=== PATIENT | male | born 1940 | race Caucasian/White ===

== ENCOUNTER 2020-07-16 16:08 | Inpatient (IN) | payer OTHER ==
--- OUTSIDE RECORDS SUMMARY | 2020-07-16 19:06 | XMS REPORT | Continuity of Care Document ---
:1940 Author Organization [facility] t Address [address] [place] [address] Care Team Providers Name Role Phone Lena Banks MD Attending Clinician Payers Payer Name Policy Type Policy Number Effective Date Expiration Date S ource Problems This patient has no known problems. Allergies, Adverse Reactions, Alerts Allergy Allergy Status Severity Reaction(s) Onset Inactive Treating Comm ents Source Name Type Date Date Clinician No Known DA Active U [facility] 00:00: d 00 [facility] Medications This patient has no known medications. Procedures This patient has no known procedures. Encounters Start End Encounter Admission Attending Care Care Encounter Source Date/Time Date/Time Type Type Clinicians Facility Department ID 2019-06-28 2019-06-28 [facility] [id number] 09:30:00 23:59:00 Encounter [email or web address] [id number] Surgical 4.2.7.2.686 Specialti [id number] [address] [place] 2019-06-28 2019-06-28 Office [facility] [id number] 09:13:51 10:04:54 Visit Miguel [email or web address] 350.1.13.10 Surgical 4.2.7.2.686 Specialti [id number] [address] Results Test Description Test Time Test Comments Results Result Comments Source GLUBED 2020-07-01 13:14:00 Test Item Value Reference Range Interpretation Comme nts GLUBED (test code = GLUBED) 109 MG/DL 74-106 H [id number] 13:14:00 Test Item Value Reference Range Interpretation Comments GLUBED (test code = GLUBED) 109 MG/DL 74-106 H [id number] 06:47:00 Test Item Value Reference Range Interpretation Comments GLUBED (test code = GLUBED) 111 MG/DL 74-106 H COMPREHENSIVE METABOLIC [id number] 04:04:00 Test Item Value Reference Range Interpretation Comments SODIUM (test code = 137 mmol/L 137-145 N NA) POTASSIUM (test code 4.0 mmol/L 3.4-5.0 N = K) CHLORIDE (test code 103 mmol/L 98-107 N = CL) CARBON DIOXIDE (test 26 mmol/L 22-30 N code = CO2) GLUCOSE (test code = 125 mg/dL 74-106 H GLU) BLOOD UREA NITROGEN 14 mg/dL 9-20 N (test code = BUN) GLOMERULAR 62 >60 The estimated FILTRATION RATE glomerular f iltration (test code = GFR) rate is co mputed usingpatient ra ce, age (>18), sex, and serum creatinine. If anyof the needed data elements are mi ssing the Laboratory cannot compute an destini mation of the glomerul ar filtration rate . CREATININE (test 1.2 mg/dL 0.7-1.3 N code = CREAT) TOTAL PROTEIN (test 6.5 g/dL 6.3-8.2 N code = PROT) " A positive bias m ay occur for patients ta rasheed Eltrombopag(a b one marrow stimulan t used to treat thrombocytopeni a andaplastic anemia)." ALBUMIN (test code = 3.6 g/dL 3.5-5.0 N ALB) CALCIUM (test code = 9.1 mg/dL 8.4-10.2 N CA) BILIRUBIN TOTAL 0.5 mg/dL 0.2-1.3 N "A positive bias may (test code = BILT) occur for patients taking Eltrombo pag(a bone marrow sti mulant used to treat thrombocytopeni a andaplastic ane frederick)." BILIRUBIN CONJUGATED 0 mg/dL 0-0.3 N "A posi tive bias may (test code = BILCON) occur f or patients taking Eltrombo pag(a bone marrow sti mulant used to treat thrombocytopeni a andaplastic ane frederick)." C ONJUGATE D BILIRUBIN IS THE REPLACEMENT ASS AY FOR DIRECTBILIRUBIN . BILIRUBIN 0.5 mg/dL 0-1.1 N UNCONJUGATED (test code = BILUNC) SGOT/AST (test code 32 U/L 15-46 N = AST) SGPT/ALT (test code 18 U/L 0-34 N = ALT) ALKALINE PHOSPHATASE 53 U/L 38-126 N (test code = ALKP) THROMBOPLASTIN TIME [id number] 03:58:00 Test Item Value Reference Range Interpretation Comments THROMBOPLASTIN TIME 29.8 SECONDS 23.4-37.0 N Therap eutic Range PARTIAL (test code = for Hep cr PTT) EFFECTIVE Heparin IU/mL aPT T Seconds0.3 64.30.7 88.8 IS PATIENT ON ANTICOAGULANTS ? YESLIST ANTICOAGULANT/ANTI PLT MEDICATION: Enoxaprin (Lovenox)CBC W/AUTO [id number] 03:51:00 Test Item Value Reference Range Interpretation Comments WHITE BLOOD CELL (test code = 6.1 x10 3/uL 5.0-12.0 N WBC) RED BLOOD CELL (test code = 3.93 x10 6/uL 4.70-6.10 L RBC) HEMOGLOBIN (test code = HGB) 11.9 g/dL 14.0-18.0 L HEMATOCRIT (test code = HCT) 34.0 % 37.0-49.0 L MEAN CELL VOLUME (test code = 87 fL 80-94 N MCV) MEAN CELL HGB (test code = MCH) 30.3 pg 27-31 N MEAN CELL HGB CONCENTRATION 35.0 g/dL 33-37 N (test code = MCHC) RED CELL DISTRIBUTION WIDTH 12.1 % 11.5-15.5 N (test code = RDW) PLATELET COUNT (test code = 320 x10 3/uL 130-400 N PLT) MEAN PLATELET VOLUME (test code 8.9 fL 9.4-16.4 L = MPV) NEUTROPHIL % (test code = NT%) 58.0 % 43-65 N IMMATURE GRANULOCYTE % (test 0.5 % 0.0-2.0 N code = IG%) LYMPHOCYTE % (test code = LY%) 21.4 % 20.5-45.5 N MONOCYTE % (test code = MO%) 11.0 % 5.5-11.7 N EOSINOPHIL % (test code = EO%) 8.6 % 0.9-2.9 H BASOPHIL % (test code = BA%) 0.5 % 0.2-1.0 N NUCLEATED RBC % (test code = 0.0 % 0-1.0 N NRBC%) NEUTROPHIL # (test code = NT#) 3.52 x10 3/uL 2.2-4.8 N IMMATURE GRANULOCYTE # (test 0.03 x10 3/uL 0-0.03 N code = IG#) LYMPHOCYTE # (test code = LY#) 1.30 x10 3/uL 1.3-2.9 N MONOCYTE # (test code = MO#) 0.67 x10 3/uL 0.3-0.8 N EOSINOPHIL # (test code = EO#) 0.52 x10 3/uL 0.0-0.2 H BASOPHIL # (test code = BA#) 0.03 x10 3/uL 0.0-0.1 N [id number] 20:40:00 Test Item Value Reference Range Interpretation Comments GLUBED (test code = GLUBED) 141 MG/DL 74-106 H [id number] 16:58:00 Test Item Value Reference Range Interpretation Comments GLUBED (test code = GLUBED) 123 MG/DL 74-106 H [id number] 12:05:00 Test Item Value Reference Range Interpretation Comments GLUBED (test code = GLUBED) 165 MG/DL 74-106 H - MRI UP JNT W/O CONT [id number] 08:50:00 [facility] : 1940 Sex: M FAX: Louis Araiza MD [phone] [place]: St: [facility] FAX: Konstantin Cunha mmad [phone] Name: RENEE DEUTSCH [facility] : 1940 Age/S: 80/M [address] Unit #: [id number] Loc: C.[address] [place] [address] Phys: Jose D Millan MD Acct: [id number] Dis Date: Status: ADM IN PHONE #: [phone] Exam Date: 06/30/2020 0716 FAX #: [phone] Reason:septic arthritis EXAMS: CPT CODE: [id number] [place] JNT W/[place] [address] MRI OF THE LEFT WRIST WITHOUT INTRAVENOUS CONTRAST HISTORY: Septic arthritis. TECHNIQUE: Multiplanar and multisequential MR imaging of the left wrist was performed without the administration of intravenous gadolinium. COMPARISON: 06/29/2020 MR exam. FINDINGS: There is no evidence for acute fracture. There is no dislocation. There are subtle erosions at the lateral margin of the distal scaphoid pole as best seen on coronal T1 weighted image 11, although without sniffing and marrow edema. There isdegenerative marrow edema scattered throughout the wrist, this appears most pronounced at the 1st CMC joint that is moderate in degree. Note is made of prominent subchondral cysts atthe volar and medial aspect of the distal radius as well as at the radial styloid process. There are joint effusions involving the distal radioulnar, radiocarpal and intercarpal joint spaces. There is ill- definition of the scapholunate ligament without discrete fluid traversing the ligament. The lunotriquetral ligament is intact. The central disc of the TFCC is intact. There is mild fluid distention of the flexor pollicis longus tendon at the level of the 1st metacarpal. The remaining flexor and extensor tendons are intact. The median nerve has normal signal in the region of the carpal tunnel. The ulnar nerve is unremarkable. There is no signal abnormality in the region of Guyon's canal. The visualized musculature is normal in signal. There is diffuse subcutaneous edemaabout the wrist extending dorsally towards the hand. IMPRESSION: Distal radioulnar, radiocarpal and intercarpal joint effusions. Subtle erosions at the distal scaphoid pole although without PAGE 1 Signed Report (CONTINUED) FAX: Louis Araiza MD [phone] [place]: St: ADM FAX: Jose D Cunha Name: RENEE DEUTSCH [facility] : 1940 Age/S: 80/M [address] Unit #: [id number] Loc: C.[address] [place] [address] Phys: Jose D Millan MD Acct: [id number] Dis Date: Status: ADM IN PHONE #: [phone] Exam Date: 06/30/2020715 FAX #: [phone] Reason: septic arthritis EXAMS:CPT CODE: [id number] [place] JNT W/[place] [address] <Continued> significant edema, age indeterminate. If there is concern for septic arthritis, consider joint fluid aspiration. Mild focal flexor pollicis longus tenosynovitis. 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 at 0850 Reported and signed by: Tato Maurice MD CC: Louis Garza MD; Jose D Millan MD Technologist: ROLANDA FIERRO [facility] Date/Time/By: 06/30/2020 (0850) : By: [email or web address] PAGE2 Signed Report FAX: Louis Araiza MD [phone] [place]: St: ADM FAX: Jose D Cunha [phone] Name: RENEE DEUTSCH [place] : 1940 Age/S: 80/M [address] Unit #: [id number] Loc: C.[address] [place] [address] Phys: Jose D Millan MD Acct: [id number] Dis Date: Status: ADM IN PHONE #: [phone] Exam Date: 06/30/202016 FAX #: [phone] Reason: septic arthritis EXAMS: CPT CODE: [id number] [place] JNT W/[place] [address] <Continued> Orig Print D/T: S: 06/30/2020 (1350) PAGE 3 Signed [id number] 06:22:00 Test Item Value Reference Range Interpretation Comments GLUBED (test code = GLUBED) 179 MG/DL 74-106 H COMPREHENSIVE METABOLIC [id number] 05:30:00 Test Item Value Reference Range Interpretation Comments SODIUM (test code = 137 mmol/L 137-145 N NA) POTASSIUM (test code 4.0 mmol/L 3.4-5.0 N = K) CHLORIDE (test code 105 mmol/L 98-107 N = CL) CARBON DIOXIDE (test 23 mmol/L 22-30 N code = CO2) GLUCOSE (test code = 116 mg/dL 74-106 H GLU) BLOOD UREA NITROGEN 18 mg/dL 9-20 N (test code = BUN) GLOMERULAR 62 >60 The estimated FILTRATION RATE glomerular f iltration (test code = GFR) rate is co mputed usingpatient ra ce, age (>18), sex, and serum creatinine. If anyof the needed data elements are mi ssing the Laboratory cannot compute an destini mation of the glomerul ar filtration rate . CREATININE (test 1.2 mg/dL 0.7-1.3 N code = CREAT) TOTAL PROTEIN (test 6.8 g/dL 6.3-8.2 N code = PROT) " A positive bias m ay occur for patients ta rasheed Eltrombopag(a b one marrow stimulan t used to treat thrombocytopeni a andaplastic anemia)." ALBUMIN (test code = 3.6 g/dL 3.5-5.0 N ALB) CALCIUM (test code = 9.0 mg/dL 8.4-10.2 N CA) BILIRUBIN TOTAL 0.8 mg/dL 0.2-1.3 N "A positive bias may (test code = BILT) occur for patients taking Eltrombo pag(a bone marrow sti mulant used to treat thrombocytopeni a andaplastic ane frederick)." BILIRUBIN CONJUGATED 0 mg/dL 0-0.3 N "A posi tive bias may (test code = BILCON) occur f or patients taking Eltrombo pag(a bone marrow sti mulant used to treat thrombocytopeni a andaplastic ane frederick)." C ONJUGATE D BILIRUBIN IS THE REPLACEMENT ASS AY FOR DIRECTBILIRUBIN . BILIRUBIN 0.5 mg/dL 0-1.1 N UNCONJUGATED (test code = BILUNC) SGOT/AST (test code 27 U/L 15-46 N = AST) SGPT/ALT (test code 14 U/L 0-34 N = ALT) ALKALINE PHOSPHATASE 55 U/L 38-126 N (test code = ALKP) [id number] 05:30:00 Test Item Value Reference Range Interpretation Comments PHOSPHOROUS (test code = PHOS) 3.3 mg/dL 2.5-4.5 N [id number] 05:30:00 Test Item Value Reference Range Interpretation Comments MAGNESIUM (test code = MAG) 2.0 mg/dL 1.6-2.3 N TSH REFLEX TO [id number] 05:30:00 Test Item Value Reference Range Interpretation Comments TSH REFLEX TO FT4 3.020 MIU/L 0.465-4.68 N (test code = TSHREFLEX) *A positive bias m ay occur for patie nts taking BIOTINsupplemen ts. C REACTIVE [id number] 05:30:00 Test Item Value Reference Range Interpretation Comments C REACTIVE PROTEIN (test code = 138.1 mg/L 0-9 H CRP) COMPREHENSIVE METABOLIC [id number] 04:44:00 Test Item Value Reference Range Interpretation Comments SODIUM (test code = 137 mmol/L 137-145 N NA) POTASSIUM (test code 4.0 mmol/L 3.4-5.0 N = K) CHLORIDE (test code 105 mmol/L 98-107 N = CL) CARBON DIOXIDE (test 23 mmol/L 22-30 N code = CO2) GLUCOSE (test code = 116 mg/dL 74-106 H GLU) BLOOD UREA NITROGEN 18 mg/dL 9-20 N (test code = BUN) GLOMERULAR 62 >60 The estimated FILTRATION RATE glomerular f iltration (test code = GFR) rate is co mputed usingpatient ra ce, age (>18), sex, and serum creatinine. If anyof the needed data elements are mi ssing the Laboratory cannot compute an destini mation of the glomerul ar filtration rate . CREATININE (test 1.2 mg/dL 0.7-1.3 N code = CREAT) TOTAL PROTEIN (test 6.8 g/dL 6.3-8.2 N code = PROT) " A positive bias m ay occur for patients ta rasheed Eltrombopag(a b one marrow stimulan t used to treat thrombocytopeni a andaplastic anemia)." ALBUMIN (test code = 3.6 g/dL 3.5-5.0 N ALB) CALCIUM (test code = 9.0 mg/dL 8.4-10.2 N CA) BILIRUBIN TOTAL 0.8 mg/dL 0.2-1.3 N "A positive bias may (test code = BILT) occur for patients taking Eltrombo pag(a bone marrow sti mulant used to treat thrombocytopeni a andaplastic ane frederick)." BILIRUBIN CONJUGATED 0 mg/dL 0-0.3 N "A posi tive bias may (test code = BILCON) occur f or patients taking Eltrombo pag(a bone marrow sti mulant used to treat thrombocytopeni a andaplastic ane frederick)." C ONJUGATE D BILIRUBIN IS THE REPLACEMENT ASS AY FOR DIRECTBILIRUBIN . BILIRUBIN 0.5 mg/dL 0-1.1 N UNCONJUGATED (test code = BILUNC) SGOT/AST (test code 27 U/L 15-46 N = AST) SGPT/ALT (test code 14 U/L 0-34 N = ALT) ALKALINE PHOSPHATASE 55 U/L 38-126 N (test code = ALKP) [id number] 04:44:00 Test Item Value Reference Range Interpretation Comments PHOSPHOROUS (test code = PHOS) 3.3 mg/dL 2.5-4.5 N [id number] 04:44:00 Test Item Value Reference Range Interpretation Comments MAGNESIUM (test code = MAG) 2.0 mg/dL 1.6-2.3 N TSH REFLEX TO [id number] 04:44:00 Test Item Value Reference Range Interpretation Comments TSH REFLEX TO FT4 (test code = MIU/L 0.465-4.68 TSHREFLEX) C REACTIVE [id number] 04:44:00 Test Item Value Reference Range Interpretation Comments C REACTIVE PROTEIN (test code = 138.1 mg/L 0-9 H CRP) COMPREHENSIVE METABOLIC [id number] 04:32:00 Test Item Value Reference Range Interpretation Comments SODIUM (test code = 137 mmol/L 137-145 N NA) POTASSIUM (test code 4.0 mmol/L 3.4-5.0 N = K) CHLORIDE (test code 105 mmol/L 98-107 N = CL) CARBON DIOXIDE (test 23 mmol/L 22-30 N code = CO2) GLUCOSE (test code = 116 mg/dL 74-106 H GLU) BLOOD UREA NITROGEN 18 mg/dL 9-20 N (test code = BUN) GLOMERULAR 62 >60 The estimated FILTRATION RATE glomerular f iltration (test code = GFR) rate is co mputed usingpatient ra ce, age (>18), sex, and serum creatinine. If anyof the needed data elements are mi ssing the Laboratory cannot compute an destini mation of the glomerul ar filtration rate . CREATININE (test 1.2 mg/dL 0.7-1.3 N code = CREAT) TOTAL PROTEIN (test 6.8 g/dL 6.3-8.2 N code = PROT) " A positive bias m ay occur for patients ta rasheed Eltrombopag(a b one marrow stimulan t used to treat thrombocytopeni a andaplastic anemia)." ALBUMIN (test code = 3.6 g/dL 3.5-5.0 N ALB) CALCIUM (test code = 9.0 mg/dL 8.4-10.2 N CA) BILIRUBIN TOTAL 0.8 mg/dL 0.2-1.3 N "A positive bias may (test code = BILT) occur for patients taking Eltrombo pag(a bone marrow sti mulant used to treat thrombocytopeni a andaplastic ane frederick)." BILIRUBIN CONJUGATED 0 mg/dL 0-0.3 N "A posi tive bias may (test code = BILCON) occur f or patients taking Eltrombo pag(a bone marrow sti mulant used to treat thrombocytopeni a andaplastic ane frederick)." C ONJUGATE D BILIRUBIN IS THE REPLACEMENT ASS AY FOR DIRECTBILIRUBIN . BILIRUBIN 0.5 mg/dL 0-1.1 N UNCONJUGATED (test code = BILUNC) SGOT/AST (test code 27 U/L 15-46 N = AST) SGPT/ALT (test code 14 U/L 0-34 N = ALT) ALKALINE PHOSPHATASE 55 U/L 38-126 N (test code = ALKP) [id number] 04:32:00 Test Item Value Reference Range Interpretation Comments PHOSPHOROUS (test code = PHOS) 3.3 mg/dL 2.5-4.5 N [id number] 04:32:00 Test Item Value Reference Range Interpretation Comments MAGNESIUM (test code = MAG) 2.0 mg/dL 1.6-2.3 N TSH REFLEX TO [id number] 04:32:00 Test Item Value Reference Range Interpretation Comments TSH REFLEX TO FT4 (test code = MIU/L 0.465-4.68 TSHREFLEX) C REACTIVE [id number] 04:32:00 Test Item Value Reference Range Interpretation Comments C REACTIVE PROTEIN (test code = CRP) mg/L 0-9 CBC W/AUTO [id number] 04:09:00 Test Item Value Reference Range Interpretation Comments WHITE BLOOD CELL (test code = 6.4 x10 3/uL 5.0-12.0 N WBC) RED BLOOD CELL (test code = 3.85 x10 6/uL 4.70-6.10 L RBC) HEMOGLOBIN (test code = HGB) 11.4 g/dL 14.0-18.0 L HEMATOCRIT (test code = HCT) 33.5 % 37.0-49.0 L MEAN CELL VOLUME (test code = 87 fL 80-94 N MCV) MEAN CELL HGB (test code = MCH) 29.6 pg 27-31 N MEAN CELL HGB CONCENTRATION 34.0 g/dL 33-37 N (test code = MCHC) RED CELL DISTRIBUTION WIDTH 12.1 % 11.5-15.5 N (test code = RDW) PLATELET COUNT (test code = 294 x10 3/uL 130-400 N PLT) MEAN PLATELET VOLUME (test code 8.8 fL 9.4-16.4 L = MPV) NEUTROPHIL % (test code = NT%) 60.7 % 43-65 N IMMATURE GRANULOCYTE % (test 0.2 % 0.0-2.0 N code = IG%) LYMPHOCYTE % (test code = LY%) 18.8 % 20.5-45.5 L MONOCYTE % (test code = MO%) 11.8 % 5.5-11.7 H EOSINOPHIL % (test code = EO%) 7.9 % 0.9-2.9 H BASOPHIL % (test code = BA%) 0.6 % 0.2-1.0 N NUCLEATED RBC % (test code = 0.0 % 0-1.0 N NRBC%) NEUTROPHIL # (test code = NT#) 3.89 x10 3/uL 2.2-4.8 N IMMATURE GRANULOCYTE # (test 0.01 x10 3/uL 0-0.03 N code = IG#) LYMPHOCYTE # (test code = LY#) 1.21 x10 3/uL 1.3-2.9 L MONOCYTE # (test code = MO#) 0.76 x10 3/uL 0.3-0.8 N EOSINOPHIL # (test code = EO#) 0.51 x10 3/uL 0.0-0.2 H BASOPHIL # (test code = BA#) 0.04 x10 3/uL 0.0-0.1 N [id number] 21:33:00 Test Item Value Reference Range Interpretation Comments GLUBED (test code = GLUBED) 157 MG/DL 74-106 H [id number] 17:16:00 Test Item Value Reference Range Interpretation Comments GLUBED (test code = GLUBED) 116 MG/DL 74-106 H FLUID,[id number] 13:56:00 Test Item Value Reference Range Interpretation Comments FLUID,SYNOVIAL (test code = FLSYNOV) RUN DATE: 06/29/20 [place] [facility] PAGE 1 RUN TIME: 1356 Specimen Inquiry RUN USER: INTERFACE PATIENT: RENEE DEUTSCH LOC: [address] #: [id number] AGE/SX: 80/M ROOM: [facility] RE06/26/20[facility] DR: Louis Garza MD : 38 BED: A DIS: STATUS: ADM IN TLOC: SPEC #: [id number] RECD: 06/29/20 STATUS: LISA BLANCO #: [id number] DHARMESH: 06/27/20-1507 [facility] DR: Ruiz Gunter MD ENTERED: 06/29/20 SP TYPE: FL SYNOVIA OT DR: DOES_NOT KNOW Self Referred Robin Cerna Srinivasa R MD Jordan, Matthew Emerson MDORDERED: CYFWBSMI, # OF SLIDES TISSUES: A. SYNOVIAL FLUID - LEFT WRIST CLINICAL HISTORY LEFT WRIST EFFUSION, SEPTIC JOINT FINAL MICROSCOPIC DIAGNOSIS A. SYNOVIAL FLUID, LEFT WRIST, ASPIRATION, DIRECT SMEAR: CALCIUM PYROPHOSPHATE CRYSTALS NOTED BY POLARIZED LIGHT MICROSCOPY CPT: 10448 GROSS DESCRIPTION Equipment, specimen container and paperwork all match. The specimen is received without fixative labeled with the patient's name (GET) and medical record number and designated " Left wrist synovial fluid ". It consists of approximately 8 drops of clear thick colorless flid. The specimen is submitted for cytologic preparation. DIRECT SMEARS: 1 BL/av Signed SIGNATURE ON FILE Tereza Travis 06/29/20 1356 END OF REPORT VANCOMYCIN [id number] 12:45:00 Test Item Value Reference Range Interpretation Comments VANCOMYCIN TROUGH (test code = 10.86 ug/mL 10-20.0 N VANCT) [id number] 12:12:00 Test Item Value Reference Range Interpretation Comments GLUBED (test code = GLUBED) 108 MG/DL 74-106 H - MRI UPPER EX W/O CONT [id number] 10:03:00 [facility] : 1940 Sex: M FAX: Louis Araiza MD [phone] [place]: St: ADM FAX: Bk Vaughn MD R2 Name: RENEE DEUTSCH [facility] : 1940 Age/S: 80/M [address] Unit #: [id number] Loc: C.[address] [place] [address] Phys: Marlon Vaughn MD R2 Acct: [id number] Dis Date: Status: ADM IN PHONE #: [phone] Exam Date: 06/29/2020 0851 FAX #: [phone] Reason:Left arm pain EXAMS: CPT CODE: [id number] MRI UPPER EX W/[place] [id number] EXAMINATION: MRI left upper extremity without contrast INDICATION: Left arm pain COMPARISON: No prior left upper extremity MRI for comparison; reference made to left upper extremity arterial and venous Doppler examinations performed 06/26/2020 TECHNIQUE:Multisequence multiplanar MRI of the left upper extremity was performed from level of the elbow to level of wrist without contrast. FINDINGS: Exam is significantly limited by motion artifact. Edema of the subcutaneous soft tissues and fascial planes throughout the visualized left upper extremity. Small elbow joint effusion. No focal fluid collection is seen, evaluation limited without contrast. Bone marrow signal is normal throughout without evidence of bone marrow edema, fracture, or dislocation. IMPRESSION: Exam significantly limited by motion artifact. Soft tissue edema and small elbow joint effusion. No focal fluid collection or marrow signal abnormality identified. at 1003 Reported and signed by: Eder Davis M.D. CC: Louis Garza MD; Marlon Vaughn MD Technologist: ROLANDA FIERRO [facility] Date/Time/By: 06/29/2020 (1003) : By: [email or web address] PAGE 1 Signed Report FAX: Louis Araiza MD [phone] [place]: St: ADM FAX: Marlon Vaughn MD R2 Name: RENEE DEUTSCH [facility] : 1940 Age/S: 80[address] Unit #: [id number] Loc: C.[address] [place] [address] Phys: Marlon Vaughn MD R2 Acct: [id number] Dis Date: Status: ADM IN PHONE #: [phone] Exam Date: 06/29/2020 0851 FAX #: [phone] Reason: Left arm pain EXAMS: CPT CODE: [id number] MRI UPPER EX W/[place] [address] <Continued> Orig Print D/T: S: 06/29/2020 (6999) PAGE 2 Signed ReportCOMPREHENSIVE METABOLIC [id number] 02:48:00 Test Item Value Reference Range Interpretation Comments SODIUM (test code = 138 mmol/L 137-145 N NA) POTASSIUM (test code 3.8 mmol/L 3.4-5.0 N = K) CHLORIDE (test code 104 mmol/L 98-107 N = CL) CARBON DIOXIDE (test 29 mmol/L 22-30 N code = CO2) GLUCOSE (test code = 139 mg/dL 74-106 H GLU) BLOOD UREA NITROGEN 15 mg/dL 9-20 N (test code = BUN) GLOMERULAR 62 >60 The estimated FILTRATION RATE glomerular f iltration (test code = GFR) rate is co mputed usingpatient ra ce, age (>18), sex, and serum creatinine. If anyof the needed data elements are mi ssing the Laboratory cannot compute an destini mation of the glomerul ar filtration rate . CREATININE (test 1.2 mg/dL 0.7-1.3 N code = CREAT) TOTAL PROTEIN (test 6.0 g/dL 6.3-8.2 L code = PROT) " A positive bias m ay occur for patients ta rasheed Eltrombopag(a b one marrow stimulan t used to treat thrombocytopeni a andaplastic anemia)." ALBUMIN (test code = 3.3 g/dL 3.5-5.0 L ALB) CALCIUM (test code = 8.8 mg/dL 8.4-10.2 N CA) BILIRUBIN TOTAL 0.5 mg/dL 0.2-1.3 N "A positive bias may (test code = BILT) occur for patients taking Eltrombo pag(a bone marrow sti mulant used to treat thrombocytopeni a andaplastic ane [place])." BILIRUBIN CONJUGATED 0 mg/dL 0-0.3 N "A posi tive bias may (test code = BILCON) occur f or patients taking Eltrombo pag(a bone marrow sti mulant used to treat thrombocytopeni a andaplastic ane [place])." C ONJUGATE D BILIRUBIN IS THE REPLACEMENT ASS AY FOR DIRECTBILIRUBIN . BILIRUBIN 0.5 mg/dL 0-1.1 N UNCONJUGATED (test code = BILUNC) SGOT/AST (test code 25 U/L 15-46 N = AST) SGPT/ALT (test code U/L 0-34 = ALT) ALKALINE PHOSPHATASE 51 U/L 38-126 N (test code = ALKP) COMPREHENSIVE METABOLIC [id number] 02:48:00 Test Item Value Reference Range Interpretation Comments SODIUM (test code = 138 mmol/L 137-145 N NA) POTASSIUM (test code 3.8 mmol/L 3.4-5.0 N = K) CHLORIDE (test code 104 mmol/L 98-107 N = CL) CARBON DIOXIDE (test 29 mmol/L 22-30 N code = CO2) GLUCOSE (test code = 139 mg/dL 74-106 H GLU) BLOOD UREA NITROGEN 15 mg/dL 9-20 N (test code = BUN) GLOMERULAR 62 >60 The estimated FILTRATION RATE glomerular f iltration (test code = GFR) rate is co mputed usingpatient ra ce, age (>18), sex, and serum creatinine. If anyof the needed data elements are mi ssing the Laboratory cannot compute an destini mation of the glomerul ar filtration rate . CREATININE (test 1.2 mg/dL 0.7-1.3 N code = CREAT) TOTAL PROTEIN (test 6.0 g/dL 6.3-8.2 L code = PROT) " A positive bias m ay occur for patients ta rasheed Eltrombopag(a b one marrow stimulan t used to treat thrombocytopeni a andaplastic anemia)." ALBUMIN (test code = 3.3 g/dL 3.5-5.0 L ALB) CALCIUM (test code = 8.8 mg/dL 8.4-10.2 N CA) BILIRUBIN TOTAL 0.5 mg/dL 0.2-1.3 N "A positive bias may (test code = BILT) occur for patients taking Eltrombo pag(a bone marrow sti mulant used to treat thrombocytopeni a andaplastic ane frederick)." BILIRUBIN CONJUGATED 0 mg/dL 0-0.3 N "A posi tive bias may (test code = BILCON) occur f or patients taking Eltrombo pag(a bone marrow sti mulant used to treat thrombocytopeni a andaplastic ane frederick)." C ONJUGATE D BILIRUBIN IS THE REPLACEMENT ASS AY FOR DIRECTBILIRUBIN . BILIRUBIN 0.5 mg/dL 0-1.1 N UNCONJUGATED (test code = BILUNC) SGOT/AST (test code 25 U/L 15-46 N = AST) SGPT/ALT (test code 13 U/L 0-34 N = ALT) ALKALINE PHOSPHATASE 51 U/L 38-126 N (test code = ALKP) CBC W/AUTO [id number] 02:36:00 Test Item Value Reference Range Interpretation Comments WHITE BLOOD CELL (test code = 6.1 x10 3/uL 5.0-12.0 N WBC) RED BLOOD CELL (test code = 3.68 x10 6/uL 4.70-6.10 L RBC) HEMOGLOBIN (test code = HGB) 10.9 g/dL 14.0-18.0 L HEMATOCRIT (test code = HCT) 31.5 % 37.0-49.0 L MEAN CELL VOLUME (test code = 86 fL 80-94 N MCV) MEAN CELL HGB (test code = MCH) 29.6 pg 27-31 N MEAN CELL HGB CONCENTRATION 34.6 g/dL 33-37 N (test code = MCHC) RED CELL DISTRIBUTION WIDTH 12.4 % 11.5-15.5 N (test code = RDW) PLATELET COUNT (test code = 249 x10 3/uL 130-400 N PLT) MEAN PLATELET VOLUME (test code 8.8 fL 9.4-16.4 L = MPV) NEUTROPHIL % (test code = NT%) 60.7 % 43-65 N IMMATURE GRANULOCYTE % (test 0.5 % 0.0-2.0 N code = IG%) LYMPHOCYTE % (test code = LY%) 22.6 % 20.5-45.5 N MONOCYTE % (test code = MO%) 10.7 % 5.5-11.7 N EOSINOPHIL % (test code = EO%) 5.0 % 0.9-2.9 H BASOPHIL % (test code = BA%) 0.5 % 0.2-1.0 N NUCLEATED RBC % (test code = 0.0 % 0-1.0 N NRBC%) NEUTROPHIL # (test code = NT#) 3.67 x10 3/uL 2.2-4.8 N IMMATURE GRANULOCYTE # (test 0.03 x10 3/uL 0-0.03 N code = IG#) LYMPHOCYTE # (test code = LY#) 1.37 x10 3/uL 1.3-2.9 N MONOCYTE # (test code = MO#) 0.65 x10 3/uL 0.3-0.8 N EOSINOPHIL # (test code = EO#) 0.30 x10 3/uL 0.0-0.2 H BASOPHIL # (test code = BA#) 0.03 x10 3/uL 0.0-0.1 N [id number] 20:38:00 Test Item Value Reference Range Interpretation Comments GLUBED (test code = GLUBED) 179 MG/DL 74-106 H [id number] 16:27:00 Test Item Value Reference Range Interpretation Comments GLUBED (test code = GLUBED) 106 MG/DL 74-106 N VITAMIN [id number] 15:41:00 Test Item Value Reference Range Interpretation Comments VITAMIN B12 (test code = VITB12) 267 pg/mL 239-931 N FOLIC [id number] 15:41:00 Test Item Value Reference Range Interpretation Comments FOLIC ACID (test 5.52 ng/mL REFERENCE R HANNAH:2.76 - code = FOL) >20 ng/mL A positive bias m ay occur on patients milagros ing BIOTINsupplemen ts. [id number] 15:41:00 Test Item Value Reference Range Interpretation Comments FERRITIN (test code = JAX) 218 ng/mL 17.9-464 N VITAMIN [id number] 15:20:00 Test Item Value Reference Range Interpretation Comments VITAMIN B12 (test code = VITB12) pg/mL 239-931 FOLIC [id number] 15:20:00 Test Item Value Reference Range Interpretation Comments FOLIC ACID (test code = FOL) ng/mL [id number] 15:20:00 Test Item Value Reference Range Interpretation Comments FERRITIN (test code = JAX) 218 ng/mL 17.9-464 N FE W/TOTAL IRON BINDING CAP.2020-06-28 14:47:00 Test Item Value Reference Range Interpretation Comments IRON (test code = IRON) 23 ug/dL 49-181 L TOTAL IRON BINDING CAPACITY (test 198 ug/dL 261-462 L code = TIBC) IRON SATURATION (test code = FESAT) 12 % 20-55 L FE W/TOTAL IRON BINDING CAP.2020-06-28 14:42:00 Test Item Value Reference Range Interpretation Comments IRON (test code = IRON) 23 ug/dL 49-181 L TOTAL IRON BINDING CAPACITY (test ug/dL 261-462 code = TIBC) IRON SATURATION (test code = FESAT) % 20-55 VANCOMYCIN [id number] 14:42:00 Test Item Value Reference Range Interpretation Comments VANCOMYCIN PEAK (test code = 30.24 ug/mL 20.0-40.0 N VANCP) RETICULOCYTE [id number] 14:18:00 Test Item Value Reference Range Interpretation Comments RETICULOCYTE COUNT (test code = RETICA) 1.0 % 0.5-1.5 N [id number] 12:06:00 Test Item Value Reference Range Interpretation Comments GLUBED (test code = GLUBED) 191 MG/DL 74-106 H SED [id number] 06:47:00 Test Item Value Reference Range Interpretation Comments SED RATE (test code = SEDW) 68 mm/hr 0-20 H [id number] 05:57:00 Test Item Value Reference Range Interpretation Comments GLUBED (test code = GLUBED) 135 MG/DL 74-106 H [id number] 05:57:00 Test Item Value Reference Range Interpretation Comments GLUBED (test code = GLUBED) 62 MG/DL 74-106 L COMPREHENSIVE METABOLIC [id number] 05:14:00 Test Item Value Reference Range Interpretation Comments SODIUM (test code = 136 mmol/L 137-145 L NA) POTASSIUM (test code 3.6 mmol/L 3.4-5.0 N = K) CHLORIDE (test code 105 mmol/L 98-107 N = CL) CARBON DIOXIDE (test 23 mmol/L 22-30 N code = CO2) GLUCOSE (test code = 68 mg/dL 74-106 L GLU) BLOOD UREA NITROGEN 17 mg/dL 9-20 N (test code = BUN) GLOMERULAR 68 >60 The estimated FILTRATION RATE glomerular f iltration (test code = GFR) rate is co mputed usingpatient ra ce, age (>18), sex, and serum creatinine. If anyof the needed data elements are mi ssing the Laboratory cannot compute an destini mation of the glomerul ar filtration rate . CREATININE (test 1.1 mg/dL 0.7-1.3 N code = CREAT) TOTAL PROTEIN (test 6.1 g/dL 6.3-8.2 L code = PROT) " A positive bias m ay occur for patients ta rasheed Eltrombopag(a b one marrow stimulan t used to treat thrombocytopeni a andaplastic anemia)." ALBUMIN (test code = 3.2 g/dL 3.5-5.0 L ALB) CALCIUM (test code = 8.5 mg/dL 8.4-10.2 N CA) BILIRUBIN TOTAL 0.8 mg/dL 0.2-1.3 N "A positive bias may (test code = BILT) occur for patients taking Eltrombo pag(a bone marrow sti mulant used to treat thrombocytopeni a andaplastic ane frederick)." BILIRUBIN CONJUGATED 0 mg/dL 0-0.3 N "A posi tive bias may (test code = BILCON) occur f or patients taking Eltrombo pag(a bone marrow sti mulant used to treat thrombocytopeni a andaplastic ane frederick)." C ONJUGATE D BILIRUBIN IS THE REPLACEMENT ASS AY FOR DIRECTBILIRUBIN . BILIRUBIN 0.6 mg/dL 0-1.1 N UNCONJUGATED (test code = BILUNC) SGOT/AST (test code 26 U/L 15-46 N = AST) SGPT/ALT (test code 10 U/L 0-34 N = ALT) ALKALINE PHOSPHATASE 48 U/L 38-126 N (test code = ALKP) C REACTIVE [id number] 05:14:00 Test Item Value Reference Range Interpretation Comments C REACTIVE PROTEIN (test code = 237.9 mg/L 0-9 H CRP) COMPREHENSIVE METABOLIC [id number] 04:59:00 Test Item Value Reference Range Interpretation Comments SODIUM (test code = 136 mmol/L 137-145 L NA) POTASSIUM (test code 3.6 mmol/L 3.4-5.0 N = K) CHLORIDE (test code 105 mmol/L 98-107 N = CL) CARBON DIOXIDE (test 23 mmol/L 22-30 N code = CO2) GLUCOSE (test code = 68 mg/dL 74-106 L GLU) BLOOD UREA NITROGEN 17 mg/dL 9-20 N (test code = BUN) GLOMERULAR 68 >60 The estimated FILTRATION RATE glomerular f iltration (test code = GFR) rate is co mputed usingpatient ra ce, age (>18), sex, and serum creatinine. If anyof the needed data elements are mi ssing the Laboratory cannot compute an destini mation of the glomerul ar filtration rate . CREATININE (test 1.1 mg/dL 0.7-1.3 N code = CREAT) TOTAL PROTEIN (test 6.1 g/dL 6.3-8.2 L code = PROT) " A positive bias m ay occur for patients ta rasheed Eltrombopag(a b one marrow stimulan t used to treat thrombocytopeni a andaplastic anemia)." ALBUMIN (test code = 3.2 g/dL 3.5-5.0 L ALB) CALCIUM (test code = 8.5 mg/dL 8.4-10.2 N CA) BILIRUBIN TOTAL 0.8 mg/dL 0.2-1.3 N "A positive bias may (test code = BILT) occur for patients taking Eltrombo pag(a bone marrow sti mulant used to treat thrombocytopeni a andaplastic ane frederick)." BILIRUBIN CONJUGATED 0 mg/dL 0-0.3 N "A posi tive bias may (test code = BILCON) occur f or patients taking Eltrombo pag(a bone marrow sti mulant used to treat thrombocytopeni a andaplastic ane frederick)." C ONJUGATE D BILIRUBIN IS THE REPLACEMENT ASS AY FOR DIRECTBILIRUBIN . BILIRUBIN 0.6 mg/dL 0-1.1 N UNCONJUGATED (test code = BILUNC) SGOT/AST (test code 26 U/L 15-46 N = AST) SGPT/ALT (test code 10 U/L 0-34 N = ALT) ALKALINE PHOSPHATASE 48 U/L 38-126 N (test code = ALKP) C REACTIVE [id number] 04:59:00 Test Item Value Reference Range Interpretation Comments C REACTIVE PROTEIN (test code = CRP) mg/L 0-9 CBC W/AUTO [id number] 04:29:00 Test Item Value Reference Range Interpretation Comments WHITE BLOOD CELL (test code = 7.1 x10 3/uL 5.0-12.0 N WBC) RED BLOOD CELL (test code = 3.44 x10 6/uL 4.70-6.10 L RBC) HEMOGLOBIN (test code = HGB) 10.2 g/dL 14.0-18.0 L HEMATOCRIT (test code = HCT) 29.9 % 37.0-49.0 L MEAN CELL VOLUME (test code = 87 fL 80-94 N MCV) MEAN CELL HGB (test code = MCH) 29.7 pg 27-31 N MEAN CELL HGB CONCENTRATION 34.1 g/dL 33-37 N (test code = MCHC) RED CELL DISTRIBUTION WIDTH 12.4 % 11.5-15.5 N (test code = RDW) PLATELET COUNT (test code = 226 x10 3/uL 130-400 N PLT) MEAN PLATELET VOLUME (test code 9.4 fL 9.4-16.4 N = MPV) NEUTROPHIL % (test code = NT%) 64.6 % 43-65 N IMMATURE GRANULOCYTE % (test 0.4 % 0.0-2.0 N code = IG%) LYMPHOCYTE % (test code = LY%) 20.0 % 20.5-45.5 L MONOCYTE % (test code = MO%) 13.3 % 5.5-11.7 H EOSINOPHIL % (test code = EO%) 1.4 % 0.9-2.9 N BASOPHIL % (test code = BA%) 0.3 % 0.2-1.0 N NUCLEATED RBC % (test code = 0.0 % 0-1.0 N NRBC%) NEUTROPHIL # (test code = NT#) 4.61 x10 3/uL 2.2-4.8 N IMMATURE GRANULOCYTE # (test 0.03 x10 3/uL 0-0.03 N code = IG#) LYMPHOCYTE # (test code = LY#) 1.43 x10 3/uL 1.3-2.9 N MONOCYTE # (test code = MO#) 0.95 x10 3/uL 0.3-0.8 H EOSINOPHIL # (test code = EO#) 0.10 x10 3/uL 0.0-0.2 N BASOPHIL # (test code = BA#) 0.02 x10 3/uL 0.0-0.1 N [id number] 21:38:00 Test Item Value Reference Range Interpretation Comments GLUBED (test code = GLUBED) 140 MG/DL 74-106 H [id number] 15:59:00 Test Item Value Reference Range Interpretation Comments GLUBED (test code = GLUBED) 149 MG/DL 74-106 H [id number] 12:28:00 Test Item Value Reference Range Interpretation Comments GLUBED (test code = GLUBED) 90 MG/DL 74-106 N [id number] 06:02:00 Test Item Value Reference Range Interpretation Comments GLUBED (test code = GLUBED) 156 MG/DL 74-106 H [id number] 04:46:00 Test Item Value Reference Range Interpretation Comments GLUBED (test code = GLUBED) 62 MG/DL 74-106 L BASIC METABOLIC [id number] 03:50:00 Test Item Value Reference Range Interpretation Comments SODIUM (test code = 133 mmol/L 137-145 L NA) POTASSIUM (test code 4.1 mmol/L 3.4-5.0 N = K) CHLORIDE (test code = 103 mmol/L 98-107 N CL) CARBON DIOXIDE (test 18 mmol/L 22-30 L code = CO2) GLUCOSE (test code = 60 mg/dL 74-106 L GLU) BLOOD UREA NITROGEN 22 mg/dL 9-20 H (test code = BUN) GLOMERULAR FILTRATION 52 >60 L The es timated RATE (test code = glomerular filtration GFR) rate is compute d usingpatient ra ce, age (>18), sex, and serum creatinine. If anyof the needed data elements are mi ssing the Laboratory cannot compute an destini mation of the glomerul ar filtration rate . CREATININE (test code 1.4 mg/dL 0.7-1.3 H = CREAT) CALCIUM (test code = 8.8 mg/dL 8.4-10.2 N CA) CBC W/AUTO [id number] 03:32:00 Test Item Value Reference Range Interpretation Comments WHITE BLOOD CELL (test code = 12.8 x10 3/uL 5.0-12.0 H WBC) RED BLOOD CELL (test code = 4.10 x10 6/uL 4.70-6.10 L RBC) HEMOGLOBIN (test code = HGB) 12.3 g/dL 14.0-18.0 L HEMATOCRIT (test code = HCT) 35.6 % 37.0-49.0 L MEAN CELL VOLUME (test code = 87 fL 80-94 N MCV) MEAN CELL HGB (test code = MCH) 30.0 pg 27-31 N MEAN CELL HGB CONCENTRATION 34.6 g/dL 33-37 N (test code = MCHC) RED CELL DISTRIBUTION WIDTH 12.4 % 11.5-15.5 N (test code = RDW) PLATELET COUNT (test code = 249 x10 3/uL 130-400 N PLT) MEAN PLATELET VOLUME (test code 9.1 fL 9.4-16.4 L = MPV) NEUTROPHIL % (test code = NT%) 73.1 % 43-65 H IMMATURE GRANULOCYTE % (test 0.3 % 0.0-2.0 N code = IG%) LYMPHOCYTE % (test code = LY%) 14.9 % 20.5-45.5 L MONOCYTE % (test code = MO%) 11.5 % 5.5-11.7 N EOSINOPHIL % (test code = EO%) 0.0 % 0.9-2.9 L BASOPHIL % (test code = BA%) 0.2 % 0.2-1.0 N NUCLEATED RBC % (test code = 0.0 % 0-1.0 N NRBC%) NEUTROPHIL # (test code = NT#) 9.33 x10 3/uL 2.2-4.8 H IMMATURE GRANULOCYTE # (test 0.04 x10 3/uL 0-0.03 H code = IG#) LYMPHOCYTE # (test code = LY#) 1.90 x10 3/uL 1.3-2.9 N MONOCYTE # (test code = MO#) 1.47 x10 3/uL 0.3-0.8 H EOSINOPHIL # (test code = EO#) 0.00 x10 3/uL 0.0-0.2 N BASOPHIL # (test code = BA#) 0.03 x10 3/uL 0.0-0.1 N UA RFLX MICR CULT IF [id number] 00:06:00 Test Item Value Reference Range Interpretation Comments UA COLOR (test code Yellow Yellow = COLU) UA APPEARANCE (test Slightly-Cloudy Clear code = APPU) UA GLUCOSE DIPSTICK 50 (1+) Negative A (test code = DGLUU) UA BILIRUBIN Negative Negative DIPSTICK (test code = BILU) UA KETONE DIPSTICK 15 (1+) mg/dL Negative A (test code = KETU) UA SPECIFIC GRAVITY 1.016 <1.030 (test code = SGU) UA BLOOD DIPSTICK 1+ Negative A (test code = CYN) UA PH DIPSTICK (test 5.0 5.0-8.0 code = YONI) UA PROTEIN DIPSTICK NEGATIVE mg/dL Negative (test code = PROU) UA UROBILINOGEN Negative mg/dL Negative DIPSTICK (test code = URO) UA NITRITE DIPSTICK Negative Negative (test code = CLAYTON) UA LEUKOCYTE NEGATIVE Negative ESTERASE DIPSTICK (test code = LEUU) UA WBC (test code = 0-3 /HPF See_Comment <10 WBC/ HPF = WBCUR) PYURIA ABSENT URINE CULTURE NOT INDICATED [Automated message] The system which generated this result transmit yosvany reference range : <4-5. The reference range was not used to interpret this result as normal/abnormal . UA RBC (test code = NONE /HPF See_Comment [Automa yosvany RBCU) message] The system which generated this result transmit yosvany reference range : <4-5. The reference range was not used to interpret this result as normal/abnormal . UA BACTERIA (test Rare /HPF None-Rare code = BACU) UA SQUAMOUS CELLS 0-5 (RARE) /HPF See_Comment [Autom ated (test code = SQU) message] T he system which generated this result transmit yosvany reference range : 0-5 (RARE). The reference range was not used to interpret this result as normal/abnormal . UA MUCUS (test code 1+ /LPF See_Comment A [Automa yosvany = MUCU) message] The system which generated this result transmit yosvany reference range : <Rare. The reference range was not used to interpret this result as normal/abnormal . Indication for culture: RiskForSepsis-no oth srcSOURCE OF URINE: CLEAN CATCH LIPID PROFILE (CORONARY RISK)2020-06-27 00:04:00 Test Item Value Reference Range Interpretation Comments TRIGLYCERIDES (test 78 mg/dL TRIGLYCE RIDES code = TRIG) REFERENCE RANGE:Normal: < 150 mg/dLBorderline High: 150-199 mg/dLHi gh: 200-499 mg/dLVe ry High: >=500 mg/ dL CHOLESTEROL (test 141 mg/dL CHOLESTERO L REFERENCE code = CHOL) RANGE:DESIRABLE : < 200 mg/dLBORDER LINE: 200-239 mg/dLHI GH: >=240 mg/dL HDL CHOLESTEROL (test 50 mg/dL 40-59 N code = HDL) LIPOPROTEIN LDL (test 61.54 mg/dL 32-99 N code = LDLC) CORONARY RISK FACTOR 2.82 (test code = RISK) CHOL/HDL RISK MALE: 1/2 AVG 3.43 FEMALE: 1/2 AV G 3.27 AVG 4.97 AVG 4.44 2X AVG 9.55 2X AVG 7.05 3X AVG 23. 39 3X AVG 11.04~~~~~~~~~~ ~~~~~~ ~~~~~~~~~~~~~~~ ~~~~~~ ~~~~~~~~~~~~~~~ ~~~~~~ ~~National Cholesterol Edu cation (NCEP) Guidelines:~~~~ ~~~~~~ ~~~~~~~~~~~~~~~ ~~~~~~ ~~~~~~~~~~~~~~~ ~~~~~~ ~~~~~~~~ HDL Cholesterol<4 0mg/dL : HDL Cholester ol (Major risk fac tor for CHD)>60mg/d L: HDL Cholesterol (Ne gative risk factor for CHD)40-59mg/dL: Borderline Risk LDL Cholesterol<1 00mg/d L: Desirable LD L-C cabkcwrciofnd10 0-159m g/dL: Borderlin e High Risk LDL-C exuphjfcmtoix94 0-189m g/dL: High risk LDL-C concentration H DL-LDL Cholesterol is affected by a n umber of factors such as smoking, age an d sex.~~~~~~~~~~~ ~~~~~~ ~~~~~~~~~~~~~~~ ~~~~~~ ~~~~~~~~~~~~~~~ ~~~~~~ ~ LIPID PROFILE (CORONARY RISK)2020-06-26 23:52:00 Test Item Value Reference Range Interpretation Comments TRIGLYCERIDES (test 78 mg/dL TRIGLYCE RIDES code = TRIG) REFERENCE RANGE:Normal: < 150 mg/dLBorderline High: 150-199 mg/dLHi gh: 200-499 mg/dLVe ry High: >=500 mg/ dL CHOLESTEROL (test code 141 mg/dL SUKHI STEROL REFERENCE = CHOL) RANGE:DESIRABLE : < 200 mg/dLBORDERLINE : 200-239 mg/dLHI GH: >=240 mg/dL HDL CHOLESTEROL (test 50 mg/dL 40-59 N code = HDL) LIPOPROTEIN LDL (test mg/dL 32-99 code = LDLC) CORONARY RISK FACTOR 2.82 (test code = RISK) CHOL/HDL RISK MALE: 1/2 AVG 3.43 FEMALE: 1/2 AV G 3.27 AVG 4.97 AVG 4.44 2X AVG 9.55 2X AVG 7.05 3X AVG 23.39 3X AVG 11.04~~~~~~~~~~ ~~~~~~~ ~~~~~~~~~~~~~~~ ~~~~~~~ ~~~~~~~~~~~~~~~ ~~~~~~N ational Cholest destin Education (NCEP ) Guidelines:~~~~ ~~~~~~~ ~~~~~~~~~~~~~~~ ~~~~~~~ ~~~~~~~~~~~~~~~ ~~~~~~~ ~~~~~ HDL Cholesterol<4 0mg/dL: HDL Cholesterol (Major risk factor for CHD)>60mg/dL: H DL Cholesterol (Ne gative risk factor for CHD)40-59mg/dL: Borderline Risk L DL Cholesterol<1 00mg/dL : Desirable LDL -C njagqezgwcfjw51 0-159mg /dL: Borderline High Risk LDL-C gfehwzloquxxz74 0-189mg /dL: High risk LDL-C concentration H DL-LDL Cholesterol is affected by a n umber of factors such as smoking, age an d sex.~~~~~~~~~~~ ~~~~~~~ ~~~~~~~~~~~~~~~ ~~~~~~~ ~~~~~~~~~~~~~~~ ~~~~~ LACTIC [id number] 23:52:00 Test Item Value Reference Range Interpretation Comments LACTIC ACID (test code = LACT) 0.9 mmol/L 0.7-2.0 N LACTIC [id number] 20:40:00 Test Item Value Reference Range Interpretation Comments LACTIC ACID (test 2.1 mmol/L 0.7-2.0 HH Critical V alue reported code = LACT) Sohat Name:SHAHRZAD [id number] Last Name:MURIEL EDEN READ BACK AND MAIRA [facility]LALY, on 0 06/26/20, @ 2039. BASIC METABOLIC [id number] 20:39:00 Test Item Value Reference Range Interpretation Comments SODIUM (test code = 136 mmol/L 137-145 L NA) POTASSIUM (test code 4.6 mmol/L 3.4-5.0 N = K) CHLORIDE (test code = 101 mmol/L 98-107 N CL) CARBON DIOXIDE (test 22 mmol/L 22-30 N code = CO2) GLUCOSE (test code = 84 mg/dL 74-106 N GLU) BLOOD UREA NITROGEN 21 mg/dL 9-20 H (test code = BUN) GLOMERULAR FILTRATION 44 >60 L The es timated RATE (test code = glomerular filtration GFR) rate is compute d usingpatient ra ce, age (>18), sex, and serum creatinine. If anyof the needed data elements are mi ssing the Laboratory cannot compute an destini mation of the glomerul ar filtration rate . CREATININE (test code 1.6 mg/dL 0.7-1.3 H = CREAT) CALCIUM (test code = 9.1 mg/dL 8.4-10.2 N CA) LIVER FUNCTION [id number] 20:39:00 Test Item Value Reference Range Interpretation Comments TOTAL PROTEIN (test 7.7 g/dL 6.3-8.2 N code = PROT) "A positive bias may occur for patients taking Eltrombopag(a b one marrow stimulan t used to treat thrombocy topenia andaplastic anemia)." ALBUMIN (test code = 4.3 g/dL 3.5-5.0 N ALB) BILIRUBIN TOTAL 1.1 mg/dL 0.2-1.3 N "A positive bias may (test code = BILT) occur for patients taking Eltrombo pag(a bone marrow sti mulant used to treat thrombocytopeni a andaplastic ane frederick)." BILIRUBIN CONJUGATED 0 mg/dL 0-0.3 N "A posi tive bias may (test code = BILCON) occur f or patients taking Eltrombo pag(a bone marrow sti mulant used to treat thrombocytopeni a andaplastic ane frederick)." CON JUGATED BILIRUBIN IS TH E REPLACEMENT ASS AY FOR DIRECTBILIRUBIN . BILIRUBIN 1.0 mg/dL 0-1.1 N UNCONJUGATED (test code = BILUNC) SGOT/AST (test code 23 U/L 15-46 N = AST) SGPT/ALT (test code 12 U/L 0-34 N = ALT) ALKALINE PHOSPHATASE 58 U/L 38-126 N (test code = ALKP) BASIC METABOLIC [id number] 20:36:00 Test Item Value Reference Range Interpretation Comments SODIUM (test code = 136 mmol/L 137-145 L NA) POTASSIUM (test code 4.6 mmol/L 3.4-5.0 N = K) CHLORIDE (test code = 101 mmol/L 98-107 N CL) CARBON DIOXIDE (test 22 mmol/L 22-30 N code = CO2) GLUCOSE (test code = 84 mg/dL 74-106 N GLU) BLOOD UREA NITROGEN 21 mg/dL 9-20 H (test code = BUN) GLOMERULAR FILTRATION 44 >60 L The es timated RATE (test code = glomerular filtration GFR) rate is compute d usingpatient ra ce, age (>18), sex, and serum creatinine. If anyof the needed data elements are mi ssing the Laboratory cannot compute an destini mation of the glomerul ar filtration rate . CREATININE (test code 1.6 mg/dL 0.7-1.3 H = CREAT) CALCIUM (test code = 9.1 mg/dL 8.4-10.2 N CA) LIVER FUNCTION [id number] 20:36:00 Test Item Value Reference Range Interpretation Comments TOTAL PROTEIN (test 7.7 g/dL 6.3-8.2 N code = PROT) "A positive bias may occur for patients taking Eltrombopag(a b one marrow stimulan t used to treat thrombocy topenia andaplastic anemia)." ALBUMIN (test code = 4.3 g/dL 3.5-5.0 N ALB) BILIRUBIN TOTAL 1.1 mg/dL 0.2-1.3 N "A positive bias may (test code = BILT) occur for patients taking Eltrombo pag(a bone marrow sti mulant used to treat thrombocytopeni a andaplastic ane frederick)." BILIRUBIN CONJUGATED 0 mg/dL 0-0.3 N "A posi tive bias may (test code = BILCON) occur f or patients taking Eltrombo pag(a bone marrow sti mulant used to treat thrombocytopeni a andaplastic ane frederick)." CON JUGATED BILIRUBIN IS TH E REPLACEMENT ASS AY FOR DIRECTBILIRUBIN . BILIRUBIN 1.0 mg/dL 0-1.1 N UNCONJUGATED (test code = BILUNC) SGOT/AST (test code 23 U/L 15-46 N = AST) SGPT/ALT (test code U/L 0-34 = ALT) ALKALINE PHOSPHATASE 58 U/L 38-126 N (test code = ALKP) TROPONIN I [id number] 20:13:00 Test Item Value Reference Range Interpretation Comments TROPONIN I RAPID 0.01 ng/mL 0.00-0.079 N ISTAT (test code = TROPONIN I TROPIRAP) CRITERIA0.00-0. 08 ng/mL - Negative>0.08 n g/mL - Positive The us e of serial sampling and te sting protocol is are commended practice.An kyle vated troponin level alone is often not suffi cient fordiagnosis of myocardial infarction. Tro ponin results obtaine d by different assay s may vary.Evaluation of the extent of myoca rdial damage based on increase of troponin would be valid only if similar methodology is used. CBC W/AUTO [id number] 20:06:00 Test Item Value Reference Range Interpretation Comments WHITE BLOOD CELL (test code = 13.1 x10 3/uL 5.0-12.0 H WBC) RED BLOOD CELL (test code = 4.60 x10 6/uL 4.70-6.10 L RBC) HEMOGLOBIN (test code = HGB) 13.9 g/dL 14.0-18.0 L HEMATOCRIT (test code = HCT) 40.4 % 37.0-49.0 N MEAN CELL VOLUME (test code = 88 fL 80-94 N MCV) MEAN CELL HGB (test code = 30.2 pg 27-31 N MCH) MEAN CELL HGB CONCENTRATION 34.4 g/dL 33-37 N (test code = MCHC) RED CELL DISTRIBUTION WIDTH 12.6 % 11.5-15.5 N (test code = RDW) PLATELET COUNT (test code = 268 x10 3/uL 130-400 N PLT) MEAN PLATELET VOLUME (test 8.8 fL 9.4-16.4 L code = MPV) NEUTROPHIL % (test code = NT%) 83.6 % 43-65 H IMMATURE GRANULOCYTE % (test 0.2 % 0.0-2.0 N code = IG%) LYMPHOCYTE % (test code = LY%) 8.3 % 20.5-45.5 L MONOCYTE % (test code = MO%) 7.5 % 5.5-11.7 N EOSINOPHIL % (test code = EO%) 0.2 % 0.9-2.9 L BASOPHIL % (test code = BA%) 0.2 % 0.2-1.0 N NUCLEATED RBC % (test code = 0.0 % 0-1.0 N NRBC%) NEUTROPHIL # (test code = NT#) 10.97 x10 3/uL 2.2-4.8 H IMMATURE GRANULOCYTE # (test 0.03 x10 3/uL 0-0.03 N code = IG#) LYMPHOCYTE # (test code = LY#) 1.09 x10 3/uL 1.3-2.9 L MONOCYTE # (test code = MO#) 0.98 x10 3/uL 0.3-0.8 H EOSINOPHIL # (test code = EO#) 0.03 x10 3/uL 0.0-0.2 N BASOPHIL # (test code = BA#) 0.02 x10 3/uL 0.0-0.1 N - DUP UE ART [facility] [id number] 19:31:00 [facility] WOODName: RENEE DEUTSCH : 1940 Sex: M FAX: Asif Bautista MD R1 [place]: St: PRE Name: RENEE DEUTSCH : 1940 Age/S: 80/M [address] Unit #: [id number] Loc: [place] [address] Phys: Asif Bautista Acct: [id number] Dis Date: Status: PRE ER PHONE #: [phone] Exam Date: 06/26/20201924 FAX #: [phone] Reason: Left upper extremity EXAMS: CPT CODE: [id number] [id number] EXAM: - DUP UE ART UNI LT HISTORY: Leftupper extremity Location code:C3 TECHNIQUE: Grayscale B-mode, color-flow, and spectral Doppler analysis of the left upper extremity arterial vasculature was performed. COMPARISON: None available time of interpretation. FINDINGS: Multiphasic waveform with normal peak systolic velocity in the left subclavian, axillary, brachial, radial, and ulnar arteries is present. IMPRESSION: 1. No sonographic evidenceof hemodynamically significant stenosis within the left upper extremity arterial vasculature. at 193 Reported and signed by: Gabino Puckett MD CC: Asif Bautista MD Technologist: JENN JUSTIN Trnnhrd Date/Time/By: 06/26/2020 (1930) : By: [email or web address] PAGE 1 Signed Report FAX: Asif Bautista MD R1 [place]: [facility]: PRE Name: RENEE DEUTSCH [facility] : 1940 Age/S: 80/M [address] Unit #: [id number] Loc: [place] [address] Phys: Asif Bautista MD R1 Acct: [id number] Dis Date: Status: PRE ER PHONE #: [phone] Exam Date: 06/26/20201924 FAX #: [phone] Reason: Left upper extremity EXAMS: CPT CODE: [id number] [place] [address] <Continued> Orig Print D/T: S: 06/26/2020 (1934) PAGE 2 Signed Report- DUP VEIN UNI [id number] 19:29:00 [facility] : 1940 Sex: M FAX: Asif Bautista MD R1 [place]: St: PRE Name: RENEE DEUTSCH [facility] : 1940 Age/S: 80/M [address] Unit #: [id number] Loc: [place] [address] Phys: Asif Bautista Acct: [id number] Dis Date: Status: PRE ER PHONE #: [phone] Exam Date: 06/26/20201924 FAX #: [phone] Reason: Left upper extremity EXAMS: CPT CODE: [id number] [place] [address] EXAM: - DUP VEIN UNI LT HISTORY: Left upper extremity Location code:C3 TECHNIQUE: Grayscale real-time B-mode imaging with color flow and spectral flow Doppler analysis was performed of the left upperextremity. COMPARISON: None available time of interpretation. FINDINGS: There is normal compressibility with no evidence of thrombus involving the visualized venous structures of the left upper extremity. The visualized veins of the left upper extremity are the subclavian, internal jugular, axillary, basilic and brachial veins. The ulnar and radial veins were seen as well. The cephalic vein cannot be visualizeddue to contraction of dictation. IMPRESSION: No evidence of DVT in the visualized structures of the left upper extremity. at 1929 Reported and signed by: Gabino Puckett MD CC: Asif Bautista MD Technologist: JENN JUSTIN [facility] Date/Time/By: 06/26/2020 (1928) : By: [email or web address] PAGE 1 Signed Report FAX: Asif Bautista MD R1 [place]: St: PRE-------- Name: RENEE DEUTSCH [facility] : 1940 Age/S: 80/M [address] Unit #: [id number] Loc: [place] [address] Phys: Asif Bautista MD R1 Acct: [id number] Dis Date: Status: PRE ER PHONE #: [phone] Exam Date: 06/26/20201924 FAX #: [phone] Reason: Left upper extremity EXAMS: CPT CODE: [id number] [address] <Continued> Orig Print D/T: S: 06/26/2020 (1931) PAGE 2 Signed Report- XR CHEST 1 [id number] 18:46:00 [facility] : 1940 Sex: M FAX: Asif Bautista MD R1 [place]: St: PRE Name: RENEE DEUTSCH [facility] : 1940 Age/S: 80/M [address] Unit #: [id number] Loc: [place] [address] Phys: Asif Bautista MDR1 Acct: [id number] Dis Date: Status: PRE ER PHONE #: [phone] Exam Date: 06/26/2020 1837 FAX #: [phone] Reason: CODE SEPSIS EXAMS: CPT CODE: [id number] XR CHEST 1 V 90232 Dictation location: H37. CHEST, FRONTAL VIEW HISTORY: CODE SEPSIS COMPARISON: None FINDINGS: Probable calcified granuloma in the left lower lobe. Small left pleural effusion. The lungs are otherwise clear. No pneumothorax. The heart size is normal. The bones are unremarkable. IMPRESSION: Small left pleural effusion. at 1846 Reported and signed by: Kaci Barrera MD CC: Asif Bautista MD Technologist: Jemma Gillespie; SANNA Smithscrd Date/Time/By: 06/26/2020 (1845) : By: [email or web address] PAGE 1 Signed Report FAX: Asif Bautista MD R1 [place]: St: PRE --Name: RENEE DEUTSCH [facility] [place] : 1940 Age/S: 80/M [address] Unit #: [id number] Loc: [place], [place] Phys: Asif Bautista MD R1 Acct: [id number] Dis Date: Status: PRE ER PHONE #: [phone] Exam Date: 06/26/20201836 FAX #: [phone] Reason: CODE SEPSIS EXAMS: CPTCODE: [id number] XR CHEST 1 V 30005 <Continued> Orig Print D/T: S: 06/26/2020 (0047) PAGE 2 Signed Report
[2020-07-16] MEDS ORDERED: HYDROMORPHONE HCL 1 MG/ML INJ IV PRN (20:05)
[2020-07-16] MEDS ORDERED: D50W 25 GM/50 ML SYRINGE IV PRN (20:08)
[2020-07-16] MEDS ORDERED: GLUCAGON 1 MG/VIAL IM PRN (20:08)
[2020-07-16] MEDS ORDERED: ACETAMINOPHEN 325 MG TABLET PO PRN (20:14)
[2020-07-16] MEDS: INSULIN -REGULAR HUMAN 50 UNIT/0.5 ML ML SQ SCH (21:00)
[2020-07-16] MEDS ORDERED: VANCOMYCIN 1 GM in NA CHLORIDE 0.9% 250 ML IVPB SCH (21:00)
[2020-07-16] MEDS: NACHLORIDE 0.45% 1,000 ML IV SCH (22:04)
[2020-07-16] MEDS: MECLIZINE HCL 12.5 MG TAB PO SCH (22:04)
[2020-07-16 22:45] LABS: Absolute Lymphocytes (CBC) 1.4 K/uL (0.7-4.9); Basophils % 1.2 % (0-1.3); Hematocrit 35.8 % (39.6-49.0); Lymphocytes % 21.2 % (15.3-44.8); MPV 7.3 fL (7.6-11.3); RBC Red Blood Cell Count 4.11 M/uL (4.33-5.43)
[2020-07-16 22:46] LABS: Protime INR 1.05
[2020-07-16] MEDS ORDERED: VANCOMYCIN 1.5 GM in NA CHLORIDE 0.9% 500 ML IVPB ONE (23:00)
[2020-07-16] MEDS ORDERED: NA CHLORIDE 0.9% 500 ML ONE (23:13)
[2020-07-16] MEDS ORDERED: VANCOMYCIN 1 GM/VIAL ONE (23:26)
[2020-07-16] MEDS ORDERED: VANCOMYCIN 500 MG/VIAL ONE (23:27)
[2020-07-17 00:11] LABS: Albumin 3.5 g/dL (3.4-5.0); Bilirubin Direct 0.1 mg/dL (0-0.2); Bilirubin Total 0.5 mg/dL (0.2-1.0); C-Reactive Protein 49.7 mg/L (<3.00); Magnesium 2.1 mg/dL (1.8-2.4); Phosphorus 3.7 mg/dL (2.5-4.9); Potassium 3.8 mmol/L (3.5-5.1); Protein, Total 7.3 g/dL (6.4-8.2); Uric Acid 4.1 mg/dL (3.5-7.2)
[2020-07-17] MEDS: DIPHENHYDRAMINE 25 MG TAB/CAP PO PRN ×2 (01:03→22:36)
[2020-07-17 01:24] VITALS: BMI 23.5
[2020-07-17 01:29] LABS: Thyroid Stimulating Hormone 4.19 uIU/mL (0.360-3.740)
[2020-07-17] MEDS ORDERED: CEFAZOLIN/SWI 1gm 0 GM/0 ML SYR ONE (02:17)
[2020-07-17] MEDS: HYDROMORPHONE HCL 2 MG/ML inj IV PRN ×4 (04:03→20:20)
[2020-07-17 05:50] LABS: Absolute Lymphocytes (CBC) 1.1 K/uL (0.7-4.9); Basophils % 0.9 % (0-1.3); Hematocrit 35.1 % (39.6-49.0); Lymphocytes % 11.2 % (15.3-44.8); MPV 7.4 fL (7.6-11.3); RBC Red Blood Cell Count 4.04 M/uL (4.33-5.43)
[2020-07-17 05:56] LABS: Potassium 3.8 mmol/L (3.5-5.1)
[2020-07-17 05:57] LABS: Urine Appearance CLEAR; Urine Bilirubin NEGATIVE (NEG); Urine Blood NEGATIVE (NEG); Urine Color YELLOW; Urine Glucose NEGATIVE (NEG); Urine Protein NEGATIVE (NEG); Urine Specific Gravity 1.015 (1.005-1.030); Urine Urobilinogen 0.2 mg/dL (0.2-1.0); Urine pH 6.5 (5.0-7.0)
[2020-07-17 06:14] LABS: Urine Microscopic Reflex NO UMIC
[2020-07-17 07:03] LABS: Urine Protein/Creatinine Ratio 0.33 ratio (<0.15)
[2020-07-17] MEDS: INSULIN -REGULAR HUMAN 50 UNIT/0.5 ML ML SQ SCH ×4 (07:30→21:36)
--- NOTE | 2020-07-17 08:38 | RAD REPORT ---
EXAM DESCRIPTION: RAD - Chest Pa And Lat (2 Views) - 07/16/2020 10:41 pm CLINICAL HISTORY: admission Chest pain. COMPARISON: CHEST SINGLE VIEW dated 01/31/2015; CHEST PA AND LAT 2 VIEW dated 01/29/2015; CHEST PA AND LAT 2 VIEW dated 09/25/2014 FINDINGS: The lungs are emphysematous but clear. The heart is upper limit of normal in size. No disp laced fractures. IMPRESSION: Mild COPD.
[2020-07-17] MEDS ORDERED: POTASSIUM CL SA 10 MEQ TAB PO ONE (09:00)
[2020-07-17] MEDS ORDERED: ENOXAPARIN 40 MG/0.4 ML SQ SCH (09:00)
[2020-07-17] MEDS: MECLIZINE HCL 12.5 MG TAB PO SCH ×3 (09:45→20:18)
[2020-07-17 10:18] LABS: Platelet Estimate ADEQ; White Blood Cell Scan OK (OK)
[2020-07-17 10:19] LABS: Blood Morphology Comment NOT SEEN (NOT SEEN)
--- NOTE | 2020-07-17 12:37 | RAD REPORT ---
EXAM DESCRIPTION: MRI - Hand Left Wo Cont - 07/17/2020 12:25 pm CLINICAL HISTORY: osteomyelitis Pain and swelling to left hand COMPARISON: No comparisons FINDINGS: Subcutaneous edema is present within the fat of the thenar region. Skin thickening is also present in the region. Mild fluid is seen in the flexor tendons of the first and second finger sugge sting mild tenosynovitis. No soft tissue mass or hematoma. No fracture or dislocation evident. No MR evidence of osteomyelitis. IMPRESSION: Negative for osteomyelitis.
--- NOTE | 2020-07-17 12:40 | RAD REPORT ---
EXAM DESCRIPTION: MRI - Brain Wo Cont - 07/17/2020 12:32 pm CLINICAL HISTORY: Dizziness COMPARISON: none TECHNIQUE: Axial, sagittal, and coronal magnetic images of the brain were obtained. Contrast was not requested FINDINGS: 3 centimeter area of abnormal signal right frontal lobe has the appearance of an old infar ction. Mild signal within periventricular, deep and subcortical white matter probably ischemic change s secondary small vessel disease. Diffusion-weighted/ADC mapping does not reveal evidence of acute infarction. The ventricles are normal caliber. An extra-axial fluid collection is not present Fluid within the sinuses/mastoids is not noted IMPRESSION: No acute abnormality is displayed
[2020-07-17] MEDS: ONDANSETRON 4 MG/2 ML VIAL IV PRN ×2 (13:06→21:36)
[2020-07-17] MEDS ORDERED: cloNIDine HCL 0.1 MG TAB PO PRN (13:24)
--- NOTE | 2020-07-17 14:07 | P.PN ---
Subjective Date of Service: 07/18/20 Chief Complaint: L HAND PAIN AND NUMBNESS IS SEVERE. Subjective: No new changes MR. DEUTSCH IS COMPLAINING OF SIGNIFICANT AMOUNT OF BURNING PAIN IN L HAND DESPITE DILAUDID. HE IS GETTING 2 MG EVERY3 HOURS AND IT STILL IS NOT CONTROLLING. I ADDED LYRICA DUE TO NATURE OF PAIN AND IT DID NOT HELP ALSO. HE HAS NO FEVER. WHEN HE CAME FIRST TIME HE HAD SEVERE INFLAMMATION OF THE MCP FIRST JOINT AND WAS GIVEN GOUT RELATED THERAPY. WITH SEVERE PAIN HE ENDS UP IN ER AND THEN TO [facility]. THEY GAVE IV ABX, ASPIRATED AND FOUND PSEUDOGOUT. THIS STILL DOES NOT EXPLAIN MEDIAN NERVE REGION SEVERE PARESTHESIA. Review of Systems 10-point ROS is otherwise unremarkable General: As per HPI Physical Examination - Vital Signs Temperature: 98.2 F Blood Pressure: 186/91 Pulse: 91 Respirations: 20 Pulse Ox (%): 92 - Physical Exam General: Oriented x3, Severe distress HEENT: Atraumatic, PERRLA, EOMI Neck: Supple, JVD not distended Respiratory: Clear to auscultation bilaterally, Normal air movement Cardiovascular: Regular rate/rhythm, Normal S1 S2 Gastrointestinal: Normal bowel sounds, No tenderness Musculoskeletal: No tenderness, Other (ON HAND EXAMINATION THERE IS NO SIGN OF ISCHEMIA OR RASH. HE DOES NOT SHOW MUCH INFLAMMATION ANY LONGER AND PAIN IS STILL THERE. ) Integumentary: No rashes Neurological: Normal speech, Normal tone, Normal affect Lymphatics: No axilla or inguinal lymphadenopathy - Studies Laboratory Data (last 24 hrs) 07/17/20 05:07: Sodium 139, Potassium 3.8, BUN 18, Creatinine 1.25, Glucose 84, Magnesium 2.0 07/17/20 05:07: WBC 10.00 D, Hgb 12.0 L, Hct 35.1 L, Plt Count 252 07/16/20 22:16: APTT 25.3 07/16/20 22:16: Sodium 140, Potassium 3.8, BUN 19 H, Creatinine 1.36 H, Glucose 97, Uric Acid 4.1, Phosphorus 3.7, Magnesium 2.1, Total Bilirubin 0.5, AST 14 L, ALT 24, Alkaline Phosphatase 73 07/16/20 22:16: PT 12.1, INR 1.05 07/16/20 22:16: WBC 6.40, Hgb 12.4 L, Hct 35.8 L, Plt Count 234 D Medications List Reviewed: Yes Assessment And Plan - Current Problems (Diagnosis) (1) Hand pain, left Current Visit: Yes Status: Acute Plan: DIFFERENTIAL DIAGNOSIS HAS BEEN SEVERE GOUT, PSEUDOGOUT, CELLULITIS, OSTEOMYELITIS, VASCULITIS OR EMBOLIC EVENT. SO FAR PSEUDOGOUT HAS BEEN CONFIRMED BUT ABOVE IT DOES NOT EXPLAIN THE MEDIAN NERVE PARESTHESIA. THERE IS NO CELLULITIS, OM ON MRI. THERE IS NO CLINICAL SIGN OF VASCULITIS OR EMBOLISM. HE HAS GOOD CIRCULATION IN L HAND. I WILL STILL ORDER CT ANGIOGRAM. HE HAS HIGH SED RATE AND CRP THAT I EXPECT WITH INFLAMMATION. I ALSO ORDERED C SPINE X RAY AND SHOWS ARTHRITIS LIKE I EXPECT. I HAVE ADDED MORPHINE, STEROIDS AND LOVENOX TO COVER ALL ASPECTS UNTIL I KNOW MORE.
[2020-07-17 14:09] LABS: C-Reactive Protein 42.5 mg/L (<3.00); Uric Acid 4.1 mg/dL (3.5-7.2)
--- NOTE | 2020-07-17 14:31 | RAD REPORT ---
EXAM DESCRIPTION: RAD - C Spine Ap/Lat - 07/17/2020 2:24 pm CLINICAL HISTORY: Numbness FINDINGS: No fracture or dislocation is seen. Mild posterior subluxation C5 on C6. Moderate spondylosis consisting disc space narrowing and osteoph ytes. The bones are osteoporotic. Mild moderate spondylosis involves remainder of the cervical spine
[2020-07-17] MEDS ORDERED: D50W 25 GM/50 ML VIAL IV PRN (15:00)
[2020-07-17] MEDS: PREGABALIN 50 MG CAP PO SCH (20:19)
[2020-07-17] MEDS: COLCHICINE 0.6 MG TAB PO SCH (20:19)
[2020-07-17] MEDS: METHYLPREDNISOLONE 40 MG INJ IV SCH (22:36)
[2020-07-17] MEDS: VANCOMYCIN 1.5 GM in NA CHLORIDE 0.9% 500 ML IVPB SCH (22:37)
[2020-07-17] MEDS: MORPHINE 4 MG/ML SYR IV PRN (23:07)
[2020-07-17] MEDS: ENOXAPARIN 80 MG/0.8 ML SQ SCH (23:14)
[2020-07-18] MEDS: MORPHINE 4 MG/ML SYR IV PRN ×2 (02:20→05:08)
[2020-07-18] MEDS: METHYLPREDNISOLONE 40 MG INJ IV SCH ×4 (05:01→17:16)
[2020-07-18] MEDS: NACHLORIDE 0.45% 1,000 ML IV SCH (05:04)
[2020-07-18 06:12] LABS: Potassium 4.8 mmol/L (3.5-5.1)
--- NOTE | 2020-07-18 08:32 | EKG ---
Test Date: 2020-07-17 Test Time: 02:53:51 Content Manager: RT-O MEASUREMENT RESULTS: Intervals: Rate: 75 WI: 174 QRSD: 100 QT: 394 QTc: 439 Colon: P: WI: 174 QRS: -47 T: 19 INTERPRETIVE STATEMENTS: Sinus rhythm with premature atrial complexes Left anterior fascicular block Minimal voltage criteria for LVH, may be normal variant Cannot rule out Anterior infarct, age undetermined Abnormal ECG Compared to ECG 01/29/2015 15:42:13 Atrial premature complex(es) now present Myocardial infarct finding now present Electronically Signed On 07-18-20 08:29:27 MEDICAL LAB TECHNICIAN by Gato Moise
[2020-07-18] MEDS: HOME MED 1 EA UNK (Insulin Glargine,Hum.Rec.Anlog [Basaglar Kwikpen U-100] 100 UNIT/ML Ins SQ SCH (09:00)
[2020-07-18] MEDS: HOME MED 1 EA UNK (Zinc [Zinc] 50 MG Tablet) PO SCH (09:00)
[2020-07-18] MEDS: LOSARTAN POTASSIUM 50 MG TABLET PO SCH ×2 (09:00→09:13)
[2020-07-18] MEDS: ENOXAPARIN 80 MG/0.8 ML SQ SCH (09:12)
[2020-07-18] MEDS: INSULIN -REGULAR HUMAN 50 UNIT/0.5 ML ML SQ SCH ×4 (09:12→21:00)
[2020-07-18] MEDS: PREGABALIN 50 MG CAP PO SCH ×2 (09:13→22:20)
[2020-07-18] MEDS: TRAMADOL 37.5mg/APAP 325mg PER TAB PO PRN ×2 (09:13→23:28)
[2020-07-18] MEDS: MAGNESIUM OXIDE 400 MG TAB PO SCH ×2 (09:13→22:20)
[2020-07-18] MEDS: ASPIRIN 81 MG CHEWABLE TABLET PO SCH (09:13)
[2020-07-18] MEDS: COLCHICINE 0.6 MG TAB PO SCH ×2 (09:13→22:20)
[2020-07-18] MEDS: MECLIZINE HCL 12.5 MG TAB PO SCH ×3 (09:13→22:20)
--- NOTE | 2020-07-18 11:41 | RAD REPORT ---
EXAM DESCRIPTION: CT - Upper Ext Angio - 07/18/2020 11:24 am CLINICAL HISTORY: Left Hand Pain Pain and swelling COMPARISON: Hand Left Wo Cont dated 07/17/2020 FINDINGS: CT angiography of the left upper extremity with volume rendering was performed. The soft tissues of the wrist and hand appear within normal limits. No vascular occlusion or stenosis . Mild subcutaneous fat stranding seen in the region of the thenar soft tissues. No soft tissue mass or hematoma. Degenerative changes present involving the radiocarpal joint, intercarpal articulations as well as th e first carpometacarpal joint. No aggressive marrow lesion. No bony destructive lesion. Mild fluid is likely present within the carpal tunnel. IMPRESSION: No significant vascular abnormality is detected. 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
--- NOTE | 2020-07-18 15:58 | P.PN ---
Subjective Date of Service: 07/18/20 Chief Complaint: L HAND PAIN AND NUMBNESS IS SEVERE. Subjective: Improving MR. DEUTSCH IS COMPLAINING OF SIGNIFICANT AMOUNT OF BURNING PAIN IN L HAND DESPITE DILAUDID. HE IS GETTING 2 MG EVERY3 HOURS AND IT STILL IS NOT CONTROLLING. I ADDED LYRICA DUE TO NATURE OF PAIN AND IT DID NOT HELP ALSO. HE HAS NO FEVER. WHEN HE CAME FIRST TIME HE HAD SEVERE INFLAMMATION OF THE MCP FIRST JOINT AND WAS GIVEN GOUT RELATED THERAPY. WITH SEVERE PAIN HE ENDS UP IN ER AND THEN TO [facility]. THEY GAVE IV ABX, ASPIRATED AND FOUND PSEUDOGOUT. THIS STILL DOES NOT EXPLAIN MEDIAN NERVE REGION SEVERE PARESTHESIA. HE IMPROVED AFTER I GAVE HIM STEROIDS. Review of Systems 10-point ROS is otherwise unremarkable General: Weakness Physical Examination - Vital Signs Temperature: 98.6 F Blood Pressure: 152/68 Pulse: 92 Respirations: 18 Pulse Ox (%): 93 - Physical Exam General: Mild distress HEENT: Atraumatic, PERRLA, EOMI Neck: Supple, JVD not distended Respiratory: Clear to auscultation bilaterally, Normal air movement Cardiovascular: Regular rate/rhythm, Normal S1 S2 Gastrointestinal: Normal bowel sounds, No tenderness Musculoskeletal: No tenderness Integumentary: No rashes Neurological: Normal speech, Normal tone, Normal affect Lymphatics: No axilla or inguinal lymphadenopathy - Studies Laboratory Data (last 24 hrs) 07/18/20 05:25: Sodium 137, Potassium 4.8, BUN 15, Creatinine 1.19, Glucose 159 H Medications List Reviewed: Yes Assessment And Plan - Current Problems (Diagnosis) (1) Hand pain, left Current Visit: Yes Status: Acute Plan: DIFFERENTIAL DIAGNOSIS HAS BEEN SEVERE GOUT, PSEUDOGOUT, CELLULITIS, OSTEOMYELITIS, VASCULITIS OR EMBOLIC EVENT. SO FAR PSEUDOGOUT HAS BEEN CONFIRMED BUT ABOVE IT DOES NOT EXPLAIN THE MEDIAN NERVE PARESTHESIA. THERE IS NO CELLULITIS, OM ON MRI. THERE IS NO CLINICAL SIGN OF VASCULITIS OR EMBOLISM. HE HAS GOOD CIRCULATION IN L HAND. I WILL STILL ORDER CT ANGIOGRAM. HE HAS HIGH SED RATE AND CRP THAT I EXPECT WITH INFLAMMATION. I ALSO ORDERED C SPINE X RAY AND SHOWS ARTHRITIS LIKE I EXPECT. I HAVE ADDED MORPHINE, STEROIDS AND LOVENOX TO COVER ALL ASPECTS UNTIL I KNOW MORE. VASCULAR EVENT HAS BEEN RULED OUT. ANGIOGRAM IS NEGATIVE. HIS SED RATE AND CRP WERE HIGH. DOES THIS MEAN VASCULITIS? NO SIGNS OF PETECHIAE IN THE REGION. GOUT IS RULED OUT. STOP LOVENOX THERAPEUTIC. DC HOME IN AM POSSIBLE. HE DID NOT RESPOND TO ANTIBIOTICS GIVEN BY [facility] THAT WAS IV. FINALLY IS SUSPECT ARTHRITIS, CARPAL TUNNEL LIKE SYNDROME. HIS PAIN TOLERANCE MUST BE POOR.
[2020-07-18] MEDS ORDERED: HOME MED 1 EA UNK (Simvastatin [Zocor*] 40 MG Tablet) PO SCH (21:00)
[2020-07-18] MEDS ORDERED: HOME MED 1 EA UNK (Meclizine Hcl [Meclizine Hcl] 25 MG Tablet) PO SCH (21:00)
[2020-07-18] MEDS ORDERED: HOME MED 1 EA UNK (Quetiapine Fumarate [Seroquel] 50 MG Tablet) PO SCH (21:00)
[2020-07-18] MEDS ORDERED: QUETIAPINE 25 MG TAB PO SCH (22:00)
[2020-07-18] MEDS ORDERED: ATORVASTATIN 20 MG TAB PO ONE (22:00)
[2020-07-18] MEDS ORDERED: METHYLPREDNISOLONE 40 MG INJ IV SCH (23:00)
[2020-07-18] MEDS ORDERED: QUETIAPINE 25 MG TAB PO ONE (23:00)
[2020-07-19] MEDS: VANCOMYCIN 1.5 GM in NA CHLORIDE 0.9% 500 ML IVPB SCH (00:10)
[2020-07-19] MEDS: METHYLPREDNISOLONE 40 MG INJ IV SCH ×3 (00:11→12:39)
[2020-07-19] MEDS ORDERED: ENOXAPARIN 40 MG/0.4 ML SQ SCH (09:00)
[2020-07-19] MEDS: LOSARTAN POTASSIUM 50 MG TABLET PO SCH ×2 (09:00→09:38)
[2020-07-19] MEDS: HOME MED 1 EA UNK (Zinc [Zinc] 50 MG Tablet) PO SCH (09:00)
[2020-07-19] MEDS: HOME MED 1 EA UNK (Insulin Glargine,Hum.Rec.Anlog [Basaglar Kwikpen U-100] 100 UNIT/ML Ins SQ SCH (09:00)
[2020-07-19] MEDS: INSULIN -REGULAR HUMAN 50 UNIT/0.5 ML ML SQ SCH ×2 (09:37→12:38)
[2020-07-19] MEDS: MECLIZINE HCL 12.5 MG TAB PO SCH (09:37)
[2020-07-19] MEDS: COLCHICINE 0.6 MG TAB PO SCH (09:38)
[2020-07-19] MEDS: ASPIRIN 81 MG CHEWABLE TABLET PO SCH (09:38)
[2020-07-19] MEDS: PREGABALIN 50 MG CAP PO SCH (09:38)
[2020-07-19] MEDS: MAGNESIUM OXIDE 400 MG TAB PO SCH (09:38)
[2020-07-19 13:21] VITALS: BP 138/70; TEMP 98.1
[2020-07-19 15:15] VITALS: O2SAT 92
[2020-07-23] MEDS ORDERED: HOME MED 1 EA UNK (Dulaglutide [Trulicity] 1.5 MG/0.5 ML Pen.Injctr) SQ SCH (09:00)
== END 2020-07-19 14:45 | disposition home health service (06) | DRG 74 ==
LOC: 2ND 19:02 → OBSVTOIN 07-18 09:47
PROVIDERS: ADMIT Internal Medicine; ATTEND Internal Medicine
DX: G56.02 Carpal tunnel syndrome, left upper limb (principal); M11.242 Other chondrocalcinosis, left hand; M19.042 Primary osteoarthritis, left hand; I12.9 Hypertensive chronic kidney disease with stage 1 through stage 4 chronic kidney disease, or unspecified chronic kidney disease; N18.2 Chronic kidney disease, stage 2 (mild); E11.22 Type 2 diabetes mellitus with diabetic chronic kidney disease; R20.2 Paresthesia of skin; Z20.822 Contact with and (suspected) exposure to COVID-19
CPT/HCPCS: 36415; 70551; 71046; 72040; 73206; 80048; 80076; 81003; 82306; 82570; 82607; 82947; 83036; 83735; 84100; 84156; 84439; 84443; 84550; 85025; 85610; 85652; 85730; 86038; 86140; 87040; 93005; G0378; G0379; J0690; J1170; J1650; J2405; J2920; J3370; J7040; Q9967; U0003

== ENCOUNTER 2020-08-17 17:00 | Inpatient (IN) | payer OTHER ==
--- OUTSIDE RECORDS SUMMARY | 2020-08-17 21:41 | XMS REPORT | Continuity of Care Document ---
:1940 Author Organization [facility] t Address [address] [place] [address] Care Team Providers Name Role Phone MonikaGene Attending Clinician Jocelyn NIELSON, L Attending Clinician Payers Payer Name Policy Type Policy Number Effective Date Expiration Date S ource Problems Condition Condition Condition Status Onset Resolution Last Treating Co mments Source Name Details Category Date Date Treatment Clinician Date Diabetes Problem Active 2020-08-13 Mem oria mellitus 00:23:00 l (disorder) Diabetes He rmann mellitus (disorder) Active Problem 08/13/2020 [facility] Dizziness Problem Active 2020-08-13 Me moria (finding) 00:23:00 l Howell Dizziness (finding) Active Problem 08/13/2020 [facility] Hypertensi Problem Active 2020-08-13 M emoria ve 00:23:00 l disorder, Howell systemic Hypertensi arterial ve (disorder) disorder, systemic arterial (disorder) Active Problem 08/13/2020 [facility] Hypothyroi Problem Active 2020-08-13 M emoria dism 00:23:00 l (disorder) René n Hypothyroi dism (disorder) Active Problem 08/13/2020 [facility] Orthostati Problem Active 2020-08-13 M emoria c 00:23:00 l hypotensio René n n Orthostati (disorder) c hypotensio n (disorder) Active Problem 08/13/2020 [facility] Recurrent Problem Active 2020-08-13 Me moria falls 00:23:00 l (finding) Nakul Recurrent falls (finding) Active Problem 08/13/2020 [facility] Cellulitis Problem Resolve 2020-08-13 Memoria (disorder) d 00:23:00 l Howell Cellulitis (disorder) Resolved Problem 08/13/2020 [facility] Lactic Problem Resolve 2020-08-13 Gerald gail acidosis d 00:23:00 l (disorder) Lactic Herm bang acidosis (disorder) Resolved Problem 08/13/2020 [facility] Systemic Problem Resolve 2020-08-13 Me moria infection d 00:23:00 l (disorder) Systemic He rmann infection (disorder) Resolved Problem 08/13/2020 [facility] Allergies, Adverse Reactions, Alerts Allergy Allergy Status Severity Reaction(s) Onset Inactive Treating Comm ents Source Name Type Date Date Clinician No Known DA Active [facility] No Known No Known Active Memori a Medicati Medicati l on on Nakul Allergie Allergie s s NKFA NKFA Active Memoria l [place] Social History Social Habit Start Date Stop Date Quantity Comments Source Social History 2020-08-10 2020-08-10 [facility] 16:28:47 16:28:47 Medications Ordered Filled Start Stop Current Ordering Indication Dosage Frequency Signature Comments Components Source Medication Medication Date Date Medication? Clinician (SIG) Name Name Insulin Yes See Memoria Glargine / -05 Instructio l Lixisenatid 16:26: ns, 30cc He rmann e 00 Qwk, 0 Refill(s) Trulicity Yes SUB-Q, Memori a Pen 4-05 qWeek, 0 l 16:25: Refill(s) Howell 00 Melatonin Yes 10 mg = 1 Mem oria 10 mg oral 405 tab, PO, l tablet 15:58: Bedtime, 0 Ana nn 00 Refill(s) Mirtazapine Yes 25 mg, PO, Memoria 4-05 Bedtime, 0 l 15:57: Refill(s) Howell Simvastatin Yes 40 mg, PO, Memoria 4-05 Bedtime, 0 l 15:56: Refill(s) Howell 00 Meclizine Yes 25 mg = 1 Mem oria 4-05 tab, PO, l 15:56: Bedtime, Nakul 00 PRN Dizziness, 0 Refill(s) Prednisone Yes 20 mg, PO, M emoria 4-05 Daily, l 15:55: Quantity Howell 00 sufficient , 0 Refill(s) gabapentin Yes 300 mg, Gerald gail 4-05 PO, l 15:55: Bedtime, 0 Howell 00 Refill(s) Vitamin D3 Yes 50,000 Memor ia 50,000 intl 405 IntlUnit = l units oral 15:54: 1 cap, PO, H ermann capsule 00 qWeek, # 12 cap, 0 Refill(s) Losartan No PO, Daily, Mem oria 4-05 0 l 15:54: Refill(s) Naklu 00 losartan 50 Yes 50 mg = 1 M emoria mg oral 4-05 tab, PO, l tablet 15:54: Daily, 0 Howell 00 Refill(s) Aspirin Yes 81 mg, PO, Gerald gail 4-05 Daily, 0 l 15:53: Refill(s) Nakul 00 Colchicine Yes 0.6 mg, Gerald gail 4-05 PO, Daily, l 15:51: 0 Nakul 00 Refill(s) Vital Signs Vital Name Observation Time Observation Value Comments Source Systolic (mm Hg) 2020-08-10 15:41:00 Gerald riakonrad Howell Diastolic (mm Hg) 2020-08-10 15:41:00 [facility] leonila Mota Heart Rate 2020-08-10 15:41:00 [facility] Rate 2020-08-10 15:41:00 Floresita Puckett Height 2020-08-10 15:41:00 187.96 cm [facility] Weight 2020-08-10 15:41:00 [facility] BMI Calculated 2020-08-10 15:41:00 Floresita Puckett Procedures This patient has no known procedures. Encounters Start End Encounter Admission Attending Care Care Encounter Source Date/Time Date/Time Type Type Clinicians Facility Department ID 2020-08-10 2020-08-10 [id number] 10:30:00 23:59:59 Blayne 00 Gene 2019-06-28 2019-06-28 Hospital [facility] [id number] 09:30:00 23:59:00 Encounter Miguel Paredes [facility] [id number] Surgical 4.2.7.2.686 Specialti [id number] es 809 Alla 2019-06-28 2019-06-28 [facility] [id number] 09:13:51 10:04:54 Visit Miguel Paredes [facility] [id number] Surgical 4.2.7.2.686 Specialti [id number] es 198 Mayer Results Test Description Test Time Test Comments Results Result Comments Source GLUBED 2020-07-01 13:14:00 Test Item Value Reference Range Interpretation Comme nts GLUBED (test code = GLUBED) 109 MG/DL 74-106 H [id number] 13:14:00 Test Item Value Reference Range Interpretation Comments GLUBED (test code = GLUBED) 109 MG/DL 74-106 H [id number] 06:47:00 Test Item Value Reference Range Interpretation Comments GLUBED (test code = GLUBED) 111 MG/DL 74-106 H COMPREHENSIVE METABOLIC [id number] 04:04:00 Test Item Value Reference Range Interpretation [...] N (test code = ALKP) THROMBOPLASTIN TIME [id number] 03:58:00 Test Item Value Reference Range Interpretation Comments THROMBOPLASTIN TIME 29.8 SECONDS 23.4-37.0 N Therap eutic Range PARTIAL (test code = for Hep cr PTT) EFFECTIVE Heparin IU/mL aPT T Seconds0.3 64.30.7 88.8 IS PATIENT ON ANTICOAGULANTS ? YESLIST ANTICOAGULANT/ANTI PLT MEDICATION: Enoxaprin (Lovenox)CBC W/AUTO [id number] 03:51:00 Test Item Value Reference Range Interpretation [...] = BA#) 0.03 x10 3/uL 0.0-0.1 N [id number] 20:40:00 Test Item Value Reference Range Interpretation Comments GLUBED (test code = GLUBED) 141 MG/DL 74-106 H [id number] 16:58:00 Test Item Value Reference Range Interpretation Comments GLUBED (test code = GLUBED) 123 MG/DL 74-106 H [id number] 12:05:00 Test Item Value Reference Range Interpretation Comments GLUBED (test code = GLUBED) 165 MG/DL 74-106 H - MRI UP JNT W/O CONT [id number] 08:50:00 [facility] : 1940 Sex: M FAX: Louis Araiza MD [phone] [place]: St: ADM FAX: Konstantin Cunha mmad [place] [phone] Name: RENEE DEUTCSH : 1940 Age/S: 80/M [address] Unit #: [id number] Loc: [address] [place] [address] Phys: Jose D Millan MD Acct: [id number] Dis Date: Status: ADM IN PHONE #: [phone] Exam Date: 06/30/2020 0716 FAX #: [phone] Reason:septic arthritis EXAMS: CPT CODE: [id number] [place] JNT W/[place] [address] MRI OF THE LEFT WRIST WITHOUT INTRAVENOUS [...] Signed Report (CONTINUED) FAX: Louis Araiza MD [phone] [place]: [facility]: ADM FAX: Jose D Cunha [phone] Name: RENEE DEUTSCH [facility] : 1940 Age/S: 80/M [address] Unit #: [id number] Loc: [address] [place] [address] Phys: Jose D Millan MD Acct: [id number] Dis Date: Status: ADM IN PHONE #: [phone] Exam Date: 06/30/2020 0716 FAX #: [phone] Reason: septic arthritis EXAMS:CPT CODE: [id number] [place] JNT W/[place] [address] <Continued> significant edema, age indeterminate. If there is concern for septic arthritis, consider joint fluid aspiration. Mild focal flexor pollicis longus tenosynovitis. 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 at 0850 Reported and signed by: Tato Maurice MD CC: Louis Garza MD; Jose D Millan MD Technologist: ROLANDA FIERRO [facility] Date/Time/By: 06/30/2020 (0850) : By: [email or web address] PAGE2 Signed Report FAX: Louis Araiza MD [phone] [place]: [facility]: ADM FAX: Jose D Cunha [phone] Name: RENEE DEUTSCH : 1940 Age/S: 80/M [address] Unit #: [id number] Loc: [address] [place] [address] Phys: Jose D Millan MD Acct: [id number] Dis Date: Status: ADM IN PHONE #: [phone] Exam Date: 06/30/2020715 FAX #: [phone] Reason: septic arthritis EXAMS: CPT CODE: [id number] MRI UP JNT W/[place] [address] <Continued> Orig Print D/T: S: 06/30/2020 (0853) PAGE 3 Signed [id number] 06:22:00 Test Item Value Reference Range Interpretation Comments GLUBED (test code = GLUBED) 179 MG/DL 74-106 H COMPREHENSIVE METABOLIC [id number] 05:30:00 Test Item Value Reference Range Interpretation [...] U/L 38-126 N (test code = ALKP) [id number] 05:30:00 Test Item Value Reference Range Interpretation Comments PHOSPHOROUS (test code = PHOS) 3.3 mg/dL 2.5-4.5 N [id number] 05:30:00 Test Item Value Reference Range Interpretation Comments MAGNESIUM (test code = MAG) 2.0 mg/dL 1.6-2.3 N TSH REFLEX TO [id number] 05:30:00 Test Item Value Reference Range Interpretation Comments TSH REFLEX TO FT4 3.020 MIU/L 0.465-4.68 N (test code = TSHREFLEX) *A positive bias m ay occur for patie nts taking BIOTINsupplemen ts. C REACTIVE [id number] 05:30:00 Test Item Value Reference Range Interpretation Comments C REACTIVE PROTEIN (test code = 138.1 mg/L 0-9 H CRP) COMPREHENSIVE METABOLIC [id number] 04:44:00 Test Item Value Reference Range Interpretation [...] U/L 38-126 N (test code = ALKP) [id number] 04:44:00 Test Item Value Reference Range Interpretation Comments PHOSPHOROUS (test code = PHOS) 3.3 mg/dL 2.5-4.5 N [id number] 04:44:00 Test Item Value Reference Range Interpretation Comments MAGNESIUM (test code = MAG) 2.0 mg/dL 1.6-2.3 N TSH REFLEX TO [id number] 04:44:00 Test Item Value Reference Range Interpretation Comments TSH REFLEX TO FT4 (test code = MIU/L 0.465-4.68 TSHREFLEX) C REACTIVE [id number] 04:44:00 Test Item Value Reference Range Interpretation Comments C REACTIVE PROTEIN (test code = 138.1 mg/L 0-9 H CRP) COMPREHENSIVE METABOLIC [id number] 04:32:00 Test Item Value Reference Range Interpretation [...] U/L 38-126 N (test code = ALKP) [id number] 04:32:00 Test Item Value Reference Range Interpretation Comments PHOSPHOROUS (test code = PHOS) 3.3 mg/dL 2.5-4.5 N [id number] 04:32:00 Test Item Value Reference Range Interpretation Comments MAGNESIUM (test code = MAG) 2.0 mg/dL 1.6-2.3 N TSH REFLEX TO [id number] 04:32:00 Test Item Value Reference Range Interpretation Comments TSH REFLEX TO FT4 (test code = MIU/L 0.465-4.68 TSHREFLEX) C REACTIVE [id number] 04:32:00 Test Item Value Reference Range Interpretation Comments C REACTIVE PROTEIN (test code = CRP) mg/L 0-9 CBC W/AUTO [id number] 04:09:00 Test Item Value Reference Range Interpretation [...] = BA#) 0.04 x10 3/uL 0.0-0.1 N [id number] 21:33:00 Test Item Value Reference Range Interpretation Comments GLUBED (test code = GLUBED) 157 MG/DL 74-106 H [id number] 17:16:00 Test Item Value Reference Range Interpretation Comments GLUBED (test code = GLUBED) 116 MG/DL 74-106 H FLUID,[id number] 13:56:00 Test Item Value Reference Range Interpretation Comments FLUID,SYNOVIAL (test code = FLSYNOV) RUN DATE: 06/29/20 [employer] [facility] PAGE 1 RUN TIME: 1356 Specimen Inquiry RUN USER: INTERFACE PATIENT: RENEE DEUTSCH LOC: #: [id number] AGE/SX: 80/M ROOM: [facility] RE06/26/20[facility] DR: Louis Garza MD : 36 BED: A DIS: STATUS: ADM IN TLOC: SPEC #: [id number] RECD: 06/29/20-1010 STATUS: [facility] #: [id number] DHARMESH: 06/27/20-1507 [facility] DR: Ruiz Gunter MD ENTERED: 06/29/20-2 SP TYPE: FL SYNOVIA RUTH DR: DOES_NOT KNOW Self Referred Robin Cerna Srinivasa R MD Jordan, Matthew Emerson MDORDERED: CYFWBSMI, # OF SLIDES TISSUES: A. SYNOVIAL FLUID - LEFT WRIST CLINICAL HISTORY LEFT WRIST EFFUSION, SEPTIC JOINT FINAL MICROSCOPIC DIAGNOSIS A. SYNOVIAL FLUID, LEFT WRIST, ASPIRATION, DIRECT SMEAR: CALCIUM PYROPHOSPHATE CRYSTALS NOTED BY POLARIZED LIGHT MICROSCOPY CPT: 05874 GROSS DESCRIPTION Equipment, specimen container and paperwork [...] Travis 06/29/20 1356 END OF REPORT VANCOMYCIN [id number] 12:45:00 Test Item Value Reference Range Interpretation Comments VANCOMYCIN TROUGH (test code = 10.86 ug/mL 10-20.0 N VANCT) [id number] 12:12:00 Test Item Value Reference Range Interpretation Comments GLUBED (test code = GLUBED) 108 MG/DL 74-106 H - MRI UPPER EX W/O CONT [id number] 10:03:00 [facility] : 1940 Sex: M FAX: Louis Araiza MD [phone] [place]: St: FAX: Bk Vaughn MD R2 Name: RENEE DEUTSCH [facility] [place] : 1940 Age/S: 80/M [address] Unit #: [id number] Loc: [address] [place] [address] Phys: Marlon Vaughn MD R2 Acct: [id number] Dis Date: Status: ADM IN PHONE #: [phone] Exam Date: 06/29/2020 0851 FAX #: [phone] Reason:Left arm pain EXAMS: CPT CODE: [id number] [place] W/[place] [address] EXAMINATION: MRI left upper extremity without contrast [...] MD; Marlon Vaughn MD Technologist: ROLANDA FIERRO [facility] Date/Time/By: 06/29/2020 (1003) : By: [email or web address] PAGE 1 Signed Report FAX: Louis Araiza MD [phone] [place]: St: [facility] FAX: Marlon Vaughn MD R2 Name: RENEE DEUTSCH : 1940 Age/S: 80/[address] Unit #: [id number] Loc: [address] [place] [address] Phys: Marlon Vaughn MD R2 Acct: [id number] Dis Date: Status: ADM IN PHONE #: [phone] Exam Date: 06/29/2020 0851 FAX #: [phone] Reason: Left arm pain EXAMS: CPT CODE: [id number] MRI UPPER EX W/[place] [address] <Continued> Orig Print D/T: S: 06/29/2020 (5295) PAGE 2 Signed ReportCOMPREHENSIVE METABOLIC [id number] 02:48:00 Test Item Value Reference Range Interpretation [...] N (test code = ALKP) COMPREHENSIVE METABOLIC [id number] 02:48:00 Test Item Value Reference Range Interpretation [...] N (test code = ALKP) CBC W/AUTO [id number] 02:36:00 Test Item Value Reference Range Interpretation [...] = BA#) 0.03 x10 3/uL 0.0-0.1 N [id number] 20:38:00 Test Item Value Reference Range Interpretation Comments GLUBED (test code = GLUBED) 179 MG/DL 74-106 H [id number] 16:27:00 Test Item Value Reference Range Interpretation Comments GLUBED (test code = GLUBED) 106 MG/DL 74-106 N VITAMIN [id number] 15:41:00 Test Item Value Reference Range Interpretation Comments VITAMIN B12 (test code = VITB12) 267 pg/mL 239-931 N FOLIC [id number] 15:41:00 Test Item Value Reference Range Interpretation Comments FOLIC ACID (test 5.52 ng/mL REFERENCE R HANNAH:2.76 - code = FOL) >20 ng/mL A positive bias m ay occur on patients milagros ing BIOTINsupplemen ts. [id number] 15:41:00 Test Item Value Reference Range Interpretation Comments FERRITIN (test code = JAX) 218 ng/mL 17.9-464 N VITAMIN [id number] 15:20:00 Test Item Value Reference Range Interpretation Comments VITAMIN B12 (test code = VITB12) pg/mL 239-931 FOLIC [id number] 15:20:00 Test Item Value Reference Range Interpretation Comments FOLIC ACID (test code = FOL) ng/mL [id number] 15:20:00 Test Item Value Reference Range Interpretation [...] (test code = FESAT) % 20-55 VANCOMYCIN [id number] 14:42:00 Test Item Value Reference Range Interpretation Comments VANCOMYCIN PEAK (test code = 30.24 ug/mL 20.0-40.0 N VANCP) RETICULOCYTE [id number] 14:18:00 Test Item Value Reference Range Interpretation Comments RETICULOCYTE COUNT (test code = RETICA) 1.0 % 0.5-1.5 N [id number] 12:06:00 Test Item Value Reference Range Interpretation Comments GLUBED (test code = GLUBED) 191 MG/DL 74-106 H SED [id number] 06:47:00 Test Item Value Reference Range Interpretation Comments SED RATE (test code = SEDW) 68 mm/hr 0-20 H [id number] 05:57:00 Test Item Value Reference Range Interpretation Comments GLUBED (test code = GLUBED) 135 MG/DL 74-106 H [id number] 05:57:00 Test Item Value Reference Range Interpretation Comments GLUBED (test code = GLUBED) 62 MG/DL 74-106 L COMPREHENSIVE METABOLIC [id number] 05:14:00 Test Item Value Reference Range Interpretation [...] N (test code = ALKP) C REACTIVE [id number] 05:14:00 Test Item Value Reference Range Interpretation Comments C REACTIVE PROTEIN (test code = 237.9 mg/L 0-9 H CRP) COMPREHENSIVE METABOLIC [id number] 04:59:00 Test Item Value Reference Range Interpretation [...] N (test code = ALKP) C REACTIVE [id number] 04:59:00 Test Item Value Reference Range Interpretation Comments C REACTIVE PROTEIN (test code = CRP) mg/L 0-9 CBC W/AUTO [id number] 04:29:00 Test Item Value Reference Range Interpretation [...] = BA#) 0.02 x10 3/uL 0.0-0.1 N [id number] 21:38:00 Test Item Value Reference Range Interpretation Comments GLUBED (test code = GLUBED) 140 MG/DL 74-106 H [id number] 15:59:00 Test Item Value Reference Range Interpretation Comments GLUBED (test code = GLUBED) 149 MG/DL 74-106 H [id number] 12:28:00 Test Item Value Reference Range Interpretation Comments GLUBED (test code = GLUBED) 90 MG/DL 74-106 N [id number] 06:02:00 Test Item Value Reference Range Interpretation Comments GLUBED (test code = GLUBED) 156 MG/DL 74-106 H [id number] 04:46:00 Test Item Value Reference Range Interpretation Comments GLUBED (test code = GLUBED) 62 MG/DL 74-106 L BASIC METABOLIC [id number] 03:50:00 Test Item Value Reference Range Interpretation [...] 8.8 mg/dL 8.4-10.2 N CA) CBC W/AUTO [id number] 03:32:00 Test Item Value Reference Range Interpretation [...] 0.0-0.1 N UA RFLX MICR CULT IF [id number] 00:06:00 Test Item Value Reference Range Interpretation [...] LDL Cholesterol<1 00mg/d L: Desirable LD L-C ahxppyjmbkwjx27 0-159m g/dL: Borderlin e High Risk LDL-C jynxrpoxyeard57 0-189m g/dL: High risk LDL-C concentration H [...] DL Cholesterol<1 00mg/dL : Desirable LDL -C kaanppwfvektc79 0-159mg /dL: Borderline High Risk LDL-C 0-189mg /dL: High risk LDL-C concentration H DL-LDL Cholesterol is affected by a n umber of factors such as smoking, age an d sex.~~~~~~~~~~~ ~~~~~~~ ~~~~~~~~~~~~~~~ ~~~~~~~ ~~~~~~~~~~~~~~~ ~~~~~ LACTIC [id number] 23:52:00 Test Item Value Reference Range Interpretation Comments LACTIC ACID (test code = LACT) 0.9 mmol/L 0.7-2.0 N LACTIC [id number] 20:40:00 Test Item Value Reference Range Interpretation Comments LACTIC ACID (test 2.1 mmol/L 0.7-2.0 HH Critical V alue reported code = LACT) toFirst Name:SHAHRZAD [id number] Last Name:MURIEL EDEN READ BACK AND MAIRA THOMAS, on 0 06/26/20, @ 2039. BASIC METABOLIC [id number] 20:39:00 Test Item Value Reference Range Interpretation [...] 9.1 mg/dL 8.4-10.2 N CA) LIVER FUNCTION [id number] 20:39:00 Test Item Value Reference Range Interpretation [...] N (test code = ALKP) BASIC METABOLIC [id number] 20:36:00 Test Item Value Reference Range Interpretation [...] 9.1 mg/dL 8.4-10.2 N CA) LIVER FUNCTION [id number] 20:36:00 Test Item Value Reference Range Interpretation [...] N (test code = ALKP) TROPONIN I [id number] 20:13:00 Test Item Value Reference Range Interpretation [...] if similar methodology is used. CBC W/AUTO [id number] 20:06:00 Test Item Value Reference Range Interpretation [...] 3/uL 0.0-0.1 N - DUP UE ART UNI [id number] 19:31:[address] : 1940 Sex: M FAX: Asif Bautista MD R1 [place]: St: PRE Name: RENEE DEUTSCH [facility] : 1940 Age/S: 80/M [address] Unit #: [id number] Loc: [place] [address] Phys: Asif Bautista [facility] Acct: [id number] Dis Date: Status: PRE ER PHONE #: [phone] Exam Date: 06/26/20201924 FAX #: [phone] Reason: Left upper extremity EXAMS: CPT CODE: [id number] [place] [address] EXAM: - DUP UE ART UNI LT [...] the left upper extremity arterial vasculature. at 1930 Reported and signed by: Gabino Puckett MD CC: Asif Bautista MD Technologist: JENN JUSTIN Trnscrd Date/Time/By: 06/26/2020 (1930) : By: [email or web address] PAGE 1 Signed Report FAX: Asif Bautista MD R1 [place]: St: PRE Name: RENEE DEUTSCH [facility] : 1940 Age/S: 80/M [address] Unit #: [id number] Loc: [place] [address] Phys: Asif Bautista MD R1 Acct: [id number] Dis Date: Status: PRE ER PHONE #: [phone] Exam Date: 06/26/20201924 FAX #: [phone] Reason: Left upper extremity EXAMS: CPT CODE: [id number] [address] <Continued> Orig Print D/T: S: 06/26/2020 (1934) PAGE 2 Signed Report- DUP VEIN UNI [id number] 19:29:[address] : 1940 Sex: M FAX: Asif Bautista MD R1 [place]: St: PRE Name: RENEE DEUTSCH [facility] [place] : 1940 Age/S: 80/M [address] Unit #: [id number] Loc: [place] [address] Phys: Asif Bautista Acct: [id number] Dis Date: Status: PRE ER PHONE #: [phone] Exam Date: 06/26/20201924 FAX #: [phone] Reason: Left upper extremity EXAMS: CPT CODE: [id number] [address] EXAM: - DUP VEIN UNI LT HISTORY: [...] CC: Asif Bautista MD Technologist: JENN JUSTIN Trnmird Date/Time/By: 06/26/2020 (1928) : By: [email or web address] PAGE 1 Signed Report FAX: Asif Bautista MD R1 [place]: St: PRE-------- Name: RENEE DEUTSCH [place] : 1940 Age/S: 80/M [address] Unit #: [id number] Loc: [place] [address] Phys: Asif Bautista MD R1 Acct: [id number] Dis Date: Status: PRE ER PHONE #: [phone] Exam Date: 06/26/20201924 FAX #: [phone] Reason: Left upper extremity EXAMS: CPT CODE: [id number] [place] [address] <Continued> Orig Print D/T: S: 06/26/2020 (1931) PAGE 2 Signed Report- XR CHEST 1 [id number] 18:46:[address] : 1940 Sex: M FAX: Asif Bautista MD R1 [place]: St: PRE Name: RENEE DEUTSCH [facility] [place] : 1940 Age/S: 80/M [address] Unit #: [id number] Loc: [place] [address] Phys: Asif Bautista MDR1 Acct: [id number] Dis Date: Status: PRE ER PHONE #: [phone] Exam Date: 06/26/20201836 FAX #: [phone] Reason: CODE SEPSIS EXAMS: CPT CODE: [id number] XR CHEST 1 V 70131 Dictation location: H37. CHEST, FRONTAL VIEW HISTORY: CODE SEPSIS COMPARISON: None FINDINGS: Probable calcified granuloma in the left lower lobe. Small left pleural effusion. The lungs are otherwise clear. No pneumothorax. The heart size is normal. The bones are unremarkable. IMPRESSION: Small left pleural effusion. at 1846 Reported and signed by: Kaci Barrera MD CC: Asif Bautista MD Technologist: Jemma Gillespie; SANNA MESA Trnmird Date/Time/By: 06/26/2020 (236) : By: [email or web address] PAGE 1 Signed Report FAX: Asif Bautista MD R1 [place]: St: PRE --Name: RENEE DEUTSCH [facility] : 1940 Age/S: 80/M [address] Unit #: [id number] Loc: [place] Phys: Asif Bautista MD R1 Acct: [id number] Dis Date: Status: PRE ER PHONE #: [phone] Exam Date: 06/26/20201836 FAX #: [phone] Reason: CODE SEPSIS EXAMS: CPTCODE: [id number] XR CHEST 1 V 77119 <Continued> Orig Print D/T: S: 06/26/2020 (0624) PAGE 2 Signed Report
[2020-08-17] MEDS ORDERED: ONDANSETRON 4 MG/2 ML VIAL IV PRN (22:57)
[2020-08-17] MEDS ORDERED: GLUCAGON 1 MG/VIAL IM PRN (22:57)
[2020-08-17] MEDS ORDERED: D50W 25 GM/50 ML SYRINGE IV PRN (22:57)
[2020-08-17] MEDS ORDERED: LOPERAMIDE HCL 2 MG CAPSULE PO PRN (22:57)
[2020-08-17] MEDS ORDERED: ACETAMINOPHEN 325 MG TABLET PO PRN (22:57)
[2020-08-17] MEDS ORDERED: POLYETHYL GLY 3350 17 GM/DOSE PO PRN (22:57)
[2020-08-17] MEDS ORDERED: DIPHENHYDRAMINE 25 MG TAB/CAP PO PRN (22:57)
[2020-08-17 22:59] VITALS: BMI 22.6
[2020-08-17] MEDS ORDERED: NACHLORIDE 0.45% 1,000 ML IV SCH (23:00)
[2020-08-17 23:02] LABS: Absolute Lymphocytes (CBC) 1.3 K/uL (0.7-4.9); Basophils % 0.8 % (0-1.3); Hematocrit 37.5 % (39.6-49.0); MPV 7.3 fL (7.6-11.3); RBC Red Blood Cell Count 4.32 M/uL (4.33-5.43)
[2020-08-17] MEDS ORDERED: ONDANSETRON 4 MG (ODT) TAB PO PRN (23:07)
[2020-08-17 23:18] LABS: Protime INR 0.96
[2020-08-17 23:37] LABS: ALT/SGPT 27 U/L (12-78); AST/SGOT 14 U/L (15-37); Alkaline Phosphatase 73 U/L (45-117); BUN Blood Urea Nitrogen 19 mg/dL (7-18); Bicarbonate 25 mmol/L (21-32); Bilirubin Direct 0.2 mg/dL (0-0.2); Bilirubin Total 0.6 mg/dL (0.2-1.0); CKMB Creatine Kinase MB < 1.0 ng/mL (0.3-3.6); Creatine Phosphokinase 30 U/L (39-308); Glucose Level 347 mg/dL (74-106); Magnesium 2.1 mg/dL (1.8-2.4); NT PRO-BNP 328 pg/mL (<450); Potassium 4.2 mmol/L (3.5-5.1); Protein, Total 6.5 g/dL (6.4-8.2); Sodium Level 133 mmol/L (136-145); Troponin I < 0.02 ng/mL (0.0-0.045)
[2020-08-18 01:18] LABS: Urine Appearance CLEAR (Clear); Urine Bilirubin NEGATIVE (Negative); Urine Blood NEGATIVE (Negative); Urine Color YELLOW (Yellow); Urine Glucose 3+ (Negative); Urine Microscopic Reflex NO UMIC; Urine Protein NEGATIVE (Negative); Urine Specific Gravity >=1.030 (1.005-1.030); Urine Urobilinogen 0.2 mg/dL (0.2-1.0)
[2020-08-18 05:58] LABS: Absolute Lymphocytes (CBC) 1.5 K/uL (0.7-4.9); Basophils % 0.7 % (0-1.3); Hematocrit 34.9 % (39.6-49.0); Lymphocytes % 23.1 % (15.3-44.8); RBC Red Blood Cell Count 4.07 M/uL (4.33-5.43)
[2020-08-18 06:24] LABS: Creatine Phosphokinase 28 U/L (39-308); Troponin I < 0.02 ng/mL (0.0-0.045)
[2020-08-18] MEDS ORDERED: ACETAMINOPHEN PO PRN (06:25)
[2020-08-18] MEDS ORDERED: TRAMADOL HCL PO PRN (06:25)
[2020-08-18] MEDS: NACHLORIDE 0.45% 1,000 ML IV SCH ×3 (06:27→20:54)
[2020-08-18] MEDS ORDERED: IPRATROPIUM BROMIDE IH SCH (06:30)
[2020-08-18 06:34] LABS: Magnesium 2.1 mg/dL (1.8-2.4); Potassium 3.8 mmol/L (3.5-5.1)
[2020-08-18] MEDS: INSULIN -REGULAR HUMAN 50 UNIT/0.5 ML ML SQ SCH ×4 (07:30→20:54)
--- NOTE | 2020-08-18 08:29 | RAD REPORT ---
EXAM DESCRIPTION: NM - Vent Perfusion VQ Scan - 08/18/2020 8:23 am CLINICAL HISTORY: elevated ddimer Chest pain, shortness of breath COMPARISON: Upper Ext Angio dated 07/18/2020 TECHNIQUE: 22.8mCi Xe-133 gas inhaled and 7.2mCi Tc-MAA IV. Planar ventilation scan was performed in posterior projection after Xe-133 gas inhalation (wash-in, e quilibrium, and wash-out phases) followed by perfusion scan with Tc-MAA IV in multiple projections. Examination is correlated with recent chest radiograph. FINDINGS: Homogeneous ventilation is present with mild air trapping noted. There are several segmental mismatched perfusion defects present. IMPRESSION: Intermediate to high probability of pulmonary thromboembolism. Mild COPD physiology.
--- NOTE | 2020-08-18 08:51 | RAD REPORT ---
EXAM DESCRIPTION: RAD - Chest Pa And Lat (2 Views) - 08/17/2020 11:49 pm CLINICAL HISTORY: Direct admit Chest pain. COMPARISON: Chest Pa And Lat (2 Views) dated 07/16/2020; CHEST SINGLE VIEW dated 01/31/2015; CHEST PA AND LAT 2 VIEW dated 01/29/2015; CHEST PA AND LAT 2 VIEW dated 09/25/2014 FINDINGS: Prominent diffuse COPD is present. The heart is mildly prominent in size. No displaced fra ctures. IMPRESSION: Mild diffuse COPD.
[2020-08-18] MEDS ORDERED: POTASSIUM CL SA 10 MEQ TAB PO ONE (09:00)
[2020-08-18] MEDS: INSULIN GLARGINE HUM REC ANLOG 100 UNIT/ML SQ SCH (09:00)
[2020-08-18] MEDS: CHOLECALCIFEROL 1000 UNIT PO SCH (09:00)
[2020-08-18] MEDS ORDERED: ENOXAPARIN 40 MG/0.4 ML SQ SCH (09:00)
[2020-08-18] MEDS: MAGNESIUM OXIDE 400 MG PO SCH ×2 (09:00→20:51)
[2020-08-18] MEDS: ASPIRIN 81 MG PO SCH (09:00)
[2020-08-18] MEDS: INS SQ SCH (09:00)
--- NOTE | 2020-08-18 09:11 | RAD REPORT ---
EXAM DESCRIPTION: MRI - Brain Wo Cont - 08/18/2020 8:47 am CLINICAL HISTORY: Dizziness, Ataxia Headache, drowsiness COMPARISON: Brain Wo Cont dated 07/17/2020 TECHNIQUE: Multi-sequence, multiplanar MR imaging of the brain was performed without contrast. FINDINGS: No intracranial hemorrhage, hydrocephalus or extra-axial fluid collections.Areas of gliosi s in the right cerebral hemisphere show stability since prior study. No edema or shift of midline str uctures. No findings to suspect brain mass. DWI is negative for acute CVA. Midline structures are normally formed. Mastoid air cells and paranasal sinuses are clear. IMPRESSION: Negative for acute CVA or other acute intracranial abnormality.
[2020-08-18] MEDS ORDERED: D50W 25 GM/50 ML VIAL IV PRN (13:00)
[2020-08-18 15:50] LABS: CKMB Creatine Kinase MB 1.1 ng/mL (0.3-3.6); Creatine Phosphokinase 28 U/L (39-308); Troponin I < 0.02 ng/mL (0.0-0.045)
--- NOTE | 2020-08-18 16:34 | EKG ---
Test Date: 2020-08-17 Test Time: 23:12:32 [place] Technician: [place] MEASUREMENT RESULTS: Intervals: Rate: 78 [place]: 170 QRSD: 98 QT: 364 QTc: 414 [place]: P: 29 [place]: 170 QRS: -61 T: 32 INTERPRETIVE STATEMENTS: Sinus rhythm with premature supraventricular complexes Incomplete right bundle branch block Left anterior fascicular block Moderate voltage criteria for LVH, may be normal variant Abnormal ECG Compared to ECG 07/17/2020 02:53:51 Incomplete right bundle-branch block now present Myocardial infarct finding no longer present Electronically Signed On 08-18-20 16:32:55 CDT by Gato Moise
[2020-08-18] MEDS ORDERED: GABAPENTIN 100 MG PO SCH (21:00)
[2020-08-18] MEDS ORDERED: MELATONIN 10 MG PO SCH (21:00)
[2020-08-18] MEDS ORDERED: MIRTAZAPINE 7.5 MG PO SCH (21:00)
[2020-08-18] MEDS ORDERED: SIMVASTATIN 40 MG PO SCH (21:00)
[2020-08-18] MEDS ORDERED: MECLIZINE HCL 25 MG PO SCH (21:00)
--- NOTE | 2020-08-18 21:09 | P.PN ---
Subjective Date of Service: 08/18/20 Chief Complaint: HE IS STABLE. Subjective: Improving WAS REALLY WORRIED AND UPSET YESTERDAY SHE WANTED HIM TO SEE BOBBIN WINDER AND HIM BEING LIGHTHEADED SHE WANTED TO TAKE HER TO ER. SHE DID NOT WANT TO WAIT A WEEK TO SEE BOBBIN WINDER. I TOLD HER THAT I DON'T SEE ANYTHING CARDIAC GOING ON. HE IS MILDLY DEHYDRARED AND SHOULD IMPROVE WITH IV FLUIDS. HE MAY HAVE ORTHOSTASIS. I WILL DO ACTH STIM TEST. MRI BRAIN NEG AND VQ IS INDETERMINATE. Review of Systems 10-point ROS is otherwise unremarkable Physical Examination - Vital Signs Temperature: 98.5 F Blood Pressure: 126/72 Pulse: 86 Respirations: 16 Pulse Ox (%): 94 - Physical Exam General: Alert, In no apparent distress HEENT: Atraumatic, PERRLA, EOMI Neck: Supple, JVD not distended Respiratory: Clear to auscultation bilaterally, Normal air movement Cardiovascular: Regular rate/rhythm, Normal S1 S2 Gastrointestinal: Normal bowel sounds, No tenderness Musculoskeletal: No tenderness Integumentary: No rashes Neurological: Normal speech, Normal tone, Normal affect Lymphatics: No axilla or inguinal lymphadenopathy - Studies Laboratory Data (last 24 hrs) 08/18/20 14:21: Troponin I < 0.02 08/18/20 05:43: Sodium 137, Potassium 3.8, BUN 18, Creatinine 1.36 H, Glucose 128 H, Magnesium 2.1 08/18/20 05:43: WBC 6.60 D, Hgb 12.4 L, Hct 34.9 L, Plt Count 228 08/18/20 05:43: Troponin I < 0.02 08/17/20 22:44: Sodium 133 L, Potassium 4.2, BUN 19 H, Creatinine 1.65 H, Glucose 347 H, Phosphorus 4.0, Magnesium 2.1, Total Bilirubin 0.6, AST 14 L, ALT 27, Alkaline Phosphatase 73, Troponin I < 0.02 08/17/20 22:44: PT 11.0, INR 0.96, APTT 25.7 08/17/20 22:44: WBC 5.30, Hgb 12.9 L, Hct 37.5 L, Plt Count 225 Medications List Reviewed: Yes Assessment And Plan - Current Problems (Diagnosis) (1) Orthostasis Current Visit: Yes Status: Acute Plan: HE SHOULD IMPROVE CREAT IS DOWN FROM 1.6 TO 1.39 HE DOES NOT SEEM TO DRINK ENOUGH WATER. I ASKED HIM TO RAISE TO 100 OZ DAILY OF WATER AT HOME (2) Dehydration Current Visit: Yes Status: Acute (3) Diabetes mellitus Onset Date: 09/30/14 Current Visit: No Status: Chronic Plan: A1C I S ABOUT 8. HE HAS DONE BETTER BEFORE.
[2020-08-18] MEDS: ENOXAPARIN 80 MG/0.8 ML SQ SCH (22:00)
[2020-08-19 04:56] LABS: Absolute Lymphocytes (CBC) 1.4 K/uL (0.7-4.9); Basophils % 0.6 % (0-1.3); Hematocrit 34.3 % (39.6-49.0); Lymphocytes % 22.3 % (15.3-44.8); MPV 7.1 fL (7.6-11.3); RBC Red Blood Cell Count 4.02 M/uL (4.33-5.43)
[2020-08-19 05:15] LABS: Magnesium 2.1 mg/dL (1.8-2.4); Potassium 3.7 mmol/L (3.5-5.1)
[2020-08-19] MEDS: INSULIN -REGULAR HUMAN 50 UNIT/0.5 ML ML SQ SCH ×2 (07:30→12:39)
[2020-08-19] MEDS ORDERED: COSYNTROPIN 0.25 MG VIAL IV ONE (08:00)
[2020-08-19] MEDS ORDERED: SODIUM CHLORIDE 0.9% 10ML INJ IV ONE (08:00)
[2020-08-19 08:53] VITALS: O2SAT 93
[2020-08-19] MEDS: MAGNESIUM OXIDE 400 MG PO SCH (09:00)
[2020-08-19] MEDS: INS SQ SCH (09:00)
[2020-08-19] MEDS: INSULIN GLARGINE HUM REC ANLOG 100 UNIT/ML SQ SCH (09:00)
[2020-08-19] MEDS: CHOLECALCIFEROL 1000 UNIT PO SCH (09:00)
[2020-08-19] MEDS: ENOXAPARIN 80 MG/0.8 ML SQ SCH (09:00)
[2020-08-19] MEDS ORDERED: POTASSIUM CL SA 10 MEQ TAB PO ONE (09:00)
[2020-08-19] MEDS: ASPIRIN 81 MG PO SCH (09:00)
[2020-08-19] MEDS: NACHLORIDE 0.45% 1,000 ML IV SCH (09:38)
--- NOTE | 2020-08-19 11:07 | RAD REPORT ---
EXAM DESCRIPTION: CT - Chest For Pe Angio - 08/19/2020 10:29 am CLINICAL HISTORY: R/O PE R/O PE , elevated D-dimer, shortness of breath COMPARISON: Chest Pa And Lat (2 Views) dated 08/17/2020 TECHNIQUE: Dynamically enhanced 3 mm thick images of the chest were obtained during administration o f approximately 150mL Isovue 370 IV contrast. Coronal and oblique MIP reconstruction images were gene rated and reviewed. Exam utilizes a protocol to evaluate the pulmonary arterial tree. All CT scans are performed using dose optimization technique as appropriate and may include automated exposure control or mA/KV adjustment according to patient size. FINDINGS: No pulmonary emboli are identified. The aorta as imaged shows no acute or suspicious finding. No pericardial thickening or effusion. No o ral cardiomegaly. There is questionable left ventricular myocardial hypertrophy. CT imaging has limit ed sensitivity in assessment. Atelectasis changes are present. Scattered subpleural bulla and bleb formation noted. Patient has sev eral areas of calcified and noncalcified pleural plaquing. In the anterior upper right chest (43/110) as a more masslike appearance measuring 2.6 cm in size. No associated calcification. Remaining pleur al changes have a more sessile configuration typical of benign plaquing. No pleural effusion and no p neumothorax. No mediastinal or hilar suspicious masses. No chest wall masses or abnormal axillary lymphadenopathy. IMPRESSION: No pulmonary emboli identified. The 2.6 centimeter noncalcified pleural mass anterior upper right chest is present in a patient with numerous calcified and noncalcified pleural plaques. This pleural finding has a more masslike configuration concerning for possible mesothelioma or other pleural based malignancy.Follow-up PET-CT imaging may be helpful to evaluate metabolic activity of th is mass. Atelectasis and COPD changes are present in the lung parenchyma.
[2020-08-19 12:19] VITALS: BP 146/67; TEMP 98.3
--- NOTE | 2020-08-19 20:36 | P.DS ---
Admission Date: 08/19/20 Discharge Date: 08/19/20 Disposition: ROUTINE DISCHARGE Discharge Condition: FAIR Reason for Admission: HE IS STABLE. - Problems (1) Orthostasis Status: Acute (2) Dehydration Status: Acute (3) Diabetes mellitus Onset Date: 09/30/14 Status: Chronic Qualifiers: Chronic kidney disease stage: stage 2 (mild) Hospital Course: MR. DEUTSCH CAME WITH UNSTEADIENESS AND DIZZINESS OFF AND ON. WAS VERY VERY WORRIED AND WANTED HIM TO TAKE TO ER. I INSTEAD DID DIRECT ADMISSION TO CUT DOWN ER COST. HIS WORKUP INCLUED MRI BRAIN THAT SHOWED NO STROKE OR TURMOR. EKG, CATDIOLOGY CONSULT AND DR. ADAME DID NOT THINK ANYTHING SEROUS WAS GOING ONE. I DID VQ SCAN FOR HIGH D DIMER THAT WAS INTERMEDIATE BUT CT ANGIO SHOWED NO PE AND SHOED A PLUERAL BASED MASS PLUS ASBESTOSIS. I ALSO FOUND THAT HE WAS DEHYDRATED AND SO I STOPPED LOSARTAN BP WAS LOW. IV FUILD BROUGHT UP HIS BP. HE HAD ACTH TEST THAT WAS NEGATIVE. HE IS STABLE TO GO HOME. HE IS WALKING WITHOUT FALLING OR DIZZINESS. WAS REALLY THINKING WE WILL SOMETHING REALLY WRONG WITH HIS HEART. I WILL FU IN OFFICE AND I TOLD THAT WE WILL NEED A THORACIC SURGEON. Vital Signs/Physical Exam: Temp Pulse Resp BP Pulse Ox 98.3 F 90 24 H 146/67 H 95 08/19/20 12:00 08/19/20 12:00 08/19/20 12:00 08/19/20 12:00 08/19/20 12:00 Laboratory Data at Discharge: WBC 6.40 K/uL (4.3-10.9) 08/19/20 04:21 Hgb 12.3 g/dL (13.6-17.9) L 08/19/20 04: Hct 34.3 % (39.6-49.0) L 08/19/20 04: Plt Count 238 K/uL (152-406) 08/19/20 04:21 PT 11.0 SECONDS (9.5-12.5) 08/17/20 22:44 INR 0.96 08/17/20 22:44 APTT 25.7 SECONDS (24.3-36.9) 08/17/20 22:44 Sodium 139 mmol/L (136-145) 08/19/20 04:21 Potassium 3.7 mmol/L (3.5-5.1) 08/19/20 04:21 BUN 12 mg/dL (7-18) 08/19/20 04:21 Creatinine 1.24 mg/dL (0.55-1.3) 08/19/20 04:21 Glucose 75 mg/dL (74-106) 08/19/20 04:21 Phosphorus 4.0 mg/dL (2.5-4.9) 08/17/20 22:44 Magnesium 2.1 mg/dL (1.8-2.4) 08/19/20 04:21 Total Bilirubin 0.6 mg/dL (0.2-1.0) 08/17/20 22:44 AST 14 U/L (15-37) L 08/17/20 22:44 ALT 27 U/L (12-78) 08/17/20 22:44 Alkaline Phosphatase 73 U/L (45-117) 08/17/20 22:44 Troponin I < 0.02 ng/mL (0.0-0.045) 08/18/20 14:21 Home Medications: Aspirin 81 mg PO DAILY 09/25/14 Gabapentin [Neurontin*] 300 mg PO BEDTIME 09/25/14 Magnesium Oxide [Mag 0X*] 400 mg PO BID 09/25/14 Simvastatin [Zocor*] 40 mg PO BEDTIME 09/25/14 Cholecalciferol (Vitamin D3) [Vitamin D3] 2,000 unit PO DAILY 07/17/20 Dulaglutide [Trulicity] 1.5 mg SQ WMP 07/17/20 Insulin Glargine,Hum.rec.anlog [Basaglar Kwikpen U-100] 30 units SQ DAILY 07/17/20 Meclizine HCl 25 mg PO BEDTIME 07/17/20 Carmichaels-3/Dha/Epa/Fish Oil [Carmichaels 3 500 Softgel] 500 mg PO DAILY 07/17/20 Tramadol HCl/Acetaminophen [Tramadol-Acetaminophn 37.5-325] 1 tab PO BID PRN 07/17/20 Zinc 50 mg PO DAILY 07/17/20 Ipratropium Welcome 2 spray IH BEDTIME PRN 08/18/20 Mirtazapine 7.5 mg PO BEDTIME 08/18/20 Melatonin 10 mg PO BEDTIME PRN #30 08/19/20 New Medications: Melatonin 10 mg PO BEDTIME PRN #30 PRN Reason: Insomnia Physician Discharge Instructions: PROBLEM: Dizziness, Ataxia, Orthostasis GOAL: Clear understanding of disease process INSTRUCTIONS: - Follow up with Dr. Callahan in 1 week. - Stop taking Losartan. Take Melatonin at bedtime as needed. - Return to the ER if your symptoms worsen. - Call the 2nd floor at if you have any questions regarding your nursing care. Diet: Heart healthy Activity: As tolerated [employer] Services Needed: None Name of Company: Date or Referral: IMMUNIZATION Influenza Vaccine Indicated: Influenza Vaccine Given: Date Given: Pneumonia Vaccine Indicated: No Pneumonia Vaccine Given: Date Given: Followup: Max Callahan MD [ACTIVE - CAN ADMIT] - 1 Week (Follow up in office in 1 week. Call to schedule an appointment.)
[2020-08-21 22:30] LABS: Vitamin D 1,25-Dihydroxy Total 67 pg/mL (18-72); Vitamin D,1,25-OH2, D2 <8 pg/mL
--- NOTE | 2020-08-25 09:03 | CON ---
Date of Consultation: 08/18/2020 Reason For Consultation: Mr. Smith was admitted on 08/17/2020 with an episode of syncope, had kyle vated D-dimer. History Of Present Illness: Mr. Smith 80-year-old male without really any significant cardiac his tory. He has a history of diabetes, hypertension, chronic kidney disease, anxiety, abdominal aneurys m and pseudogout. Came in with an episode of syncope after he stood up. He denied any chest pain de nied any nausea, vomiting, diaphoresis, PND, orthopnea, pedal edema, palpitations, or syncope. He di d get dizzy. Workup including a CT angiogram angiography of the chest showed no pulmonary emboli and a 2.6 cm pleural mass in the anterior upper right chest with atelectasis and COPD. His chest x-ray showed diffuse COPD. His EKG basically showed normal sinus rhythm with left anterior hemiblock and l eft ventricular hypertrophy. Past Medical History: As stated above. Allergies: NONE. Review of Systems: Negative. Social History: Negative. Family History: Noncontributory. Physical Examination: General: When I saw him, his pressure was 127/75 with a pulse of 91. He was afebrile. HEENT: Negative. Neck: Supple. No bruit. Chest: Clear to auscultation and percussion. Cardiac: Revealed a regular rhythm and rate. No murmurs, gallops or rubs. Abdomen: Benign. Extremities: Revealed no clubbing, cyanosis, or edema. Diagnostic Data: He had a creatinine of 1.36. D-dimer was 750. Hemoglobin was 12.4, normal white c ount. Rest of the blood work was fairly unremarkable. Other diagnostic data, as stated earlier. Impression And Plan: I think Mr. Smith' syncope is orthostatic in nature. I think he needs to be rehydrated. I think doing an outpatient echocardiogram and a carotid Doppler in the office may not be unreasonable. I will also get him set up for an outpatient 7-day event monitor, but as far as Im concerned, he can otherwise go home. COURTNEY/AMANDEEPL Voice ID: [id number] Report ID: [id number]
== END 2020-08-19 15:30 | disposition home or self-care (01) | DRG 312 ==
LOC: 2ND 21:36 → OBSVTOIN 08-19 08:09
PROVIDERS: ADMIT Internal Medicine; ATTEND Internal Medicine
DX: I95.1 Orthostatic hypotension (principal); E86.0 Dehydration; I12.9 Hypertensive chronic kidney disease with stage 1 through stage 4 chronic kidney disease, or unspecified chronic kidney disease; N18.2 Chronic kidney disease, stage 2 (mild); E11.22 Type 2 diabetes mellitus with diabetic chronic kidney disease; Z79.52 Long term (current) use of systemic steroids; Z79.899 Other long term (current) drug therapy; Z79.82 Long term (current) use of aspirin; Z79.4 Long term (current) use of insulin; Z20.822 Contact with and (suspected) exposure to COVID-19
CPT/HCPCS: 36415; 70551; 71046; 71275; 78582; 80048; 80076; 81003; 82024; 82043; 82533; 82550; 82553; 82570; 82607; 82652; 82947; 83036; 83735; 83880; 84100; 84439; 84443; 84484; 85025; 85379; 85610; 85730; 93005; A9540; A9558; G0378; G0379; J0834; J1650; Q9967; U0003

== ENCOUNTER 2022-03-09 06:52 | Inpatient (IN) | payer OTHER ==
--- OUTSIDE RECORDS SUMMARY | 2022-03-09 06:58 | XMS REPORT | Continuity of Care Document ---
:1940 Author Organization [facility] t Address [address] [place] [address] Dr. Schneider. [address] [place] [address] Care Team Providers Name Role Phone Max Callahan MD Primary Care Physician Rosa NIELSON, Amanda Shabazz Attending Clinician [phone] Therapy, [facility] Covid Infusion Attending Clinician Unavailable Dallas Eaton MD Attending Clinician DALLAS EATON Attending Clinician Unavailable Doctor Unassigned, [place] Attending Clinician Unavailable Kishore NIELSON, Iftikhar LoveHKobe Attending Clinician Jose Martin Graves MD Attending Clinician Esther Berg NP Attending Clinician MD IFTIKHAR NOVAK.H. Attending Clinician Unavailable Matilda Maldonado MA Attending Clinician Unavailable Blayne Frank Attending Clinician Jaimie Gunter MA Attending Clinician Unavailable Provider Kathya NIELSON Attending Clinician NATASHA ESPARZA Attending Clinician Unavailable Natasha Esparza MD Attending Clinician IFTIKHAR NOVAK Admitting Clinician Unavailable MD IFTIKHAR NOVAK Admitting Clinician Unavailable Payers Payer Name Policy Type Policy Number Effective Date Expiration Date Bar DIOR INDAVISNITY [id number] 2013 2020 00:00:00 00:00:00 Problems Condition Condition Condition Status Onset Resolution Last Treating Co mments Source Name Details Category Date Date Treatment Clinician Date 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 Added automatic ally from request for surgery [id number] Hypertensi Problem Active 2020-09-16 M emoria ve Hypertensi 21:28:10 l disorder, ve [place] systemic disorder, arterial systemic (disorder) arterial (disorder) Active Problem 09/16/2020 [facility] Hypothyroi Hypothyro Problem Active 2020-09-16 Memoria dism idism 21:28:10 l (disorder) (disorder) He rmann Active Problem 09/16/2020 [facility] Orthostati Orthostat Problem Active 2020-09-16 Memoria c ic 21:28:10 l hypotensio hypotensio He rmann n n (disorder) (disorder) Active Problem 09/16/2020 [facility] Recurrent Recurrent Problem Active 2020-09-16 Memoria falls falls 21:28:10 l (finding) (finding) Herm bang Active Problem 09/16/2020 [facility] Cellulitis Celluliti Problem Resolve 2020-09-16 Memoria (disorder) s d 21:28:10 l (disorder) René n Resolved Problem 09/16/2020 [facility] Lactic Lactic Problem Resolve 2020-09-16 Mem oria acidosis acidosis d 21:28:10 l (disorder) (disorder) He rmann Resolved Problem 09/16/2020 [facility] Systemic Systemic Problem Resolve 2020-09-16 Memoria infection infection d 21:28:10 l (disorder) (disorder) He rmann Resolved Problem 09/16/2020 [facility] Diabetes Diabetes Problem Active 2020-09-16 Memoria mellitus mellitus 21:28:10 l (disorder) (disorder) He rmann Active Problem 09/16/2020 [facility] Dizziness Dizziness Problem Active 2020-09-16 Memoria (finding) (finding) 21:28:10 l Active Nakul Problem 09/16/2020 [facility] Allergies, Adverse Reactions, Alerts Allergy Allergy Status Severity Reaction(s) Onset Inactive Treating Comm ents Source Name Type Date Date Clinician No Known DA Active [facility]26 [facility] No Known DA Active [facility] All[facility]ie 06-26 [facility] 00:[facility]: d 00 [facility] Center NO KNOWN Drug Active Univers ALLERGIE Class ity of S [facility] Social History Social Habit Start Date Stop Date Quantity Comments Source History [facility] Alcohol Std Drinks Hospit al History [facility] Alcohol Binge Hospital History of tobacco Snuff User Method ist use Hospital History [facility] Alcohol Comment Hospital Cigarettes smoked 2020-11-26 2020-11-[address] current (pack per 00:00:00 00:00:00 Hospita l day) - Reported Alcohol intake 2020-11-26 2020-11-26 [facility] 00:00:00 00:00:00 non-drinker Hospital (finding) Tobacco use and 2020-11-26 2020-11-26 User of smokeless Me thodist exposure 00:00:00 00:00:00 tobacco Hospital History [facility] 2020-09-10 2020-09-10 1 [facility] Alcohol Frequency 00:00:00 00:00:00 Hospita l Social History 2020-08-10 2020-08-10 [facility] 16:28:47 16:28:47 Sex Ass[birth year] At [birth year] [facility] 00:00:00 00:00:00 Hospital Smoking Status Start Date Stop Date Source Unknown if ever smoked [facility] Ex-smoker 2020-11-26 00:00:00 2020-11-26 00:00:[facility] Medications Ordered Filled Start Stop Current Ordering Indication Dosage Frequency Signature Comments Components Source Medication Medication Date Date Medication? Clinician (SIG) Name Name soreyesyoanamab 2021- No [id number] 500mg 500 mg, IV Univers (XEVUDY) 06-12 Infusion, ity o f 500 mg in 16:30: 15:59 ONCE, [place] NaCl 0.9% 00 :00 Administer Medi michelle (NS) 50 mL over 30 Branch MINI-BAG Minutes, On 06/12/21 at 1030, For [address] able 24 hours refrigerat ed or 6 hours at room temperatur e including transporta tion and infusion time.<b r> meclizine 0 Yes 25mg Q.[id number] Take 25 mg [facility] (ANTIVERT) 7-22 [id number] by mouth [address] 25 mg 08:47: 3D (three) Hospita tablet 11 times a l day as needed for dizziness. mirtazapine Yes 25mg QD Take 25 mg [facility] (REMERON 7-[address] ZULAY-TAB) 15 08:47: nightly. Ho spita MG 11 l disintegrat ing tablet melatonin Yes Take by Metho di 10 mg -[address] capsule 08:47: Hospita 11 l ipratropium Yes 2{spray Q12H 2 sprays [facility] (ATROVENT) 11-26 } into each st 21 mcg 08:47: nostril Hospita (0.03 %) 11 every 12 l nasal spray (twelve) hours. insulin Yes Inject [facility] glargine,hu 7-[address] m.rec.anlog 08:47: skin. Hospi ta (INSULIN 11 l GLARGINE SUBQ) dulaglutide Yes 1.5mg Inject 1.5 [facility] (TRULICITY) 7-[address] 1.5 mg/0.5 08:47: the skin. Ho spita mL 11 l subcutaneou s pen colchicine 0 Yes .6mg QD Take 0.6 Met hodi 0.6 mg 7-[address] tablet 08:47: mouth Hospita 11 daily. l omega-3 0 Yes 1g Q.5D Take 1 g Method i acid ethyl 7-[address] esters 08:47: (two) Hospita (LOVAZA) 1 11 times a l gram day. capsule calcium 0 Yes 1{tbl} Q.5D Take 1 Method i carbonate-v 7-[address] itamin D3 08:47: mouth 2 Hospi ta 500 mg-200 11 (two) l unit per times a tablet day with meals. aspirin Yes Take by [facility] (ASPIR-81 7- mouth. st ORAL) 08:47: Hospita 11 l magnesium 0 Yes 400mg QD Take 400 Met hodi oxide 7-[address] (MAG-OX) 08:47: mouth Hospita 400 mg 11 daily. l (241.3 mg magnesium) tablet ZINC ORAL Yes Take by Metho di - mouth. st 08:47: Hospita 11 l simvastatin 0 Yes 40mg QD Take 40 mg Methodi (ZOCOR) 40 11-[address] mg tablet 08:47: nightly. Hosp lino 11 l meclizine 0 Yes 25mg Q.[id number] Take 25 mg [facility] (ANTIVERT) 11-26 [id number] by mouth [address] 25 mg 08:47: 3D (three) Hospita tablet 11 times a l day as needed for dizziness. mirtazapine 0 Yes 25mg QD Take 25 mg [facility] (REMERON 11-[address] ZULAY-TAB) 15 08:47: nightly. Ho spita MG 11 l disintegrat ing tablet melatonin Yes Take by Metho di 10 mg 11-[address] capsule 08:47: Hospita 11 l ipratropium 0 Yes 2{spray Q12H 2 sprays [facility] (ATROVENT) 11-26 } into each st 21 mcg 08:47: nostril Hospita (0.03 %) 11 every 12 l nasal spray (twelve) hours. insulin Yes Inject [facility]i glargine,hu [address] m.rec.anlog 08:47: skin. Hospi ta (INSULIN 11 l GLARGINE SUBQ) dulaglutide 0 Yes 1.5mg Inject 1.5 [facility] (TRULICITY) 7-[address] 1.5 mg/0.5 08:47: the skin. Ho spita mL 11 l subcutaneou s pen colchicine 0 Yes .6mg QD Take 0.6 Met hodi 0.6 mg 7-[address] tablet 08:47: mouth Hospita 11 daily. l omega-3 0 Yes 1g Q.5D Take 1 g Method i acid ethyl [address] esters 08:47: (two) Hospita (LOVAZA) 1 11 times a l gram day. capsule calcium Yes 1{tbl} Q.5D Take 1 Method i carbonate-v - tablet by st itamin D3 08:47: mouth 2 Hospi ta 500 mg-200 11 (two) l unit per times a tablet day with meals. aspirin Yes Take by [facility] (ASPIR-81 7- mouth. st ORAL) 08:47: Hospita 11 l magnesium Yes 400mg QD Take 400 Met hodi oxide 7-[address] (MAG-OX) 08:47: mouth Hospita 400 mg 11 daily. l (241.3 mg magnesium) tablet ZINC ORAL Yes Take by Metho di 11-[address] 08:47: Hospita 11 l simvastatin Yes 40mg QD Take 40 mg [facility] (ZOCOR) 40 11-[address] mg tablet 08:47: nightly. Hosp lino 11 l traMADoL 2020- [place] [id number] 50mg Q6H Take 50 mg M ethodi (ULTRAM) 50 08 06-[address] mg tablet 16:13: 00:00 every 6 Hosp lino 57 :00 (six) l hours as needed for moderate pain .acute pain. traMADoL 2020- No [id number] 50mg Q6H Take 1 Metho di (ULTRAM) 50 10-13 06-12 tablet (50 s t mg tablet 00:00: 04:59 mg total) Ho spita 00 :00 by mouth l every 6 (six) hours as needed for moderate pain for up to 3 days .acute pain. Insulin Yes See Memoria Glargine / 4-05 Instructio l Lixisenatid 16:26: ns, 30cc He rmann e 00 Qwk, 0 Refill(s) Insulin Yes See Memoria Glargine / 4-05 Instructio l Lixisenatid 16:26: ns, 30cc He rmann e 00 Qwk, 0 Refill(s) Trulicity Yes SUB-Q, Memori a Pen 4-05 qWeek, 0 l 16:25: Refill(s) Nakul 00 Trulicity Yes SUB-Q, Memori a Pen 4-05 qWeek, 0 l 16:25: Refill(s) Melatonin Yes 10 mg = 1 Mem oria 10 mg oral 4-05 tab, PO, l tablet 15:58: Bedtime, 0 Ana nn Refill(s) Melatonin Yes 10 mg = 1 Mem oria 10 mg oral 4-05 tab, PO, l tablet 15:58: Bedtime, 0 Ana nn Refill(s) Mirtazapine Yes 25 mg, PO, Memoria 4-05 Bedtime, 0 l 15:57: Refill(s) Mirtazapine Yes 25 mg, PO, Memoria 4-05 Bedtime, 0 l 15:57: Refill(s) Simvastatin Yes 40 mg, PO, Memoria 4-05 Bedtime, 0 l 15:56: Refill(s) Meclizine Yes 25 mg = 1 Mem oria 4-05 tab, PO, l 15:56: Bedtime, PRN Dizziness, 0 Refill(s) Simvastatin Yes 40 mg, PO, Memoria 4-05 Bedtime, 0 l 15:56: Refill(s) Meclizine Yes 25 mg = 1 Mem oria 4-05 tab, PO, l 15:56: Bedtime, PRN Dizziness, 0 Refill(s) Prednisone Yes 20 mg, PO, M emoria 4-05 Daily, l 15:55: Quantity sufficient , 0 Refill(s) gabapentin Yes 300 mg, Gerald gail 4-05 PO, l 15:55: Bedtime, 0 Refill(s) Prednisone Yes 20 mg, PO, M emoria 4-05 Daily, l 15:55: Quantity sufficient , 0 Refill(s) gabapentin Yes 300 mg, Gerald gail 4-05 PO, l 15:55: Bedtime, 0 Refill(s) Vitamin D3 Yes 50,000 Memor ia 50,000 intl 4-05 IntlUnit = l units oral 15:54: 1 cap, PO, H ermann capsule 00 qWeek, # 12 cap, 0 Refill(s) Losartan No PO, Daily, Mem oria 4-05 0 l 15:54: Refill(s) losartan 50 Yes 50 mg = 1 M emoria mg oral 4-05 tab, PO, l tablet 15:54: Daily, 0 Refill(s) Vitamin D3 Yes 50,000 Memor ia 50,000 intl 4-05 IntlUnit = l units oral 15:54: 1 cap, PO, H ermann capsule 00 qWeek, # 12 cap, 0 Refill(s) Losartan No PO, Daily, Mem oria 4-05 0 l 15:54: Refill(s) losartan 50 Yes 50 mg = 1 M emoria mg oral 4-05 tab, PO, l tablet 15:54: Daily, 0 Savage 00 Refill(s) Aspirin Yes 81 mg, PO, Gerald gail 4-05 Daily, 0 l 15:53: Refill(s) Aspirin Yes 81 mg, PO, Gerald gail 4-05 Daily, 0 l 15:53: Refill(s) Colchicine Yes 0.6 mg, Gerald gail 4-05 PO, Daily, l 15:51: 0 Refill(s) Colchicine Yes 0.6 mg, Gerald gail 4-05 PO, Daily, l 15:51: 0 Refill(s) ipratropium Yes Univer s 0.03 % 2-13 ity of nasal spray 00:00: [place] [address] [facility] ipratropium 0 Yes Univer s 0.03 % 2-13 ity of nasal spray 00:00: [place] [facility] BASAGLAR Yes INJECT 32 Univ ers KWIKPEN 2-04 UNITS ity of U-100 00:00: SUB-Q [place] INSULIN 100 00 DAILY Medical unit/mL (3 Branch mL) injection PEN NEEDLE Yes Univers 31 gauge x 2-04 ity of 316" Ndle 00:00: [place] [facility] BASAGLAR 2019-0 Yes INJECT 32 Univ ers KWIKPEN 2-04 UNITS ity of U-100 00:00: SUB-Q [place] INSULIN 100 00 DAILY Medical unit/mL (3 Branch mL) injection PEN NEEDLE Yes Univers 31 gauge x 2-04 ity of 316" Ndle 00:00: [place] [facility] gabapentin 2019-0 Yes Methodi (NEURONTIN) 1-26 st 300 mg 00:00: Hospita capsule 00 l gabapentin 2019-0 Yes Univers 300 mg 1-26 ity of capsule 00:00: [place] [facility] gabapentin 2019-0 Yes Univers 300 mg 1-26 ity of capsule 00:00: [address] gabapentin 2019-0 Yes Methodi (NEURONTIN) 1-26 st 300 mg 00:00: Hospita capsule 00 l QUEtiapine 2019-0 Yes Univers 25 mg 1-24 ity of tablet 00:00: [place] [facility] QUEtiapine 2019-0 Yes Univers 25 mg 1-24 ity of tablet 00:00: [address] simvastatin 2019-0 Yes Univer s 40 mg 1-16 ity of tablet 00:00: [address] simvastatin 2019-0 Yes Univer s 40 mg 1-16 ity of tablet 00:00: [address] Vital Signs Vital Name Observation Time Observation Value Comments Source Systolic blood 2021-06-12 17:03:00 166 mm[Hg] Univer sity of pressure [facility] Diastolic blood 2021-06-12 17:03:00 71 mm[Hg] Unive rsity of pressure [facility] Heart rate 2021-06-12 17:03:00 72 /min [facility] Body temperature 2021-06-12 17:03:[address] [facility] Respiratory rate 2021-06-12 17:03:00 16 /min [facility] Oxygen saturation in 2021-06-12 17:03:00 94 /min [facility] Arterial blood by [facility] Pulse oximetry [place] Body height 2021-06-12 15:00:00 188 cm [facility] Body weight 2021-06-12 15:00:00 86.183 kg [facility] BMI 2021-06-12 15:00:00 24.39 kg/m2 [facility] Systolic blood 2020-11-26 13:43:00 133 mm[Hg] [facility] pressure Diastolic blood 2020-11-26 13:43:00 79 mm[Hg] [facility] pressure Heart rate 2020-11-26 13:43:00 83 /min [facility] Body temperature 2020-11-26 13:43:00 36.5 Jennifer [facility] Respiratory rate 2020-11-26 13:43:00 18 /min [facility] Body height 2020-11-26 13:43:00 189.2 cm [facility] Body weight 2020-11-26 13:43:00 84.823 kg [facility] BMI 2020-11-26 13:43:00 23.69 kg/m2 [facility] Oxygen saturation in 2020-11-26 13:43:00 100 /min [facility] Arterial blood by Pulse oximetry Systolic (mm Hg) 2020-08-10 15:41:00 Gerald rial [place] Diastolic (mm Hg) 2020-08-10 [facility]:41:00 [facility] 2020-08-10 15:41:00 [facility] [place] Respitory Rate 2020-08-10 15:41:00 Memori al [place]ul Height 2020-08-10 15:41:[address] Weight 2020-08-10 15:41:00 [facility] BMI Calculated 2020-08-10 15:41:00 [facility] Procedures Procedure Date / Time Performing Clinician Source Performed CONSENT/REFUSAL FOR 2021-06-12 06:01:00 Doctor Unassigned, [facility] DIAGNOSIS AND TREATMENT [facility] POC GLUCOSE 2020-10-13 16:35:[address] [facility] POC GLUCOSE 2020-10-13 12:39:[address] [facility] XR CHEST 1 VW PORTABLE 2020-10-13 12:35:00 Billy Salazar [facility] Marie BASIC METABOLIC PANEL 2020-10-13 09:25:00 Billy Salazar [facility] Marie CBC HEMOGRAM 2020-10-13 09:25:00 Billy Salazar spital Marie MAGNESIUM LEVEL 2020-10-13 09:25:00 ElzesharonaBilly [facility] spital Marie PHOSPHORUS LEVEL 2020-10-13 09:25:00 [facility] ESTIMATED GFR 2020-10-13 09:25:[address] [facility] POC GLUCOSE 2020-10-13 01:45:[address] [facility] XR CHEST 1 VW PORTABLE 2020-10-12 23:18:00 Marie [facility] Marie POC GLUCOSE 2020-10-12 21:51:[address] [facility] SURGICAL PATHOLOGY 2020-10-12 20:00:00 Iftikhar Novak [facility] REQUEST ARTERIAL LINE 2020-10-12 19:08:06 Jose Martin Graves [facility]ital [place] AN ELECTIVE 2020-10-12 18:31:00 Jose Martin Graves spital ENDOTRACHEAL AIRWAY THORACOSCOPY 2020-10-12 18:20:[address] [facility] BRONCHOSCOPY 2020-10-12 18:20:[address] [facility] TYPE AND SCREEN 2020-10-12 14:22:00 WheelerEsther [facility] POC GLUCOSE 2020-10-12 14:19:[address] [facility] COVID-19 QUALITATIVE 2020-10-08 15:35:00 Iftikhar Novak [facility] RT-PCR HEMOGLOBIN A1C 2020-09-21 16:48:[address] [facility] TYPE AND SCREEN 2020-09-21 16:48:[address] [facility] PROTHROMBIN TIME WITH INR 2020-09-21 16:48:[address] [facility] PARTIAL THROMBOPLASTIN 2020-09-21 16:48:00 Iftikhar Novak [facility] TIME (PTT) COMPREHENSIVE METABOLIC 2020-09-21 16:48:00 Iftikhar Novak [facility] PANEL HC COMPLETE BLD COUNT 2020-09-21 16:48:00 Iftikhar Novak [facility] W/AUTO DIFF ESTIMATED GFR 2020-09-21 16:48:[address] [facility] CT CHEST WO CONTRAST 2020-09-10 16:22:14 Iftikhar Novak [facility] CT CHEST EXTERNAL STUDY 2020-08-19 15:24:00 Iftikhar Novak [facility] CT ANGIOGRAM PE CHEST 2020-08-19 00:00:00 Provider, Historical [facility] [id number] 2020-06-29 00:00:00 JAMILAH [facility] Plan of Care Planned Activity Planned Date Details Comments Source Future Scheduled 2022-02-22 HEPATITIS B VACCINES Met [facility] Test 14:37:23 (1 of 3 - 3-dose series) [code = HEPATITIS B VACCINES (1 of 3 - 3-dose series)] Future Scheduled 2022-02-22 COVID-19 VACCINE (#1) [facility] Test 14:37:23 [code = COVID-19 VACCINE (#1)] Future Scheduled 2022-02-22 SHINGLES VACCINES (1 Met [facility] Test 14:37:23 of 2) [code = SHINGLES VACCINES (1 of 2)] Future Scheduled 2022-02-22 65+ PNEUMOCOCCAL [facility] Test 14:37:23 VACCINE (1 - PCV) [code = 65+ PNEUMOCOCCAL VACCINE (1 - PCV)] Future Scheduled 2022-02-22 INFLUENZA VACCINE [facility] Test 14:37:23 [code = INFLUENZA VACCINE] Future Scheduled 2021-06-17 COVID-19 VACCINE (1) Met [facility] Test 09:37:38 [code = COVID-19 VACCINE (1)] Future Scheduled 2021-06-17 SHINGLES VACCINES (#1) [facility] Test 09:37:38 [code = SHINGLES VACCINES (#1)] Future Scheduled 2021-06-17 65+ PNEUMOCOCCAL [facility] Test 09:37:38 VACCINE (1 of 1 - PPSV23) [code = 65+ PNEUMOCOCCAL VACCINE (1 of 1 - PPSV23)] Future Scheduled 2021-06-17 INFLUENZA VACCINE Method [facility] Hospital Test 09:37:38 [code = INFLUENZA VACCINE] Encounters Start End Encounter Admission Attending Care Care Encounter Source Date/Time Date/Time Type Type Clinicians Facility Department ID 2021-09-14 2021-09-14 Orders Rosa 1.2.840.4 [id number] Methodi 00:00:00 00:00:00 Only Amanda 64501.1.[address] [place] 3.430.2.7 Hospit a .3.603143 l .8 2021-06-12 2021-06-12 Nurse Therapy, Adc Covid Infusion [facility] 1.2.840.114 [id number] Univers 09:00:00 10:00:00 Visit [place] Eaton 350.1.13.10 ity [facility] 4.2.7.2.686 [place] SURGICAL [id number] [address] 2021-06-12 2021-06-12 Outpatient Jori [facility] [id number] Univers 09:00:00 09:00:00 [place] torres [facility] 2021-06-12 2021-06-12 Orders Doctor GALLARDO 1.2.840.114 [id number] Univers 00:00:00 00:00:00 Only Unassigned, DONI 350.1.13.10 ity of [place] [facility] 4.2.7.2.686 John as [id number] [address] 2020-11-26 2020-11-26 Office Kishore 1.2.840.1 [id number] Methodi 08:34:35 09:41:06 Visit Iftikhar DenaKobeJusKobe [address]282.1.[address] 3.430.2.7 Hospit a .3.152846 l .8 2020-11-26 2020-11-26 Travel 1.2.840.1 1.2.382.973 [id number] Methodi 00:00:00 00:00:[address] 3.430.2.7 0.2.7.3.698 [facility] .3.728477 084.8 l .8 2020-11-26 2020-11-26 Abstract Novak, 1.2.840.1 [id number] Methodi 00:00:00 00:00:00 [facility] [address] 3.430.2.7 Hospit a .3.518268 l .8 2020-11-13 2020-11-13 Telephone Novak, 1.2.840.1 [id number] Methodi 00:00:00 00:00:00 Edward [address] 3.430.2.7 Hospit a .3.478725 l .8 2020-11-11 2020-11-11 Telephone Novak, 1.2.840.4 [id number] Methodi 00:00:00 00:00:00 Edward [address] 3.430.2.7 Hospit a .3.183445 l .8 2020-11-11 2020-11-11 Telephone Novak, 1.2.840.9 [id number] Methodi 00:00:00 00:00:[address] 3.430.2.7 Hospit a .3.017335 l .8 2020-10-12 2020-10-13 [facility] Kishore, 1.2.840.1 [id number] Methodi 08:27:00 16:13:00 Encounter Edward Y.H. 90201.1.[address] 3.430.2.7 Hospit a .3.413469 l .8 2020-10-12 2020-10-12 Anesthesia Jose Martin Graves 1.2.840.1 [id number] Methodi 13:20:00 16:32:[address]231.1.[address] 3.430.2.7 Hospit a .3.943012 l .8 2020-10-12 2020-10-12 [facility] Kishore, 1.2.840.1 [id number] Methodi 11:55:00 16:00:00 [address]rika [address]79.[address] 3.430.2.7 Hospit a .3.135368 l .8 2020-10-12 2020-10-12 Travel 1.2.840.1 1.2.388.774 [id number] Methodi 00:00:00 00:00:[address] 3.430.2.7 0.2.7.3.698 Ho spita .3.764898 084.8 l .8 2020-10-09 2020-10-09 Telephone Wheeler, 1.2.840.1 [id number] Methodi 00:00:00 00:00:[address] Kristen 3.430.2.7 Hospit a .3.114210 l .8 2020-10-08 2020-10-08 Lab Novak, 1.2.840.1 [id number] Methodi 10:11:20 10:16:20 Edrika [address]999.[address] 3.430.2.7 Hospit a .3.006518 l .8 2020-10-08 2020-10-08 Telephone Wheeler, 1.2.840.1 [id number] Methodi 00:00:00 00:00:[address] Kristen 3.430.2.7 Hospit a .3.157171 l .8 2020-10-08 2020-10-08 Travel 1.2.840.1 1.2.411.755 [id number] Methodi 00:00:00 00:00:[address] 3.430.2.7 0.2.7.3.698 Ho spita .3.065274 084.8 l .8 2020-09-30 2020-09-30 Abstract Joel, 1.2.840.1 [id number] Methodi 00:00:00 00:00:[address] 3.430.2.7 Hospit a .3.216703 l .8 2020-09-23 2020-09-23 Telephone Wheeler, 1.2.840.1 [id number] Methodi 00:00:00 00:00:[address] Kristen 3.430.2.7 Hospit a .3.676485 l .8 2020-09-23 2020-09-23 Prep for Wheeler, 1.2.840.1 [id number] Methodi 00:00:00 00:00:00 Surgery Esther 94943.1.[address] Kristen 3.430.2.7 Hospit a .3.072903 l .8 2020-09-21 2020-09-21 Lab Novak, 1.2.840.1 [id number] Methodi 11:36:03 11:51:03 [address]805.1.[address] 3.430.2.7 Hospit a .3.002225 l .8 2020-09-21 2020-09-21 Travel 1.2.840.1 1.2.244.481 [id number] Methodi 00:00:00 00:00:[address] 3.430.2.7 0.2.7.3.698 Ho spita .3.632606 084.8 l .8 2020-09-14 2020-09-14 Ambulatory nullFlavo MNA [id number] Memoria 15:30:00 15:30:00 Pre-Reg r Neurology 01 l Seb Mota 2020-09-14 2020-09-14 Ambulatory nullFlavo MNA [id number] Memoria 15:30:00 15:30:00 Pre-Reg r Neurology 01 l Seb Mota 2020-09-14 2020-09-14 Outpatient MHIE MHIE [id number] Memoria 10:30:00 10:30:00 konrad Mota 2020-09-14 2020-09-[address] [facility] [id number] 10:30:00 10:30:00 Blayne Mills 2020-09-14 2020-09-14 Orders Wheeler, 1.2.840.6 [id number] Methodi 00:00:00 00:00:00 Only Esther 61762.1.[address] Kristen 3.430.2.7 Hospit a .3.140433 l .8 2020-09-10 2020-09-10 [facility], 1.2.840.1 [id number] Methodi 10:41:09 23:59:00 Encounter Edrika Fernandes.H. 80411.1.[address] 3.430.2.7 Hospit a .3.354857 l .8 2020-09-10 2020-09-10 [facility], 1.2.840.1 [id number] Methodi 10:37:41 10:40:00 Encounter Edrika Fernandes.H. 44914.1.[address] 3.430.2.7 Hospit a .3.284371 l .8 2020-09-10 2020-09-10 Office [facility], 1.2.840.1 [id number] 8597 Methodi 08:40:08 10:18:22 Visit Iftikhar Peters. 62733.1.[address] 3.430.2.7 Hospit a .3.530273 l .8 2020-09-10 2020-09-10 [facility], 1.2.840.4 [id number] 853 [id number] Methodi 00:00:00 00:00:[address] 3.430.2.7 Hospit a .3.052080 l .8 2020-09-10 2020-09-10 Travel 1.2.840.1 1.2.398.750 3364 836674 Methodi 00:00:00 00:00:[address] 3.430.2.7 0.2.7.3.698 spita .3.488185 084.8 l .8 2020-09-09 2020-09-09 Telephone [place], 1.2.840.9 [id number] 185 [id number] Methodi 00:00:00 00:00:[address]53.1.[address] 3.430.2.7 Hospit a .3.194659 l .8 2020-09-08 2020-09-08 Telephone [place], 1.2.840.7 [id number] 276 [id number] Methodi 00:00:00 00:00:[address] 3.430.2.7 Hospit a .3.013795 l .8 2020-08-24 2020-08-24 Telephone Jani, 1.2.840.1 [id number] 2099 375271 Methodi 00:00:00 00:00:[address] 3.430.2.7 Hospit a .3.974414 l .8 2020-08-24 2020-08-24 Orders Provider, 1.2.840.1 [id number] 2099 334219 Methodi 00:00:00 00:00:00 Only Historical 05326.1.1 750 s t 3.430.2.7 Hospit a .3.166330 l .8 2020-08-10 2020-08-11 Outpatient nullFlavo MNA 98076 02305 Memoria 15:30:00 04:59:59 r Neurology 00 l Seb Mota 2020-08-10 2020-08-11 Outpatient nullFlavo MNA 29331 83126 Memoria 15:30:00 04:59:59 r Neurology 00 l Seb Mota 2020-08-10 2020-08-10 [id number] 10:30:00 23:59:59 Blayne [place] 2020-06-28 2020-06-28 Inpatient HCAKW HCAKW [id number] [facility] 09:38:45 09:38:45 05 [facility] 2019-06-28 2019-06-28 Outpatient [facility] 47202 37898 Univers 09:30:15 23:59:00 NATASHA [facility] 2019-06-28 2019-06-28 Hospital Vilma [facility] 1.2.840.114 743 60266 09:30:00 23:59:00 Encounter Natasha Paredes [facility] 350.1.13.10 Surgical 4.2.7.2.686 Specialti [id number] es 809 Alla 2019-06-28 2019-06-28 Office Vilma [facility] 1.2.496.558 2123 0996 09:13:51 10:04:54 Visit Natasha Paredes [facility] 350.1.13.10 Surgical 4.2.7.2.686 Specialti [id number] es 198 [place] Results Test Description Test Time Test Comments Results Result Comments Source Surgical pathology request 2020-10-19 18:19:45 Test Item Value Reference Range Interpretation Comme nts Case number (test code = 9753350) [id number] Surgical pathology report (test code = See link below for PDF Lab R eport 2258) Result status (test code = 5781374) This is Final Report for [id number] 3324-3 [facility] [id number] 17:01:44 Test Item Value Reference Range Interpretation Comments POC glucose (test code = 240 mg/dL 65-99 H Ope rator Name: 87685-2) Terryshruthi Dutton Yousif ID: [id number] able : [facility] 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 [id number] 00:11:47 Test Item Value Reference Range Interpretation Comments Interpretation (test Negative results do code = 9624451) not preclude 2019-nCoV infection and should not be used as the sole basis for treatment or other patient management decisions. Negative results must be combined with clinical observations, patient history, and epidemiological information. COVID-19 qualitative Not-Detected Not-Detected RT-PCR result (test code = 64417-0) COVID-19 qualitative See link below for C ase Number: RT-PCR (test code = PDF Lab Report [id number] 6670) Madison MckeonARS-CoV-2 (COVID-19) RNA [Presence] in Respiratory specimen by THEO with probe [id number] 19:11:21 Test Item Value Reference Range Interpretation Comments SARS-CoV-2 (COVID-19) RNA Not detected Not-Detected [Presence] in Respiratory specimen by THEO with probe detection (test code = 44130-2) Whether patient is employed in a healthcare setting (test code = 34193-3) Whether the patient has symptoms related to condition of interest (test code = 60980-0) Patient was hospitalized because of this condition (test code = 12862-5) Whether the patient was admitted to intensive care unit (ICU) for condition of interest (test code = 07416-2) Whether patient resides in a congregate care setting (test code = 12609-3) KARINA LAZOTERESSA [id number] 13:14:00 Test Item Value Reference Range Interpretation Comments GLUBED (test code = GLUBED) 109 MG/DL 74-106 H [id number] 13:14:00 Test Item Value Reference Range Interpretation Comments GLUBED (test code = GLUBED) 109 MG/DL 74-106 H [id number] 06:47:00 Test Item Value Reference Range Interpretation Comments GLUBED (test code = GLUBED) 111 MG/DL 74-106 H COMPREHENSIVE METABOLIC [id number] 04:04:00 Test Item Value Reference Range Interpretation [...] N (test code = ALKP) THROMBOPLASTIN TIME [id number] 03:58:00 Test Item Value Reference Range Interpretation Comments THROMBOPLASTIN TIME 29.8 SECONDS 23.4-37.0 N Therape utic Range PARTIAL (test code = for Hep cr PTT) EFFECTIVE Heparin IU/mL a PTT Seconds0.3 64.3 0.7 88.8 IS PATIENT ON ANTICOAGULANTS ? YESLIST ANTICOAGULANT/ANTI PLT MEDICATION: Enoxaprin (Lovenox)CBC W/AUTO [id number] 03:51:00 Test Item Value Reference Range Interpretation [...] = BA#) 0.03 x10 3/uL 0.0-0.1 N [id number] 20:40:00 Test Item Value Reference Range Interpretation Comments GLUBED (test code = GLUBED) 141 MG/DL 74-106 H [id number] 16:58:00 Test Item Value Reference Range Interpretation Comments GLUBED (test code = GLUBED) 123 MG/DL 74-106 H [id number] 12:05:00 Test Item Value Reference Range Interpretation Comments GLUBED (test code = GLUBED) 165 MG/DL 74-106 H - MRI UP JNT W/O CONT [id number] 08:50:00 [facility] 1940 Sex: M FAX: Louis Araiza MD [phone] [place]: St: [facility] FAX: Jose D Cunha [phone] Name: RENEE DEUTSCH [facility] Talha : 1940 Age/S: 80/M [address] Unit #: [id number] Loc: C.[address] [place] [address] Phys: Jose D Millan MD Acct: [id number] Dis Date: Status: ADM IN PHONE #: [phone] Exam Date: 06/30/2020 0716 FAX #: [phone] Reason: septic arthritis EXAMS: CPT CODE: [id number] MRI UP JNT W/[place] [address] MRI OF THE LEFT WRIST WITHOUT INTRAVENOUS [...] although without sniffing and marrow edema. There is degenerative marrow edema scattered throughout the wrist, this appears most pronounced at the 1st CMC joint that is moderate in degree. Note is made of prominent subchondral cysts at the volar and medial aspect of the distal radius as well as at the radial styloid process. There are joint effusions involving the distal radioulnar, radiocarpal and intercarpal joint spaces. There is ill-definition of the scapholunate ligament without discrete fluid traversing the ligament. The lunotriquetralligament is intact. The central disc of the [...] normal in signal. There is diffuse subcutaneous edema about the wrist extending dorsallytowards the hand. IMPRESSION: Distal radioulnar, radiocarpal and intercarpal joint effusions. Subtle erosions at the distal scaphoid pole although without PAGE 1 Signed Report (CONTINUED) FAX: Louis Araiza MD [phone] [place]: St: ADM FAX: Jose D Cunha [phone] Name: RENEE DEUTSCH [facility] : 1940 Age/S: 80/M [address] Unit #: [id number] Loc: C[address] [place] [address] Phys: Jose D Millan MD Acct: [id number] Dis Date: Status: ADM IN PHONE #: [phone] Exam Date: 06/30/202016 FAX #: [phone] Reason: septic arthritis EXAMS: CPT CODE: [id number] [place] JNT W/[place] [address] (Continued) significant edema, age indeterminate. If there is concern for septic arthritis, consider joint fluid aspiration. Mild focal flexor pollicis longus tenosynovitis. 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 at 0850 Reported and signed by: Tato Maurice MD CC: Louis Garza MD; Jose D Millan MD Technologist: ROLANDA FIERRO Trnmord Date/Time/By: 06/30/2020 (0850) : By: [email or web address] PAGE 2 Signed Report FAX: Louis Araiza MD [phone] [place]: St: ADM FAX: Jose D Cunha [phone] Name: RENEE DEUTSCH [facility] Talha : 1940 Age/S: 80/M [address] Unit #: [id number] Loc: C.[address] [place] [address] Phys: Jose D Millan MD Acct: [id number] Dis Date: Status: ADM IN PHONE #: [phone] Exam Date: 06/30/2020715 FAX #: [phone] Reason: septic arthritis EXAMS: CPT CODE: [id number] MRI UP JNT W/[place] [address] (Continued) Orig Print D/T: S: 06/30/2020 (0853) PAGE 3 Signed [id number] 06:22:00 Test Item Value Reference Range Interpretation Comments GLUBED (test code = GLUBED) 179 MG/DL 74-106 H COMPREHENSIVE METABOLIC [id number] 05:30:00 Test Item Value Reference Range Interpretation [...] U/L 38-126 N (test code = ALKP) [id number] 05:30:00 Test Item Value Reference Range Interpretation Comments PHOSPHOROUS (test code = PHOS) 3.3 mg/dL 2.5-4.5 N [id number] 05:30:00 Test Item Value Reference Range Interpretation Comments MAGNESIUM (test code = MAG) 2.0 mg/dL 1.6-2.3 N TSH REFLEX TO [id number] 05:30:00 Test Item Value Reference Range Interpretation Comments TSH REFLEX TO FT4 3.020 MIU/L 0.465-4.68 N (test code = TSHREFLEX) *A positive bias m ay occur for patie nts taking BIOTINsupplemen ts. C REACTIVE [id number] 05:30:00 Test Item Value Reference Range Interpretation Comments C REACTIVE PROTEIN (test code = 138.1 mg/L 0-9 H CRP) COMPREHENSIVE METABOLIC [id number] 04:44:00 Test Item Value Reference Range Interpretation [...] U/L 38-126 N (test code = ALKP) [id number] 04:44:00 Test Item Value Reference Range Interpretation Comments PHOSPHOROUS (test code = PHOS) 3.3 mg/dL 2.5-4.5 N [id number] 04:44:00 Test Item Value Reference Range Interpretation Comments MAGNESIUM (test code = MAG) 2.0 mg/dL 1.6-2.3 N TSH REFLEX TO [id number] 04:44:00 Test Item Value Reference Range Interpretation Comments TSH REFLEX TO FT4 (test code = MIU/L 0.465-4.68 TSHREFLEX) C REACTIVE [id number] 04:44:00 Test Item Value Reference Range Interpretation Comments C REACTIVE PROTEIN (test code = 138.1 mg/L 0-9 H CRP) COMPREHENSIVE METABOLIC [id number] 04:32:00 Test Item Value Reference Range Interpretation [...] U/L 38-126 N (test code = ALKP) [id number] 04:32:00 Test Item Value Reference Range Interpretation Comments PHOSPHOROUS (test code = PHOS) 3.3 mg/dL 2.5-4.5 N [id number] 04:32:00 Test Item Value Reference Range Interpretation Comments MAGNESIUM (test code = MAG) 2.0 mg/dL 1.6-2.3 N TSH REFLEX TO [id number] 04:32:00 Test Item Value Reference Range Interpretation Comments TSH REFLEX TO FT4 (test code = MIU/L 0.465-4.68 TSHREFLEX) C REACTIVE [id number] 04:32:00 Test Item Value Reference Range Interpretation Comments C REACTIVE PROTEIN (test code = CRP) mg/L 0-9 CBC W/AUTO [id number] 04:09:00 Test Item Value Reference Range Interpretation [...] = BA#) 0.04 x10 3/uL 0.0-0.1 N [id number] 21:33:00 Test Item Value Reference Range Interpretation Comments GLUBED (test code = GLUBED) 157 MG/DL 74-106 H [id number] 17:16:00 Test Item Value Reference Range Interpretation Comments GLUBED (test code = GLUBED) 116 MG/DL 74-106 H FLUID,[id number] 13:56:00 Test Item Value Reference Range Interpretation Comments FLUID,SYNOVIAL (test code = PEPESYNOV) RUN DATE: 06/29/20 [place] [facility] PAGE 1 RUN TIME: 1356 Specimen Inquiry RUN USER: INTERFACE PATIENT: RENEE DEUTSCH LOC: [address] #: [id number] AGE/SX: 80/M ROOM: [facility] RE06/26/20REG DR: Louis Garza MD : 38 BED: A DIS: STATUS: ADM IN TLOC: SPEC #: [id number] RECD: 06/29/20-1010 STATUS: LISA BELLA #: [id number] DHARMESH: 06/27/20-[address] [facility] [address]: Ruiz Gunter MD ENTERED: 06/29/20-1012 SP TYPE: FL SYNOVIA RUTH DR: DOES_NOT KNOW Self Referred Robin Cerna Srinivasa R MD Jordan, Matthew Emerson MDORDERED: CYFWBSMI, # OF SLIDES TISSUES: A. SYNOVIAL FLUID - LEFT WRIST CLINICAL HISTORY LEFT WRIST EFFUSION, SEPTIC JOINT FINAL MICROSCOPIC DIAGNOSIS A. SYNOVIAL FLUID, LEFT WRIST, ASPIRATION, DIRECT SMEAR: CALCIUM PYROPHOSPHATE CRYSTALS NOTED BY POLARIZED LIGHT MICROSCOPY CPT: 04987 GROSS DESCRIPTION Equipment, specimen container and paperwork [...] Travis 06/29/20 1356 END OF REPORT VANCOMYCIN [id number] 12:45:00 Test Item Value Reference Range Interpretation Comments VANCOMYCIN TROUGH (test code = 10.86 ug/mL 10-20.0 N VANCT) [id number] 12:12:00 Test Item Value Reference Range Interpretation Comments GLUBED (test code = GLUBED) 108 MG/DL 74-106 H - MRI UPPER EX W/O CONT [id number] 10:03:00 [facility] 1940 Sex: M FAX: Louis Araiza MD [phone] [place]: St: ADM FAX: Marlon Vaughn MD R2 Name: [facility]SCH [facility] [place] : 8Age/S: 80/M [address] Unit #: [id number] Loc: [address] [place] [address] Phys: Marlon Vaughn MD R2 Acct: [id number] Dis Date: Status: ADM IN PHONE #: [phone] Exam Date: 06/29/2020 0851 FAX #: [phone] Reason: Left arm pain EXAMS: CPT CODE: [id number] [place]PP[place] W/[place] [address] EXAMINATION: MRI left upper extremity without contrast INDICATION: Left arm pain COMPARISON: No prior left upper extremity MRI for comparison; reference made to left upper extremity arterial and venous Doppler examinations performed 06/26/2020 TECHNIQUE: Multisequence multiplanar MRI of the left upper extremity [...] MD; Marlon Vaughn MD Technologist: ROLANDA FIERRO TrnscrdDate/Time/By: 06/29/2020 (1003) : By: [email or web address] PAGE 1 Signed Report FAX: Louis Araiza MD [phone] [place]: St: ADM FAX: Marlon Vaughn MD R2 Name: RENEE DEUTSCH : 1940 Age/S: 80/M [address] Unit #: [id number] Loc: [address] [place] [address] Phys: Marlon Vaughn MD R2 Acct: [id number] Dis Date: Status: ADM IN PHONE #: [phone] Exam Date: 06/29/2020 0851 FAX #: [phone] Reason: Left arm pain EXAMS: CPT CODE: [id number] MRI UPPER EX W/[place] [address] (Continued) Orig Print D/T: S: (1006) PAGE 2 Signed ReportCOMPREHENSIVE METABOLIC [id number] 02:48:00 Test Item Value Reference Range Interpretation [...] N (test code = ALKP) COMPREHENSIVE METABOLIC [id number] 02:48:00 Test Item Value Reference Range Interpretation [...] N (test code = ALKP) CBC W/AUTO [id number] 02:36:00 Test Item Value Reference Range Interpretation [...] = BA#) 0.03 x10 3/uL 0.0-0.1 N [id number] 20:38:00 Test Item Value Reference Range Interpretation Comments GLUBED (test code = GLUBED) 179 MG/DL 74-106 H [id number] 16:27:00 Test Item Value Reference Range Interpretation Comments GLUBED (test code = GLUBED) 106 MG/DL 74-106 N VITAMIN [id number] 15:41:00 Test Item Value Reference Range Interpretation Comments VITAMIN B12 (test code = VITB12) 267 pg/mL 239-931 N FOLIC [id number] 15:41:00 Test Item Value Reference Range Interpretation Comments FOLIC ACID (test 5.52 ng/mL REFERENCE R HANNAH:2.76 - code = FOL) >20 ng/mL A positive bias m ay occur on patients milagros ing BIOTINsupplemen ts. [id number] 15:41:00 Test Item Value Reference Range Interpretation Comments FERRITIN (test code = JAX) 218 ng/mL 17.9-464 N VITAMIN [id number] 15:20:00 Test Item Value Reference Range Interpretation Comments VITAMIN B12 (test code = VITB12) pg/mL 239-931 FOLIC [id number] 15:20:00 Test Item Value Reference Range Interpretation Comments FOLIC ACID (test code = FOL) ng/mL [id number] 15:20:00 Test Item Value Reference Range Interpretation [...] (test code = FESAT) % 20-55 VANCOMYCIN [id number] 14:42:00 Test Item Value Reference Range Interpretation Comments VANCOMYCIN PEAK (test code = 30.24 ug/mL 20.0-40.0 N VANCP) RETICULOCYTE [id number] 14:18:00 Test Item Value Reference Range Interpretation Comments RETICULOCYTE COUNT (test code = RETICA) 1.0 % 0.5-1.5 N [id number] 12:06:00 Test Item Value Reference Range Interpretation Comments GLUBED (test code = GLUBED) 191 MG/DL 74-106 H SED [id number] 06:47:00 Test Item Value Reference Range Interpretation Comments SED RATE (test code = SEDW) 68 mm/hr 0-20 H [id number] 05:57:00 Test Item Value Reference Range Interpretation Comments GLUBED (test code = GLUBED) 135 MG/DL 74-106 H [id number] 05:57:00 Test Item Value Reference Range Interpretation Comments GLUBED (test code = GLUBED) 62 MG/DL 74-106 L COMPREHENSIVE METABOLIC [id number] 05:14:00 Test Item Value Reference Range Interpretation [...] N (test code = ALKP) C REACTIVE [id number] 05:14:00 Test Item Value Reference Range Interpretation Comments C REACTIVE PROTEIN (test code = 237.9 mg/L 0-9 H CRP) COMPREHENSIVE METABOLIC [id number] 04:59:00 Test Item Value Reference Range Interpretation [...] N (test code = ALKP) C REACTIVE [id number] 04:59:00 Test Item Value Reference Range Interpretation Comments C REACTIVE PROTEIN (test code = CRP) mg/L 0-9 CBC W/AUTO [id number] 04:29:00 Test Item Value Reference Range Interpretation [...] = BA#) 0.02 x10 3/uL 0.0-0.1 N [id number] 21:38:00 Test Item Value Reference Range Interpretation Comments GLUBED (test code = GLUBED) 140 MG/DL 74-106 H [id number] 15:59:00 Test Item Value Reference Range Interpretation Comments GLUBED (test code = GLUBED) 149 MG/DL 74-106 H [id number] 12:28:00 Test Item Value Reference Range Interpretation Comments GLUBED (test code = GLUBED) 90 MG/DL 74-106 N [id number] 06:02:00 Test Item Value Reference Range Interpretation Comments GLUBED (test code = GLUBED) 156 MG/DL 74-106 H [id number] 04:46:00 Test Item Value Reference Range Interpretation Comments GLUBED (test code = GLUBED) 62 MG/DL 74-106 L BASIC METABOLIC [id number] 03:50:00 Test Item Value Reference Range Interpretation [...] 8.8 mg/dL 8.4-10.2 N CA) CBC W/AUTO [id number] 03:32:00 Test Item Value Reference Range Interpretation [...] 0.0-0.1 N UA RFLX MICR CULT IF [id number] 00:06:00 Test Item Value Reference Range Interpretation [...] HPF = WBCUR) PYURIA ABSENT URINE CULTURE N OT INDICATED [Automated message] The system which generated [...] code = LDLC) CORONARY RISK FACTOR 2.82 CHOL/H DL RISK MALE: (test code = RISK) 1/2 AVG 3 .43 FEMALE: 1/2 AVG 3.27 AV G 4.97 AVG 4.44 2X AVG 9.55 2X AVG 7.05 3X AVG 23.39 3X AVG 11.04~~~~~~~~~~ ~~~~~~ ~~~~~~~~~~~~~~~ ~~~~~~ ~~~~~~~~~~~~~~~ ~~~~~~ ~~National Cholesterol Edu cation (NCEP) Guidelines:~~~~ ~~~~~~ ~~~~~~~~~~~~~~~ ~~~~~~ ~~~~~~~~~~~~~~~ ~~~~~~ ~~~~~~~~ HDL Cholesterol<4 0mg/dL : HDL Cholester ol (Major risk fac tor for CHD)>60mg/d L: HDL Cholesterol (Ne gative risk factor for CHD)40-59mg/dL: Borderline Risk LDL Cholesterol<1 00mg/d L: Desirable LD L-C oeimmymmzikdu63 0-159m g/dL: Borderlin e High Risk LDL-C uwfuqdazxkedm17 0-189m g/dL: High risk LDL-C concentration H [...] code = LDLC) CORONARY RISK FACTOR 2.82 CHOL/H DL RISK MALE: (test code = RISK) 1/2 AVG 3 .43 FEMALE: 1/2 AVG 3.27 AV G 4.97 AVG 4.44 2X AVG 9.55 2X AVG 7.05 3X AVG 23.39 3X AVG 11.04~~~~~~~~~~ ~~~~~~~ ~~~~~~~~~~~~~~~ ~~~~~~~ ~~~~~~~~~~~~~~~ ~~~~~~N ational Cholest destin Education (NCEP ) Guidelines:~~~~ ~~~~~~~ ~~~~~~~~~~~~~~~ ~~~~~~~ ~~~~~~~~~~~~~~~ ~~~~~~~ ~~~~~ HDL Cholesterol<4 0mg/dL: HDL Cholesterol (Major risk factor for CHD)>60mg/dL: H DL Cholesterol (Ne gative risk factor for CHD)40-59mg/dL: Borderline Risk LDL Cholesterol<1 00mg/dL : Desirable LDL -C jaaogvigrakqm55 0-159mg /dL: Borderline High Risk LDL-C jupvgyazpidki91 0-189mg /dL: High risk LDL-C concentration H DL-LDL Cholesterol is affected by a n umber of factors such as smoking, age an d sex.~~~~~~~~~~~ ~~~~~~~ ~~~~~~~~~~~~~~~ ~~~~~~~ ~~~~~~~~~~~~~~~ ~~~~~ LACTIC [id number] 23:52:00 Test Item Value Reference Range Interpretation Comments LACTIC ACID (test code = LACT) 0.9 mmol/L 0.7-2.0 N LACTIC [id number] 20:40:00 Test Item Value Reference Range Interpretation Comments LACTIC ACID (test 2.1 mmol/L 0.7-2.0 HH Critical V alue reported code = LACT) toFirst Name:QK [id number] Last Name:[facility] READ BACK AND MAIRA MARTINEZ.LALY, on 0 06/26/20, @ 2039. BASIC METABOLIC [id number] 20:39:00 Test Item Value Reference Range Interpretation [...] 9.1 mg/dL 8.4-10.2 N CA) LIVER FUNCTION [id number] 20:39:00 Test Item Value Reference Range Interpretation [...] N (test code = ALKP) BASIC METABOLIC [id number] 20:36:00 Test Item Value Reference Range Interpretation [...] 9.1 mg/dL 8.4-10.2 N CA) LIVER FUNCTION [id number] 20:36:00 Test Item Value Reference Range Interpretation [...] N (test code = ALKP) TROPONIN I [id number] 20:13:00 Test Item Value Reference Range Interpretation Comments TROPONIN I RAPID 0.01 ng/mL 0.00-0.079 N ISTAT TROP ONIN I (test code = CRITERIA0.00-0. 08 ng/mL - TROPIRAP) Negative>0.08 n g/mL - Positive The us [...] if similar methodology is used. CBC W/AUTO [id number] 20:06:00 Test Item Value Reference Range Interpretation [...] 0.0-0.1 N - DUP UE ART UNI [id number] 19:31:00 [facility] 1940 Sex: M FAX: Asif Bautista MD R1 [place]: St: PRE Name: RENEE DEUTSCH [facility] : 1940 Age/S: 80/M [address] Unit #: [id number] Loc: [place] [address] Phys: Asif Bautista MD R1 Acct: [id number] Dis Date: Status: PRE ER PHONE #: [phone] Exam Date: 06/26/20201924 FAX #: [phone] Reason: Left upper extremity EXAMS: CPT CODE: [id number] [place] [address] EXAM: - DUP UE ART UNI LT HISTORY: Left upper extremity Location code:C3 TECHNIQUE: Grayscale B- mode, color-flow, and spectral Doppler analysis of the left upper extremity arterial vasculature was performed. COMPARISON: None available time of int erpretation. FINDINGS: Multiphasic waveform with normal peak systolic velocity in the left subclavian, axillary, brachial, radial, and ulnar arteries is present. IMPRESSION: 1. No sonographic evidence of hemodynamically significant stenosis within the left upper extremity arterial vasculature. at 193 Reported and signed by: Gabino Puckett MD CC: Asif Bautista MD Technologist: JENN JUSTIN Trnmord Date/Time/By: 06/26/2020 (1930) : By: [email or web address] PAGE 1 Signed Report FAX: Asif Bautista MD R1 [place]: St: PRE [facility] 1940 Age/S: 80[facility]M [address] Unit #: [id number] Loc: [place] [address] Phys: Asif Bautista MD R1 Acct: [id number] Dis Date: Status: PRE ER PHONE #: [phone] Exam Date: 1926 FAX #: [phone] Reason: Left upper extremity EXAMS: CPT CODE: [id number] DUP UE ART UNILT 31416 (Continued) Orig Print D/T: S: 06/26/2020 (1934) PAGE 2 Signed Report- DUP VEIN UNI [id number] 19:29:00 [facility] : 1940 Sex: M FAX: Asif Bautista MD R1 [place]: St: PRE Name: RENEE DEUTSCH [facility] : 1940 Age/S: 80/M [address] Unit #:[id number] Loc: [place] [address] Phys: Asif Bautista MD R1 Acct: [id number] Dis Date: Status: PRE ER PHONE #: [phone] Exam Date: 06/26/20201924 FAX #: [phone] Reason: Left upper extremity EXAMS: CPT CODE: [id number] [id number] EXAM: - DUP VEIN UNI LT HISTORY: Left upper extremity Location code:C3 TECHNIQUE: Grayscale real-time B-mode imaging with color flow and spectralflow Doppler analysis was performed of the left upper extremity. COMPARISON: None available time of interpretation. FINDINGS: There is normal compressibility with no evidence of thrombus involving the visualized venous structures of the left upper extremity. The visualized veins of the left upper extremity are the subclavian, internal jugular, axillary, basilic and brachial veins. The ulnar and radial veins were seen as well. The cephalic vein cannot be visualized due to contraction of dictation. IMPRESSION: No evidence of DVT in the visualized structures of the left upper extremity. at 1929 Reported and signed by: Gabino Puckett MD CC: Asif Bautista MD Technologist: JENN JUSTIN Trnscrd Date/Time/By: 06/26/2020 (1928) : By: [email or web address] PAGE 1 Signed Report FAX: Asif Bautista MD R1 [place]: St: PRE Name: RENEE DEUTSCH [facility] : 1940 Age/S: 80/M [address] Unit #: [id number] Loc: [place] [address] Phys: Asif Bautista MD R1 Acct: [id number] Dis Date: Status: PRE ER PHONE #: [phone] Exam Date: 06/26/20201924 FAX #: [phone] Reason: Left upper extremity EXAMS: CPT CODE: [id number] [place] [address]() Orig Print D/T: S: 06/26/2020 (1931) PAGE 2 Signed Report- XR CHEST 1 [id number] 18:46:00 [facility] 1940 Sex: M FAX: Asif Bautista MD R1 [place]: St: PRE Name: RENEE DEUTSCH [facility] : 1940 Age/S: 80/M [address] Unit #:[id number] Loc: [place] [address] Phys: Asif Bautista MD R1 Acct: [id number] Dis Date: Status: PRE ER PHONE #: [phone] Exam Date: 06/26/20201836 FAX #: [phone] Reason: CODE SEPSIS EXAMS: CPT CODE: [id number] XR CHEST 1 V 59436 Dictation location: H37. CHEST, FRONTAL VIEW HISTORY: CODE SEPSIS COMPARISON: None FINDINGS: Probable calcified granuloma in the left lower lobe. Small left pleural effusion. The lungs are otherwise clear. No pneumothorax. The heart size is normal. The bonesare unremarkable. IMPRESSION: Small left pleural effusion. at 1846 Reported and signed by: Kaci Barrera MD CC: Asif Bautista MD Technologist: Jemma Gillespie; SANNA MESA Trnmord Date/Time/By: 06/26/2020 (1845) : By: [email or web address] PAGE 1 Signed Report FAX: Asif Bautista MD R1 [place]: St: PRE Name: RENEE DEUTSCH [facility] : 1940 Age/S: 80/M [address] Unit #: [id number] Loc: [place] [address] Phys: Asif Bautista MD R1 Acct: [id number] Dis Date: Status: PRE ER PHONE #: [phone] Exam Date: 06/26/20201836 FAX #: [phone] Reason: CODE SEPSIS EXAMS: CPT CODE: [id number] XR CHEST 1 V 58617 (Continued) Orig Print D/T: S: 06/26/2020 (8959) PAGE 2 Signed Report
[2022-03-09 07:42] LABS: Absolute Lymphocytes (CBC) 1.2 K/uL (0.7-4.9); Hematocrit 38.2 % (39.6-49.0); Lymphocytes % 6.4 % (15.3-44.8); MCV 88.3 fL (80-100); MPV 6.6 fL (7.6-11.3); RBC Red Blood Cell Count 4.33 M/uL (4.33-5.43)
[2022-03-09 07:48] LABS: Protime INR 1.12
[2022-03-09] MEDS ORDERED: NA CHLORIDE 0.9% 1,000 ML ONE ×2 (08:00→08:01)
[2022-03-09] MEDS ORDERED: CEFTRIAXONE 1000 MG/VIAL ONE (08:01)
[2022-03-09] MEDS ORDERED: NA CHLORIDE 0.9% 50 ML IV ONE (08:01)
[2022-03-09] MEDS ORDERED: ACETAMINOPHEN 325 MG TABLET ONE (08:01)
[2022-03-09 08:05] LABS: Albumin 2.7 g/dL (3.4-5.0); Bilirubin Direct 0.3 mg/dL (0-0.2); Magnesium 2.1 mg/dL (1.8-2.4); Potassium 4.3 mmol/L (3.5-5.1); Protein, Total 6.5 g/dL (6.4-8.2); Troponin High Sensitivity 39.9 pg/mL (<58.9)
--- NOTE | 2022-03-09 08:25 | ER ---
Nurse's Notes [facility] Name: Roberto Smith Age: 82 yrs Sex: Male : 1940 Arrival Date: 03/09/2022 Time: 06:56 Bed 5 Private MD: Diagnosis: Fever, unspecified;Fall on same level, unspecified;Weakness;Acute kidney failure, unspecified-on chronic;Elevated white blood cell count Presentation: 03/09 07:01 Chief complaint: EMS states: Family initially called EMS for weakness, pt had a fall jb4 from standing. Landed on his bottom and fell to his left shoulder. Pt reports feeling sick for the past week. Coronavirus screen: At this time, the client does not indicate any symptoms associated with coronavirus-19. Ebola Screen: No symptoms or risks identified at this time. Initial Sepsis Screen: Does the patient meet any 2 criteria? No. Patient's initial sepsis screen is negative. Does the patient have a suspected source of infection? No. Patient's initial sepsis screen is negative. Risk Assessment: Do you want to hurt yourself or someone else? Patient reports no desire to harm self or others. Onset of symptoms was March 09, 2022. Transition of care: patient was not received from another setting of care. 07:01 Method Of Arrival: EMS: [facility] jb4 07:01 Acuity: RAMON 2 jb4 Historical: - Allergies: 07:03 No Known Allergies; jb4 - PMHx: 07:03 DM; Skin CA; jb4 07:04 HTN; jb4 08:37 Atrial fibrillation; mb9 - Immunization history:: Adult Immunizations unknown. - Social history:: Smoking status: unknown. - Family history:: not pertinent. Screenin:50 Abuse screen: Denies threats or abuse. Nutritional screening: No deficits noted. mb9 Tuberculosis screening: No symptoms or risk factors identified. Fall Risk Fall in past 12 months (25 points). No secondary diagnosis (0 pts). IV access (20 points). Ambulatory Aid- Crutches/Cane/Walker (15 pts). Gait- Impaired (20 pts.). Mental Status- Oriented to own ability (0 pts). Assessment: 07:00 Reassessment: report received from Александр SPAULDING. nora 07:11 General: Appears uncomfortable, Behavior is calm, cooperative, appropriate for age. mb9 Pain: Complains of pain in left hip Pain currently is 2 out of 10 on a pain scale. Quality of pain is described as aching. Pain: Complains of pain in left hip and neck Pain currently is 2 out of 10 on a pain scale. Quality of pain is described as aching, soreness. Neuro: Level of Consciousness is awake, alert, obeys commands, Oriented to person, place, time, situation, Appropriate for age Weakness in bilateral leg(s) Reports weakness and dizziness for the past few months. Neuro: Speech is normal. Cardiovascular: Heart tones S1 S2 present. Respiratory: Airway is patent Respiratory effort is even, unlabored, Respiratory pattern is regular, symmetrical, Breath sounds are clear bilaterally. GI: Abdomen is flat, Bowel sounds present X 4 quads. Reports diarrhea, Patient currently denies nausea. : No signs and/or symptoms were reported regarding the genitourinary system. EENT: No signs and/or symptoms were reported regarding the EENT system. Derm: Skin is pink, warm \\T\\ dry. Musculoskeletal: Range of motion: limited in left hip, left knee and left ankle Reports weakness in right leg and left leg. 07:49 Reassessment: pt taken to CT via bed. mb9 08:38 Pain: Complains of pain in left hip Pain currently is 2 out of 10 on a pain scale. mb9 Quality of pain is described as aching. Neuro: Level of Consciousness is awake, alert, obeys commands, Oriented to person, place, time, situation, Appropriate for age. Cardiovascular: Heart tones S1 S2 present Rhythm is atrial fibrillation. Respiratory: Airway is patent Respiratory effort is even, unlabored, Respiratory pattern is regular, symmetrical. Derm: Skin is pink, warm \\T\\ dry. 09:49 Reassessment: CT collar removed per Dr. Montgomery. mb9 09:58 Reassessment: pt currently sleeping. Son at bedside. mb9 10:34 Reassessment: attempted to call report to admitting nurse. mb9 11:05 Reassessment: gave report to admitting nurse CHELLY Lowe. mb9 Vital Signs: 07:01 BP 123 / 56; Pulse 104; Resp 18; Temp 99.8(O); Pulse Ox 92% on 2 lpm NC; Weight 86.18 jb4 kg (R); Height 6 ft. 2 in. (187.96 cm) (R); Pain 4/10; 07:18 BP 110 / 56; Pulse 102; Resp 18; Temp 99.2(O); Pulse Ox 94% on R/A; Pain 2/10; mb9 08:39 BP 117 / 57; Pulse 94; Resp 18; Pulse Ox 95% on R/A; mb9 09:11 BP 117 / 69; Pulse 85; Resp 18; Pulse Ox 96% on 2 lpm NC; mb9 11:02 BP 121 / 52; Pulse 79; Resp 18; Pulse Ox 96% on 2 lpm NC; mb9 07:01 Body Mass Index 24.39 (86.18 kg, 187.96 cm) jb4 ED Course: 06:56 Patient arrived in ED. vc1 07:03 Triage completed. jb4 07:04 Arm band placed on right wrist. jb4 07:06 Leoncio Montgomery MD is Attending Physician. bekah 07:10 Oxygen administration via nasal cannula \\T\\ 2L/min. mb9 07:11 Kendra Sandra RN is Primary Nurse. mb9 07:15 Placed in gown. Bed in low position. Call light in reach. Side rails up X 1. Client mb9 placed on continuous cardiac and pulse oximetry monitoring. NIBP monitoring applied. monitor technician on. Pulse ox on. 07:30 EKG done, by ED staff, reviewed by Leoncio Montgomery MD. mb9 07:35 Inserted saline lock: 20 gauge in left forearm, using aseptic technique. Blood mb9 collected. 07:47 Lactate Sent. mb9 07:47 SARS-COV-2 RT PCR (Document "Date of Onset" if Symptomatic) Sent. mb9 07:47 Flu Sent. mb9 07:47 Basic Metabolic Panel Sent. mb9 07:47 LFT's Sent. mb9 07:47 Troponin HS Sent. mb9 07:47 PT-INR Sent. mb9 07:47 NT PRO-BNP Sent. mb9 07:47 Magnesium Sent. mb9 07:50 No provider procedures requiring assistance completed. mb9 08:03 Head C Spine Cap Wo Con In Process Unspecified. EDMS 08:12 XRAY Chest (1 view) In Process Unspecified. EDMS 08:13 Pelvis XRAY In Process Unspecified. EDMS 08:13 Hip Left 2 View XRAY In Process Unspecified. EDSD 08:23 Max Callahan MD is Hospitalizing Provider. [facility] 08:36 Blood Culture Adult (2) Sent. mb9 11:06 Patient admitted, IV remains in place. mb9 Administered Medications: 08:00 Drug: Tylenol 650 mg Route: PO; mb9 08:36 Follow up: Response: No adverse reaction mb9 08:36 Drug: NS 0.9% 500 ml Route: IV; Rate: bolus; Site: left forearm; mb9 09:56 Follow up: Response: No adverse reaction; IV Status: Completed infusion mb9 08:36 Drug: NS 0.9% 1000 ml Route: IV; Rate: 125 ml/hr; Site: left forearm; mb9 11:02 Follow up: Response: No adverse reaction; IV Status: Completed infusion mb9 08:36 Drug: Rocephin (cefTRIAXone) 1 grams Route: IV; Rate: per protocol; Site: left forearm; mb9 09:11 Follow up: Response: No adverse reaction; IV Status: Completed infusion mb9 09:56 Drug: Zithromax (azithromycin) 500 mg Route: IVPB; Infused Over: 1 hrs; Site: left mb9 forearm; 11:00 Follow up: Response: No adverse reaction; IV Status: Completed infusion mb9 Medication: 07:50 VIS not applicable for this client. mb9 Outcome: 08:25 Decision to Hospitalize by Provider. [facility] 11:06 Admitted to Med/surg accompanied by tech, family with patient, via stretcher, with mb9 oxygen, Report called to CHELLY Lowe 11:06 Condition: stable 11:06 Instructed on the need for admit. 11:07 Patient left the ED. mb9 Signatures: Dispatcher [employer] Leoncio Fink MD MD cha Bryson, James, RN RN jb4 Martha Camarillo RN RN 1 Kendra Sandra RN RN mb9 Corrections: (The following items were deleted from the chart) 07:08 07:01 Chief complaint: EMS states: Family initially called EMS for weakness, pt had a jb4 fall from standing. Landed on his bottom and fell to his left shoulder. jb4
--- NOTE | 2022-03-09 08:26 | EDPHYS ---
Physician Documentation [facility] Name: Roberto Smith Age: 82 yrs Sex: Male : 1940 Arrival Date: 03/09/2022 Time: 06:56 Bed 5 Private MD: ED Physician Leoncio Montgomery HPI: 03/09 08:00 This 82 yrs old Male presents to ER via EMS with complaints of fall and weak, bekah fever. 08:00 weakness, x 1 week. The patient or guardian reports cough, described as mild. Onset: bekah The symptoms/episode began/occurred 5 day(s) ago. Severity of symptoms: At their worst the symptoms were mild, in the emergency department the symptoms are unchanged. Modifying factors: The symptoms are alleviated by nothing. Associated signs and symptoms: The patient has no apparent associated signs or symptoms. Severity of symptoms: At their worst the symptoms were mild in the emergency department the symptoms are unchanged. The patient has not experienced similar symptoms in the past. Historical: - Allergies: 07:03 No Known Allergies; jb4 - PMHx: 07:03 DM; Skin CA; jb4 07:04 HTN; jb4 08:37 Atrial fibrillation; mb9 - Immunization history:: Adult Immunizations unknown. - Social history:: Smoking status: unknown. - Family history:: not pertinent. ROS: 08:00 Constitutional: Negative for fever, chills, and weight loss, Eyes: Negative for injury, bekah pain, redness, and discharge, ENT: Negative for injury, pain, and discharge, Neck: Negative for injury, pain, and swelling, Cardiovascular: Negative for chest pain, palpitations, and edema, Abdomen/GI: Negative for abdominal pain, nausea, vomiting, diarrhea, and constipation, Back: Negative for injury and pain, : Negative for injury, bleeding, discharge, and swelling, Skin: Negative for injury, rash, and discoloration, Psych: Negative for depression, anxiety, suicide ideation, homicidal ideation, and hallucinations, Allergy/Immunology: Negative for hives, rash, and allergies, Endocrine: Negative for neck swelling, polydipsia, polyuria, polyphagia, and marked weight changes, Hematologic/Lymphatic: Negative for swollen nodes, abnormal bleeding, and unusual bruising. 08:00 Respiratory: Positive for cough. 08:00 MS/extremity: Positive for decreased range of motion, laceration, tenderness, of the left hip. Exam: 08:00 Constitutional: This is a well developed, well nourished patient who is awake, alert, bekah and in no acute distress. Head/Face: Normocephalic, atraumatic. Eyes: Pupils equal round and reactive to light, extra-ocular motions intact. Lids and lashes normal. Conjunctiva and sclera are non-icteric and not injected. Cornea within normal limits. Periorbital areas with no swelling, redness, or edema. ENT: Nares patent. No nasal discharge, no septal abnormalities noted. Tympanic membranes are normal and external auditory canals are clear. Oropharynx with no redness, swelling, or masses, exudates, or evidence of obstruction, uvula midline. Mucous membranes moist. Neck: Trachea midline, no thyromegaly or masses palpated, and no cervical lymphadenopathy. Supple, full range of motion without nuchal rigidity, or vertebral point tenderness. No Meningismus. Chest/axilla: Normal chest wall appearance and motion. Nontender with no deformity. No lesions are appreciated. Cardiovascular: Regular rate and rhythm with a normal S1 and S2. No gallops, murmurs, or rubs. Normal PMI, no JVD. No pulse deficits. Abdomen/GI: Soft, non-tender, with normal bowel sounds. No distension or tympany. No guarding or rebound. No evidence of tenderness throughout. Back: No spinal tenderness. No costovertebral tenderness. Full range of motion. Male : Normal genitalia with no discharge or lesions. Skin: Warm, dry with normal turgor. Normal color with no rashes, no lesions, and no evidence of cellulitis. Neuro: Awake and alert, GCS 15, oriented to person, place, time, and situation. Cranial nerves II-XII grossly intact. Motor strength 5/5 in all extremities. Sensory grossly intact. Cerebellar exam normal. Normal gait. Psych: Awake, alert, with orientation to person, place and time. Behavior, mood, and affect are within normal limits. 08:00 ECG was reviewed by the Attending Physician. 08:00 Respiratory: the patient does not display signs of respiratory distress, Respirations: normal, Breath sounds: bronchial sounds, that are mild, are scattered, Respiratory rate: 18 Vital Signs: 07:01 BP 123 / 56; Pulse 104; Resp 18; Temp 99.8(O); Pulse Ox 92% on 2 lpm NC; Weight 86.18 jb4 kg (R); Height 6 ft. 2 in. (187.96 cm) (R); Pain 4/10; 07:18 BP 110 / 56; Pulse 102; Resp 18; Temp 99.2(O); Pulse Ox 94% on R/A; Pain 2/10; mb9 08:39 BP 117 / 57; Pulse 94; Resp 18; Pulse Ox 95% on R/A; mb9 09:11 BP 117 / 69; Pulse 85; Resp 18; Pulse Ox 96% on 2 lpm NC; mb9 11:02 BP 121 / 52; Pulse 79; Resp 18; Pulse Ox 96% on 2 lpm NC; mb9 07:01 Body Mass Index 24.39 (86.18 kg, 187.96 cm) jb4 MDM: 07:06 Patient medically screened. bekah 08:11 Differential Diagnosis sepsis, flu, Bronchitis Influenza Upper Respiratory Infection bekah Sinusitis Pharyngitis Otitis Media. Data reviewed: vital signs, nurses notes, EMS record, lab test result(s), EKG, radiologic studies, CT scan, plain films. Data interpreted: quality assurance monitor body: rate is 102 beats/min, rhythm is regular, Pulse oximetry: on room air is 94 %. Test interpretation: by ED physician or midlevel provider: ECG, plain radiologic studies. Counseling: I had a detailed discussion with the patient and/or guardian regarding: the historical points, exam findings, and any diagnostic results supporting the discharge/admit diagnosis, lab results, radiology results. 03/09 07:16 Order name: Basic Metabolic Panel; Complete Time: 08:22 [facility] 03/09 07:16 Order name: CBC with Diff; Complete Time: 08:22 [facility] 03/09 07:16 Order name: LFT's; Complete Time: 08:22 [facility] 03/09 07:16 Order name: Magnesium; Complete Time: 08:22 [facility] 03/09 07:16 Order name: NT PRO-BNP; Complete Time: 08:22 [facility] 03/09 07:16 Order name: PT-INR; Complete Time: 08:22 [facility] 03/09 07:16 Order name: Troponin HS; Complete Time: 08:22 [facility] 03/09 07:16 Order name: Flu; Complete Time: 08:22 [facility] 03/09 07:16 Order name: SARS-COV-2 RT PCR (Document "Date of Onset" if Symptomatic) [facility] 03/09 07:37 Order name: Blood Culture Adult (2) [facility] 03/09 07:37 Order name: Lactate; Complete Time: 08:22 [facility] 03/09 07:51 Order name: Lipase; Complete Time: 08:22 [facility] 03/09 08:58 Order name: Urine Microscopic Only [facility] 03/09 07:16 Order name: XRAY Chest (1 view) [facility] 03/09 07:16 Order name: EKG; Complete Time: 07:27 [facility] 03/09 07:16 Order name: Cardiac monitoring; Complete Time: 07:19 [facility] 03/09 07:16 Order name: EKG - Nurse/Tech; Complete Time: 07:47 [facility] 03/09 07:16 Order name: IV Saline Lock; Complete Time: 07:47 [facility] 03/09 07:16 Order name: Labs collected and sent; Complete Time: 07:47 [facility] 03/09 07:16 Order name: O2 Per Protocol; Complete Time: 07:19 [facility] 03/09 07:16 Order name: Pelvis XRAY [facility] 03/09 07:16 Order name: Hip Left 2 View XRAY [facility] 03/09 07:16 Order name: CT Traumagram (Head C Spine CAP wo con) [facility] 03/09 07:45 Order name: Head C Spine Cap Wo Con [facility] 03/09 07:16 Order name: O2 Sat Monitoring; Complete Time: 07:19 [facility] EC:00 Rate is 4 beats/min. Rhythm is regular. QRS [place] is Normal. [place] interval is normal. QRS bekah interval is normal. QT interval is normal. T waves are Normal. No ST changes noted. Clinical impression: NSR w/ Non-specific ST/T Changes and LVH. Interpreted by me. Reviewed by me. Administered Medications: 08:00 Drug: Tylenol 650 mg Route: PO; mb9 08:36 Follow up: Response: No adverse reaction mb9 08:36 Drug: NS 0.9% 500 ml Route: IV; Rate: bolus; Site: left forearm; mb9 09:56 Follow up: Response: No adverse reaction; IV Status: Completed infusion mb9 08:36 Drug: NS 0.9% 1000 ml Route: IV; Rate: 125 ml/hr; Site: left forearm; mb9 11:02 Follow up: Response: No adverse reaction; IV Status: Completed infusion mb9 08:36 Drug: Rocephin (cefTRIAXone) 1 grams Route: IV; Rate: per protocol; Site: left forearm; mb9 09:11 Follow up: Response: No adverse reaction; IV Status: Completed infusion mb9 09:56 Drug: Zithromax (azithromycin) 500 mg Route: IVPB; Infused Over: 1 hrs; Site: left mb9 forearm; 11:00 Follow up: Response: No adverse reaction; IV Status: Completed infusion mb9 Disposition Summary: 03/09/22 08:25 Hospitalization Ordered Hospitalization Status: Inpatient Admission bekah Provider: Max Callahan cha Location: Telemetry/MedSurg (Inpatient) bekah Condition: Fair bekah Problem: new bekah Symptoms: have improved bekah Bed/Room Type: Standard [facility] Room Assignment: 212(03/09/22 10:09) dw Diagnosis - Fever, unspecified bekah - Fall on same level, unspecified bekah - Weakness bekah - Acute kidney failure, unspecified - on chronic bekah - Elevated white blood cell count bekah Forms: - Medication Reconciliation Form bekah - SBAR form bekah Signatures: Dispatcher [employer] [facility] Zeina Patel RN RN Leoncio Castillo MD MD cha Bryson, James, RN RN jb4 Kendra Sandra RN RN mb9 Corrections: (The following items were deleted from the chart) 07:52 07:39 LIPASE+C.LAB.BRZ ordered. [facility] EDMS 10:09 08:25 bekah dw
--- NOTE | 2022-03-09 09:34 | RAD REPORT ---
EXAM DESCRIPTION: CT - Head C Spine Cap Wo Con - 03/09/2022 8:01 am CLINICAL HISTORY: r/o trauma, fall, head and neck injury, chest and abdominal pain COMPARISON: No comparisons TECHNIQUE: Axial [address] head images were obtained. Axial [address] cervical spine images were obtain ed with sagittal and coronal reconstruction images reviewed. Axial 5 mm images of the chest, abdomen and pelvis were obtained. Oral contrast: None All CT scans are performed using dose optimization technique as appropriate and may include automated exposure control or mA/KV adjustment according to patient size. FINDINGS: No intracranial hemorrhage, mass or edema. No midline shift or abnormal fluid collection. Mild to moderate for age atrophy changes are present. Ventricles are in proportion to volume loss. Ch ronic ischemic changes seen in the cerebral white matter. 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 Arterial and physiologic calcifications are present. Mastoid air cells and paranasal sinuses are clear. No skull fracture. Cervical bodies are normal in height and alignment. No fracture or acute bone finding.Significant C5- 6 and C6-7 disc space narrowing seen. Endplate spurring encroaches into the central canal. Canal is b orderline stenotic at C6-7. Bony foraminal encroachment present at both of these disc levels. Multile kwame facet degenerative change seen.No prevertebral soft tissue thickening or paraspinal mass.Central canal detail is inherently limited on CT imaging.Dense carotid calcifications are present. Degenerati ve changes are present at each TM joint. No pneumothorax is present. Pulmonary contusion is not suspected. There is dependent atelectasis brown g the posterior aspect of the each hemithorax. Slightly more prominent opacification present in each posterior gutter. Patient has calcified and noncalcified pleural plaques. No abnormal opacification i n the right middle or bilateral upper lobes. Underlying scarring changes are present. Noncalcified pl aque anterior mid chest (image 26/139) is more prominent in size at 25 mm. This warrants monitoring f or growth. No mediastinal hematoma and the aorta and pulmonary arteries are unremarkable. No chest will mass or abnormal axillary finding. No displaced rib fracture or other significant bony finding. CT abdomen and pelvis show no injury to solid abdominal viscera. Gallbladder and biliary tree are unr emarkable. No bowel injury or significant finding. No free air, free fluid or abnormal stranding. No mass or bulky lymphadenopathy. Inguinal hernia repair changes are. No urinary bladder abnormality. D ense aortic calcifications are present. Aorta is 2.7 cm in maximum diameter. No displaced calcificati ons. Degenerative changes are present in the pelvis, hip joints and lower lumbar spine. No acute find ings seen. IMPRESSION: Atrophy and chronic ischemic changes are present but no acute intracranial finding seen. Cervical spine degenerative change with no acute findings seen. Posterior dependent atelectasis present with more prominent patchy airspace opacities in each posteri or gutter. These areas are probably atelectasis as well below and mild or early pneumonia cannot be e xcluded. This will need clinical correlation. Calcified and noncalcified pleural plaques are present. There is a relatively prominent noncalcified plaque anterior mid right chest. These need ongoing surveillance to exclude possible pleural-based ma lignancy development. No pneumothorax or emergent CT chest finding. No significant CT Abdomen and Pelvis finding.
--- NOTE | 2022-03-09 09:42 | RAD REPORT ---
EXAM DESCRIPTION: RAD - Chest Single View - 03/09/2022 8:13 am CLINICAL HISTORY: COUGH COMPARISON: Two view chest August 2020 TECHNIQUE: AP portable chest image was obtained 03/09/2022 8:13 am . FINDINGS: Chronic interstitial lung changes are present similar to comparison. No focal infiltrate o r pulmonary contusion seen. Posterior gutter assessment is limited. No hilar mass or lymphadenopathy. Heart and vasculature are normal. No measurable pleural effusion an d no pneumothorax. No acute bony abnormality seen. No acute aortic findings suspected. IMPRESSION: Chest exam is not substantially different from the 2020 comparison. No focal posttraumatic abnormality seen. Posterior gutter assessment is limited.
--- NOTE | 2022-03-09 09:43 | RAD REPORT ---
EXAM DESCRIPTION: RAD - Pelvis - 03/09/2022 8:14 am CLINICAL HISTORY: fall COMPARISON: Head C Spine Cap Wo Con dated 03/09/2022 TECHNIQUE: AP imaging of the pelvis was obtained. FINDINGS: No fracture of the bony pelvis. No fracture, dislocation or other acute hip joint finding. No significant SI joint findings. Lower lumbar degenerative changes are only partially imaged. Patie nt has minimal hip joint degenerative change. No soft tissue abnormality. IMPRESSION: Negative pelvis for acute or significant findings.
--- NOTE | 2022-03-09 09:44 | RAD REPORT ---
EXAM DESCRIPTION: RAD - Hip Left 2 View - 03/09/2022 8:14 am CLINICAL HISTORY: PAIN, fall COMPARISON: Pelvis dated 03/09/2022 FINDINGS: AP and frogleg views of the left hip were obtained. There is no fracture or dislocation. No acute or destructive bony process seen. Degenerative changes along the acetabulum is minimal. No AVN findings. No soft tissue abnormality. IMPRESSION: Negative left hip examination for acute or significant findings.
[2022-03-09] MEDS ORDERED: AZITHROMYCIN 500 MG INJ IVPB ONE (09:45)
[2022-03-09] MEDS ORDERED: NA CHLORIDE 0.9% 250 ML ONE (09:45)
[2022-03-09] MEDS ORDERED: ONDANSETRON 4 MG/2 ML VIAL IV PRN (11:36)
[2022-03-09] MEDS ORDERED: NA CHLORIDE 0.9% 1,000 ML IV SCH (11:36)
[2022-03-09] MEDS: ASPIRIN EC 81 MG TAB PO SCH (11:57)
[2022-03-09] MEDS: FAMOTIDINE 20 MG/2 ML VIAL IV SCH ×2 (11:57→20:31)
[2022-03-09] MEDS: NA CHLORIDE 0.9% 1,000 ML IV SCH ×2 (14:30→21:46)
[2022-03-09 14:49] VITALS: BMI 24.3
[2022-03-09 16:36] LABS: Specific Gravity 1.007 (1.005-1.030); Urine Bilirubin NEGATIVE (Negative); Urine Blood Negative (Negative); Urine Clarity Clear (Clear); Urine Color Colorless (Yellow); Urine Glucose 1+ (Negative); Urine Protein NEGATIVE (Negative); Urine Urobilinogen Normal (Normal); Urine pH 6.5 (5.0-7.0)
--- NOTE | 2022-03-09 18:48 | P.HP ---
Certification for Inpatient Patient admitted to: Inpatient With expected LOS: >2 Midnights Practitioner: I am a practitioner with admitting privileges, knowledge of patient current condition, hospital course, and medical plan of care. Services: Services provided to patient in accordance with Admission requirements found in Title 42 Section 412.3 of the Code of Federal Regulations Patient History Date of Service: 03/09/22 Reason for admission: WEAKNESS, DEHYDRATION History of Present Illness: MR. DEUTSCH IS DIABETIC WHO COMES WITH WEAKNESS, NOT ABLE TO GET ON FEET AND NOT EATING AND DRINKNING WELL FOR 2 DAYS. HE IS LOT BETTER ALREADY AFTER IV FLUIDS. Allergies No Known Allergies Allergy (Verified 07/16/20 23:27) Home medications list reviewed: Yes Home Medications: Aspirin 81 mg PO DAILY 09/25/14 Gabapentin [Neurontin*] 300 mg PO BEDTIME 09/25/14 Magnesium Oxide [Mag 0X*] 400 mg PO BID 09/25/14 Simvastatin [Zocor*] 40 mg PO BEDTIME 09/25/14 Cholecalciferol (Vitamin D3) [Vitamin D3] 2,000 unit PO DAILY 07/17/20 Dulaglutide [Trulicity] 1.5 mg SQ WMP 07/17/20 Insulin Glargine,Hum.rec.anlog [Basaglar Kwikpen U-100] 30 units SQ DAILY 07/17/20 Meclizine HCl 25 mg PO BEDTIME 07/17/20 [place]-3/Dha/Epa/Fish Oil [[place] 3 500 Softgel] 500 mg PO DAILY 07/17/20 Tramadol HCl/Acetaminophen [Tramadol-Acetaminophn 37.5-325] 1 tab PO BID PRN 07/17/20 Zinc 50 mg PO DAILY 07/17/20 Ipratropium Center 2 spray IH BEDTIME PRN 08/18/20 Mirtazapine 7.5 mg PO BEDTIME 08/18/20 Melatonin 10 mg PO BEDTIME PRN #30 08/19/20 - Past Medical/Surgical History Has patient received pneumonia vaccine in the past: Yes Diabetic: Yes -: High cholesterol -: DM -: skin cancer -: AFIB -: 2 partial knee replacement -: 3 hernia repairs -: skin cancer removal -: bilateral cataract surgery -: tonsillectomy - Family History Father -: Cancer Notes: lung cancer Mother Notes: none - Social History Smoking Status: Former smoker Alcohol use: No CD- Drugs: No Caffeine use: Yes Place of Residence: Home Review of Systems 10-point ROS is otherwise unremarkable General: Weakness, Malaise Physical Examination - Vital Signs Temperature: 98.0 F Blood Pressure: 145/59 Pulse: 74 Respirations: 18 Pulse Ox (%): 97 - Physical Exam General: Oriented x3, Mild distress HEENT: Atraumatic, PERRLA, Mucous membr. moist/pink, EOMI, Sclerae nonicteric Neck: Supple, 2+ carotid pulse no bruit, No LAD, Without JVD or thyroid abnormality Respiratory: Clear to auscultation bilaterally, Normal air movement Cardiovascular: Regular rate/rhythm, Normal S1 S2 Gastrointestinal: Normal bowel sounds, No tenderness Musculoskeletal: No tenderness Integumentary: No rashes Neurological: Normal gait, Normal speech, Normal strength at 5/5 x4 extr, Normal tone, Normal affect Lymphatics: No axilla or inguinal lymphadenopathy - Studies Laboratory Data (last 24 hrs) 03/09/22 07:38: Lipase Cancelled 03/09/22 07:34: PT 12.3, INR 1.12 03/09/22 07:34: WBC 19.30 H, Hgb 13.5 L, Hct 38.2 L, Plt Count 247 03/09/22 07:34: Sodium 133 L, Potassium 4.3, BUN 26 H, Creatinine 1.72 H, Glucose 131 H, Magnesium 2.1, Total Bilirubin 1.0, AST 13 L, ALT 16, Alkaline Phosphatase 53, Lipase 77 Microbiology Data (last 24 hrs): 03/09/22 07:30 Nasopharnyx Influenza Type A Antigen Screen - Final 03/09/22 07:30 Nasopharnyx Influenza Type B Antigen Screen - Final Assessment and Plan - Problems (Diagnosis) (1) Atypical pneumonia Current Visit: Yes Status: Acute Plan: HE HAS NO TYPICAL PNEUMONIA SS. CT SCAN SHOWS BASILAR INFILTERATES POSSIBLY SUPPRESED BY DEHYDRATION PICTURE. IV ABX. ROCEPHIN CHECK MYCOPLASMA AND LEGIONELLA TITERS. (2) Dehydration Current Visit: No Status: Acute (3) Diabetes mellitus Onset Date: 09/30/14 Current Visit: No Status: Chronic Plan: STABLE PER LAST A1C IN OFFICE LESS THAN 7. (4) Weakness of both legs Current Visit: Yes Status: Acute Plan: HE HAS THIS JUST BY CURRENT ILLNESS. CONSULT .DR DIAZ. I DON'T SUSPECT ANYTHING MORE THAN AGE RELATED WEAKNESS AND NERVE IMPINGMENT. - Advance Directives Does patient have a Living Will: Yes Does patient have a Durable POA for Healthcare: Yes
[2022-03-09] MEDS: ACETAMINOPHEN 325 MG TABLET PO PRN (18:50)
[2022-03-10 04:09] LABS: Absolute Lymphocytes (CBC) 1.1 K/uL (0.7-4.9); Hematocrit 35.1 % (39.6-49.0); MCV 88.3 fL (80-100); MPV 6.9 fL (7.6-11.3); RBC Red Blood Cell Count 3.98 M/uL (4.33-5.43)
[2022-03-10 04:18] LABS: Potassium 4.2 mmol/L (3.5-5.1)
[2022-03-10] MEDS ORDERED: CEFTRIAXONE 1000 MG/VIAL ONE (07:48)
[2022-03-10] MEDS: FAMOTIDINE 20 MG/2 ML VIAL IV SCH ×2 (08:19→20:52)
[2022-03-10] MEDS: ASPIRIN EC 81 MG TAB PO SCH (08:19)
[2022-03-10] MEDS: CEFTRIAXONE 1,000 MG in NA CHLORIDE 0.9% 50 ML IVPB SCH (08:19)
[2022-03-10] MEDS: NA CHLORIDE 0.9% 1,000 ML IV SCH ×2 (12:07→17:10)
--- NOTE | 2022-03-10 14:20 | EKG ---
Test Date: 2022-03-09 Test Time: 07:25:46 Lockstitch Front Edge Tape Sewer: MB MEASUREMENT RESULTS: Intervals: Rate: 100 [place]: 158 QRSD: 86 QT: 334 QTc: 430 [place]: P: [place]: 158 QRS: -62 T: 38 INTERPRETIVE STATEMENTS: Normal sinus rhythm Left anterior fascicular block Minimal voltage criteria for LVH, may be normal variant Abnormal ECG Compared to ECG 03/09/2022 07:24:47 Sinus tachycardia no longer present ST (T wave) deviation no longer present Possible ischemia no longer present Electronically Signed On 03-10-22 14:17:27 CDT by Goran Aragon
--- NOTE | 2022-03-10 14:20 | EKG ---
Test Date: 2022-03-09 Test Time: 07:24:47 Wired Music Operator: MB MEASUREMENT RESULTS: Intervals: Rate: 104 [place]: 200 QRSD: 86 QT: 352 QTc: 462 [place]: P: [place]: 200 QRS: -66 T: 4 INTERPRETIVE STATEMENTS: Sinus tachycardia Left anterior fascicular block Minimal voltage criteria for LVH, may be normal variant ST & T wave abnormality, consider inferior ischemia Abnormal ECG Compared to ECG 08/17/2020 23:12:32 ST (T wave) deviation now present Possible ischemia now present Sinus rhythm no longer present Atrial premature complex(es) no longer present Incomplete right bundle-branch block no longer present Electronically Signed On 03-10-22 14:17:32 CDT by Goran Aragon
[2022-03-10] MEDS: AMLODIPINE 5 MG TAB PO SCH (16:35)
[2022-03-10] MEDS: ACETAMINOPHEN 325 MG TABLET PO PRN (18:32)
--- NOTE | 2022-03-10 19:22 | P.PN ---
Subjective Date of Service: 03/10/22 Chief Complaint: WEAKNESS, DEHYDRATION Subjective: Improving MR DEUTSCH IS STABLE, STILL GENERALLY WEAK AND NOT ABLE TO EXPRESS WHY HE DOES NOT FEEL GOOD. HE HAS HAD COMPLICATED HISTORY OF SEVERE PAIN IN L ARM BEFORE THAT IMPROVED ONLY AFTER IV STEROIDS. MOSTLY COMING FROM CERVICAL RADICULOPATHY OR NERVE IMPINGMENT. HE IS CURRENTLY ON SMALL DOSE OF STEROID ABOUT 5 MG DAILY AND DID WELL WITH PAIN. HE HAS WEAKNESS AND WBC ELEVATION THAT HAS COME DOWN TO 12K NOW ON ANTIBIOTIC. Review of Systems 10-point ROS is otherwise unremarkable Physical Examination - Vital Signs Temperature: 98.4 F Blood Pressure: 132/66 Pulse: 88 Respirations: 16 Pulse Ox (%): 96 - Physical Exam General: Oriented x3, Mild distress HEENT: Atraumatic, PERRLA, EOMI Neck: Supple, JVD not distended Respiratory: Clear to auscultation bilaterally, Normal air movement Cardiovascular: Regular rate/rhythm, Normal S1 S2 Gastrointestinal: Normal bowel sounds, No tenderness Musculoskeletal: No tenderness Integumentary: No rashes Neurological: Normal speech, Normal strength at 5/5 x4 extr (GENERAL WEAK BUT EQUAL ALL SIDES. ), Normal tone, Normal affect Lymphatics: No axilla or inguinal lymphadenopathy - Studies Medications List Reviewed: Yes Assessment And Plan - Current Problems (Diagnosis) (1) Atypical pneumonia Current Visit: Yes Status: Acute Plan: HE HAS NO TYPICAL PNEUMONIA SS. CT SCAN SHOWS BASILAR INFILTERATES POSSIBLY SUPPRESED BY DEHYDRATION PICTURE. IV ABX. ROCEPHIN CHECK MYCOPLASMA AND LEGIONELLA TITERS. WBC CAME DOWN TO 12K FROM 19K. (2) Dehydration Current Visit: No Status: Acute Plan: CREAT CAME DOWN FROM 1.7 TO 1.49 (3) Diabetes mellitus Onset Date: 09/30/14 Current Visit: No Status: Chronic Plan: STABLE PER LAST A1C IN OFFICE LESS THAN 7. (4) Weakness of both legs Current Visit: Yes Status: Acute Plan: HE HAS THIS JUST BY CURRENT ILLNESS. CONSULT .DR DIAZ. I DON'T SUSPECT ANYTHING MORE THAN AGE RELATED WEAKNESS AND NERVE IMPINGMENT.
[2022-03-10] MEDS: MELATONIN 5 MG TABLET PO PRN (20:52)
[2022-03-10] MEDS: ATORVASTATIN 20 MG TAB PO SCH (20:53)
[2022-03-10] MEDS: MIRTAZAPINE 15 MG TAB PO SCH (20:53)
[2022-03-10] MEDS: MAGNESIUM OXIDE 400 MG TAB PO SCH (20:53)
[2022-03-10] MEDS: GABAPENTIN 300 MG CAP PO SCH (20:57)
[2022-03-11] MEDS: NA CHLORIDE 0.9% 1,000 ML IV SCH ×2 (01:22→16:12)
[2022-03-11] MEDS ORDERED: CEFTRIAXONE 1000 MG/VIAL ONE (07:09)
[2022-03-11] MEDS ORDERED: NA CHLORIDE 0.9% 50 ML ONE (07:21)
[2022-03-11] MEDS: ACETAMINOPHEN 325 MG TABLET PO PRN (07:45)
[2022-03-11] MEDS: AMLODIPINE 5 MG TAB PO SCH (07:50)
[2022-03-11] MEDS: CEFTRIAXONE 1,000 MG in NA CHLORIDE 0.9% 50 ML IVPB SCH (07:50)
[2022-03-11] MEDS: predniSONE 5 MG TAB PO SCH (07:50)
[2022-03-11] MEDS: MAGNESIUM OXIDE 400 MG TAB PO SCH ×2 (07:50→20:43)
[2022-03-11] MEDS: ZINC SULFATE 220 MG CAP PO SCH (07:50)
[2022-03-11] MEDS: ASPIRIN 81 MG CHEWABLE TABLET PO SCH (07:51)
[2022-03-11] MEDS: INSULIN GLARGINE SQ SCH (07:51)
[2022-03-11] MEDS: ENOXAPARIN 40 MG/0.4 ML SQ SCH (07:51)
[2022-03-11] MEDS: VITAMIN D 1000 UNIT TAB PO SCH (07:51)
[2022-03-11] MEDS: FAMOTIDINE 20 MG/2 ML VIAL IV SCH ×2 (07:51→20:42)
[2022-03-11] MEDS: OMEGA 500 MG PO SCH (07:52)
[2022-03-11] MEDS: Levofloxacin500mg IV 500 MG/100 ML BAG IV SCH (08:58)
[2022-03-11 10:12] LABS: Absolute Lymphocytes (CBC) 0.5 K/uL (0.7-4.9); Hematocrit 34.9 % (39.6-49.0); Lymphocytes % 4.4 % (15.3-44.8); MCV 88.6 fL (80-100); MPV 6.6 fL (7.6-11.3); RBC Red Blood Cell Count 3.94 M/uL (4.33-5.43)
[2022-03-11 10:24] LABS: Potassium 3.8 mmol/L (3.5-5.1)
--- NOTE | 2022-03-11 10:29 | RAD REPORT ---
EXAM DESCRIPTION: RAD - Chest Single View - 03/11/2022 10:21 am CLINICAL HISTORY: cough/fever COMPARISON: Chest Single View dated 03/09/2022; Chest Pa And Lat (2 Views) dated 08/17/2020; Chest Pa And Lat (2 Views) dated 07/16/2020; CHEST SINGLE VIEW dated 01/31/2015; Chest For Pe Angio dated 021 FINDINGS: Lines: None. Lungs: No evidence of edema or pneumonia. Background of emphysema. Pleural: No significant pleural effusions or pneumothorax. Cardiac: The heart size is within normal limits. Mediastinum: Within normal limits. Bones: No acute fractures. Other: None IMPRESSION: No acute cardiopulmonary disease. Emphysema. No significant change compared with 022.
--- NOTE | 2022-03-11 14:16 | P.PN ---
Subjective Date of Service: 03/11/22 Chief Complaint: WEAKNESS, DEHYDRATION Subjective: New changes MR DEUTSCH IS STABLE, STILL GENERALLY WEAK AND NOT ABLE TO EXPRESS WHY HE DOES NOT FEEL GOOD. HE HAS HAD COMPLICATED HISTORY OF SEVERE PAIN IN L ARM BEFORE THAT IMPROVED ONLY AFTER IV STEROIDS. MOSTLY COMING FROM CERVICAL RADICULOPATHY OR NERVE IMPINGMENT. HE IS CURRENTLY ON SMALL DOSE OF STEROID ABOUT 5 MG DAILY AND DID WELL WITH PAIN. HE HAS WEAKNESS AND WBC ELEVATION THAT HAS COME DOWN TO 12K NOW ON ANTIBIOTIC. HE HAS LOW GRADE FEVER TODAY. I ASKED NURSE TO DO BC 2, UA AND CULTURE, CXR AND CHANGE ABX TO LEVAQUIN. I ASKED ALSO TO DO FLU TEST AND RSV TEST. COVID IS NEGATIVE. Review of Systems 10-point ROS is otherwise unremarkable General: Weakness, Malaise Physical Examination - Vital Signs Temperature: 98.5 F Blood Pressure: 123/63 Pulse: 96 Respirations: 20 Pulse Ox (%): 93 - Physical Exam General: Oriented x3, Mild distress HEENT: Atraumatic, PERRLA, EOMI Neck: Supple, JVD not distended Respiratory: Clear to auscultation bilaterally, Normal air movement Cardiovascular: Regular rate/rhythm, Normal S1 S2 Gastrointestinal: Normal bowel sounds, No tenderness Musculoskeletal: No tenderness Integumentary: No rashes Neurological: Normal speech, Normal tone, Normal affect Lymphatics: No axilla or inguinal lymphadenopathy - Studies Medications List Reviewed: Yes Assessment And Plan - Current Problems (Diagnosis) (1) Atypical pneumonia Current Visit: Yes Status: Acute Plan: HE HAS NO TYPICAL PNEUMONIA SS. CT SCAN SHOWS BASILAR INFILTERATES POSSIBLY SUPPRESED BY DEHYDRATION PICTURE. IV ABX. ROCEPHIN CHECK MYCOPLASMA AND LEGIONELLA TITERS. WBC CAME DOWN TO 12K FROM 19K. (2) Dehydration Current Visit: No Status: Acute Plan: CREAT CAME DOWN FROM 1.7 TO 1.49 (3) Diabetes mellitus Onset Date: 09/30/14 Current Visit: No Status: Chronic Plan: STABLE PER LAST A1C IN OFFICE LESS THAN 7. (4) Weakness of both legs Current Visit: Yes Status: Acute Plan: HE HAS THIS JUST BY CURRENT ILLNESS. CONSULT .DR DIAZ. I DON'T SUSPECT ANYTHING MORE THAN AGE RELATED WEAKNESS AND NERVE IMPINGMENT. (5) Fever Current Visit: Yes Status: Acute Plan: HE HAS FEVER DESPITE ROCEPHIN STOP ROCEPHIN I ASKED NURSE TO DO BC 2, UA AND CULTURE, CXR AND CHANGE ABX TO LEVAQUIN. I ASKED ALSO TO DO FLU TEST AND RSV TEST. COVID IS NEGATIVE. I TALKED TO TO GIVE UPDATE.
[2022-03-11] MEDS ORDERED: AMLODIPINE 5 MG TAB PO SCH (17:00)
--- NOTE | 2022-03-11 19:51 | PN ---
Subjective: Mr. Smith is actually not feeling well today. As he tried to get up to go to [facility] troom, he felt dizziness as he notes which actually brought him in to the hospital. Objective: Vital Signs: Blood pressure 122/60, pulse 96, respiratory rate 20, temperature 98.5, oxy gen saturation 93%. Neurologic: Mr. Smith is resting in bed. His son is at the bedside. He does report feeling very slightly "dizzy," however, this is much less than when he sits up to move around and ambulate. The patient and his son reports that he is weak; however, when lying in bed, he is able to lift both legs off the bed and hold for 5 count without any drift. He is not having distal weakness as well in his foot. He is able to be 5/5 with plantar and dorsiflexion as well. Sensory exam shows stocking-glov e loss to light touch and temperature. Laboratory Studies: White blood cell count on admission was elevated to 19,300 on the 2nd with neutr ophils 87.8, and yesterday, after he received Rocephin and now Levaquin, came down to 12.4 and neutro phils 84.7. Today, white blood cell count 11.1 and neutrophils 88.2. His chemistries showed dehydra tion on admission. Creatinine 1.72. He is receiving hydration. Yesterday, it improved to 1.49, tod ay 1.40. Blood sugars range from 116 to 206 with calcium 8.8, sodium slightly low at 130. His chest x-ray did not show evidence of pneumonia, but findings of emphysema. He did have blood cultures [facility] did show no susceptibility profile as yet and indicating so far as negative after 24 hours of grow th. Assessment: Mr. Smith is an 82-year-old patient who comes in with an apparent infection that appe ars to have been systemic, although there is no growth on blood cultures. His chest x-ray does not s how pneumonia, and urinalysis did not show an infection. He has no obvious cellulitis or skin infect ions. He was significantly dehydrated on admission and is now improving. He did receive some Roceph in and is now on Levaquin. Clinically, he is perhaps about the same in terms of his symptoms getting up and down. However, on blood work, he is improving significantly. Plan: 1.He should continue on his antibiotic course. 2.Continue with hydration. The patient and his son were instructed that he should drink at least 8 glasses of water daily. He actually had his episode of dizziness with near falling while he was outs [place] doing weed eating and likely not hydrating well. 3.At this point, he will likely require physical therapy to help him recover and the Celia maneuver should be done to help with his vertigo. SHELBY Voice ID: [id number] Report ID: [id number]
[2022-03-11] MEDS: MELATONIN 5 MG TABLET PO PRN (20:42)
[2022-03-11] MEDS: MIRTAZAPINE 15 MG TAB PO SCH (20:43)
[2022-03-11] MEDS: ATORVASTATIN 20 MG TAB PO SCH (20:43)
[2022-03-11] MEDS: GABAPENTIN 300 MG CAP PO SCH (20:43)
[2022-03-12 03:51] LABS: Absolute Lymphocytes (CBC) 1.2 K/uL (0.7-4.9); Hematocrit 32.1 % (39.6-49.0); MCV 86.7 fL (80-100); MPV 6.7 fL (7.6-11.3); RBC Red Blood Cell Count 3.71 M/uL (4.33-5.43)
[2022-03-12 04:05] LABS: Potassium 3.7 mmol/L (3.5-5.1)
[2022-03-12] MEDS: NA CHLORIDE 0.9% 1,000 ML IV SCH ×2 (05:09→09:10)
[2022-03-12] MEDS: ACETAMINOPHEN 325 MG TABLET PO PRN (08:04)
[2022-03-12] MEDS: Levofloxacin500mg IV 500 MG/100 ML BAG IV SCH (08:04)
[2022-03-12] MEDS: predniSONE 5 MG TAB PO SCH (08:05)
[2022-03-12] MEDS: ENOXAPARIN 40 MG/0.4 ML SQ SCH (08:05)
[2022-03-12] MEDS: AMLODIPINE 5 MG TAB PO SCH (08:05)
[2022-03-12] MEDS: ZINC SULFATE 220 MG CAP PO SCH (08:05)
[2022-03-12] MEDS: VITAMIN D 1000 UNIT TAB PO SCH (08:05)
[2022-03-12] MEDS: MAGNESIUM OXIDE 400 MG TAB PO SCH ×2 (08:05→20:58)
[2022-03-12] MEDS: INSULIN GLARGINE SQ SCH (08:06)
[2022-03-12] MEDS: FAMOTIDINE 20 MG/2 ML VIAL IV SCH ×2 (08:06→21:01)
[2022-03-12] MEDS: OMEGA 500 MG PO SCH (08:06)
[2022-03-12] MEDS: ASPIRIN 81 MG CHEWABLE TABLET PO SCH (08:06)
--- NOTE | 2022-03-12 14:57 | P.PN ---
Subjective Date of Service: 03/12/22 Subjective: No new changes, No C/O voiced, Improving Patient states he is feeling better. Also requesting eyedrops. He states he uses Visine for allergy at home. otherwise, no new complaints Review of Systems 10-point ROS is otherwise unremarkable Physical Examination - Vital Signs Temperature: 97.7 F Blood Pressure: 107/50 Pulse: 54 Respirations: 18 Pulse Ox (%): 96 - Physical Exam General: Alert, In no apparent distress, Oriented x3 HEENT: Atraumatic, PERRLA, EOMI Neck: Supple, JVD not distended Respiratory: Diminished Cardiovascular: Regular rate/rhythm, Normal S1 S2, No murmurs Gastrointestinal: Normal bowel sounds, Soft and benign, Non-distended, No tenderness Musculoskeletal: No clubbing, No swelling, No tenderness Neurological: Sensation intact, Cranial nerves 3-12 intact - Studies Medications List Reviewed: Yes Assessment & Plan - Problems (Diagnosis) (1) Pneumonia Current Visit: Yes Status: Acute (2) Diabetes mellitus Onset Date: 09/30/14 Current Visit: No Status: Chronic (3) Weakness of both legs Current Visit: Yes Status: Acute (4) Dehydration Current Visit: No Status: Acute - Plan Plan: 1. Continue with IV antibiotics; patient doing well-he is resting comfortably. Working with therapy. 2. Tolerating diet; advance as tolerated-we will KVO IV fluids 3. We will need to continue working with physical therapy 4. Working on placement to swing bed 5. Labs are stable 6. O2 per protocol 7. Continue with gentle hydration 8. Repeat labs including CBC and renal function in a.m. 9. GI and DVT prophylaxis Discharge Plan: [facility] Plan to discharge in: Greater than 2 days - Advance Directives Does patient have a Living Will: Yes Does patient have a Durable POA for Healthcare: Yes - Code Status/Comfort Care Code Status Assessed: Yes Code Status: Full Code Critical Care: No Time Spent Managing PTS Care (In Minutes): 25
[2022-03-12] MEDS ORDERED: TETRAHYDROZOLINE HCL 150 DROPS/15 ML BTL OPTH PRN (15:58)
[2022-03-12] MEDS: GABAPENTIN 300 MG CAP PO SCH (20:58)
[2022-03-12] MEDS: MIRTAZAPINE 15 MG TAB PO SCH (20:58)
[2022-03-12] MEDS: ATORVASTATIN 20 MG TAB PO SCH (20:58)
[2022-03-13] MEDS: MELATONIN 5 MG TABLET PO PRN (00:58)
[2022-03-13] MEDS: NA CHLORIDE 0.9% 1,000 ML IV SCH ×2 (01:15→10:39)
[2022-03-13] MEDS: VITAMIN D 1000 UNIT TAB PO SCH (08:28)
[2022-03-13] MEDS: ENOXAPARIN 40 MG/0.4 ML SQ SCH (08:28)
[2022-03-13] MEDS: predniSONE 5 MG TAB PO SCH (08:29)
[2022-03-13] MEDS: Levofloxacin500mg IV 500 MG/100 ML BAG IV SCH (08:29)
[2022-03-13] MEDS: AMLODIPINE 5 MG TAB PO SCH (08:29)
[2022-03-13] MEDS: ASPIRIN 81 MG CHEWABLE TABLET PO SCH (08:29)
[2022-03-13] MEDS: MAGNESIUM OXIDE 400 MG TAB PO SCH ×2 (08:30→21:00)
[2022-03-13] MEDS: ZINC SULFATE 220 MG CAP PO SCH (08:30)
[2022-03-13] MEDS: INSULIN GLARGINE SQ SCH (08:30)
[2022-03-13] MEDS: FAMOTIDINE 20 MG/2 ML VIAL IV SCH ×2 (08:30→21:02)
[2022-03-13] MEDS: OMEGA 500 MG PO SCH (08:31)
[2022-03-13] MEDS: ACETAMINOPHEN 325 MG TABLET PO PRN (08:33)
[2022-03-13] MEDS ORDERED: METOPROLOL TARTRATE 5 MG/5 ML INJ IV STA ×2 (09:04→09:06)
[2022-03-13] MEDS: METOPROLOL TARTRATE 5 MG/5 ML INJ IV SCH ×2 (09:10→09:20)
[2022-03-13] MEDS ORDERED: NA CHLORIDE 0.9% 250 ML IV ONE (09:58)
[2022-03-13] MEDS ORDERED: DIGOXIN 0.25 MG/ML AMP IV ONE ×2 (10:02→11:00)
--- NOTE | 2022-03-13 10:11 | P.PN ---
Date of Service: 03/13/22 Subjective Called by nursing staff because patient was in A. fib with RVR. Patient blood pressure was 130s over 80s with a heart rate in the 160s. Ordered 5 mg of Lopressor IV push. After the Lopressor was given apparently over 8 minutes patient's blood pressure is currently 90/50. We will hold the second dose of Lopressor and give digoxin. Cardiology consultation and echocardiogram. Patient's PCP Dr. Callahan will be available this afternoon. We will sign off to him once he is available. - Physical Exam General: Alert, In no apparent distress, Oriented x3 Respiratory: Diminished but clear bilaterally Cardiovascular: irregularly irregular rate/rhythm - Problems (Diagnosis) (1) Atrial fibrillation with RVR Current Visit: Yes Status: Acute - Plan Continue with plan of care as mentioned below: 1. Give lopressor 50mg po x 1; digoxin 0.5mg IVP x 1; bolus IV fluids-250cc x 1 2. Cardiology consultation 3. Echocardiogram 4. Signout to PCP this afternoon
[2022-03-13] MEDS: METOPROLOL TAR 50 MG TAB PO SCH ×2 (12:07→21:02)
--- NOTE | 2022-03-13 18:08 | CON ---
Date of Consultation: 03/13/[address] Callahan with weakness and fall and atrial fibrillation on 03/09/2022. I saw the patien t on 03/13/2022. History Of Present Illness: Mr. Smith is 82 years old. Has a history of hypertension, diabetes, and atrial fibrillation. He was in the hospital after a fall, weakness. He is still in the hospital because of weakness, orthostasis, imbalance, and dizziness. He is orthostatic occasionally. Today, his heart rate was 166, and I was consulted. Past Medical History: As stated above. Review of Systems: As stated earlier. Social History: Negative. Family History: Negative. Allergies: NONE. Medications: Include amlodipine, aspirin, Lipitor, antibiotics, Lipitor, and Lovenox. Physical Examination: Vital Signs: Still in atrial fibrillation at rate of 140, but asymptomatic. HEENT: Negative. Neck: Supple with no bruit. Chest: Clear. Heart: Revealed atrial fibrillation. Abdomen: Benign. Extremities: Revealed no clubbing, cyanosis, or edema. Diagnostic Data: Significant for creatinine of 1.38, otherwise unremarkable. Impression And Plan: 1.Recurrent atrial fibrillation. We will start beta-gianfranco 50 mg b.i.d., give him 1 dose of digoxi n 0.5 mg IV push now, obtain a 2D echocardiogram in the morning. 2.Hypertension. 3.Diabetes. 4.Dizziness, lightheadedness, orthostasis imbalance. I will suggest using midodrine on him. I will discuss the case further with Dr. Callahan. COURTNEY/AMANDEEPL Voice ID: [id number] Report ID: [id number]
[2022-03-13] MEDS: APIXABAN 2.5 MG TABLET PO SCH (21:00)
[2022-03-13] MEDS: GABAPENTIN 300 MG CAP PO SCH (21:00)
[2022-03-13] MEDS: MIRTAZAPINE 15 MG TAB PO SCH (21:01)
[2022-03-13] MEDS: ATORVASTATIN 20 MG TAB PO SCH (21:01)
--- NOTE | 2022-03-14 00:35 | PN ---
Subjective: Mr. Smith is doing great. Denies any chest pain, nausea, or vomiting. This morning he had episode of rapid atrial fibrillation for which he was given digoxin and beta gianfranco and rate is controlled. He feels he still is in atrial fibrillation, but he feels great. He is able to ambul ate. He has no complaints of dizziness for the last 2 days, he says. Objective: Vital Signs: Blood pressure 130/68, pulse is 68, temperature 98.7. HEENT: No JVD. No carotid bruits. Chest: Clear. Heart: Irregular. Abdomen: No guarding, no rebound, no rigidity. Assessment/plan: 1.Rapid atrial fibrillation is a new problem this morning. He will be on beta gianfranco and digoxin a nd anticoagulation. He is the one who does continue to probably not benefit from cardioversion becau se mainly elderly persons do not stay in normal sinus rhythm after atrial fibrillation, but we will d iscuss with him and Dr. Moise. 2.Generalized weakness. He wants to go to a swing bed for physical therapy, if approved by Medicare . We will know by tomorrow. 3.Atypical pneumonia. Continue medications. Clinically is improved. So, we will continue medicati on at this point for about 10 days. He came in with weakness and there was no really a reason for we akness and fever and I found after blood cultures x4 UA and culture, which was negative. Chest x-ray negative. CAT scan shows minimal pneumonia on 05/12, which is what we are treating with levofloxaci n at this point. 4.Chronic dizziness, but I believe that is from vertigo and he has been fully evaluated by 2 MRIs in the last 12 months with no findings on MRI of the brain. He was seen by Dr. Power while in the ospital this time as he continues to have symptoms. Dr. Power has, according to him, recommended some medications which probably he has tried in the past anyway, which include the Meclizine, magnesi um, but he will follow up with Dr. Power for this chronic recurrent dizziness. 5.Diabetes, which is well controlled. His last hemoglobin A1c was 6.4 at the office. 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 Otherwise, he was miserable with his pain in the left arm in the past which is about a couple of years ago. DIANNE/LEW Voice ID: [id number] Report ID: [id number]
--- NOTE | 2022-03-14 07:58 | RAD REPORT ---
EXAM DESCRIPTION: MRI - MRA Head Wo Cont - 03/14/2022 7:37 am CLINICAL HISTORY: Fall. Dizziness COMPARISON: None. TECHNIQUE: Magnetic resonance angiogram was performed. 3D MIPS reconstruction performed FINDINGS: The anterior cerebral, middle cerebral, posterior cerebral, distal internal carotid and ba silar arteries do not demonstrate a significant stenosis. An aneurysm is not seen IMPRESSION: No acute abnormality is displayed
[2022-03-14] MEDS: METOPROLOL TAR 50 MG TAB PO SCH (08:33)
[2022-03-14] MEDS: ASPIRIN 81 MG CHEWABLE TABLET PO SCH (08:33)
[2022-03-14] MEDS: VITAMIN D 1000 UNIT TAB PO SCH (08:33)
[2022-03-14] MEDS: Levofloxacin500mg IV 500 MG/100 ML BAG IV SCH (08:33)
[2022-03-14] MEDS: FAMOTIDINE 20 MG/2 ML VIAL IV SCH (08:33)
[2022-03-14] MEDS: predniSONE 5 MG TAB PO SCH (08:34)
[2022-03-14] MEDS: MAGNESIUM OXIDE 400 MG TAB PO SCH (08:34)
[2022-03-14] MEDS: APIXABAN 2.5 MG TABLET PO SCH (08:34)
[2022-03-14] MEDS: ZINC SULFATE 220 MG CAP PO SCH (08:34)
[2022-03-14] MEDS: AMLODIPINE 5 MG TAB PO SCH (08:34)
[2022-03-14] MEDS: INSULIN GLARGINE SQ SCH (08:35)
[2022-03-14] MEDS: OMEGA 500 MG PO SCH (08:35)
[2022-03-14] MEDS: ACETAMINOPHEN 325 MG TABLET PO PRN (08:37)
[2022-03-14] MEDS ORDERED: SCOPOLAMINE HYDROBROMIDE PATCH TD SCH (09:00)
[2022-03-14 11:16] VITALS: O2SAT 94
--- NOTE | 2022-03-14 12:14 | EKG ---
Test Date: 2022-03-13 Test Time: 10:09:20 Crime Lab Analyst: KOMAL MEASUREMENT RESULTS: Intervals: Rate: 138 [place]: QRSD: 92 QT: 326 QTc: 493 [place]: P: [place]: QRS: -56 T: 38 INTERPRETIVE STATEMENTS: Atrial fibrillation with rapid ventricular response Left axis deviation Minimal voltage criteria for LVH, may be normal variant Abnormal ECG Compared to ECG 03/09/2022 07:25:46 Left-axis deviation now present Sinus rhythm no longer present Left anterior fascicular block no longer present Electronically Signed On 03-14-22 12:11:46 JEWEL OLIVING MACHINE OPERATOR by Goran Aragon
--- NOTE | 2022-03-14 13:45 | PN ---
Date of Progress Note: 03/14/2022 Subjectively, Mr. Smith today is asymptomatic except for his chronic dizziness. We will consult o n him because of new onset atrial fibrillation. Dr. Callahan and I discussed his case. He is on metopr olol 50 b.i.d. He is on Eliquis now, Norvasc, aspirin, and Lipitor. He received 1 dose of digoxin. Today, he is in a sinus rhythm at a rate of 75 to 80. Echocardiogram is pending. We will continue his present regimen. He can certainly go home whenever it is okay with Dr. Callahan. His blood pressur e today is 160/70. We will continue to follow him and I will see him as an outpatient as well. COURTNEY/LEW Voice ID: [id number] Report ID: [id number]
--- NOTE | 2022-03-14 14:25 | ECHO ---
HEIGHT: 6 ft 2 in WEIGHT: 190 lb 0 oz DATE OF STUDY: 03/14/[address]: Jose D Millan MD 2-DIMENSIONAL: YES M.MODE: YES DOPPLER: YES COLOR FLOW: YES TDS: NO PORTABLE: YES DEFINITY: NO BUBBLE STUDY: NO DIAGNOSIS: ATRIAL FIBRILLATION WITH RAPID VENTRICULAR REPSONSE CARDIAC HISTORY: CATHERIZATION: SURGERY: PROSTHETIC VALVE: PACEMAKER: MEASUREMENTS (cm) DIASTOLIC (NORMALS) SYSTOLIC (NORMALS) IVSd 1.4 (0.6-1.2) LA Diam 3.4 (1.9-4.0) LVEF 76% LVIDd 4.1 (3.5-5.7) LVIDs 2.3 (2.0-3.5) %FS 44% LVPWd 1.4 (0.6-1.2) Ao Diam 3.4 (2.0-3.7) 2 DIMENSIONAL ASSESSMENT: RIGHT ATRIUM: NORMAL LEFT ATRIUM: NORMAL RIGHT VENTRICLE: NORMAL LEFT VENTRICLE: NORMAL TRICUSPID VALVE: NORMAL MITRAL VALVE: NORMAL PULMONIC VALVE: NORMAL AORTIC VALVE: CALCIFIED, NO STENOSIS PERICARDIAL EFFUSION: NONE AORTIC ROOT: NORMAL LEFT VENTRICULAR WALL MOTION: NORMAL DOPPLER/COLOR FLOW: NORMAL COMMENTS: NORMAL LEFT VENTRICULAR EJECTION FRACTION >60%. NORMAL WALL MOTION. AORTIC SCLEROSIS WITH NO AORTIC STENOSIS. ATRIAL FIBRILLATION. TECHNOLOGIST: Megan GARCIA
--- NOTE | 2022-03-14 15:06 | CON ---
Reason For Consultation: Consultation called by Dr. Callahan because the patient has been falling. History Of Present Illness: Mr. Smith is an 82-year-old patient with atrial fibrillation, hyperte nsion, diabetes mellitus, and skin cancer who comes to [facility] after losing balance falli ng with a sensation of "dizziness." He said, the episodes have been occurring for a few years, espec ially when he does yard work, such as weed eating, where he kind of bends his head forward a lot and moves weed eater from [id number]. He sometimes has to sit down and wait for a few minutes or he ma y have to hold onto any right objects to prevent fall. At [facility], he has head CT scan a nd cervical spine and abdomen, did not show any acute ischemic changes or fractures. Blood work show ed elevation of white blood cell count of 19.3 with neutrophils 87.8, and that was yesterday. Today, white blood cell count 12.4, neutrophils 84.7. His chemistry is consistent with significant dehydra tion. Creatinine 1.72, BUN 26, he has glucose up to 131. The liver function studies show slightly e levated direct bilirubin, otherwise essentially unremarkable. Lactic acid was 1.3. Urinalysis essen tially unremarkable except for 1+ glucose, COVID-19 test is negative and chest x-ray showed no signif icant abnormalities. He did receive IV fluids and his symptoms improved significantly, especially as he is in the bed. He was ambulated with help of physical therapy and did walk 20 feet without an as sistive device. He did have the physical therapist work on the Celia maneuver and the patient was ac tually shown, how to do the Celia maneuver by video to assist with his symptoms of transient vertigo, especially when weed eating. Past Medical History: Dyslipidemia, hypertension, atrial fibrillation, skin cancer. Allergies: NO KNOWN DRUG ALLERGIES. Medications: Aspirin 81 mg daily, gabapentin 300 mg at bedtime, magnesium oxide 400 mg twice daily, Zocor 40 mg at bedtime, vitamin D3 2000 units daily, Trulicity 1.5 mg subcutaneously with meals, mecl izine 25 mg at bedtime, omega-3 fish oil 500 mg daily, tramadol/acetaminophen 37.5/325 one twice naomi y as needed, zinc 50 mg daily, ipratropium 2 sprays inhaled at bedtime, mirtazapine 7.5 mg at bedtime , Ritalin 10 mg at bedtime. Past Surgical History: Partial knee replacement twice, hernia repair 3 times, skin cancer removal, b ilateral cataract surgery, tonsillectomy. Family History: Cancer, lung cancer in father. Social History: Smoked in the past. No current alcohol, tobacco, or IV drug use. The patient lives at home. His son lives close by and helpful. Review of Systems: Aside from his diffuse weakness at times and sensation of dizziness, which is perhaps more vertigo, e specially when outside in his yard, he denies any significant fever, chills, despite his white blood cell count being elevated and no myalgias or arthralgias. No significant rash on the negatives on a 10-point systems review. Physical Examination: Vital Signs: Blood pressure 130/66, pulse 88, respiratory rate 16, temperature 98.4, oxygen saturati on 96%. General: Mr. Smith is sitting in bed. He is in no significant distress. He is normocephalic, at raumatic. Sclerae anicteric. Oropharynx is pink and moist. Neck: Supple. Chest: Clear. Heart: Regular. Extremities: Show no clubbing, cyanosis, or edema. Neurologic: He is alert and oriented to person, place, situation and time. Follows commands appropr iately. Cranial nerves 2 through 12 shows no focal deficits. Motor examination, no weakness upper a nd lower extremities. 5/5 proximally and distally despite reported weakness. He has a stocking-glov e loss light touch temperature. Reflexes are depressed and trace in the upper and lower extremities. Coordination intact in upper and lower extremities. Gait is good stance, stride, and arm swing. S light transient sensation of dizziness on standing. Assessment: Mr. Smith is an 82-year-old patient with likely positional vertigo. He has multiple comorbid conditions as noted, including hypertension, diabetes mellitus, and dyslipidemia. He does n ot have by CT scan, any evidence of stroke or pulmonary abnormalities. He did have a very elevated w leo blood cell count which is worrisome as to potential for infection. He did receive a gram of Julio ephin while in the emergency room and has been on Rocephin 1 g daily. He has aspirin 81 mg daily and Lovenox 40 mg subcutaneously daily for DVT prophylaxis. Plan: 1.He was shown Celia maneuver, which should continue. 2.Aggressive management of hypertension, dyslipidemia, and he has potential systemic infection. The patient will be followed in the hospital as needed. SHELBY Voice ID: [id number] Report ID: [id number]
[2022-03-14 15:58] VITALS: BP 148/75; TEMP 97.8
--- NOTE | 2022-03-14 18:36 | PN ---
Subjective: Mr. Smith is doing a lot better. Denies any chest pain, nausea, or vomiting. Objective: Heart: Regular. Abdomen: No guarding, no rebound, no rigidity. Vital Signs: Orthostatic blood pressure. He actually dropped from 150-100 from lying to standing an d has not changed being on multiple medications tried before in the past otherwise. Assessment/plan: 1.Orthostatic hypotension, I am starting one medication called pyridostigmine. This is an off-label use medication for orthostatic hypotension without affecting the blood pressure itself. Medication like ProAmatine and Florinef will raise his blood pressure, which he already has at home with supine hypertension. 2.Atrial fibrillation, which is new for him, has risen back into sinus rhythm using metoprolol and rudy lainez is on Eliquis also at the same time small dose. 3.Unsteady gait which is because of orthostatic hypotension. MRI brain and MR angiogram were negati ve one more time. We have done this 3 times in the last [address] Power is also seeing th e patient upon daughter's insistence, is waiting for assisted living or prison facility for him for physical therapy. RVD/MODL Voice ID: [id number] Report ID: [id number]
[2022-03-14] MEDS ORDERED: PYRIDOSTIGMINE 60 MG TABLET PO SCH ×2 (21:00)
--- NOTE | 2022-03-16 17:55 | P.DS ---
Admission Date: 03/09/22 Discharge Date: 03/16/22 Disposition: TRANSFER TO SNF - MEDICAL Reason for Admission: WEAKNESS, DEHYDRATION - Problems (1) Atypical pneumonia Status: Acute (2) Dehydration Status: Acute (3) Diabetes mellitus Onset Date: 09/30/14 Status: Chronic (4) Weakness of both legs Status: Acute (5) Fever Status: Acute Brief History of Present Illness: MR. DEUTSCH IS DIABETIC WHO COMES WITH WEAKNESS, NOT ABLE TO GET ON FEET AND NOT EATING AND DRINKNING WELL FOR 2 DAYS. HE IS LOT BETTER ALREADY AFTER IV FLUIDS. Hospital Course: MR DEUTSCH COMES WITH WEAKNES, LOW GRADE FEVER, AND ONLY SOURCE OF FEVER I FOUND WAS A SMALL PNEUMONIA. HE IMPROVED ON LEVAQUIN. HE CONTINUES TO HAVE ORTHOSTASIS AND NOT ABLE TO STAND FOR LONG. I PUT HIM ON PYRIDOSTIGMINE HE ALREADY HAS SUPINE HYPERTENSION PROBLEM . HE IS SENT TO [facility] FOR PT AND FALL PREVENTION. I HAVE TALKED TO TWICE ABOUT REFRACTORY NATURE OF ORTHOSTASIS. HE HAS NO VERTIGO BUT HE GETS LIGHT HEADED. Vital Signs/Physical Exam: Temp Pulse Resp BP Pulse Ox 97.8 F 74 18 148/75 H 95 03/14/22 15:58 03/14/22 16:26 03/14/22 15:58 03/14/22 15:58 03/14/22 15:58 Laboratory Data at Discharge: WBC 9.50 K/uL (4.3-10.9) 03/12/22 03:32 Hgb 11.5 g/dL (13.6-17.9) L 03/12/22 03:32 Hct 32.1 % (39.6-49.0) L 03/12/22 03:32 Plt Count 245 K/uL (152-406) 03/12/22 03:32 PT 12.3 SECONDS (9.5-12.5) 03/09/22 07:34 INR 1.12 03/09/22 07:34 Sodium 135 mmol/L (136-145) L D 03/12/22 03:32 Potassium 3.7 mmol/L (3.5-5.1) 03/12/22 03:32 BUN 16 mg/dL (7-18) 03/12/22 03:32 Creatinine 1.38 mg/dL (0.55-1.3) H 03/12/22 03:32 Glucose 166 mg/dL (74-106) H 03/12/22 03:32 Magnesium 2.1 mg/dL (1.8-2.4) 03/09/22 07:34 Total Bilirubin 1.0 mg/dL (0.2-1.0) 03/09/22 07:34 AST 13 U/L (15-37) L 03/09/22 07:34 ALT 16 U/L (12-78) 03/09/22 07:34 Alkaline Phosphatase 53 U/L (45-117) 03/09/22 07:34 Lipase Cancelled 03/09/22 07:38 Home Medications: Aspirin 81 mg PO DAILY 09/25/14 Gabapentin [Neurontin*] 300 mg PO BEDTIME 09/25/14 Magnesium Oxide [Mag 0X*] 400 mg PO BID 09/25/14 Cholecalciferol (Vitamin D3) [Vitamin D3] 2,000 unit PO DAILY 07/17/20 Insulin Glargine,Hum.rec.anlog [Linnea Johnson U-100] 22 units SQ DAILY 07/17/20 Houston-3/Dha/Epa/Fish Oil [[place] 3 500 Softgel] 500 mg PO DAILY 07/17/20 Zinc 50 mg PO DAILY 07/17/20 Mirtazapine 7.5 mg PO BEDTIME 08/18/20 Melatonin 10 mg PO BEDTIME PRN #30 08/19/20 predniSONE [Prednisone] 1 tab PO DAILY 03/10/22 Amlodipine [Norvasc*] 5 mg PO DAILY tab 03/14/22 Apixaban [Eliquis *] 2.5 mg PO BID #0 03/14/22 Atorvastatin Calcium [Lipitor*] 20 mg PO BEDTIME tab 03/14/22 Metoprolol Tartrate [Lopressor*] 50 mg PO BID tab 03/14/22 pyRIDostigmine bromide [Mestinon*] 30 mg PO BID 03/14/22 Followup: NONE,NONE [Primary Care Provider] -
--- NOTE | 2022-03-18 10:24 | P.CNS ---
Date of Consult: 03/18/22 While logging in to [email or web address], I noted Consult request but was not contacted by the medical or hospital staff during the patient's stay. I am happy to evaluate the patient as an outpatient if indicated.
== END 2022-03-14 18:28 | DRG 195 ==
LOC: ER 06:52 → ERHOLD 08:28 → 2ND 10:35
PROVIDERS: ADMIT Internal Medicine; ATTEND Internal Medicine
DX: J18.9 Pneumonia, unspecified organism (principal); E86.0 Dehydration; E11.9 Type 2 diabetes mellitus without complications; I10 Essential (primary) hypertension; E78.5 Hyperlipidemia, unspecified; I95.1 Orthostatic hypotension; M25.80 Other specified joint disorders, unspecified joint; M54.12 Radiculopathy, cervical region; I48.91 Unspecified atrial fibrillation; R53.1 Weakness; Z79.4 Long term (current) use of insulin; Z79.82 Long term (current) use of aspirin; Z79.899 Other long term (current) drug therapy; Z85.828 Personal history of other malignant neoplasm of skin; Z87.891 Personal history of nicotine dependence; Z96.659 Presence of unspecified artificial knee joint; Z20.822 Contact with and (suspected) exposure to COVID-19; W18.30XA Fall on same level, unspecified, initial encounter; Y93.9 Activity, unspecified; Y92.9 Unspecified place or not applicable
CPT/HCPCS: 36415; 70450; 70544; 71045; 71250; 72125; 72170; 80048; 80076; 81001; 82947; 83605; 83690; 83735; 83880; 84484; 85025; 85610; 87040; 87086; 87088; 87804; 87807; 93005; 93306; 96361; 96365; 96367; 97112; 97116; 97161; 99285; J0456; J1160; J1650; J2405; J7030; J7050; J7512; U0003

== ENCOUNTER 2023-11-08 16:04 | Observation (INO) | payer OTHER ==
[2023-11-08] MEDS ORDERED: METOPROLOL TARTRATE 5 MG/5 ML INJ IV ONE (16:30)
[2023-11-08] MEDS ORDERED: NA CHLORIDE 0.9% 1,000 ML ONE (16:30)
[2023-11-08] MEDS ORDERED: METOPROLOL TAR 50 MG TAB ONE (16:30)
[2023-11-08] MEDS ORDERED: NA CHLORIDE 0.9% 500 ML ONE (16:31)
[2023-11-08] MEDS ORDERED: MAGNESIUM SULFATE 1 gm IVPB 1 GM/100 ML BAG IV ONE (16:31)
[2023-11-08 16:42] LABS: PT Prothrombin Time 11.6 SECONDS (9.4-12.5); Protime INR 1.06
[2023-11-08 16:43] LABS: Absolute Eosinophils 0.1 K/uL (0-0.5); Absolute Lymphocytes (CBC) 1.3 K/uL (0.7-4.9); Absolute Monocytes 0.6 K/uL (0.1-1.3); Absolute Neutrophil 11.3 K/uL (1.8-8.0); Basophils % 0.2 % (0-1.3); Eosinophils % 0.4 % (0-4.4); Hematocrit 42.6 % (39.6-49.0); Hemoglobin 14.4 g/dL (13.6-17.9); Lymphocytes % 9.7 % (15.3-44.8); MCH 29.9 pg (27.0-35.0); MCHC 33.8 g/dL (32.0-36.0); MCV 88.6 fL (80-100); MPV 6.9 fL (7.6-11.3); Monocytes % 4.6 % (3.3-12.3); Neutrophils % 85.1 % (41.7-73.7); Nucleated Red Blood Cells % 0.1 % (0-0); Platelets 351 thou/uL (152-406); RBC Red Blood Cell Count 4.81 M/uL (4.33-5.43); Red Cell Distribution Width 13.7 % (12.1-15.2)
--- NOTE | 2023-11-08 16:53 | RAD REPORT ---
EXAM DESCRIPTION: RAD - Chest Single View - 11/08/2023 4:36 pm CLINICAL HISTORY: CHEST PAIN Chest pain. COMPARISON: <Comparisons> FINDINGS: Portable technique limits examination quality. The lungs are mildly emphysematous but grossly clear. The heart is normal in size. No displaced fract ures. IMPRESSION: No acute intrathoracic process suspected.
[2023-11-08 17:10] LABS: Albumin 3.5 g/dL (3.4-5.0); Albumin/Globulin Ratio 0.9 (1.1-1.8); Anion Gap 7.7 mEq/L (5.0-15.0); Bilirubin Direct 0.2 mg/dL (0-0.2); Bilirubin Indirect, Calculated 0.7 mg/dL (0.2-0.8); Bilirubin Total 0.9 mg/dL (0.2-1.0); Globulin 3.9 g/dL (2.3-3.5); Magnesium 1.7 mg/dL (1.6-2.4); Potassium 3.7 mEq/L (3.5-5.1); Protein, Total 7.4 g/dL (6.4-8.2); Thyroid Stimulating Hormone 2.27 uIU/mL (0.358-3.740); Troponin High Sensitivity 40.4 pg/mL (<58.9)
--- NOTE | 2023-11-08 18:15 | ER ---
Nurse's Notes [facility] Name: Roberto Smith Age: 83 yrs Sex: Male : 1940 Arrival Date: 11/08/2023 Time: 16:04 Bed 6 Private MD: Diagnosis: Persistent atrial fibrillation-with rvr;Chest pain, unspecified Presentation: 11/07 16:13 Chief complaint: Patient states: SENT BY PCP FOR ABNORMAL EKG AND TACHYCARDIA. DENIES db CHEST PAIN. REPORTS WEAKNESS AND SOB X 2 WEEKS. Coronavirus screen: Client denies travel out of the [place] in the last 14 days. At this time, the client does not indicate any symptoms associated with coronavirus-19. Ebola Screen: Patient negative for fever greater than or equal to 101.5 degrees Fahrenheit, and additional compatible Ebola Virus Disease symptoms Patient denies exposure to infectious person. Patient denies travel to an Ebola-affected area in the 21 days before illness onset. No symptoms or risks identified at this time. Initial Sepsis Screen: Does the patient meet any 2 criteria? No. Patient's initial sepsis screen is negative. Does the patient have a suspected source of infection? No. Patient's initial sepsis screen is negative. Risk Assessment: Do you want to hurt yourself or someone else? Patient reports no desire to harm self or others. Onset of symptoms was November 08, 2023. 16:13 Method Of Arrival: Ambulatory db 16:13 Acuity: RAMON 2 db Triage Assessment: 16:14 General: Appears in no apparent distress. comfortable, Behavior is calm, cooperative. db Pain: Denies pain. Neuro: Level of Consciousness is awake, alert, obeys commands, Oriented to person, place, time, situation. Cardiovascular: Pulses. Historical: - Allergies: 16:14 No Known Allergies; db - PMHx: 16:14 Atrial fibrillation; DM; HTN; skin ca; db - Immunization history:: Adult Immunizations unknown. - Infectious Disease History:: Denies. - Social history:: Smoking status: Patient denies any tobacco usage or history of. - Family history:: not pertinent. Screenin:15 [facility] ED Fall Risk Assessment (Adult) History of falling in the last 3 months, bp including since admission No falls in past 3 months (0 pts) Confusion or Disorientation No (0 pts) Intoxicated or Sedated No (0 pts) Impaired Gait No (0 pts) Mobility Assist Device Used No (0 pt) Altered Elimination No (0 pt) Score/Fall Risk Level 0 - 2 = Low Risk. Abuse screen: Denies threats or abuse. Denies injuries from another. Nutritional screening: No deficits noted. Tuberculosis screening: No symptoms or risk factors identified. Assessment: 16:15 General: Appears uncomfortable, Behavior is cooperative, appropriate for age, anxious. bp Pain: Denies pain. Neuro: Level of Consciousness is awake, alert, obeys commands, Oriented to Appropriate for age. Cardiovascular: Rhythm is sinus tachycardia. Respiratory: No deficits noted. GI: No signs and/or symptoms were reported involving the gastrointestinal system. : No signs and/or symptoms were reported regarding the genitourinary system. EENT: No deficits noted. Derm: No deficits noted. Musculoskeletal: No deficits noted. 17:29 Reassessment: Patient is alert, oriented x 3, equal unlabored respirations, skin bp warm/dry/pink. Patient states symptoms have improved. 20:00 Reassessment: No changes from previously documented assessment. Patient and/or family rg5 updated on plan of care and expected duration. Pain level reassessed. Patient is alert, oriented x 3, equal unlabored respirations, skin warm/dry/pink. Vital Signs: 16:13 BP 138 / 87; Pulse 147; Resp 24; Temp 98.9(O); Pulse Ox 95% ; Weight 81.65 kg; Height 6 db ft. 2 in. ; 17:00 BP 111 / 74; Pulse 128; Resp 25; Pulse Ox 95% ; bp 17:30 BP 115 / 78; Pulse 109; Resp 24; Pulse Ox 95% ; bp 18:15 BP 123 / 89; Pulse 113; Resp 18; Pulse Ox 95% on R/A; me1 20:47 BP 130 / 96; Pulse 99; Resp 17; Temp 98; Pulse Ox 97% ; Pain 0/10; rg5 16:13 Body Mass Index 23.11 (81.65 kg, 187.96 cm) db 20:47 Pain Scale: Adult rg5 [place]cambre Coma Score: 20:00 Eye Response: spontaneous(4). Motor Response: obeys commands(6). Verbal Response: rg5 oriented(5). Total: 15. ED Course: 16:08 Patient arrived in ED. 3 16:13 Torrey Saravia, RN is Primary Nurse. bp 16:14 Triage completed. db 16:15 Arm band placed on Patient placed in an exam room. db 16:15 Patient has correct armband on for positive identification. bp 16:16 Leoncio Montgomery MD is Attending Physician. bekah 16:25 Initial lab(s) drawn, by me, EKG done, by ED staff. Inserted saline lock: 20 gauge in db right antecubital area, using aseptic technique. Blood collected. 16:38 XRAY Chest (1 view) In Process Unspecified. EDMS 18:13 Max Callahan MD is Hospitalizing Provider. [facility] 20:00 Provided Education on: post er care. Door closed. Noise minimized. Warm blanket given. rg5 20:00 No provider procedures requiring assistance completed. IV is patent, is intact, Patient rg5 admitted, IV remains in place. No redness/swelling at site. Administered Medications: 16:30 Drug: Magnesium Sulfate IVPB 1 grams IVPB once over 1 hrs Route: IVPB; Infused Over: 1 bp hrs; Site: right antecubital; 16:30 Drug: NS 0.9% IV 500 ml IV at bolus once Route: IV; Rate: bolus; Site: right bp antecubital; 16:30 Drug: NS 0.9% IV 1000 ml IV at 125 ml/hr continuous Route: IV; Rate: 125 ml/hr; Site: bp right antecubital; 16:30 Drug: Metoprolol IVP 5 mg IVP once; Hold for SBP <100 or HR <60. Route: IVP; Site: bp right antecubital; 16:30 Drug: Metoprolol PO 50 mg PO once Route: PO; bp 17:15 Drug: Metoprolol IVP 5 mg IVP once; Hold for SBP <100 or HR <60. Route: IVP; Site: bp right antecubital; 18:20 Drug: Enoxaparin Sub-Q 1 mg/kg Sub-Q once Route: Sub-Q; Site: right lower abdomen; bp 18:20 Drug: Famotidine IVP 20 mg IVP once; dilute with 10 mL 0.9% NaCl; give over 2 minutes bp Route: IVP; Site: right antecubital; 18:20 Drug: Digoxin IVP 0.5 mg IVP once Route: IVP; Site: right antecubital; bp 19:14 Not Given (Hemodynamic Parameters): metoprolol5 mg IVP once; Hold for SBP <100 or HR bp <60. Medication: 20:00 VIS not applicable for this client. rg5 Outcome: 18:14 Decision to Hospitalize by Provider. bekah 20:00 Admitted to Med/surg accompanied by nurse, via wheelchair, with chart, rg5 20:00 Condition: stable 20:00 Instructed on safety practices, 22:00 Patient left the ED. rg5 Signatures: Dispatcher [employer] EDKY Leoncio Montgomery MD MD cha Peltier, Brian, RN RN bp Shawna Ring, RN RN db Tereza Grace, CHELYL RN njOdessa Arias Chito Rausch, RN RN rg5
--- NOTE | 2023-11-08 18:15 | EDPHYS ---
Physician Documentation [facility] Name: Roberto Smith Age: 83 yrs Sex: Male : 1940 Arrival Date: 11/08/2023 Time: 16:04 Bed 6 Private MD: ED Physician Leoncio Montgomery HPI: 11/07 18:10 This 83 yrs old Male presents to ER via Ambulatory with complaints of Sent by Dr Callahan: bekah abnormal EKG, weakness. 18:10 The patient or guardian reports chest pain that is located primarily in the substernal bekah area, anterior chest wall, bilaterally. Onset: 1 day(s) ago. The patient presents with a history of irregular heart beat, heart racing. Context: The symptoms occur at rest. Onset: The symptoms/episode began/occurred 1 day(s) ago. Modifying factors: The symptoms are aggravated by nothing. The symptoms are alleviated by nothing. The pain does not radiate. Associated signs and symptoms: The patient has no apparent associated signs or symptoms. Associated signs and symptoms: Pertinent positives: lightheadedness. Historical: - Allergies: 16:14 No Known Allergies; db - PMHx: 16:14 Atrial fibrillation; DM; HTN; skin ca; db - Immunization history:: Adult Immunizations unknown. - Infectious Disease History:: Denies. - Social history:: Smoking status: Patient denies any tobacco usage or history of. - Family history:: not pertinent. ROS: 18:10 Constitutional: Negative for fever, chills, and weight loss, Eyes: Negative for injury, bekah pain, redness, and discharge, ENT: Negative for injury, pain, and discharge, Neck: Negative for injury, pain, and swelling, Respiratory: Negative for shortness of breath, cough, wheezing, and pleuritic chest pain, Abdomen/GI: Negative for abdominal pain, nausea, vomiting, diarrhea, and constipation, Back: Negative for injury and pain, : Negative for injury, bleeding, discharge, and swelling, MS/Extremity: Negative for injury and deformity, Skin: Negative for injury, rash, and discoloration, Neuro: Negative for headache, weakness, numbness, tingling, and seizure, Psych: Negative for depression, anxiety, suicide ideation, homicidal ideation, and hallucinations, Allergy/Immunology: Negative for hives, rash, and allergies, Endocrine: Negative for neck swelling, polydipsia, polyuria, polyphagia, and marked weight changes, Hematologic/Lymphatic: Negative for swollen nodes, abnormal bleeding, and unusual bruising, 18:10 Cardiovascular: Positive for chest pain, of the chest, palpitations, Exam: 18:10 Constitutional: This is a well developed, well nourished patient who is awake, alert, bekah and in no acute distress. Head/Face: Normocephalic, atraumatic. Eyes: Pupils equal round and reactive to light, extra-ocular motions intact. Lids and lashes normal. Conjunctiva and sclera are non-icteric and not injected. Cornea within normal limits. Periorbital areas with no swelling, redness, or edema. ENT: Nares patent. No nasal discharge, no septal abnormalities noted. Tympanic membranes are normal and external auditory canals are clear. Oropharynx with no redness, swelling, or masses, exudates, or evidence of obstruction, uvula midline. Mucous membranes moist. Neck: Trachea midline, no thyromegaly or masses palpated, and no cervical lymphadenopathy. Supple, full range of motion without nuchal rigidity, or vertebral point tenderness. No Meningismus. Chest/axilla: Normal chest wall appearance and motion. Nontender with no deformity. No lesions are appreciated. Respiratory: Lungs have equal breath sounds bilaterally, clear to auscultation and percussion. No rales, rhonchi or wheezes noted. No increased work of breathing, no retractions or nasal flaring. Abdomen/GI: Soft, non-tender, with normal bowel sounds. No distension or tympany. No guarding or rebound. No evidence of tenderness throughout. Back: No spinal tenderness. No costovertebral tenderness. Full range of motion. Male : Normal genitalia with no discharge or lesions. Skin: Warm, dry with normal turgor. Normal color with no rashes, no lesions, and no evidence of cellulitis. MS/ Extremity: Pulses equal, no cyanosis. Neurovascular intact. Full, normal range of motion. Neuro: Awake and alert, GCS 15, oriented to person, place, time, and situation. Cranial nerves II-XII grossly intact. Motor strength 5/5 in all extremities. Sensory grossly intact. Cerebellar exam normal. Normal gait. Psych: Awake, alert, with orientation to person, place and time. Behavior, mood, and affect are within normal limits. 18:10 Cardiovascular: Rate: actual rate is 140 bpm, Rhythm: irregular, irregularly irregular, Pulses: no pulse deficits are appreciated, Heart sounds: normal, normal S1and S2, no S3 or S4, no murmur, no rub, no gallop, Edema: is not appreciated, JVD: is not appreciated, 18:10 ECG was reviewed by the Attending Physician. Vital Signs: 16:13 BP 138 / 87; Pulse 147; Resp 24; Temp 98.9(O); Pulse Ox 95% ; Weight 81.65 kg; Height 6 db ft. 2 in. ; 17:00 BP 111 / 74; Pulse 128; Resp 25; Pulse Ox 95% ; bp 17:30 BP 115 / 78; Pulse 109; Resp 24; Pulse Ox 95% ; bp 18:15 BP 123 / 89; Pulse 113; Resp 18; Pulse Ox 95% on R/A; me1 20:47 BP 130 / 96; Pulse 99; Resp 17; Temp 98; Pulse Ox 97% ; Pain 0/10; rg5 16:13 Body Mass Index 23.11 (81.65 kg, 187.96 cm) db 20:47 Pain Scale: Adult rg5 Faustina Coma Score: 20:00 Eye Response: spontaneous(4). Motor Response: obeys commands(6). Verbal Response: rg5 oriented(5). Total: 15. MDM: 16:16 Patient medically screened. bekah 18:26 Differential diagnosis: abnormal EKG, acute myocardial infarction, acute pericarditis, bekah anxiety, chest wall pain, Cholelithiasis arrythmia, dehydration, esophagitis, pancreatitis, peptic ulcer disease, pericarditis, pneumonia, pulmonary embolus, stable angina, thoracic aortic disection, unstable angina. HEART Score: History: Moderately Suspicious (1), ECG: Non specific repolarization disturbance / LBTB / PM (1), Age: > or = 65 years (2), Risk Factors: > or = 3 Risk factors for atherosclerotic disease (2), [Hypercholesterolemia] [Hypertension] [DM] [+ Family HX] Troponin: < or = 1 x Normal Limit (0). The patient was given aspirin in the Emergency Department. CELESTINO Risk Score: 1 - patient's age is greater or equal to 65 years, 1 - Three or more CAD risk factors, 1- Known CAD, 1 - ASA use in past 7 days, TOTAL SCORE = 4. Data reviewed: vital signs, nurses notes, lab test result(s), EKG, radiologic studies, plain films. Consideration of Admission/Observation Patient was admitted/placed on observation. Escalation of care including admission/observation considered. I considered the following discharge prescriptions or medication management in the emergency department Medications were administered in the Emergency Department. See MAR. Independent interpretation of the following test(s) in the Emergency Department EKG: See my EKG interpretation above. Test considered but Not performed: Ultrasound no [address]: ct heat. 11/07 16:19 Order name: Basic Metabolic Panel; Complete Time: 18:06 [facility] 11/07 16:19 Order name: CBC with Diff; Complete Time: 18:06 [facility] 11/07 16:19 Order name: LFT's; Complete Time: 18:06 [facility] 11/07 16:19 Order name: Magnesium; Complete Time: 18:06 [facility] 11/07 16:19 Order name: NT PRO-BNP; Complete Time: 18:06 [facility] 11/07 16:19 Order name: PT-INR; Complete Time: 18:06 [facility] 11/07 16:19 Order name: Troponin HS; Complete Time: 18:06 [facility] 11/07 16:19 Order name: TSH; Complete Time: 18:06 [facility] 11/07 16:19 Order name: XRAY Chest (1 view); Complete Time: 18:06 [facility] 11/07 18:28 Order name: Echo w/ Doppler [facility] 11/07 16:19 Order name: EKG; Complete Time: 16:19 [facility] 11/07 18:22 Order name: CONS Physician Consult [facility] 11/07 16:19 Order name: Cardiac monitoring; Complete Time: 16:27 [facility] 11/07 16:19 Order name: EKG - Nurse/Tech; Complete Time: 16:56 [facility] 11/07 16:19 Order name: IV Saline Lock; Complete Time: 16:56 [facility] 11/07 16:19 Order name: Labs collected and sent; Complete Time: 16:56 [facility] 11/07 16:19 Order name: O2 Per Protocol; Complete Time: 16:27 [facility] 11/07 16:19 Order name: O2 Sat Monitoring; Complete Time: 16:27 [facility] EC:10 Rate is 142 beats/min. Rhythm is irregularly irregular. QRS [place] is Normal. IA interval bekah is normal. QRS interval is normal. QT interval is normal. No Q waves. No ST changes noted. Clinical impression: Atrial Fibrillation. Interpreted by me. Reviewed by me. Administered Medications: 16:30 Drug: Magnesium Sulfate IVPB 1 grams IVPB once over 1 hrs Route: IVPB; Infused Over: 1 bp hrs; Site: right antecubital; 16:30 Drug: NS 0.9% IV 500 ml IV at bolus once Route: IV; Rate: bolus; Site: right bp antecubital; 16:30 Drug: NS 0.9% IV 1000 ml IV at 125 ml/hr continuous Route: IV; Rate: 125 ml/hr; Site: bp right antecubital; 16:30 Drug: Metoprolol IVP 5 mg IVP once; Hold for SBP <100 or HR <60. Route: IVP; Site: bp right antecubital; 16:30 Drug: Metoprolol PO 50 mg PO once Route: PO; bp 17:15 Drug: Metoprolol IVP 5 mg IVP once; Hold for SBP <100 or HR <60. Route: IVP; Site: bp right antecubital; 18:20 Drug: Enoxaparin Sub-Q 1 mg/kg Sub-Q once Route: Sub-Q; Site: right lower abdomen; bp 18:20 Drug: Famotidine IVP 20 mg IVP once; dilute with 10 mL 0.9% NaCl; give over 2 minutes bp Route: IVP; Site: right antecubital; 18:20 Drug: Digoxin IVP 0.5 mg IVP once Route: IVP; Site: right antecubital; bp 19:14 Not Given (Hemodynamic Parameters): metoprolol5 mg IVP once; Hold for SBP <100 or HR bp <60. Disposition Summary: 11/08/23 18:14 Hospitalization Ordered Notes: Hospitalization Status: Inpatient Admission bekah Provider: Max Callahan cha Location: Telemetry/MedSurg (Inpatient) bekah Condition: Stable bekah Problem: new bekah Symptoms: have improved bekah Bed/Room Type: Standard bekah Room Assignment: 210(11/08/23 20:37) jb4 Diagnosis - Persistent atrial fibrillation - with rvr bekah - Chest pain, unspecified bekah Forms: - Medication Reconciliation Form bekah - SBAR form bekah - Leadership Thank You Letter bekah Signatures: Dispatcher [employer] Leoncio Fink MD MD cha Bryson, James, RN RN jb4 Torrey Saravia RN RN Shawna Zarate RN RN db Corrections: (The following items were deleted from the chart) 20:37 18:14 bekah jbNick
[2023-11-08] MEDS ORDERED: ENOXAPARIN 80 MG/0.8 ML SQ ONE (18:34)
[2023-11-08] MEDS ORDERED: DIGOXIN 0.25 MG/ML AMP ONE (18:34)
[2023-11-08] MEDS ORDERED: FAMOTIDINE 20 MG/2 ML VIAL IV ONE (18:35)
[2023-11-08] MEDS ORDERED: ACETAMINOPHEN 325 MG TABLET PO PRN (21:33)
[2023-11-08] MEDS: METOPROLOL TAR 50 MG TAB PO SCH (21:33)
[2023-11-08] MEDS ORDERED: MORPHINE 4 MG/ML SYR IV PRN (21:33)
[2023-11-08] MEDS ORDERED: ONDANSETRON 4 MG/2 ML VIAL IV PRN (21:33)
[2023-11-08] MEDS: DIGOXIN 0.25 MG/ML AMP IV SCH (21:33)
[2023-11-08 22:36] VITALS: BMI 22.8
[2023-11-08] MEDS: NA CHLORIDE 0.9% 1,000 ML IV SCH (22:50)
[2023-11-08] MEDS: FAMOTIDINE 20 MG/2 ML VIAL IV ONE (22:51)
[2023-11-09 00:14] LABS: Digoxin Level 1.2 ng/mL (0.80-2.00); Troponin High Sensitivity 45.7 pg/mL (<58.9)
[2023-11-09 08:11] LABS: Absolute Eosinophils 0.2 K/uL (0-0.5); Absolute Lymphocytes (CBC) 2.4 K/uL (0.7-4.9); Absolute Monocytes 0.6 K/uL (0.1-1.3); Absolute Neutrophil 5.4 K/uL (1.8-8.0); Basophils % 0.5 % (0-1.3); Eosinophils % 1.9 % (0-4.4); Hematocrit 33.8 % (39.6-49.0); Hemoglobin 11.9 g/dL (13.6-17.9); Lymphocytes % 27.5 % (15.3-44.8); MCH 31.2 pg (27.0-35.0); MCHC 35.2 g/dL (32.0-36.0); MCV 88.4 fL (80-100); MPV 7.1 fL (7.6-11.3); Monocytes % 7.3 % (3.3-12.3); Neutrophils % 62.8 % (41.7-73.7); Nucleated Red Blood Cells % 0.2 % (0-0); Platelets 273 thou/uL (152-406); RBC Red Blood Cell Count 3.82 M/uL (4.33-5.43); Red Cell Distribution Width 13.6 % (12.1-15.2)
[2023-11-09 08:25] LABS: Anion Gap 5.1 mEq/L (5.0-15.0); Potassium 3.1 mEq/L (3.5-5.1)
[2023-11-09] MEDS: ASPIRIN EC 81 MG TAB PO SCH (08:39)
[2023-11-09 08:54] VITALS: BP 188/59
[2023-11-09] MEDS ORDERED: FAMOTIDINE 20 MG/2 ML VIAL IV SCH ×2 (09:00→21:00)
[2023-11-09 09:09] VITALS: TEMP 97.5
[2023-11-09] MEDS: POTASSIUM CL SA 10 MEQ TAB PO SCH (09:20)
[2023-11-09] MEDS ORDERED: APIXABAN 2.5 MG TABLET PO SCH (09:22)
[2023-11-09 09:50] VITALS: O2SAT 97
--- NOTE | 2023-11-09 15:11 | P.DS ---
Admission Date: 11/08/23 Discharge Date: 11/09/23 Disposition: ROUTINE DISCHARGE Discharge Condition: FAIR Hospital Course: MR. DEUTSCH IS BACK IN SINUS RHYTHM AFTER ONE DOSE OF IV METOPROLOL. HE IS ALREADY ON 50 MG AT HOME I RAISED TO 100 MG XL AND ADDED ELIQUIS. HE WILL SEE. DR. RATLIFF. HE IS AWARE. Vital Signs/Physical Exam: Temp Pulse Resp BP Pulse Ox 97.5 F 54 16 188/59 H 97 11/09/23 08:00 11/09/23 08:39 11/09/23 08:00 11/09/23 08:39 11/09/23 08:00 Laboratory Data at Discharge: WBC 8.60 thou/uL (4.3-10.9) 11/09/23 07:19 Hgb 11.9 g/dL (13.6-17.9) L D 11/09/23 07:19 Hct 33.8 % (39.6-49.0) L 11/09/23 07:19 Plt Count 273 thou/uL (152-406) 11/09/23 07:19 PT 11.6 SECONDS (9.4-12.5) 11/08/23 16:26 INR 1.06 11/08/23 16:26 Sodium 142 mEq/L (136-145) 11/09/23 07:19 Potassium 3.1 mEq/L (3.5-5.1) L D 11/09/23 07:19 BUN 16 mg/dL (7-18) 11/09/23 07:19 Creatinine 1.28 mg/dL (0.70-1.30) 11/09/23 07:19 Glucose 97 mg/dL (74-106) 11/09/23 07:19 Magnesium 1.7 mg/dL (1.6-2.4) 11/08/23 16:26 Total Bilirubin 0.9 mg/dL (0.2-1.0) 11/08/23 16:26 AST 14 U/L (15-37) L 11/08/23 16:26 ALT 18 U/L (16-61) 11/08/23 16:26 Alkaline Phosphatase 81 U/L (45-117) 11/08/23 16:26 Home Medications: Aspirin 81 mg PO DAILY 09/25/14 Gabapentin [Neurontin*] 300 mg PO BEDTIME 09/25/14 Magnesium Oxide [Mag 0X*] 400 mg PO BID 09/25/14 Cholecalciferol (Vitamin D3) [Vitamin D3] 2,000 unit PO DAILY 07/17/20 Insulin Glargine,Hum.rec.anlog [Basaglar Kwikpen U-100] 22 units SQ DAILY 07/17/20 [place]-3/Dha/Epa/Fish Oil [[place] 3 500 Softgel] 500 mg PO DAILY 07/17/20 Zinc 50 mg PO DAILY 07/17/20 Mirtazapine 7.5 mg PO BEDTIME 08/18/20 Melatonin 10 mg PO BEDTIME PRN #30 08/19/20 predniSONE [Prednisone] 1 tab PO DAILY 03/10/22 Amlodipine [Norvasc*] 5 mg PO DAILY tab 03/14/22 Apixaban [Eliquis *] 2.5 mg PO BID #0 03/14/22 Atorvastatin Calcium [Lipitor*] 20 mg PO BEDTIME tab 03/14/22 pyRIDostigmine bromide [Mestinon*] 30 mg PO BID 03/14/22 Apixaban [Eliquis *] 2.5 mg PO BID #60 tablet 11/09/23 Metoprolol Succinate 100 mg PO DAILY #90 11/09/23 New Medications: Apixaban [Eliquis *] 2.5 mg PO BID #60 tablet Metoprolol Succinate 100 mg PO DAILY #90 Followup: Max Callahan MD [Primary Care Provider] - Goran Aragon MD [ACTIVE - CAN ADMIT] -
== END 2023-11-09 10:56 | disposition home or self-care (01) ==
LOC: ER 16:04 → ERHOLD 18:17 → 2ND 21:02
PROVIDERS: ADMIT Internal Medicine; ATTEND Internal Medicine
DX: I48.11 Longstanding persistent atrial fibrillation (principal); Z79.01 Long term (current) use of anticoagulants; Z79.82 Long term (current) use of aspirin
CPT/HCPCS: 85025 ×2; 80048 ×2; 36415; 83735; 85610; 82565; 80162; 80076; 84443; 84484 ×2; 83880; 71045; 96375; 96372; 96374; 99285; J3475; J1160 ×2; J7040; J7030 ×3

== ENCOUNTER 2024-04-21 14:26 | Emergency (ER) | payer OTHER ==
[2024-04-21 15:25] LABS: Absolute Eosinophils 0.1 K/uL (0-0.5); Absolute Lymphocytes (CBC) 0.6 K/uL (0.7-4.9); Absolute Monocytes 0.4 K/uL (0.1-1.3); Absolute Neutrophil 7.3 K/uL (1.8-8.0); Basophils % 0.5 % (0-1.3); Hematocrit 36.9 % (39.6-49.0); Hemoglobin 12.7 g/dL (13.6-17.9); Lymphocytes % 6.7 % (15.3-44.8); MCH 30.6 pg (27.0-35.0); MCHC 34.5 g/dL (32.0-36.0); MCV 88.7 fL (80-100); MPV 6.5 fL (7.6-11.3); Monocytes % 4.6 % (3.3-12.3); Neutrophils % 87.2 % (41.7-73.7); Platelets 231 thou/uL (152-406); RBC Red Blood Cell Count 4.15 M/uL (4.33-5.43); Red Cell Distribution Width 14.4 % (12.1-15.2)
[2024-04-21 15:31] LABS: PT Prothrombin Time 13.5 SECONDS (9.4-12.5); Protime INR 1.21
[2024-04-21 15:44] LABS: Anion Gap 8.5 mEq/L (5.0-15.0); Potassium 3.5 mEq/L (3.5-5.1)
--- NOTE | 2024-04-21 15:50 | RAD REPORT ---
Procedure: Chest Single View HISTORY: Cough COMPARISON: November 2023 FINDINGS: The lungs appear clear of acute infiltrate. No significant pleural effusion noted. The heart is normal size. IMPRESSION: No acute abnormality is displayed.
[2024-04-21 16:03] LABS: SARS-CoV-2 Antigen CONTROL BLUE LINE VIS/BG OK; SARS-CoV-2 Antigen Rapid Res Negative (Negative)
[2024-04-21] MEDS ORDERED: OSELTAMIVIR 75 MG CAP PO ONE (16:53)
--- NOTE | 2024-04-21 17:34 | ER ---
Nurse's Notes [facility] Name: Roberto Smith Age: 84 yrs Sex: Male : 1940 Arrival Date: 04/21/2024 Time: 14:26 Bed 14 Private MD: Diagnosis: Influenza due to identified novel influenza A virus Presentation: 04/21 14:36 Chief complaint: EMS states: fall from chair, could not get off the floor X 1 hour, EMS iw was called for lift assist and noted pt was tachypneic and SOB, was 92% on RA, pt has had a cough and congestion and increased weakness for past week. Coronavirus screen: Client presents with at least one sign or symptom that may indicate coronavirus-19. Ebola Screen: No symptoms or risks identified at this time. Initial Sepsis Screen: Does the patient meet any 2 criteria? RR > 20 per min. HR > 90 bpm. Does the patient have a suspected source of infection? No. Patient's initial sepsis screen is negative. Risk Assessment: Do you want to hurt yourself or someone else? Patient reports no desire to harm self or others. Onset of symptoms was April 21, 2024. 14:36 Method Of Arrival: EMS: [facility] iw 14:36 Acuity: RAMON 3 iw Historical: - Allergies: 14:42 No Known Allergies; iw - PMHx: 14:42 Atrial fibrillation; DM; HTN; skin ca; iw - Immunization history:: Adult Immunizations up to date. - Infectious Disease History:: Denies. - Social history:: Smoking status: Patient/guardian denies using tobacco, the patient reports quitting approximately 35 years ago. Screenin:53 Abuse screen: Denies threats or abuse. Nutritional screening: No deficits noted. iw Tuberculosis screening: No symptoms or risk factors identified. Assessment: 14:48 General: Appears in no apparent distress. Behavior is calm, cooperative. Pain: Denies iw pain. Neuro: Level of Consciousness is awake, alert, obeys commands. Cardiovascular: Rhythm is sinus rhythm. Respiratory: Reports shortness of breath cough that is Airway is patent Respiratory effort is even, unlabored, Respiratory pattern is regular, symmetrical, GI: Abdomen is flat, non-distended. Derm: Skin is intact, is healthy with good turgor. Musculoskeletal: Range of motion: intact in all extremities. 17:13 Reassessment: Patient appears in no apparent distress at this time. Patient and/or iw family updated on plan of care and expected duration. Pain level reassessed. Patient is alert, oriented x 3, equal unlabored respirations, skin warm/dry/pink. Patient states feeling better. Vital Signs: 14:36 BP 188 / 91; Pulse 92; Resp 20 S; Temp 99.8; Pulse Ox 97% on 3 lpm NC; Weight 81.65 kg; iw Height 6 ft. 2 in. ; 14:47 BP 171 / 84; Pulse 90; Resp 18; Pulse Ox 96% on 2 lpm NC; iw 14:36 Body Mass Index 23.11 (81.65 kg, 187.96 cm) iw ED Course: 14:29 Patient arrived in ED. iw 14:36 Kristi Rodrigues, RN is Primary Nurse. iw 14:39 Triage completed. iw 14:43 Arm band placed on. iw 15:42 XRAY Chest (1 view) In Process Unspecified. EDMS 16:00 Maintain EMS IV. Dressing intact. Good blood return noted. Site clean \T\ dry. Gauge \T\ iw site: 20 RAC. Flushed with 10 mL NS. 16:09 Kyaw Nichols MD is Attending Physician. bo1 17:41 No provider procedures requiring assistance completed. IV discontinued, intact, iw bleeding controlled, No redness/swelling at site. Pressure dressing applied. Administered Medications: 17:01 Drug: Oseltamivir PO 75 mg PO once Route: PO; iw 17:30 Follow up: Response: No adverse reaction iw Medication: 17:41 VIS not applicable for this client. iw Outcome: 17:34 Discharge ordered by . bo1 17:41 Discharged to home via wheelchair, with family, iw 17:41 Condition: good 17:41 Discharge instructions given to patient, family, Instructed on discharge instructions, follow up and referral plans. medication usage, Demonstrated understanding of instructions, follow-up care, medications, Prescriptions given X 1, 17:41 Patient left the ED. iw Signatures: Dispatcher [employer] EDMS Kristi Rodrigues RN RN iw Kyaw Nichols MD MD bo1
--- NOTE | 2024-04-21 17:34 | EDPHYS ---
Physician Documentation [facility] Name: Roberto Smith Age: 84 yrs Sex: Male : 1940 Arrival Date: 04/21/2024 Time: 14:26 Bed 14 Private MD: ED Physician Kyaw Nichols HPI: 04/21 17:27 This 84 yrs old Male presents to ER via EMS with complaints of Shortness Of Breath. bo1 17:27 The patient has shortness of breath with light activity. Onset: The symptoms/episode bo1 began/occurred gradually, 2 day(s) ago. Duration: The symptoms are intermittent. The patient's shortness of breath is aggravated by coughing. Severity of symptoms: At their worst the symptoms were very mild. Other family members with a virus (ill at home). Historical: - Allergies: 14:42 No Known Allergies; iw - PMHx: 14:42 Atrial fibrillation; DM; HTN; skin ca; iw - Immunization history:: Adult Immunizations up to date. - Infectious Disease History:: Denies. - Social history:: Smoking status: Patient/guardian denies using tobacco, the patient reports quitting approximately 35 years ago. ROS: 17:28 Constitutional: Negative for fever, chills, and weight loss bo1 17:28 Constitutional: Positive for fatigue, 17:28 ENT: Positive for sinus congestion, 17:28 Neck: Negative for pain with movement, pain at rest, 17:28 Cardiovascular: Negative for chest pain, 17:28 Respiratory: Positive for shortness of breath, Mild with coughing, concerned of a "pneumonia" and wants a CXR, 17:28 Abdomen/GI: Negative for abdominal pain, nausea, vomiting, and diarrhea, 17:28 MS/extremity: Negative for acute changes, pain, swelling, 17:28 Skin: Negative for rash, 17:28 Neuro: Negative for altered mental status, acute changes, 17:28 All other systems are negative, Exam: 17:30 Constitutional: This is a well developed, well nourished patient who is awake, alert, bo1 and in no acute distress. 17:30 Constitutional: The patient appears in no acute distress, alert, awake, comfortable, non-toxic, 17:30 Head/face: Exam is negative for acute changes, 17:30 ENT: Exam is negative for acute changes, 17:30 Neck: External neck: is normal, no acute changes, 17:30 Chest/axilla: Inspection: normal, no acute changes, 17:30 Cardiovascular: Rate: normal, Rhythm: regular, Pulses: no pulse deficits are appreciated, 17:30 ECG was reviewed by the Attending Physician. 17:30 Respiratory: Exam negative for acute changes, the patient does not display signs of respiratory distress, Respirations: normal, Breath sounds: are clear throughout, 17:30 Abdomen/GI: Inspection: abdomen appears normal, Palpation: abdomen is soft and non-tender, rebound tenderness, is not appreciated, 17:30 Musculoskeletal/extremity: Extremities: all appear grossly normal, with no appreciated pain with palpation, DVT Exam: no pain, no swelling, no tenderness, 17:30 Skin: no rash present. 17:30 Neuro: Orientation: appropriate for stated age, Mentation: is normal, appropriate for stated age, no acute changes, per family, Son here, Vital Signs: 14:36 BP 188 / 91; Pulse 92; Resp 20 S; Temp 99.8; Pulse Ox 97% on 3 lpm NC; Weight 81.65 kg; iw Height 6 ft. 2 in. ; 14:47 BP 171 / 84; Pulse 90; Resp 18; Pulse Ox 96% on 2 lpm NC; iw 14:36 Body Mass Index 23.11 (81.65 kg, 187.96 cm) iw MDM: 16:09 Medical Screening Exam initiated bo1 17:32 Differential diagnosis: pneumonia, Acute viral illness; Flu Type A. Data reviewed: bo1 vital signs, lab test result(s), EKG, radiologic studies, plain films. ED course: Pt is to be managed as OP per Tamiflu Rx, pt and son agree. 04/21 15:05 Order name: Basic Metabolic Panel; Complete Time: 16:10 iw 04/21 15:05 Order name: CBC with Diff; Complete Time: 16:10 iw 04/21 15:05 Order name: PT-INR; Complete Time: 16:10 iw 04/21 15:05 Order name: Troponin HS; Complete Time: 16:10 iw 04/21 15:05 Order name: Flu; Complete Time: 16:10 iw 04/21 15:05 Order name: SARS RAPID; Complete Time: 16:10 iw 04/21 15:05 Order name: XRAY Chest (1 view); Complete Time: 16:10 iw 04/21 15:05 Order name: EKG; Complete Time: 15:06 iw 04/21 15:05 Order name: Cardiac monitoring; Complete Time: 15:40 iw 04/21 15:05 Order name: EKG - Nurse/Tech; Complete Time: 15:40 iw 04/21 15:05 Order name: IV Saline Lock; Complete Time: 15:40 iw 04/21 15:05 Order name: Labs collected and sent; Complete Time: 15:40 iw 04/21 15:05 Order name: O2 Per Protocol; Complete Time: 15:40 iw 04/21 15:05 Order name: O2 Sat Monitoring; Complete Time: 15:40 iw EC:30 Rate is 84 beats/min. Rhythm is regular. QRS [place] is Normal. [place] interval is normal. QRS bo1 interval is normal. QT interval is normal. No Q waves. T waves are Normal. No ST changes noted. Clinical impression: Normal ECG and Mild ant fascicular block. Interpreted by me. Reviewed by me. Administered Medications: 17:01 Drug: Oseltamivir PO 75 mg PO once Route: PO; iw 17:30 Follow up: Response: No adverse reaction iw Disposition Summary: 04/21/24 17:34 Discharge Ordered Notes: Location: Home bo1 Problem: new bo1 Symptoms: have improved bo1 Condition: Stable bo1 Diagnosis - Influenza due to identified novel influenza A virus bo1 Followup: bo1 - With: Private Physician - When: Upon discharge from the Emergency Department - Reason: Recheck today's complaints, Continuance of care Discharge Instructions: - Discharge Summary Sheet bo1 - Influenza, Adult, [id number] bo1 Forms: - Medication Reconciliation Form bo1 - Antibiotic Education bo1 - Prescription Opioid Use bo1 - Patient Portal Instructions bo1 - Leadership Thank You Letter bo1 Prescriptions: - Tamiflu 75 mg Oral capsule - take 1 tablet ORAL route every 12 hours for 5 days; 10 tablet; Refills: 0, bo1 Product Selection Permitted Signatures: Dispatcher [employer] Kristi Tyler, RN RN iw OeiKyaw MD MD bo1
[2024-04-21 17:48] VITALS: TEMP 99.8
[2024-04-21 17:50] VITALS: BP 171/84; O2SAT 96
--- NOTE | 2024-04-23 12:03 | EKG ---
Test Date: 2024-04-21 Test Time: 15:22:07 Piercer Operator: JEREMY MEASUREMENT RESULTS: Intervals: Rate: 84 FL: 170 QRSD: 102 QT: 382 QTc: 451 [place]: P: -37 FL: 170 QRS: -56 T: 32 INTERPRETIVE STATEMENTS: Unusual P axis, possible ectopic atrial rhythm Left anterior fascicular block Abnormal ECG Compared to ECG 11/08/2023 16:24:17 Incomplete right bundle-branch block no longer present Left ventricular hypertrophy no longer present ST (T wave) deviation no longer present Electronically Signed On 04-23-24 12:01:47 PARKING ENFORCEMENT TECHNICIAN by Toño Cervantes
== END 2024-04-21 17:41 | disposition home or self-care (01) ==
LOC: ER 14:26
DX: J10.1 Influenza due to other identified influenza virus with other respiratory manifestations (principal); Z11.52 Encounter for screening for COVID-19; E11.9 Type 2 diabetes mellitus without complications; I10 Essential (primary) hypertension; I48.91 Unspecified atrial fibrillation
CPT/HCPCS: 36415; 71045; 80048; 84484; 85025; 85610; 87804; 87811; 93005; 99284

== ENCOUNTER 2024-05-27 10:29 | Emergency (ER) | payer OTHER ==
[2024-05-27 10:53] LABS: Absolute Eosinophils 0.1 K/uL (0-0.5); Absolute Lymphocytes (CBC) 1.1 K/uL (0.7-4.9); Absolute Monocytes 1.1 K/uL (0.1-1.3); Absolute Neutrophil 13.5 K/uL (1.8-8.0); Basophils % 0.3 % (0-1.3); Eosinophils % 0.7 % (0-4.4); Hematocrit 38.6 % (39.6-49.0); Hemoglobin 13.1 g/dL (13.6-17.9); Lymphocytes % 7.2 % (15.3-44.8); MCH 30.3 pg (27.0-35.0); MCHC 33.9 g/dL (32.0-36.0); MCV 89.2 fL (80-100); MPV 6.9 fL (7.6-11.3); Neutrophils % 84.8 % (41.7-73.7); Platelets 270 thou/uL (152-406); RBC Red Blood Cell Count 4.33 M/uL (4.33-5.43); Red Cell Distribution Width 14.9 % (12.1-15.2)
[2024-05-27 10:59] LABS: PT Prothrombin Time 15.3 SECONDS (9.4-12.5); Protime INR 1.46
--- NOTE | 2024-05-27 11:05 | RAD REPORT ---
EXAM: CT brain without contrast HISTORY: fall, back/pelvic pain COMPARISON: None TECHNIQUE: Multiple contiguous axial images were obtained and a CT of the brain without contrast. Sag ittal and coronal reformats were performed. One or more of the following dose reduction techniques were used: Automated exposure control, adjust ment of the mA and/or kV according to patient size, and/or iterative reconstruction. FINDINGS: No evidence of hydrocephalus, intracranial hemorrhage, or extra-axial fluid collection. Moderate brain atrophy with moderate periventricular and deep white matter chronic microvascular isc hemic changes present. No evidence of midline shift or areas of brain edema. Vertebral atherosclerosis. The calvarium is intact. Mild polypoid mucosal thickening noted in the paranasal sinuses. IMPRESSION: No evidence of acute intracranial abnormality. EXAM: CT of the cervical spine without contrast HISTORY: Neck pain, injury fall, back/pelvic pain TECHNIQUE: Multiple contiguous axial images were obtained in a CT of the cervical spine without contr ast. Sagittal and coronal reformats were performed. FINDINGS: The vertebral bodies demonstrate normal height and alignment. No evidence of acute fracture or subluxation.. Moderate lower cervical degenerative changes with large posterior osteophytes. No prevertebral soft tissue swelling is seen. Bilateral carotid atherosclerosis. The posterior facets are well aligned. Normal alignment of the skull base with the cervical spine is seen. The lung apices are unremarkable. IMPRESSION: No evidence of acute osseous abnormality of the cervical spine.
[2024-05-27] MEDS ORDERED: FENTANYL CITR 100 MCG/2 ML ONE (11:07)
--- NOTE | 2024-05-27 11:09 | RAD REPORT ---
EXAM: CT CHEST, ABDOMEN AND PELVIS WITHOUT CONTRAST CLINICAL INDICATION: FALL TECHNIQUE: CT chest, abdomen and pelvis was performed without contrast, as per department protocol. A xial, sagittal and coronal reconstructions were obtained. One or more of the following dose reduction techniques were used: Automated exposure control, adjustment of the mA and/or kV according to patient size, and/or iterative reconstruction. Unless otherwise specified, incidental findings do not require dedicated imaging follow-up. Examination is limited by the lack of intravenous contrast material. COMPARISON: 06/02/2022 FINDINGS: LUNGS: Minimal reticular opacities are present posterior right upper lobe. Lungs are emphysematous. PLEURA: Calcified pleural plaquing is present bilaterally. MEDIASTINUM AND LYMPH NODES: No mediastinal mass or fluid collection. Normal size mediastinal, hilar, and axillary lymph nodes. OSSEOUS STRUCTURES AND CHEST WALL: Intact. LIVER: Normal in size and contour. No focal lesion or biliary dilatation. Grossly unremarkable gallbl adder. PANCREAS: No mass, ductal dilation, or ofe-pancreatic fluid. SPLEEN: Normal size. No focal lesion. ADRENALS: Normal; no mass. KIDNEYS: Normal size and contour. No hydronephrosis. URINARY BLADDER: Normal contour. GASTROINTESTINAL TRACT: No bowel obstruction, free air, significant free fluid or abscess. Prominen t sigmoid diverticulosis coli without diverticulitis. APPENDIX: Normal appendix. LYMPH NODES: No lymphadenopathy. MUSCULOSKELETAL: Mild L1 compression deformity is present superiorly. Estimated vertebral body height loss is 15-20%. The bones are diffusely osteopenic. No canal compromise. OTHER: Evidence of prior left inguinal hernia repair. 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 Vertebral body heig ht loss is estimated at 15-20%.
[2024-05-27 11:10] LABS: Albumin/Globulin Ratio 0.8 (1.1-1.8); Anion Gap 11.7 mEq/L (5.0-15.0); Bilirubin Direct 0.3 mg/dL (0-0.2); Bilirubin Indirect, Calculated 0.7 mg/dL (0.2-0.8); Magnesium 1.6 mg/dL (1.6-2.4); Potassium 3.7 mEq/L (3.5-5.1)
--- NOTE | 2024-05-27 11:12 | RAD REPORT ---
EXAMINATION: ONE VIEW CHEST XR CLINICAL INDICATION: weakness TECHNIQUE: Frontal chest projection is submitted. Examination is limited by patient positioning and t echnique. COMPARISON: 04/21/2024 FINDINGS: The lungs are well inflated and clear. Calcified pleural plaquing bilaterally. Heart is mildly enlarg ed in size. IMPRESSION: No acute intrathoracic abnormalities.
[2024-05-27] MEDS ORDERED: AMOX/K CLAV 875 MG TAB ONE (13:43)
--- NOTE | 2024-05-27 13:43 | EDPHYS ---
Physician Documentation [facility] Name: Roberto Smith Age: 84 yrs Sex: Male : 1940 Arrival Date: 05/27/2024 Time: 10:29 Bed 18 Private MD: ED Physician Shaji Saha HPI: 05/27 10:40 This 84 yrs old Male presents to ER via EMS with complaints of Fall Injury, Back Pain, cp Hip Pain. 10:40 Details of fall: The patient fell from an upright position, while standing, landing cp onto buttocks. 10:40 Onset: The symptoms/episode began/occurred 3 day(s) ago. Associated injuries: The cp patient sustained upper back injury, pain, injury to the low back, pain, pelvis, painful injury. Severity of symptoms: in the emergency department the symptoms are actually worse, moderately. Patient reports losing balance and falling onto buttocks 3 days ago. Reports increasing back, pelvis and hip pain since fall. Denies hitting head, denies LOC. Historical: - Allergies: 10:35 No Known Allergies; kc6 - PMHx: 10:35 skin ca; HTN; DM; Atrial fibrillation; kc6 - PSHx: 10:35 None; kc6 - Immunization history:: Adult Immunizations up to date. - Infectious Disease History:: Denies. - Social history:: Smoking status: Patient denies any tobacco usage or history of. ROS: 10:45 Constitutional: Negative for fever, poor PO intake, cp 10:45 Respiratory: Positive for cough, "sounds productive", Negative for shortness of breath, cp wheezing, 10:45 Abdomen/GI: Negative for abdominal pain, vomiting, diarrhea, constipation, bowel incontinence, 10:45 Eyes: Negative for injury, pain, redness, and discharge, cp 10:45 Cardiovascular: Negative for chest pain, edema, palpitations, 10:45 Back: Positive for pain at rest, pain with movement, 10:45 : Negative for urinary symptoms, hematuria, flank pain, bladder incontinence, testicular pain 10:45 Neuro: Negative for altered mental status, dizziness, headache, loss of consciousness, syncope, near syncope, weakness, 10:45 All other systems are negative, cp Exam: 10:50 Constitutional: The patient appears in no acute distress, alert, awake, cp non-diaphoretic, non-toxic, well developed, well nourished, uncomfortable, 10:50 Head/Face: Normocephalic, atraumatic. cp 10:50 Eyes: Periorbital structures: appear normal, Conjunctiva: normal, no exudate, no injection, Sclera: no appreciated abnormality, Lids and lashes: appear normal, bilaterally, 10:50 ENT: External ear(s): are unremarkable, Nose: is normal, Mouth: Lips: moist, Oral mucosa: moist, Posterior pharynx: Airway: no evidence of obstruction, patent, 10:50 Neck: C-spine: vertebral tenderness, is not appreciated, crepitus, is not appreciated, ROM/movement: pain, is not appreciated, limited range of motion, is not appreciated, 10:50 Chest/axilla: Inspection: normal, Palpation: crepitus, is not appreciated, tenderness, is not appreciated, 10:50 Cardiovascular: Rate: bradycardic, Rhythm: regular, Edema: is not appreciated, JVD: is not appreciated, 10:50 Respiratory: the patient does not display signs of respiratory distress, Respirations: normal, no use of accessory muscles, no retractions, labored breathing, is not present, Breath sounds: are clear throughout, no decreased breath sounds, no stridor, no wheezing, 10:50 Abdomen/GI: Inspection: abdomen appears normal, Palpation: abdomen is soft and non-tender, in all quadrants, 10:50 Back: pain, that is moderate, of the thoracic area and lumbar area, ROM is painful, with all movement, Straight leg raises: of both lower extremities does not illicit pain, 10:50 Neuro: Orientation: to person, place \\T\\ time. Mentation: is normal, Motor: moves all fours, no focal deficits, Sensation: is normal, 10:50 Musculoskeletal/extremity: Extremities: all appear grossly normal, with no appreciated cp pain with palpation, 11:08 ECG was reviewed by the Attending Physician. cp Vital Signs: 10:33 BP 140 / 97; Pulse 58; Resp 16 S; Pulse Ox 95% on R/A; Weight 77.11 kg (R); Height 6 kc6 ft. 2 in. (R); Pain 5/10; 11:32 BP 131 / 82; Pulse 60; Resp 15 S; Pulse Ox 95% on R/A; kc6 14:01 BP 135 / 80; Pulse 65; Resp 18 S; Pulse Ox 100% on R/A; kc6 10:33 Body Mass Index 21.83 (77.11 kg, 187.96 cm) kc6 10:33 Pain Scale: Adult kc6 MDM: 10:33 Medical Screening Exam initiated cp 11:00 Differential diagnosis: closed head injury, contusion, fracture, multiple trauma. 13:42 Data reviewed: vital signs, nurses notes, lab test result(s), EKG, radiologic studies, cp CT scan, plain films, and as a result, I will discharge patient. 13:42 I considered the following discharge prescriptions or medication management in the emergency department Medications were administered in the Emergency Department. See MAR. Independent interpretation of the following test(s) in the Emergency Department EKG: See my EKG interpretation above. Care significantly affected by the following chronic conditions: Diabetes, Hypertension. Counseling: I had a detailed discussion with the patient and/or guardian regarding the historical points, exam findings, and any diagnostic results supporting the discharge/admit diagnosis, lab results, radiology results, the need for outpatient follow up, a family practitioner, to return to the emergency department if symptoms worsen or persist or if there are any questions or concerns that arise at home. Response to treatment: the patient's symptoms have markedly improved after treatment, and as a result, I will discharge patient. 05/27 10:36 Order name: Basic Metabolic Panel; Complete Time: 11:24 05/27 11:25 Interpretation: Normal except: NA 134; GLUC 171; CRE 1.41; GFR 49. 05/27 10:36 Order name: CBC with Diff; Complete Time: 10:58 05/27 10:58 Interpretation: Normal except: WBC 15.90; HGB 13.1; HCT 38.6; MPV 6.9; NABIL% 84.8; LYM% cp 7.2; NEUT A 13.5. 05/27 10:36 Order name: LFT's; Complete Time: 11:24 05/27 11:25 Interpretation: Normal except: AST 12; BILID 0.3; ALB 3.0; GLOB 4.0; A/G 0.8. 05/27 10:36 Order name: Magnesium; Complete Time: 11:24 05/27 11:27 Interpretation: Reviewed. 05/27 10:36 Order name: NT PRO-BNP; Complete Time: 11:24 cp 05/27 11:25 Interpretation: Reviewed. 05/27 10:36 Order name: PT-INR; Complete Time: 11:24 cp 05/27 11:26 Interpretation: Reviewed. 05/27 10:36 Order name: Troponin HS; Complete Time: 11:24 cp 05/27 11:26 Interpretation: Reviewed. 05/27 10:36 Order name: XRAY Chest (1 view); Complete Time: 11:24 05/27 11:27 Interpretation: Report review. 05/27 10:40 Order name: Head C Spine Mpr Wo Con; Complete Time: 11:24 EDMS 05/27 11:29 Interpretation: Report reviewed. 05/27 10:41 Order name: Chest Abd Pelvis Wo Con; Complete Time: 11:24 EDMS 05/27 11:30 Interpretation: Report reviewed. 05/27 10:36 Order name: Cardiac monitoring; Complete Time: 11:05 05/27 10:36 Order name: EKG - Nurse/Tech; Complete Time: 11:05 05/27 10:36 Order name: IV Saline Lock; Complete Time: 10:38 05/27 10:36 Order name: Labs collected and sent; Complete Time: 10:56 05/27 10:36 Order name: O2 Per Protocol; Complete Time: 10:38 05/27 10:36 Order name: O2 Sat Monitoring; Complete Time: 10:38 cp EC:08 Rate is 57 beats/min. Rhythm is regular. FL interval is normal at 200 msec. QRS cp interval is prolonged at 126 msec. QT interval is normal. Administered Medications: 11:13 Drug: fentaNYL (PF) IVP 25 mcg IVP once Route: IVP; Site: right antecubital; kc6 11:32 Follow up: Response: No adverse reaction; Pain is decreased; RASS: Alert and Calm (0) kc6 13:46 Drug: Amoxicillin-Clavulanate PO 875 mg PO once Route: PO; kc6 14:01 Follow up: Response: No adverse reaction kc6 13:46 Drug: AZITHromycin PO 500 mg PO once Route: PO; kc6 14:01 Follow up: Response: No adverse reaction kc6 Disposition Summary: 05/27/24 13:43 Discharge Ordered Notes: Location: Home cp Problem: new cp Symptoms: have improved cp Condition: Stable cp Diagnosis - Fall on same level, unspecified cp - Other fracture of first lumbar vertebra, initial encounter for closed fracture - cp compression type - Pneumonia in diseases classified elsewhere cp Followup: cp - With: Private Physician - When: 2 - 3 days - Reason: Recheck today's complaints Discharge Instructions: - Discharge Summary Sheet cp - Spinal Compression Fracture cp - Fall Prevention in the Home, Adult cp - Community-Acquired Pneumonia, Adult cp - Understanding Your Risk for Falls cp Forms: - Medication Reconciliation Form cp - Antibiotic Education cp - Prescription Opioid Use cp - Patient Portal Instructions cp - Leadership Thank You Letter cp Prescriptions: - acetaminophen-codeine 300-30 mg Oral tablet - take 2 tablet ORAL route every 12 hours as needed for pain; 16 tablet; Refills: cp 0, Product Selection Permitted - Augmentin 875-125 mg Oral Tablet - take 1 tablet ORAL route every 12 hours for 10 days; 20 tablet; Refills: 0, cp Product Selection Permitted - Zithromax Z-Tacho 250 mg Oral Tablet - take 1 tablet ORAL route as directed for 5 days Day 1 - take two (2) tablets cp one time. Day 2, 3, 4 , 5 take one (1) tablet once daily.; 6 tablet; Refills: 0, Product Selection Permitted Addendum: 05/28/2024 14:46 I was immediately available for consultation during this patient's visit. I did not e c2 personally see the patient or discuss the patient with the MARINA. . Signatures: Dispatcher [employer] EDVA Leoncio Coelho PA PA cp Campbell, Kaitlyn, RN RN kc6 Shaji Saha MD MD ec2 Corrections: (The following items were deleted from the chart) 05/27 10:37 10:37 Head C Spine Cap Wo Con+CT.RAD.BRZ ordered. EDVA EDMS 13:36 11:54 Dumont ordered. cp cp 05/28 13:45 05/27 10:45 Abdomen/GI: Negative for abdominal pain, vomiting, diarrhea, constipation, cp cp 05/28 13:51 05/27 10:50 Musculoskeletal/extremity: Extremities: noted in the left upper leg: pain, cp tenderness, There is no evidence of decreased ROM, deformity, cp
--- NOTE | 2024-05-27 13:43 | ER ---
Nurse's Notes [facility] Name: Roberto Smith Age: 84 yrs Sex: Male : 1940 Arrival Date: 05/27/2024 Time: 10:29 Bed 18 Private MD: Diagnosis: Fall on same level, unspecified;Other fracture of first lumbar vertebra, initial encounter for closed fracture-compression type;Pneumonia in diseases classified elsewhere Presentation: 05/27 10:33 Chief complaint: EMS states: pt fell x3 days ago. reports 02/14 back and hip pain. kc6 denies LOC, takes Eliquis daily. Coronavirus screen: At this time, the client does not indicate any symptoms associated with coronavirus-19. Ebola Screen: No symptoms or risks identified at this time. Initial Sepsis Screen: Does the patient meet any 2 criteria? No. Patient's initial sepsis screen is negative. Does the patient have a suspected source of infection? No. Patient's initial sepsis screen is negative. Risk Assessment: Do you want to hurt yourself or someone else? Patient reports no desire to harm self or others. Onset of symptoms was May 27, 2024. Care prior to arrival: Medication(s) given: zofran 4 mg, Toradol 15mg IV IV initiated. 20 GA, in the right antecubital area, Glucose check: 156. 10:33 Method Of Arrival: EMS: [facility] 10:33 Acuity: RAMON 3 kc6 Historical: - Allergies: 10:35 No Known Allergies; kc6 - PMHx: 10:35 skin ca; HTN; DM; Atrial fibrillation; kc6 - PSHx: 10:35 None; kc6 - Immunization history:: Adult Immunizations up to date. - Infectious Disease History:: Denies. - Social history:: Smoking status: Patient denies any tobacco usage or history of. Screenin:36 [facility] ED Fall Risk Assessment (Adult) History of falling in the last 3 months, kc6 including since admission Yes- single mechanical fall (1 pt) Confusion or Disorientation No (0 pts) Intoxicated or Sedated No (0 pts) Impaired Gait No (0 pts) Mobility Assist Device Used Yes (1 pt) Altered Elimination No (0 pt) Score/Fall Risk Level 3 or more points = High Risk Oriented to surroundings, Maintained a safe environment, Educated pt \\T\\ family on fall prevention, incl call for assistance when getting out of bed. Abuse screen: Denies threats or abuse. Denies injuries from another. Nutritional screening: No deficits noted. Tuberculosis screening: No symptoms or risk factors identified. Assessment: 10:37 General: Appears in no apparent distress. uncomfortable, well groomed, well developed, kc6 Behavior is calm, cooperative, appropriate for age. Pain: Complains of pain in back and pelvis Pain currently is 5 out of 10 on a pain scale. at worst was 10 out of 10 on a pain scale. Pain began 2-3 days ago. Neuro: Level of Consciousness is awake, alert, obeys commands, Oriented to person, place, time, situation, Appropriate for age. Cardiovascular: Capillary refill < 3 seconds. Respiratory: Airway is patent Trachea midline Respiratory effort is even, unlabored, Respiratory pattern is regular, symmetrical. GI: No signs and/or symptoms were reported involving the gastrointestinal system. : No signs and/or symptoms were reported regarding the genitourinary system. EENT: No signs and/or symptoms were reported regarding the EENT system. Derm: No signs and/or symptoms reported regarding the dermatologic system. Skin is intact, is healthy with good turgor, Skin is pink, warm \\T\\ dry. Musculoskeletal: Circulation, motion, and sensation intact. Range of motion: intact in all extremities. 11:38 Reassessment: Patient appears in no apparent distress at this time. No changes from kc6 previously documented assessment. Patient and/or family updated on plan of care and expected duration. Pain level reassessed. Patient is alert, oriented x 3, equal unlabored respirations, skin warm/dry/pink. 12:09 Reassessment: pt states he is unable to provide a urine sample at this time. states, 'I kc6 haven't had anything all morning and I don't want a catheter." pt provided PO fluids upon request. 12:37 Reassessment: Patient appears in no apparent distress at this time. No changes from kc6 previously documented assessment. Patient and/or family updated on plan of care and expected duration. Pain level reassessed. Patient is alert, oriented x 3, equal unlabored respirations, skin warm/dry/pink. 13:35 Reassessment: Patient appears in no apparent distress at this time. No changes from kc6 previously documented assessment. Patient and/or family updated on plan of care and expected duration. Pain level reassessed. Patient is alert, oriented x 3, equal unlabored respirations, skin warm/dry/pink. Vital Signs: 10:33 BP 140 / 97; Pulse 58; Resp 16 S; Pulse Ox 95% on R/A; Weight 77.11 kg (R); Height 6 kc6 ft. 2 in. (R); Pain 5/10; 11:32 BP 131 / 82; Pulse 60; Resp 15 S; Pulse Ox 95% on R/A; kc6 14:01 BP 135 / 80; Pulse 65; Resp 18 S; Pulse Ox 100% on R/A; kc6 10:33 Body Mass Index 21.83 (77.11 kg, 187.96 cm) kc6 10:33 Pain Scale: Adult [facility] ED Course: 10:33 Patient arrived in ED. kc6 10:33 Leoncio Coelho PA is PHCP. cp 10:33 Shaji Saha MD is Attending Physician. cp 10:35 Triage completed. kc6 10:35 Arm band placed on. kc6 10:36 Patient has correct armband on for positive identification. Bed in low position. Call [facility] light in reach. Side rails up X2. Pulse ox on. NIBP on. Door closed. Noise minimized. Lights dimmed. Warm blanket given. Pillow given. 10:36 Maintain EMS IV. Dressing intact. Good blood return noted. Site clean \\T\\ dry. Gauge \\T\\ linda 6 site: 20G RAC. Flushed with 10 mL NS. Patient maintains SpO2 saturation greater than 95% on room air. 10:38 Yesenia Lawson, RN is Primary Nurse. kc6 10:47 Troponin HS Sent. kb4 10:47 PT-INR Sent. kb4 10:47 NT PRO-BNP Sent. kb4 10:47 Magnesium Sent. kb4 10:47 LFT's Sent. kb4 10:47 CBC with Diff Sent. kb4 10:47 Basic Metabolic Panel Sent. kb4 10:55 Head C Spine Mpr Wo Con In Process Unspecified. EDMS 10:55 Chest Abd Pelvis Wo Con In Process Unspecified. EDMS 10:58 XRAY Chest (1 view) In Process Unspecified. EDMS 12:09 Diet: Patient given water. Tolerated well. kc6 14:02 Provided Education on: come back if pt is unable to void at home tonight. kc6 14:02 No provider procedures requiring assistance completed. IV discontinued, intact, kc6 bleeding controlled, No redness/swelling at site. Pressure dressing applied. Administered Medications: 11:13 Drug: fentaNYL (PF) IVP 25 mcg IVP once Route: IVP; Site: right antecubital; kc6 11:32 Follow up: Response: No adverse reaction; Pain is decreased; RASS: Alert and Calm (0) kc6 13:46 Drug: Amoxicillin-Clavulanate PO 875 mg PO once Route: PO; kc6 14:01 Follow up: Response: No adverse reaction kc6 13:46 Drug: AZITHromycin PO 500 mg PO once Route: PO; kc6 14:01 Follow up: Response: No adverse reaction kc6 Medication: 14:02 VIS not applicable for this client. kc6 Outcome: 13:43 Discharge ordered by MD. cp 14:02 Discharged to home via wheelchair, with family, kc6 14:02 Condition: improved 14:02 Discharge instructions given to patient, family, Instructed on discharge instructions, follow up and referral plans. no drinking with medication, no driving heavy equipment, medication usage, Demonstrated understanding of instructions, follow-up care, medications, Prescriptions given X 3, 14:03 Patient left the ED. kc6 Signatures: Dispatcher [employer] EDMS Leoncio Coelho PA PA cp Campbell, Kaitlyn, RN RN kc6 Prema Best kb4
[2024-05-27] MEDS ORDERED: AZITHROMYCIN 250 MG TAB ONE (13:44)
[2024-05-27 14:18] VITALS: BP 135/80; O2SAT 100
--- NOTE | 2024-05-30 13:03 | EKG ---
Test Date: 2024-05-27 Test Time: 11:02:17 Lunch Counter Manager: ADRIÁN MEASUREMENT RESULTS: Intervals: Rate: 57 RI: 200 QRSD: 126 QT: 468 QTc: 455 [place]: P: RI: 200 QRS: -59 T: 58 INTERPRETIVE STATEMENTS: Sinus bradycardia Right bundle branch block Left anterior fascicular block Bifascicular block Abnormal ECG Compared to ECG 04/21/2024 15:22:07 Right bundle-branch block now present Bifascicular block now present Electronically Signed On 05-30-24 13:00:07 GIS COORDINATOR by Toño Cervantes
== END 2024-05-27 14:03 | disposition home or self-care (01) ==
LOC: ER 10:29
DX: S32.010A Wedge compression fracture of first lumbar vertebra, initial encounter for closed fracture (principal); J18.9 Pneumonia, unspecified organism; W18.30XA Fall on same level, unspecified, initial encounter
CPT/HCPCS: 85025; 80048; 36415; 83735; 85610; 80076; 84484; 83880; 70450; 71250; 72125; 74176; 71045; 96374; 99284; J3010; 93005

== ENCOUNTER 2024-08-17 16:10 | Inpatient (IN) | payer OTHER ==
[2024-08-17] MEDS ORDERED: MORPHINE 4 MG/ML SYR ONE (16:32)
[2024-08-17] MEDS ORDERED: ONDANSETRON 4 MG/2 ML VIAL ONE ×2 (16:32→19:55)
[2024-08-17 16:53] LABS: Absolute Basophils 0.1 K/uL (0-0.5); Absolute Lymphocytes (CBC) 1.5 K/uL (0.7-4.9); Absolute Neutrophil 9.6 K/uL (1.8-8.0); Basophils % 0.7 % (0-1.3); Eosinophils % 0.2 % (0-4.4); Hematocrit 34.4 % (39.6-49.0); Hemoglobin 12.2 g/dL (13.6-17.9); Lymphocytes % 12.1 % (15.3-44.8); MCH 31.1 pg (27.0-35.0); MCHC 35.4 g/dL (32.0-36.0); MCV 87.6 fL (80-100); MPV 7.1 fL (7.6-11.3); Monocytes % 8.4 % (3.3-12.3); Neutrophils % 78.6 % (41.7-73.7); Nucleated Red Blood Cells % 0.1 % (0-0); Platelets 316 thou/uL (152-406); RBC Red Blood Cell Count 3.93 M/uL (4.33-5.43); Red Cell Distribution Width 14.5 % (12.1-15.2)
[2024-08-17 17:17] LABS: ALT/SGPT < 14 U/L (16-61); AST/SGOT 26 U/L (15-37); Albumin 2.9 g/dL (3.4-5.0); Albumin/Globulin Ratio 0.7 (1.1-1.8); Alkaline Phosphatase 71 U/L (45-117); Anion Gap 14.3 mEq/L (5.0-15.0); BUN Blood Urea Nitrogen 14 mg/dL (7-18); Bicarbonate 24 mEq/L (21-32); Bilirubin Total 1.7 mg/dL (0.2-1.0); Glomerular Filtration Rate 49 ml/min (=/>90); Glucose Level 247 mg/dL (74-106); Magnesium 1.2 mg/dL (1.6-2.4); Potassium 3.3 mEq/L (3.5-5.1); Protein, Total 6.9 g/dL (6.4-8.2); Sodium Level 133 mEq/L (136-145)
--- NOTE | 2024-08-17 17:28 | RAD REPORT ---
EXAMINATION: CT ABDOMEN AND PELVIS WITHOUT CONTRAST CLINICAL INDICATION: Abdominal pain TECHNIQUE: CT abdomen and pelvis was performed, as per department protocol. IV contrast and oral was not administered.Axial, sagittal and coronal reconstructions were obtained. One or more of the following dose reduction techniques were used: Automated exposure control, adjustment of the mA and/o r kV according to the patient size, and/or iterative reconstruction. Unless otherwise specified, incidental findings do not require dedicated imaging follow-up. [id number]. COMPARISON: No prior exam. FINDINGS: The lack of intravenous and oral contrast limits evaluation of solid organs, vessels and bowel. The liver, spleen, pancreas, adrenals and kidneys appear grossly normal No evidence of diverticulitis Normal appendix. Atherosclerosis. Inguinal hernia repair IMPRESSION: Borderline gallbladder distention Refer to the CT thoracic and lumbar spine performed today for spine findings
--- NOTE | 2024-08-17 17:35 | RAD REPORT ---
EXAM: Thoracic Spine W/o Cont HISTORY: Back pain/radiculopathy COMPARISON: None TECHNIQUE: Multiple contiguous axial images were obtained in a CT of the thoracic spine without contr ast. Sagittal and coronal reformats were performed. One or more of the following dose reduction techniques were used: Automated exposure control, adjustment of the mA and kV according to patient si ze, and iterative reconstruction. Unless otherwise specified, incidental findings do not require dedicated imaging follow-up. FINDINGS: A thoracic vertebral fracture is not seen. No dislocation. Small calcified left posterior lateral disc herniation T8-9. This results in mild compression upon th e left anterior aspect of the thecal sac. Mild spondylosis thoracic spine. Pedicular screws united by rods T12 IMPRESSION: Small calcified left posterior lateral disc herniation T8-9 If the patient continues to have symptoms to suggest significant spinal canal/spinal cord pathology t hen MRI would be recommended
--- NOTE | 2024-08-17 17:41 | RAD REPORT ---
EXAMINATION: CT LUMBAR SPINE WITHOUT CONTRAST CLINICAL INDICATION: Back pain/radiculopathy TECHNIQUE: Axial CT images were obtained through the lumbar spine in soft tissue and bone windows wit hout intravenous contrast. Coronal and Sagittal reformatted images were created from the data set. One or more of the following dose reduction techniques were used: Automated exposure control, adjustm ent of the mA and/ or kV according to patient size, and/or iterative reconstruction. Unless otherwise specified, incidental findings do not require dedicated imaging follow-up. COMPARISON: July 2024. FINDINGS: For purposes of this dictation, it is assumed that there are 5 non rib-bearing lumbar type vertebrae, and the most caudal fully segmented lumbar vertebra is labeled L5. Moderate subacute compression fracture L1 vertebral body cement has been placed into the vertebral tiara dy. Pedicular screws united by rods have been placed from T12 to L1. The hardware is intact. There is no retropulsion of bone into the spinal canal. Artifact from the hardware does obscure evaluation. An obvious paraspinal hematoma/abscess is not see n. Disc bulge, ligamentum flavum and facet hypertrophy L4-5 results in mild to moderate central spinal s tenosis. IMPRESSION: Postsurgical changes T12-L2. Moderate subacute compression fracture L1 vertebral body. Spondylosis L4-5 results in mild to moderate central spinal stenosis
[2024-08-17] MEDS ORDERED: METOPROLOL TARTRATE 5 MG/5 ML INJ IV ONE (18:45)
--- NOTE | 2024-08-17 19:22 | ER ---
Nurse's Notes [facility] Name: Roberto Smith Age: 84 yrs Sex: Male : 1940 Arrival Date: 08/17/2024 Time: 16:10 Bed 2 Private MD: Diagnosis: Constipation;Nausea with vomiting, unspecified;Low back pain;Atrial fibrillation with rapid ventricular rate Presentation: 08/17 16:13 Chief complaint: Patient states: back sx, had back sx 08/13/2024, also reports nausea. aa5 Coronavirus screen: nausea. Ebola Screen: Patient denies travel to an Ebola-affected area in the 21 days before illness onset. Initial Sepsis Screen: Does the patient meet any 2 criteria? No. Patient's initial sepsis screen is negative. Initial Sepsis Screen: Does the patient have a suspected source of infection? No. Patient's initial sepsis screen is negative. Risk Assessment: Do you want to hurt yourself or someone else? Patient reports no desire to harm self or others. Onset of symptoms was August 2024. 16:13 Acuity: RAMON 3 aa5 16:13 Method Of Arrival: EMS: [facility] aa5 Historical: - Allergies: 16:12 No Known Allergies; aa5 - PMHx: 16:12 Atrial fibrillation; DM; HTN; skin ca; aa5 - PSHx: 16:12 Back SX; aa5 - Immunization history:: Adult Immunizations up to date, Client reports having NOT received the Covid vaccine. - Infectious Disease History:: Denies. - Family history:: not pertinent. - Social history:: Smoking status: Patient denies any tobacco usage or history of. Patient/guardian denies using alcohol, street drugs, IV drugs. Screenin:37 [facility] ED Fall Risk Assessment (Adult) History of falling in the last 3 months, jl7 including since admission No falls in past 3 months (0 pts) Confusion or Disorientation No (0 pts) Intoxicated or Sedated No (0 pts) Impaired Gait No (0 pts) Mobility Assist Device Used No (0 pt) Altered Elimination No (0 pt) Score/Fall Risk Level 0 - 2 = Low Risk Oriented to surroundings, Maintained a safe environment. Abuse screen: Denies threats or abuse. Denies injuries from another. Nutritional screening: No deficits noted. Tuberculosis screening: No symptoms or risk factors identified. Assessment: 16:13 General: Appears uncomfortable, Behavior is calm, cooperative. Pain: Complains of pain aa5 in back Pain currently is 10 out of 10 on a pain scale. Quality of pain is described as sharp, shooting, Is continuous. Neuro: Level of Consciousness is awake, alert, obeys commands, Oriented to person, place, time, situation, Appropriate for age. Cardiovascular: Heart tones S1 S2 present Patient's skin is warm and dry. Rhythm is irregular. Respiratory: Airway is patent Respiratory effort is even, unlabored, Respiratory pattern is regular, symmetrical. GI: Abdomen is round non-distended, Reports last BM "was before the back surgery" Bowel sounds present X 4 quads. Abd is soft and non tender X 4 quads. Reports nausea. : No signs and/or symptoms were reported regarding the genitourinary system. EENT: No signs and/or symptoms were reported regarding the EENT system. Derm: Skin is pink, warm \\T\\ dry. Dressing noted to back. Musculoskeletal: Range of motion: intact in all extremities. 16:56 Reassessment: Pt to CT scan via stretcher. . aa5 17:20 Reassessment: Patient is alert, oriented x 3, equal unlabored respirations, skin aa5 warm/dry/pink. Patient states feeling better. Large red area noted to right lateral aspect of abdomen, MD was notified. Pain is decreased, pt denies nausea. . General: Appears comfortable. 17:50 Reassessment: HR on monitor noted to be decreasing to 43 bpm intermittently and aa5 increases to 60-80bpm, MD was notified. Will continue to monitor. . 17:50 Reassessment: Patient is alert, oriented x 3, equal unlabored respirations, skin aa5 warm/dry/pink. 18:02 Reassessment: Patient is alert, oriented x 3, equal unlabored respirations, skin aa5 warm/dry/pink. 18:23 Reassessment: MD at bedside speaking to pt and pt's daughter . aa5 18:38 Reassessment: HR on monitor noted to be 166bpm, appears regular, MD was notified. . aa5 18:38 Reassessment: Patient is alert, oriented x 3, equal unlabored respirations, skin aa5 warm/dry/pink. Pt denies SOB, denies CP, denies palpitations. . 18:40 Reassessment: MD at bedside . aa5 18:58 Reassessment: Patient is alert, oriented x 3, equal unlabored respirations, skin aa5 warm/dry/pink. 19:00 Reassessment: ASSUMED CARE OF PT. PT SITTING IN BED. ASSISTED PT TO USE THE URINAL. VS jj7 STABLE, BUT PT TACHY. DAUGHTER AT BEDSIDE. General: Appears in no apparent distress. comfortable, Behavior is calm, cooperative, appropriate for age. Pain: Complains of pain in back. Musculoskeletal: Range of motion: intact in all extremities, Reports pain in back. 20:37 Reassessment: ATTEMPTED REPORT TO ICU. [facility] NURSE IS BUSY AND WILL CALL ME BACK. jj7 21:14 Reassessment: ATTEMPTED REPORT AGAIN TO ICU. WAS PUT ON HOLD. [facility] NURSE IS BUSY WITH jj7 ANOTHER PT. Vital Signs: 16:13 BP 167 / 84; Pulse 76; Resp 22 S; Temp 98.1(O); Pulse Ox 100% on R/A; aa5 17:20 BP 180 / 86; Pulse 75; Resp 18 S; Pulse Ox 98% on R/A; aa5 18:00 BP 175 / 89; Pulse 44; Resp 16 S; Temp 98.4(O); Pulse Ox 98% on 2 lpm NC; aa5 18:38 BP 175 / 89; Pulse 166; Resp 18 S; Pulse Ox 98% on 2 lpm NC; aa5 18:47 BP 149 / 100; Pulse 146; Resp 16 S; Pulse Ox 97% on 2 lpm NC; aa5 18:52 BP 129 / 92; Pulse 140; Resp 18 S; Pulse Ox 97% on 2 lpm NC; aa5 18:58 BP 104 / 79; Pulse 128; Resp 18 S; Pulse Ox 97% on 2 lpm NC; aa5 19:00 BP 104 / 79; Pulse 127; Resp 19; Pulse Ox 97% ; jj7 19:22 BP 100 / 83; Pulse 140; Resp 18; Pulse Ox 97% ; cp4 20:10 BP 135 / 98; Pulse 138; Resp 20; Pulse Ox 98% ; jj7 21:10 BP 154 / 111; Pulse 129; Resp 16; Pulse Ox 97% ; jj7 ED Course: 16:12 Patient arrived in ED. aa5 16:12 Resham Zhang, RN is Primary Nurse. aa5 16:12 Arm band placed on Patient placed in an exam room, on a stretcher. aa5 16:14 Triage completed. aa5 16:28 Fracisco Carmona MD is Attending Physician. rt 16:36 EKG done, by ED staff, reviewed by Fracisco Carmona MD. zm 16:36 Inserted saline lock: 20 gauge in left antecubital area, using aseptic technique. Blood jl7 collected. Flushed with 10 mL NS. 16:37 Patient has correct armband on for positive identification. Placed in gown. Bed in low jl7 position. Call light in reach. Side rails up X 1. Provided Education on: use of call warren. Client placed on continuous cardiac and pulse oximetry monitoring. NIBP monitoring applied. digital photographic printer on. Warm blanket given. 16:59 No provider procedures requiring assistance completed. aa5 17:16 CT Thoracic Spine Wo Cont In Process Unspecified. EDMS 17:16 CT Lumbar Spine Wo Con In Process Unspecified. EDMS 17:16 CT Abd/Pelvis - Without Contrast In Process Unspecified. EDMS 18:02 EKG done, by ED staff, reviewed by Fracisco Carmona MD. aa5 19:00 Report given to CHELLY Hill and CHELLY PEPPER. aa5 19:21 Max Callahan MD is Hospitalizing Provider. rt 21:51 Patient admitted, IV remains in place. ha1 Administered Medications: 16:37 Drug: morphine IVP or IV 4 mg IVP once over 4 mins Route: IVP; Infused Over: 4 mins; aa5 Site: left antecubital; 16:41 Follow up: O2 sat decreased to 80% RA, upon pt speaking O2 sat increased to 90% RA, O2 aa5 administerered via NC at 2 L NC. 16:37 Drug: Ondansetron IVP 4 mg IVP once; over 2 minutes Route: IVP; Site: left antecubital; aa5 16:41 Follow up: Response: No adverse reaction aa5 18:42 Drug: Metoprolol IVP 5 mg IVP every 5 minutes; Hold for SBP < 100 or HR < 60. x3 {Note: aa5 VO received at 1840.} Route: IVP; Site: left antecubital; 18:47 Drug: Metoprolol IVP 5 mg IVP every 5 minutes; Hold for SBP < 100 or HR < 60. x3 Route: aa5 IVP; Site: left antecubital; 18:52 Drug: Metoprolol IVP 5 mg IVP every 5 minutes; Hold for SBP < 100 or HR < 60. x3 Route: aa5 IVP; Site: left antecubital; 18:58 Follow up: Response: No adverse reaction; HR decreased aa5 19:58 Drug: Sotalol PO 80 mg PO once Route: PO; cp4 21:52 Follow up: Response: No adverse reaction ha1 19:58 Drug: NS 0.9% IV 1000 ml IV at 1000 ml once; to be given as a bolus over 60 minutes cp4 Route: IV; Rate: 1000 ml; Site: left antecubital; 21:52 Follow up: Response: No adverse reaction; IV Status: Completed infusion ha1 19:58 Drug: Ondansetron IVP 4 mg IVP once; over 2 minutes Route: IVP; Site: left antecubital; cp4 20:21 Follow up: Response: No adverse reaction cp4 19:59 Drug: Magnesium Sulfate IVPB 2 grams IVPB once over 2 hrs Route: IVPB; Infused Over: 2 cp4 hrs; Site: left antecubital; 21:50 Follow up: Response: No adverse reaction; Marked relief of symptoms; IV Status: ha1 Completed infusion Medication: 16:37 VIS not applicable for this client. [facility] Intake: Outcome: 19:22 Decision to Hospitalize by Provider. rt 21:30 Discharged to [facility] 21:30 Admitted to ICU accompanied by nurse, via stretcher, room 3, Report called to ROBBY RN 21:30 Condition: improved 21:52 Patient left the ED. ha1 Signatures: Dispatcher [employer] EDMS Reshma Zhang RN RN aa5 Bernard Horvath RN RN jl7 Chata Mariscal Heidy, RN RN ha1 Amina Gasca RN RN jjFracisco Che MD MD rt Liz Mendez cp4 Corrections: (The following items were deleted from the chart) 18:35 16:13 Derm: Skin is pink, warm \\T\\ dry. aa5 aa5 19:25 18:00 BP 175 / 89; Pulse 44bpm; Resp 16bpm; Spontaneous; Pulse Ox 98% RA; Temp 98.4F aa5 Oral; aa5
--- NOTE | 2024-08-17 19:22 | EDPHYS ---
Physician Documentation [facility] Name: Roberto Smith Age: 84 yrs Sex: Male : 1940 Arrival Date: 08/17/2024 Time: 16:10 Bed 2 Private MD: ED Physician Fracisco Carmona HPI: 08/17 16:56 This 84 yrs old Male presents to ER via EMS with complaints of Back Pain - Post Back rt SX, Nausea. 16:56 4 days ago, the patient had back surgery at [facility]. States that has rt not had a bowel movement since then. Reports nausea, vomiting, worsening pain to the back. Denies numbness, tingling. Denies other acute complaints at this time, symptoms are moderate severity, no other aggravating alleviating factors.. Historical: - Allergies: 16:12 No Known Allergies; aa5 - PMHx: 16:12 Atrial fibrillation; DM; HTN; skin ca; aa5 - PSHx: 16:12 Back SX; aa5 - Immunization history:: Adult Immunizations up to date, Client reports having NOT received the Covid vaccine. - Infectious Disease History:: Denies. - Family history:: not pertinent. - Social history:: Smoking status: Patient denies any tobacco usage or history of. Patient/guardian denies using alcohol, street drugs, IV drugs. ROS: 18:49 Constitutional: Negative for fever, chills, and weight loss, Cardiovascular: Negative rt for chest pain, palpitations, and edema, Respiratory: Negative for shortness of breath, cough, wheezing, and pleuritic chest pain, MS/Extremity: Negative for injury and deformity, Skin: Negative for injury, rash, and discoloration, Neuro: Negative for headache, weakness, numbness, tingling, and seizure, 18:49 Abdomen/GI: Positive for nausea and vomiting, constipation, 18:49 Back: Positive for pain at rest, pain with movement, Exam: 18:49 Constitutional: This is a well developed, well nourished patient who is awake, alert, rt and in no acute distress. Head/Face: Normocephalic, atraumatic. Chest/axilla: Normal chest wall appearance and motion. Nontender with no deformity. No lesions are appreciated. Cardiovascular: Regular rate and rhythm with a normal S1 and S2. No gallops, murmurs, or rubs. Normal PMI, no JVD. No pulse deficits. Respiratory: Lungs have equal breath sounds bilaterally, clear to auscultation and percussion. No rales, rhonchi or wheezes noted. No increased work of breathing, no retractions or nasal flaring. Abdomen/GI: Soft, non-tender, with normal bowel sounds. No distension or tympany. No guarding or rebound. No evidence of tenderness throughout. Skin: Warm, dry with normal turgor. Normal color with no rashes, no lesions, and no evidence of cellulitis. MS/ Extremity: Pulses equal, no cyanosis. Neurovascular intact. Full, normal range of motion. Neuro: Awake and alert, GCS 15, oriented to person, place, time, and situation. Cranial nerves II-XII grossly intact. Motor strength 5/5 in all extremities. Sensory grossly intact. Cerebellar exam normal. Normal gait. 18:49 Back: Surgical sites appear to be clean, dry, intact, 18:59 ECG was reviewed by the Attending Physician. rt 18:59 ECG was reviewed by the Attending Physician. rt 18:59 ECG was reviewed by the Attending Physician. Vital Signs: 16:13 BP 167 / 84; Pulse 76; Resp 22 S; Temp 98.1(O); Pulse Ox 100% on R/A; aa5 17:20 BP 180 / 86; Pulse 75; Resp 18 S; Pulse Ox 98% on R/A; aa5 18:00 BP 175 / 89; Pulse 44; Resp 16 S; Temp 98.4(O); Pulse Ox 98% on 2 lpm NC; aa5 18:38 BP 175 / 89; Pulse 166; Resp 18 S; Pulse Ox 98% on 2 lpm NC; aa5 18:47 BP 149 / 100; Pulse 146; Resp 16 S; Pulse Ox 97% on 2 lpm NC; aa5 18:52 BP 129 / 92; Pulse 140; Resp 18 S; Pulse Ox 97% on 2 lpm NC; aa5 18:58 BP 104 / 79; Pulse 128; Resp 18 S; Pulse Ox 97% on 2 lpm NC; aa5 19:00 BP 104 / 79; Pulse 127; Resp 19; Pulse Ox 97% ; jj7 19:22 BP 100 / 83; Pulse 140; Resp 18; Pulse Ox 97% ; cp4 20:10 BP 135 / 98; Pulse 138; Resp 20; Pulse Ox 98% ; jj7 21:10 BP 154 / 111; Pulse 129; Resp 16; Pulse Ox 97% ; jj7 MDM: 16:28 Medical Screening Exam initiated rt 20:35 Differential diagnosis: A-fib, bowel obstruction, dysrhythmia. Data reviewed: vital rt signs, nurses notes, lab test result(s), EKG, radiologic studies. Consideration of Admission/Observation Patient was admitted/placed on observation. Management of patient was discussed with the following: Surgical Elastic Knitter Hand Frame: Discussed with cardiology, recommend sotalol. I considered the following discharge prescriptions or medication management in the emergency department Medications were administered in the Emergency Department. See MAR. Independent interpretation of the following test(s) in the Emergency Department CT Scan: My interpretation is Large stool burden seen on my interpretation of CT scan images. Care significantly affected by the following chronic conditions: Atrial fibrillation. Counseling: I had a detailed discussion with the patient and/or guardian regarding the historical points, exam findings, and any diagnostic results supporting the discharge/admit diagnosis, lab results, radiology results, the need for further work-up and treatment in the hospital. Response to treatment: the patient's symptoms have mildly improved after treatment. 08/17 16:36 Order name: CBC with Diff; Complete Time: 17:23 rt 08/17 16:36 Order name: CMP; Complete Time: 17:23 rt 08/17 16:36 Order name: Magnesium; Complete Time: 17:23 rt 08/17 19:08 Order name: Troponin High Sensitivity; Complete Time: 20:06 rt 08/17 16:36 Order name: CT Thoracic Spine Wo Cont; Complete Time: 17:52 rt 08/17 16:36 Order name: CT Lumbar Spine Wo Con; Complete Time: 17:52 rt 08/17 16:36 Order name: CT Abd/Pelvis - Without Contrast; Complete Time: 17:52 rt 08/17 19:26 Order name: CONS Physician Consult EDMS 08/17 16:37 Order name: EKG - Nurse/Tech; Complete Time: 16:37 aa5 08/17 17:59 Order name: EKG Strip; Complete Time: 18:10 aa5 EC:59 Rate is 103 beats/min. Rhythm is regular, Sinus tachycardia with Unifocal PVCs. QRS rt [place] is Normal. NE interval is prolonged at 166 msec. QT interval is normal. No Q waves. 18:59 Rate is 42 beats/min. Rhythm is regular, Sinus bradycardia with No ectopy, Bifascicular rt block. Left axis deviation noted. NE interval is prolonged at 174 msec. QRS interval is normal. QT interval is normal. No Q waves. 18:59 Rate is 160 beats/min. Rhythm is regular, A fib with No ectopy, Bifascicular block, rt rapid ventricular rate. Left axis deviation noted. NE interval is normal. No Q waves. T waves are Normal. Administered Medications: 16:37 Drug: morphine IVP or IV 4 mg IVP once over 4 mins Route: IVP; Infused Over: 4 mins; aa5 Site: left antecubital; 16:41 Follow up: O2 sat decreased to 80% RA, upon pt speaking O2 sat increased to 90% RA, O2 aa5 administerered via NC at 2 L NC. 16:37 Drug: Ondansetron IVP 4 mg IVP once; over 2 minutes Route: IVP; Site: left antecubital; aa5 16:41 Follow up: Response: No adverse reaction aa5 18:42 Drug: Metoprolol IVP 5 mg IVP every 5 minutes; Hold for SBP < 100 or HR < 60. x3 {Note: aa5 VO received at 1840.} Route: IVP; Site: left antecubital; 18:47 Drug: Metoprolol IVP 5 mg IVP every 5 minutes; Hold for SBP < 100 or HR < 60. x3 Route: aa5 IVP; Site: left antecubital; 18:52 Drug: Metoprolol IVP 5 mg IVP every 5 minutes; Hold for SBP < 100 or HR < 60. x3 Route: aa5 IVP; Site: left antecubital; 18:58 Follow up: Response: No adverse reaction; HR decreased aa5 19:58 Drug: Sotalol PO 80 mg PO once Route: PO; cp4 21:52 Follow up: Response: No adverse reaction ha1 19:58 Drug: NS 0.9% IV 1000 ml IV at 1000 ml once; to be given as a bolus over 60 minutes cp4 Route: IV; Rate: 1000 ml; Site: left antecubital; 21:52 Follow up: Response: No adverse reaction; IV Status: Completed infusion ha1 19:58 Drug: Ondansetron IVP 4 mg IVP once; over 2 minutes Route: IVP; Site: left antecubital; cp4 20:21 Follow up: Response: No adverse reaction cp4 19:59 Drug: Magnesium Sulfate IVPB 2 grams IVPB once over 2 hrs Route: IVPB; Infused Over: 2 cp4 hrs; Site: left antecubital; 21:50 Follow up: Response: No adverse reaction; Marked relief of symptoms; IV Status: ha1 Completed infusion Disposition Summary: 08/17/24 19:22 Hospitalization Ordered Notes: Hospitalization Status: Observation rt Provider: Max Callahan rt Condition: Stable rt Problem: new rt Symptoms: have improved rt Bed/Room Type: Standard rt Location: Intensive Care Unit(08/17/24 20:32) [facility] Room Assignment: 3-(08/17/24 20:32) [facility] Diagnosis - Constipation rt - Nausea with vomiting, unspecified rt - Low back pain rt - Atrial fibrillation with rapid ventricular rate rt Forms: - Medication Reconciliation Form rt - SBAR form rt - Leadership Thank You Letter rt Critical care time excluding procedures: 20:35 Critical care time: Bedside Care: 35 minutes, Consultation: 5 minutes. Total time: 40 rt minutes Signatures: Dispatcher [employer] EDReshma Jacinto RN RN aa5 Merly Branham RN RN cg Johnson, Juwairiyah, RN RN jj7 Fracisco Carmona MD MD rt Liz Mendez 4 Beba Olivera [facility] Chaya Casillas RN ha1 Corrections: (The following items were deleted from the chart) 19:09 19:09 Troponin High Sensitivity+C.LAB.BRZ ordered. EDMS EDMS 20:15 19:22 rt kmf 20:27 20:15 202 kmf cg 20:32 19:22 Telemetry/MedSurg (observation) rt kmf 20:32 20:27 cg kmf
[2024-08-17] MEDS ORDERED: Magnesium Sulfate 2gm IVPB 2 G/50 ML BAG IV ONE (19:50)
[2024-08-17] MEDS ORDERED: SOTALOL HCL 80 MG TAB ONE (19:50)
[2024-08-17] MEDS ORDERED: NA CHLORIDE 0.9% 1,000 ML ONE (19:50)
[2024-08-17] MEDS: FLEET ENEMA ADULT PR SCH (22:41)
[2024-08-17] MEDS: TRAMADOL HCL 50 MG TAB PO PRN (23:31)
[2024-08-18 00:21] LABS: Specific Gravity 1.007 (1.005-1.030); Sqamous Epithelial <5 /HPF (None Seen); Urine Bacteria None Seen /HPF (<20); Urine Bilirubin NEGATIVE (Negative); Urine Blood Trace (Negative); Urine Clarity Clear (Clear); Urine Color Colorless (Yellow); Urine Culture Reflex Order NOT NEEDED; Urine Glucose 1+ (Negative); Urine Ketones NEGATIVE (Negative); Urine Microscopic Reflex YN ORDER UMIC; Urine Nitrite NEGATIVE (Negative); Urine Protein NEGATIVE (Negative); Urine RBC <5 /HPF (None Seen); Urine Urobilinogen Normal (Normal); Urine WBC <5 /HPF (<5); Urine pH 7.5 (5.0-7.0)
[2024-08-18 05:38] LABS: Absolute Eosinophils 0.2 K/uL (0-0.5); Absolute Lymphocytes (CBC) 1.1 K/uL (0.7-4.9); Absolute Monocytes 0.8 K/uL (0.1-1.3); Absolute Neutrophil 6.4 K/uL (1.8-8.0); Basophils % 0.6 % (0-1.3); Eosinophils % 1.8 % (0-4.4); Hematocrit 30.6 % (39.6-49.0); Hemoglobin 10.9 g/dL (13.6-17.9); Lymphocytes % 13.2 % (15.3-44.8); MCH 31.4 pg (27.0-35.0); MCHC 35.7 g/dL (32.0-36.0); Monocytes % 9.5 % (3.3-12.3); Neutrophils % 74.9 % (41.7-73.7); Nucleated Red Blood Cells % 0.1 % (0-0); Platelets 289 thou/uL (152-406); RBC Red Blood Cell Count 3.47 M/uL (4.33-5.43); Red Cell Distribution Width 13.9 % (12.1-15.2)
[2024-08-18 06:08] LABS: AST/SGOT 24 U/L (15-37); Albumin 2.5 g/dL (3.4-5.0); Albumin/Globulin Ratio 0.7 (1.1-1.8); Alkaline Phosphatase 62 U/L (45-117); Anion Gap 12.2 mEq/L (5.0-15.0); BUN Blood Urea Nitrogen 13 mg/dL (7-18); Bicarbonate 27 mEq/L (21-32); Bilirubin Total 1.2 mg/dL (0.2-1.0); Globulin 3.5 g/dL (2.3-3.5); Glomerular Filtration Rate 68 ml/min (=/>90); Glucose Level 156 mg/dL (74-106); Magnesium 1.7 mg/dL (1.6-2.4); Potassium 3.2 mEq/L (3.5-5.1); Sodium Level 135 mEq/L (136-145)
[2024-08-18 06:19] LABS: ALT/SGPT < 14 U/L (16-61); Troponin High Sensitivity 91.4 pg/mL (<58.9)
[2024-08-18] MEDS: MAGNESIUM SULFATE 1 gm IVPB 1 GM/100 ML BAG IV ONE (08:01)
[2024-08-18] MEDS: POTASSIUM CL SA 10 MEQ TAB PO ONE (08:01)
[2024-08-18] MEDS ORDERED: HOME MED 1 EA UNK (Melatonin [Melatonin] 10 MG Capsule) PO PRN (08:02)
[2024-08-18] MEDS: SOTALOL HCL 80 MG TAB PO SCH (08:02)
[2024-08-18] MEDS: HOME MED 1 EA UNK (Cholecalciferol (Vitamin D3) [Vitamin D3] 1,000 UNIT Capsule) PO SCH (08:15)
[2024-08-18] MEDS: HOME MED 1 EA UNK (Ascorbic Acid [Vitamin C] 1,000 MG Tablet) PO SCH (08:15)
[2024-08-18] MEDS: GABAPENTIN 300 MG CAP PO SCH (08:15)
[2024-08-18] MEDS: predniSONE 5 MG TAB PO SCH (08:15)
[2024-08-18] MEDS: ATORVASTATIN 20 MG TAB PO SCH (08:15)
[2024-08-18] MEDS: APIXABAN 2.5 MG TABLET PO SCH (08:17)
[2024-08-18] MEDS: HOME MED 1 EA UNK (Insulin Glargine,Hum.Rec.Anlog [Basaglar Kwikpen U-100] 100 UNIT/ML Ins SQ SCH (09:00)
[2024-08-18] MEDS: DUTASTERIDE 0.5 MG GEL CAP PO SCH (09:00)
[2024-08-18] MEDS: PYRIDOSTIGMINE 60 MG TABLET PO SCH (10:29)
[2024-08-18] MEDS: AMIODARONE HCL 150 MG in D5W 100 ML IV STA (12:40)
[2024-08-18] MEDS: AMIODARONE HCL 900 MG in Dextrose 5%-Water 482 ML IV SCH (12:41)
--- NOTE | 2024-08-18 12:59 | P.CNS ---
Date of Consult: 08/18/24 Chief Complaint: atrial fibrillation History of Present Illness: Patient with PMH of atrial fibrillation, HTN, presented with generalized weakness, fatigue, he had a recent back surgery and has not been feeling well since then, report palpitations, no chest pain, no LAROSE, no syncope. Allergies No Known Allergies Allergy (Verified 07/16/20 23:27) Home medications list reviewed: Yes Home Medications: RX: Aspirin 81 mg PO BEDTIME 09/25/14 RX: Gabapentin [Neurontin*] 300 mg PO TID 09/25/14 RX: Cholecalciferol (Vitamin D3) [Vitamin D3] 2,000 unit PO DAILY 07/17/20 RX: Insulin Glargine,Hum.rec.anlog [Basaglar Kwikpen U-100] 26 units SQ DAILY 07/17/20 RX: Melatonin 10 mg PO BEDTIME PRN #30 08/19/20 RX: predniSONE [Prednisone] 5 mg PO DAILY 03/10/22 RX: Apixaban [Eliquis *] 2.5 mg PO BID #0 03/14/22 RX: Apixaban [Eliquis *] 2.5 mg PO BID #60 tablet 11/09/23 RX: Metoprolol Succinate 100 mg PO DAILY #90 11/09/23 Ascorbic Acid [Vitamin C] 1,000 mg PO DAILY 08/18/24 RX: Amlodipine [Norvasc*] 2.5 mg PO DAILY 08/18/24 RX: Atorvastatin Calcium [Lipitor*] 20 mg PO DAILY 08/18/24 RX: Dutasteride 0.5 mg PO DAILY 08/18/24 RX: Losartan Potassium 25 mg PO DAILY 08/18/24 RX: pyRIDostigmine bromide [Mestinon*] 30 mg PO TID 08/18/24 - Past Medical/Surgical History Diabetic: Yes -: High cholesterol -: DM -: skin cancer -: AFIB -: 2 partial knee replacement -: 3 hernia repairs -: skin cancer removal -: bilateral cataract surgery -: tonsillectomy - Family History Father Medical History: Cancer Notes: lung cancer Mother Notes: none - Social History Smoking Status: Unknown if ever smoked Alcohol use: No CD- Drugs: No Caffeine use: Yes Place of Residence: Home Review of Systems 10-point ROS is otherwise unremarkable Physical Examination Temp Pulse Resp BP Pulse Ox 97.8 F 119 H 28 H 121/78 92 08/18/24 12:00 08/18/24 12:00 08/18/24 12:00 08/18/24 12:00 08/18/24 12:00 General: Alert, In no apparent distress HEENT: Atraumatic, PERRLA, Mucous membr. moist/pink, EOMI, Sclerae nonicteric Neck: Supple, 2+ carotid pulse no bruit, No LAD, Without JVD or thyroid abnormality Respiratory: Clear to auscultation bilaterally, Normal air movement Cardiovascular: Normal S1 S2, Irregular heart rate/rhythm Gastrointestinal: Normal bowel sounds, No tenderness Musculoskeletal: No tenderness Integumentary: No rashes Neurological: Normal gait, Normal speech, Normal tone, Normal affect Lymphatics: No axilla or inguinal lymphadenopathy Laboratory Data (last 24 hrs) 08/17/24 08/17/24 16:45 16:45 WBC 12.20 H Hgb 12.2 L Hct 34.4 L Plt Count 316 Sodium 133 L Potassium 3.3 L BUN 14 Creatinine 1.39 H Glucose 247 H Magnesium 1.2 L Total Bilirubin 1.7 H AST 26 ALT < 14 L Alkaline Phosphatase 71 - Problems (1) Atrial flutter Current Visit: Yes Status: Acute Plan: stop sotalol Amiodarone 150 mg IV x 1 then continue drip per protocol then switch to 200 mg po BID Lopressor 25 mg po BID Continue Eliquis 2.5 mg po BID Continue to monitor on tele get echo in am
[2024-08-18] MEDS ORDERED: AMIODARONE HCL 450 MG in D5W 241 ML IV SCH (13:00)
--- NOTE | 2024-08-18 16:41 | RAD REPORT ---
EXAMINATION: ONE VIEW CHEST XR CLINICAL INDICATION: Male, 84 years old.,PICC TECHNIQUE: Frontal chest projection is submitted. Examination is limited by patient positioning and t echnique. COMPARISON: 05/27/2024 FINDINGS: Left arm PICC has been placed with catheter tip at the distal SVC level. The lungs are hyper inflated and clear. No pneumothorax or sizable effusion. The heart is normal in size. Mediastinal contours are unremarkable. IMPRESSION: Satisfactory right arm PICC positioning. No acute intrathoracic abnormalities.
[2024-08-18] MEDS: METOPROLOL XL 100 MG TAB PO SCH (17:49)
--- NOTE | 2024-08-18 18:57 | P.HP ---
Patient History Date of Service: 08/18/24 Reason for admission: weakness History of Present Illness: Roberto had a spine surgery a few days ago at [facility]. He went home and came back here weak. He was found to have rapid a fib. He has been on MEtop and Eliquis for a rib and was well controlled. He was given Sotalol overnight and it did work. I called Dr. Cervantes to let him know that he has had severe case of orthostasis in the past for which only pyridostigmine has worked. He was change d to amiodarone and it has worked now. Follwoing is the medical problems list from our EMR at office: CKD (chronic kidney disease) stage 2, GFR 60-89 ml/min [N18.2] 2018 Anxiety [F41.9] 2020 Pseudogout [M11.20] 202 Pleural mass [J94.8] HAS BEEN TO [facility] HAS BEEN TO [facility]. 202 Orthostatic hypotension [I95.1] 150 TO 100 ON STANDING SYSTOLIC DOING GREAT ON PYRIDOSTIGMINE. BP HIGH NOW , STANDING 180. NOT DROPPING ANY LONGER. 150 TO 100 ON STANDING SYSTOLIC DOING GREAT ON PYRIDOSTIGMINE. BP HIGH NOW , STANDING 180. NOT DROPPING ANY LONGER. 202 Diabetes mellitus with stage 3 chronic kidney disease [E11.22, N18.30 0.2 0.1] 202 Diabetic autonomic neuropathy [E11.43 0.2] 202 Diabetic peripheral neuropathy [E11.42 0.2] 202 Elevated PSA [R97.20] MILD MILD 2021 Osteoarthritis of spine [M47.9] 2022 Abdominal aortic aneurysm [I71.40] 3.2 CM 3.2 CM 202 Rapid atrial fibrillation [I48.91 0.3] RESOLVED WITH ONE DOSE OF METOPROLOL IV. RESOLVED WITH ONE DOSE OF METOPROLOL IV. 2024 Constipated [K59.00] resolved. having daily bm with lactulose resolved. having daily bm with lactulose 2024 Insomnia [G47.00] try trazadone try trazadone 2024 Fall [W19.XXXA] s/p ER visit. appropriate imaging done s/p ER visit. appropriate imaging done 2024 Compression fracture of L1 lumbar vertebra and osteopenia [S32.010A 0.5, M85.80] mild. sent risedronate recommend bone restore with K2 mild. sent risedronate recommend bone restore with K2 Hide 2024 Diverticulitis [K57.92] resolved with abx resolved with abx 2024 Lumbar muscle pain [M79.18] likely 2/2 fall. multimodal pain regimen below likely 2/2 fall. multimodal pain regimen below 2024 L1 vertebral fracture [S32.019A 0.5] Last addressed: Never DR. PAOLO BOONE Allergies No Known Allergies Allergy (Verified 07/16/20 23:27) Home Medications: Aspirin 81 mg PO BEDTIME 09/25/14 Gabapentin [Neurontin*] 300 mg PO TID 09/25/14 Cholecalciferol (Vitamin D3) [Vitamin D3] 2,000 unit PO DAILY 07/17/20 Insulin Glargine,Hum.rec.anlog [Basaglar Kwikpen U-100] 26 units SQ DAILY 07/17/20 Melatonin 10 mg PO BEDTIME PRN #30 08/19/20 predniSONE [Prednisone] 5 mg PO DAILY 03/10/22 Apixaban [Eliquis *] 2.5 mg PO BID #0 03/14/22 Apixaban [Eliquis *] 2.5 mg PO BID #60 tablet 11/09/23 Metoprolol Succinate 100 mg PO DAILY #90 11/09/23 Amlodipine [Norvasc*] 2.5 mg PO DAILY 08/18/24 Ascorbic Acid [Vitamin C] 1,000 mg PO DAILY 08/18/24 Atorvastatin Calcium [Lipitor*] 20 mg PO DAILY 08/18/24 Dutasteride 0.5 mg PO DAILY 08/18/24 Losartan Potassium 25 mg PO DAILY 08/18/24 pyRIDostigmine bromide [Mestinon*] 30 mg PO TID 08/18/24 - Past Medical/Surgical History Diabetic: Yes -: High cholesterol -: DM -: skin cancer -: AFIB -: 2 partial knee replacement -: 3 hernia repairs -: skin cancer removal -: bilateral cataract surgery -: tonsillectomy - Family History Father -: Cancer Notes: lung cancer Mother Notes: none - Social History Smoking Status: Former smoker Alcohol use: No CD- Drugs: No Caffeine use: Yes Place of Residence: Home Review of Systems 10-point ROS is otherwise unremarkable General: As per HPI Physical Examination - Vital Signs Temperature: 97.6 F Blood Pressure: 132/66 Pulse: 60 Respirations: 23 Pulse Ox (%): 95 - Physical Exam General: Alert, Mild distress HEENT: Atraumatic, PERRLA, Mucous membr. moist/pink, EOMI, Sclerae nonicteric Neck: Supple, 2+ carotid pulse no bruit, No LAD, Without JVD or thyroid abnormality Respiratory: Clear to auscultation bilaterally, Normal air movement Cardiovascular: Regular rate/rhythm, Normal S1 S2 Gastrointestinal: Normal bowel sounds, No tenderness Musculoskeletal: No tenderness Integumentary: No rashes Neurological: Normal gait, Normal speech, Normal strength at 5/5 x4 extr, Normal tone, Normal affect Lymphatics: No axilla or inguinal lymphadenopathy Assessment and Plan - Problems (Diagnosis) (1) Rapid atrial fibrillation Current Visit: Yes Status: Acute Plan: AMIODARONE ELIQUIS BID HE MAY NOT TOLERATE METOPROLOL AT HIGH DOSE. (2) PMR (polymyalgia rheumatica) Current Visit: Yes Status: Chronic Plan: A FEW YEARS AGO HE HAD SEVERE PAIN IN AM AND ONLY STEROIDS IN HIGH DOSE CURED IT. SINCE THEN HE HAS BEEN TAPERD TO 5 MG DAILYI. (3) Hypokalemia Current Visit: Yes Status: Acute Plan: REPLACE K (4) Hypomagnesemia Current Visit: Yes Status: Acute (5) Orthostasis Current Visit: No Status: Chronic Plan: FLORINEF, MIDODRINE DID NOT WORK. PYRIDOSTIGMINE WORKED GREAT. THIS IS FOR LAST 3 YEARS OR SO. - Advance Directives Does patient have a Living Will: Yes Does patient have a Durable POA for Healthcare: Yes
[2024-08-18] MEDS: ASPIRIN 81 MG CHEWABLE TABLET PO SCH (20:19)
[2024-08-18] MEDS: Mupirocin NASAL 2 APPL/1 GM TUBE NAS SCH (20:20)
[2024-08-18] MEDS: TRAZODONE 50 MG TABLET PO SCH (20:36)
[2024-08-18] MEDS ORDERED: APIXABAN 2.5 MG TABLET PO SCH (21:00)
[2024-08-19 05:30] LABS: Anion Gap 7.2 mEq/L (5.0-15.0); Magnesium 1.9 mg/dL (1.6-2.4); Potassium 3.2 mEq/L (3.5-5.1)
[2024-08-19] MEDS: INSULIN REGULAR (HUMAN) 100 UNIT/ML SQ SCH (07:30)
[2024-08-19] MEDS: POTASSIUM CL SA 10 MEQ TAB PO ONE (08:22)
[2024-08-19] MEDS: AMIODARONE HCL 200 MG TAB PO SCH (09:05)
--- NOTE | 2024-08-19 09:20 | P.PN ---
Subjective Date of Service: 08/19/24 Chief Complaint: weakness Subjective: No new changes, No C/O voiced, Tolerating diet, Ambulating, Improving Review of Systems 10-point ROS is otherwise unremarkable Physical Examination - Vital Signs Temperature: 97.6 F Blood Pressure: 129/46 Pulse: 48 Respirations: 20 Pulse Ox (%): 94 - Physical Exam General: Alert, In no apparent distress HEENT: Atraumatic, PERRLA, EOMI Neck: Supple, JVD not distended Respiratory: Clear to auscultation bilaterally, Normal air movement Cardiovascular: Regular rate/rhythm, Normal S1 S2 Gastrointestinal: Normal bowel sounds, No tenderness Musculoskeletal: No tenderness Integumentary: No rashes Neurological: Normal speech, Normal tone, Normal affect Lymphatics: No axilla or inguinal lymphadenopathy - Studies Medications List Reviewed: Yes Assessment And Plan - Current Problems (Diagnosis) (1) Atrial flutter Current Visit: Yes Status: Acute Plan: sotalol was D/C Amiodarone 150 mg IV x 1 then continue drip per protocol was given, now in sinus bradycardia switch to Amiodarone 200 mg daily keep BB on hold for now. Continue Eliquis 2.5 mg po BID Continue to monitor on tele pending Echo
[2024-08-19] MEDS: VITAMIN D 1000 UNIT TAB PO SCH (11:00)
[2024-08-19] MEDS: ASCORBIC ACID 500 MG TABLET PO SCH (11:07)
[2024-08-19] MEDS: METOPROLOL XL 25 MG TAB PO SCH (16:45)
--- NOTE | 2024-08-19 17:32 | P.PN ---
Subjective Date of Service: 08/19/24 Chief Complaint: weakness Subjective: Improving HE IS LOT BETTER. SLEPT WELL NSR AFTER AMIO DAUGHTER AT BEDSIDE. Review of Systems 10-point ROS is otherwise unremarkable General: Weakness Physical Examination - Vital Signs Temperature: 97.6 F Blood Pressure: 137/98 Pulse: 65 Respirations: 19 Pulse Ox (%): 98 - Physical Exam General: Oriented x3, Mild distress HEENT: Atraumatic, PERRLA, EOMI Neck: Supple, JVD not distended Respiratory: Clear to auscultation bilaterally, Normal air movement Cardiovascular: Regular rate/rhythm, Normal S1 S2 Gastrointestinal: Normal bowel sounds, No tenderness Musculoskeletal: No tenderness Integumentary: No rashes Neurological: Normal speech, Normal tone, Normal affect Lymphatics: No axilla or inguinal lymphadenopathy - Studies Medications List Reviewed: Yes Assessment And Plan - Current Problems (Diagnosis) (1) Rapid atrial fibrillation Current Visit: Yes Status: Acute Plan: AMIODARONE ELIQUIS BID HE MAY NOT TOLERATE METOPROLOL AT HIGH DOSE. AMIO ORAL AND ELIQUIS STABLE. TO FLOOR PT (2) PMR (polymyalgia rheumatica) Current Visit: Yes Status: Chronic Plan: A FEW YEARS AGO HE HAD SEVERE PAIN IN AM AND ONLY STEROIDS IN HIGH DOSE CURED IT. SINCE THEN HE HAS BEEN TAPERD TO 5 MG DAILYI. (3) Hypokalemia Current Visit: Yes Status: Acute Plan: REPLACE K (4) Hypomagnesemia Current Visit: Yes Status: Acute (5) Orthostasis Current Visit: No Status: Chronic Plan: FLORINEF, MIDODRINE DID NOT WORK. PYRIDOSTIGMINE WORKED GREAT. THIS IS FOR LAST 3 YEARS OR SO.
[2024-08-19] MEDS: POTASSIUM CL SA 10 MEQ TAB PO SCH (20:15)
[2024-08-19 21:57] VITALS: O2SAT 97
[2024-08-20] MEDS: MELATONIN 5 MG TABLET PO PRN (00:10)
[2024-08-20] MEDS: INSULIN GLARGINE 100 UNIT/ML SQ SCH (11:14)
--- NOTE | 2024-08-20 11:45 | P.PN ---
Subjective Date of Service: 08/20/24 Chief Complaint: weakness Subjective: No new changes, No C/O voiced, Tolerating diet, Ambulating, Improving Review of Systems 10-point ROS is otherwise unremarkable Physical Examination - Vital Signs Temperature: 97.0 F Blood Pressure: 141/61 Pulse: 67 Respirations: 18 Pulse Ox (%): 94 - Physical Exam General: Alert, In no apparent distress HEENT: Atraumatic, PERRLA, EOMI Neck: Supple, JVD not distended Respiratory: Clear to auscultation bilaterally, Normal air movement Cardiovascular: Regular rate/rhythm, Normal S1 S2 Gastrointestinal: Normal bowel sounds, No tenderness Musculoskeletal: No tenderness Integumentary: No rashes Neurological: Normal speech, Normal tone, Normal affect Lymphatics: No axilla or inguinal lymphadenopathy - Studies Medications List Reviewed: Yes Assessment And Plan - Current Problems (Diagnosis) (1) Atrial flutter Current Visit: Yes Status: Acute Plan: sotalol was D/C Amiodarone 150 mg IV x 1 then continue drip per protocol was given, now in sinus bradycardia continue Amiodarone 200 mg daily keep BB on hold for now. Continue Eliquis 2.5 mg po BID Continue to monitor on tele
--- NOTE | 2024-08-20 13:11 | P.PN ---
Subjective Date of Service: 08/20/24 Chief Complaint: weakness Subjective: Improving HE IS LOT BETTER. SLEPT WELL NSR AFTER AMIO DAUGHTER AT BEDSIDE. HE IS LOT BETTER WILL DO PT TODAY. MAY GO HOME IN AM. Review of Systems 10-point ROS is otherwise unremarkable General: Weakness Physical Examination - Vital Signs Temperature: 97.6 F Blood Pressure: 156/63 Pulse: 60 Respirations: 18 Pulse Ox (%): 95 - Physical Exam General: Mild distress HEENT: Atraumatic, PERRLA, EOMI Neck: Supple, JVD not distended Respiratory: Clear to auscultation bilaterally, Normal air movement Cardiovascular: Regular rate/rhythm, Normal S1 S2 Gastrointestinal: Normal bowel sounds, No tenderness Musculoskeletal: No tenderness Integumentary: No rashes Neurological: Normal speech, Normal tone, Normal affect Lymphatics: No axilla or inguinal lymphadenopathy - Studies Medications List Reviewed: Yes Assessment And Plan - Current Problems (Diagnosis) (1) Rapid atrial fibrillation Current Visit: Yes Status: Acute Plan: AMIODARONE ELIQUIS BID HE MAY NOT TOLERATE METOPROLOL AT HIGH DOSE. AMIO ORAL AND ELIQUIS STABLE. TO FLOOR PT (2) PMR (polymyalgia rheumatica) Current Visit: Yes Status: Chronic Plan: A FEW YEARS AGO HE HAD SEVERE PAIN IN AM AND ONLY STEROIDS IN HIGH DOSE CURED IT. SINCE THEN HE HAS BEEN TAPERD TO 5 MG DAILYI. (3) Hypokalemia Current Visit: Yes Status: Acute Plan: REPLACE K (4) Hypomagnesemia Current Visit: Yes Status: Acute (5) Orthostasis Current Visit: No Status: Chronic Plan: FLORINEF, MIDODRINE DID NOT WORK. PYRIDOSTIGMINE WORKED GREAT. THIS IS FOR LAST 3 YEARS OR SO. RESOLVED ON PYRIDOSTIGMINE. BP HAS NOT DROPPED LATELY.
[2024-08-20] MEDS: AMLODIPINE 5 MG TAB PO SCH (20:56)
[2024-08-21 05:39] VITALS: BMI 25.4
[2024-08-21 06:03] LABS: Anion Gap 7.8 mEq/L (5.0-15.0); Potassium 3.8 mEq/L (3.5-5.1)
[2024-08-21] MEDS: LOSARTAN POTASSIUM 50 MG TABLET PO SCH (08:53)
[2024-08-21 12:14] VITALS: BP 159/71; TEMP 97.9
--- NOTE | 2024-08-21 13:10 | P.DS ---
Admission Date: 08/18/24 Discharge Date: 08/21/24 Disposition: ROUTINE DISCHARGE Discharge Condition: FAIR Reason for Admission: weakness - Problems (1) Rapid atrial fibrillation Current Visit: Yes Status: Acute (2) PMR (polymyalgia rheumatica) Current Visit: Yes Status: Chronic (3) Hypokalemia Current Visit: Yes Status: Acute (4) Hypomagnesemia Current Visit: Yes Status: Acute (5) Orthostasis Current Visit: No Status: Chronic Brief History of Present Illness: Renee had a spine surgery a few days ago at [facility]. He went home and came back here weak. He was found to have rapid a fib. He has been on MEtop and Eliquis for a rib and was well controlled. He was given Sotalol overnight and it did work. I called Dr. Cervantes to let him know that he has had severe case of orthostasis in the past for which only pyridostigmine has worked. He was changed to amiodarone and it has worked now. Follwoing is the medical problems list from our EMR at office: CKD (chronic kidney disease) stage 2, GFR 60-89 ml/min [N18.2] 2018 Anxiety [F41.9] 2020 Pseudogout [M11.20] 202 Pleural mass [J94.8] HAS BEEN TO [facility] HAS BEEN TO [facility]. 202 Orthostatic hypotension [I95.1] 150 TO 100 ON STANDING SYSTOLIC DOING GREAT ON PYRIDOSTIGMINE. BP HIGH NOW , STANDING 180. NOT DROPPING ANY LONGER. 150 TO 100 ON STANDING SYSTOLIC DOING GREAT ON PYRIDOSTIGMINE. BP HIGH NOW , STANDING 180. NOT DROPPING ANY LONGER. 202 Diabetes mellitus with stage 3 chronic kidney disease [E11.22, N18.30 0.2 0.1] 2021 Diabetic autonomic neuropathy [E11.43 0.2] 202 Diabetic peripheral neuropathy [E11.42 0.2] 202 Elevated PSA [R97.20] MILD MILD 202 Osteoarthritis of spine [M47.9] 202 Abdominal aortic aneurysm [I71.40] 3.2 CM 3.2 CM 202 Rapid atrial fibrillation [I48.91 0.3] RESOLVED WITH ONE DOSE OF METOPROLOL IV. RESOLVED WITH ONE DOSE OF METOPROLOL IV. 2024 Constipated [K59.00] resolved. having daily bm with lactulose resolved. having daily bm with lactulose 2024 Insomnia [G47.00] try trazadone try trazadone 2024 Fall [W19.XXXA] s/p ER visit. appropriate imaging done s/p ER visit. appropriate imaging done 2024 Compression fracture of L1 lumbar vertebra and osteopenia [S32.010A 0.5, M85.80] mild. sent risedronate recommend bone restore with K2 mild. sent risedronate recommend bone restore with K2 Hide 2024 Diverticulitis [K57.92] resolved with abx resolved with abx 2024 Lumbar muscle pain [M79.18] likely 2/2 fall. multimodal pain regimen below likely 2/2 fall. multimodal pain regimen below 2024 L1 vertebral fracture [S32.019A 0.5] Last addressed: David BOONE [facility] Course: RENEE COMES WITH WEAKNESS AND RAPID A FIB DAYS AFTER SPINE SURGERY RYAN BOONE. HE DOES WELL WITH AMIODARONE. IS IS STABLE FOR HOME WITH AMIO AND METOPROOLOL. Vital Signs/Physical Exam: Temp Pulse Resp BP Pulse Ox 97.9 F 64 18 159/71 H 97 08/21/24 12:00 08/21/24 12:00 08/21/24 12:00 08/21/24 12:00 08/21/24 12:00 Laboratory Data at Discharge: WBC 8.60 thou/uL (4.3-10.9) 08/18/24 05:06 Hgb 10.9 g/dL (13.6-17.9) L D 08/18/24 05:06 Hct 30.6 % (39.6-49.0) L 08/18/24 05:06 Plt Count 289 thou/uL (152-406) 08/18/24 05:06 Sodium 140 mEq/L (136-145) 08/21/24 05:35 Potassium 3.8 mEq/L (3.5-5.1) 08/21/24 05:35 BUN 14 mg/dL (7-18) 08/21/24 05:35 Creatinine 1.13 mg/dL (0.70-1.30) 08/21/24 05:35 Glucose 137 mg/dL (74-106) H 08/21/24 05:35 Magnesium 1.9 mg/dL (1.6-2.4) 08/19/24 05:00 Total Bilirubin 1.2 mg/dL (0.2-1.0) H 08/18/24 05:06 AST 24 U/L (15-37) 08/18/24 05:06 ALT < 14 U/L (16-61) L 08/18/24 05:06 Alkaline Phosphatase 62 U/L (45-117) 08/18/24 05:06 Home Medications: Aspirin 81 mg PO BEDTIME 09/25/14 Gabapentin [Neurontin*] 300 mg PO TID 09/25/14 Cholecalciferol (Vitamin D3) [Vitamin D3] 2,000 unit PO DAILY 07/17/20 Insulin Glargine,Hum.rec.anlog [Basaglar Kwikpen U-100] 26 units SQ DAILY 07/17/20 Melatonin 10 mg PO BEDTIME PRN #30 08/19/20 predniSONE [Prednisone] 5 mg PO DAILY 03/10/22 Apixaban [Eliquis *] 2.5 mg PO BID #0 03/14/22 Apixaban [Eliquis *] 2.5 mg PO BID #60 tablet 11/09/23 Metoprolol Succinate 100 mg PO DAILY #90 11/09/23 Amlodipine [Norvasc*] 2.5 mg PO DAILY 08/18/24 Ascorbic Acid [Vitamin C] 1,000 mg PO DAILY 08/18/24 Atorvastatin Calcium [Lipitor*] 20 mg PO DAILY 08/18/24 Dutasteride 0.5 mg PO DAILY 08/18/24 Losartan Potassium 25 mg PO DAILY 08/18/24 pyRIDostigmine bromide [Mestinon*] 30 mg PO TID 08/18/24 Amiodarone HCl [Cordarone*] 200 mg PO DAILY #30 tab 08/21/24 New Medications: Amiodarone HCl [Cordarone*] 200 mg PO DAILY #30 tab Followup: Max Callahan MD [Primary Care Provider] -
--- NOTE | 2024-08-28 13:19 | EKG ---
Test Date: 2024-08-18 Test Time: 15:46:31 Financial Adviser: TG MEASUREMENT RESULTS: Intervals: Rate: 50 RI: 118 QRSD: 124 QT: 540 QTc: 492 [place]: P: RI: 118 QRS: -54 T: -25 INTERPRETIVE STATEMENTS: Sinus bradycardia with sinus arrhythmia RSR' or QR pattern in V1 suggests right ventricular conduction delay Left anterior fascicular block Left ventricular hypertrophy with QRS widening T wave abnormality, consider lateral ischemia Abnormal ECG Compared to ECG 08/17/2024 18:42:35 RSR' in V1 or V2 now present Left ventricular hypertrophy now present T-wave abnormality now present Possible ischemia now present Wide-QRS tachycardia no longer present Right bundle-branch block no longer present Bifascicular block no longer present Electronically Signed On 08-28-24 12:53:54 CDT by Toño Cervantes
--- NOTE | 2024-08-28 13:20 | EKG ---
Test Date: 2024-08-17 Test Time: 18:42:35 Machine Etcher: CELIA MEASUREMENT RESULTS: Intervals: Rate: 160 [place]: QRSD: 124 QT: 326 QTc: 531 [place]: P: [place]: QRS: -69 T: 60 INTERPRETIVE STATEMENTS: SVT Right bundle branch block Left anterior fascicular block Bifascicular block Abnormal ECG Compared to ECG 08/17/2024 18:02:40 Sinus bradycardia no longer present Left ventricular hypertrophy no longer present Bifascicular block still present Electronically Signed On 08-28-24 12:54:40 CDT by Toño Cervantes
--- NOTE | 2024-08-28 13:20 | EKG ---
Test Date: 2024-08-17 Test Time: 18:02:40 Employee Development Director: CELIA MEASUREMENT RESULTS: Intervals: Rate: 42 [place]: 174 QRSD: 126 QT: 498 QTc: 415 [place]: P: [place]: 174 QRS: -52 T: -27 INTERPRETIVE STATEMENTS: Marked sinus bradycardia Right bundle branch block Left anterior fascicular block Bifascicular block Voltage criteria for left ventricular hypertrophy Abnormal ECG Compared to ECG 08/17/2024 16:20:03 Sinus tachycardia no longer present Ventricular premature complex(es) no longer present Bifascicular block still present Electronically Signed On 08-28-24 12:54:45 CDT by Toño Cervantes
--- NOTE | 2024-08-28 13:20 | EKG ---
Test Date: 2024-08-17 Test Time: 16:20:03 Carbon Dioxide Operator: CELIA MEASUREMENT RESULTS: Intervals: Rate: 103 [place]: 166 QRSD: 120 QT: 402 QTc: 526 [place]: P: -15 [place]: 166 QRS: -46 T: 62 INTERPRETIVE STATEMENTS: Sinus tachycardia with frequent premature ventricular complexes Pulmonary disease pattern Right bundle branch block Left anterior fascicular block Bifascicular block Minimal voltage criteria for LVH, may be normal variant Abnormal ECG Compared to ECG 05/27/2024 11:02:17 Ventricular premature complex(es) now present Left ventricular hypertrophy now present Sinus bradycardia no longer present Bifascicular block still present Electronically Signed On 08-28-24 12:54:55 CDT by Toño Cervantes
== END 2024-08-21 14:11 | disposition home or self-care (01) | DRG 310 ==
LOC: ER 16:10 → ERHOLD 19:23 → 2ND 20:25 → ERHOLD 20:30 → 3RD-ICU 21:05 → OBSVTOIN 08-18 18:58 → 4TH 08-19 21:30
PROVIDERS: ADMIT Internal Medicine; ATTEND Internal Medicine
PROC: 02HV33Z Insertion of Infusion Device into Superior Vena Cava, Percutaneous Approach (ICD-10-PCS; principal; 2024-08-18)
DX: I48.91 Unspecified atrial fibrillation (principal); I48.92 Unspecified atrial flutter; M35.3 Polymyalgia rheumatica; I49.3 Ventricular premature depolarization; E87.6 Hypokalemia; I45.2 Bifascicular block; E83.42 Hypomagnesemia; I12.9 Hypertensive chronic kidney disease with stage 1 through stage 4 chronic kidney disease, or unspecified chronic kidney disease; N18.2 Chronic kidney disease, stage 2 (mild); E11.22 Type 2 diabetes mellitus with diabetic chronic kidney disease; E11.42 Type 2 diabetes mellitus with diabetic polyneuropathy; K59.00 Constipation, unspecified; Z28.310 Unvaccinated for COVID-19; Z79.82 Long term (current) use of aspirin; Z79.52 Long term (current) use of systemic steroids; Z79.01 Long term (current) use of anticoagulants; Z79.899 Other long term (current) drug therapy; Z96.659 Presence of unspecified artificial knee joint; Z87.891 Personal history of nicotine dependence; Z85.828 Personal history of other malignant neoplasm of skin
CPT/HCPCS: 36415; 71045; 72128; 72131; 74176; 80048; 80053; 81001; 82947; 83735; 84132; 84484; 85025; 93005; 96365; 96366; 96375; 97110; 97116; 97161; 97530; 99285; G0378; J1815; J2405; J3475; J7030; J7512

== ENCOUNTER 2025-01-30 12:08 | Inpatient (IN) | payer OTHER ==
[2025-01-30] MEDS ORDERED: AMIODARONE HCL 150 MG/3 ML INJ IV ONE (12:46)
[2025-01-30] MEDS ORDERED: AMIODARONE IN DEXTROSE,ISO-OSM 360 MG/200 ML BAG IV ONE ×2 (12:46→18:58)
[2025-01-30] MEDS ORDERED: D5W 100 ML IV ONE (12:47)
[2025-01-30] MEDS ORDERED: MAGNESIUM SULFATE 1 gm IVPB 1 GM/100 ML BAG IV ONE (12:47)
[2025-01-30 12:50] LABS: Absolute Lymphocytes (CBC) 1.8 K/uL (0.7-4.9); Hematocrit 38.8 % (39.6-49.0); Hemoglobin 13.5 g/dL (13.6-17.9); MCH 31.4 pg (27.0-35.0); MCHC 34.8 g/dL (32.0-36.0); MCV 90.2 fL (80-100); MPV 7.7 fL (7.6-11.3); Nucleated RBC Absolute Count 0.0 (0-0); Nucleated Red Blood Cells % 0.0 % (0-0); RBC Red Blood Cell Count 4.30 M/uL (4.33-5.43); White Blood Count 11.60 thou/uL (4.3-10.9)
[2025-01-30 12:57] LABS: PT Prothrombin Time 15.3 SECONDS (10-13.0); Protime INR 1.37
[2025-01-30 13:09] LABS: Anion Gap 10.7 mEq/L (5.0-15.0); BUN Blood Urea Nitrogen 18.0 mg/dL (7-18); Glucose Level 199.0 mg/dL (74-106); NT PRO-BNP 22011.0 pg/mL (<450); Potassium 3.7 mEq/L (3.5-5.1)
[2025-01-30 13:14] LABS: Troponin High Sensitivity 15954.2 pg/mL (<58.9)
[2025-01-30] MEDS ORDERED: NA CHLORIDE 0.9% 250 ML ONE (13:44)
[2025-01-30] MEDS ORDERED: ONDANSETRON 4 MG/2 ML VIAL ONE (13:44)
--- NOTE | 2025-01-30 13:49 | RAD REPORT ---
EXAMINATION: ONE VIEW CHEST XR CLINICAL INDICATION: PALPITATIONS TECHNIQUE: Frontal chest projection is submitted. Examination is limited by patient positioning and t echnique. COMPARISON: 08/18/2024 FINDINGS: The lungs are well inflated and clear. The heart is upper limit of normal in size. No displaced fract ures identified. IMPRESSION: No acute intrathoracic abnormalities.
--- NOTE | 2025-01-30 14:15 | ER ---
Nurse's Notes [facility] Name: Roberto Smith Age: 85 yrs Sex: Male : 1940 Arrival Date: 01/30/2025 Time: 12:08 Bed 19 Private MD: Diagnosis: Paroxysmal atrial fibrillation-with rapid ventricular rate Presentation: 01/30 12:25 Chief complaint: Patient states: sent by [facility]. Was going for stress me1 test but unable to complete it and sent to ER. HR 150. c/o left sided chest pain that feels tight x 3 days 08/15 with sob and fatigue. Coronavirus screen: Vaccine status: Patient reports receiving the 2nd dose of the covid vaccine. Ebola Screen: No symptoms or risks identified at this time. Initial Sepsis Screen: Does the patient meet any 2 criteria? HR > 90 bpm. Does the patient have a suspected source of infection? No. Patient's initial sepsis screen is negative. Risk Assessment: Do you want to hurt yourself or someone else? Patient reports no desire to harm self or others. Onset of symptoms is unknown. 12:25 Method Of Arrival: Wheelchair me1 12:25 Acuity: RAMON 2 me1 Historical: - Allergies: 12:28 No Known Allergies; me1 - PMHx: 12:28 Atrial fibrillation; HTN; DM; skin ca; me1 - PSHx: 12:28 back sx; me1 - Immunization history:: Adult Immunizations up to date. - Infectious Disease History:: Denies. - Social history:: Smoking status: Patient denies any tobacco usage or history of. - Family history:: not pertinent. - Hospitalizations: : No recent hospitalization is reported. Screenin:35 [facility] ED Fall Risk Assessment (Adult) History of falling in the last 3 months, rg5 including since admission No falls in past 3 months (0 pts) Confusion or Disorientation No (0 pts) Intoxicated or Sedated No (0 pts) Impaired Gait Yes (1 pt) Mobility Assist Device Used Yes (1 pt) Altered Elimination No (0 pt) Score/Fall Risk Level 0 - 2 = Low Risk Oriented to surroundings, Maintained a safe environment, Assessed \T\ reinforced patient's understanding of fall precautions, Provided non-skid footwear. Abuse screen: Denies threats or abuse. Nutritional screening: No deficits noted. Tuberculosis screening: No symptoms or risk factors identified. Assessment: 12:35 General: Appears uncomfortable, Behavior is calm, cooperative, appropriate for age. rg5 Pain: Complains of pain in chest. Neuro: Level of Consciousness is awake, alert, obeys commands, Oriented to person, place, time, situation. Cardiovascular: Reports chest pain, palpitations, Rhythm is atrial fibrillation. Respiratory: Airway is patent Respiratory effort is even, unlabored. GI: Abdomen is round non-distended. : No signs and/or symptoms were reported regarding the genitourinary system. EENT: No signs and/or symptoms were reported regarding the EENT system. Derm: Skin is intact, Skin is dry, Skin is normal. Musculoskeletal: Circulation, motion, and sensation intact. Range of motion: intact in all extremities. 13:24 Reassessment: HR down to 643 bpm, repeat EKG completed, Dr. López notified. iw 14:25 Reassessment: No changes from previously documented assessment. Patient and/or family rg5 updated on plan of care and expected duration. Pain level reassessed. Patient is alert, oriented x 3, equal unlabored respirations, skin warm/dry/pink. 16:35 Reassessment: Patient and/or family updated on plan of care and expected duration. Pain rg5 level reassessed. Patient is alert, oriented x 3, equal unlabored respirations, skin warm/dry/pink. 17:38 Reassessment: No changes from previously documented assessment. Patient and/or family rg5 updated on plan of care and expected duration. Pain level reassessed. Patient is alert, oriented x 3, equal unlabored respirations, skin warm/dry/pink. 18:30 Reassessment: No changes from previously documented assessment. Patient and/or family rg5 updated on plan of care and expected duration. Pain level reassessed. Patient is alert, oriented x 3, equal unlabored respirations, skin warm/dry/pink. 19:26 Reassessment: Patient and/or family updated on plan of care and expected duration. Pain rg5 level reassessed. Patient is alert, oriented x 3, equal unlabored respirations, skin warm/dry/pink. Patient states symptoms have improved. hospitalist oncwing was informed of Heart rate \T\ 59 and ordered to hold the amiodarone drip. Vital Signs: 12:25 BP 114 / 93; Pulse 150; Resp 19; Temp 98.2; Pulse Ox 100% ; Weight 81.65 kg; Height 6 me1 ft. 2 in. ; Pain 4/10; 13:24 BP 126 / 64; Pulse 66; Resp 20; Pulse Ox 97% on R/A; iw 14:30 BP 117 / 64; Pulse 60; Resp 18; Pulse Ox 95% ; rg5 15:30 BP 121 / 68; Pulse 59; Resp 18; Pulse Ox 97% ; rg5 16:30 BP 129 / 69; Pulse 62; Resp 18; Pulse Ox 100% ; rg5 17:25 BP 137 / 89; Pulse 61; Resp 18; Pulse Ox 100% ; rg5 18:30 BP 115 / 60; Pulse 62; Resp 18; Pulse Ox 97% ; rg5 19:26 BP 133 / 61; Pulse 59; Resp 17; Pulse Ox 97% ; rg5 12:25 Body Mass Index 23.11 (81.65 kg, 187.96 cm) me1 12:25 Pain Scale: Adult me1 ED Course: 12:13 Patient arrived in ED. al6 12:14 Huang López MD is Attending Physician. rn 12:28 Triage completed. me1 12:28 Arm band placed on Patient placed in an exam room. me1 12:32 Chito Lacey, CHELLY is Primary Nurse. rg5 12:35 Patient has correct armband on for positive identification. Placed in gown. Bed in low rg5 position. Call light in reach. Side rails up X2. Adult w/ patient. Door closed. Noise minimized. Warm blanket given. 12:35 No provider procedures requiring assistance completed. Inserted saline lock: 20 gauge rg5 in right antecubital area, using aseptic technique. Blood collected. Flushed with 10 mL NS. Patient maintains SpO2 saturation greater than 95% on room air. 13:00 Inserted saline lock: 20 gauge in left antecubital area, using aseptic technique. Blood rg5 collected. Flushed with 10 mL NS. 13:20 XRAY Chest (1 view) In Process Unspecified. EDMS 14:14 Max Callahan MD is Hospitalizing Provider. rn 16:00 Provided Education on: NEEDS FOR ADMIT. rg5 22:03 Patient admitted, IV remains in place. intact, No redness/swelling at site. rg5 Administered Medications: 12:55 Drug: amiodarone IVPB 900 mg, D5W IV 500 ml IVPB at 1 mg/min continuous; for 6 hrs, rg5 then change to 0.5 mg/min Route: IVPB; Rate: 1 mg/min; Site: right antecubital; 18:57 Follow up: Rate change 0.5 mg/min; IV Intake: 200ml rg5 19:26 Follow up: IV Status: Order to discontinue infusion rg5 13:05 Drug: Magnesium Sulfate IVPB 1 grams IVPB once over 1 hrs Route: IVPB; Infused Over: 1 rg5 hrs; Site: left antecubital; 16:04 Follow up: IV Status: Completed infusion; IV Intake: 100ml rg5 13:10 Drug: amiodarone IVPB 150 mg 100 ml IVPB once over 10 mins; (mix in D5W) Volume: 100 rg5 ml; Route: IVPB; Infused Over: 10 mins; Site: right antecubital; 13:20 Follow up: IV Status: Completed infusion; IV Intake: 100ml rg5 13:49 Drug: NS 0.9% IV 250 ml IV at bolus once; to be given as a bolus over 30 minutes Route: rg5 IV; Rate: bolus; Site: left antecubital; 14:15 Follow up: IV Status: Completed infusion; IV Intake: 250ml rg5 13:49 Drug: Ondansetron IVP 4 mg IVP once; over 2 minutes Route: IVP; Site: left antecubital; rg5 16:03 Follow up: Response: No adverse reaction rg5 Medication: 12:35 VIS not applicable for this client. rg5 Intake: 13:20 IV: 100ml; Total: 100ml. rg5 14:15 IV: 250ml; Total: 350ml. rg5 16:04 IV: 100ml; Total: 450ml. rg5 18:57 IV: 200ml; Total: 650ml. rg5 Outcome: 14:14 Decision to Hospitalize by Provider. rn 22:03 Admitted to ICU accompanied by nurse, via stretcher, on monitor, with chart, Report rg5 called to SAMMY SPAULDING 22:03 Condition: stable 22:03 Instructed on the need for admit, 22:04 Patient left the ED. rg5 Signatures: Dispatcher [employer] Kristi Tyler, RN RN Huang Cardona MD MD rn Eddleman, Michelle, RN RN me1 Chito Lacey RN RN rg5 Maliha [email or web address]
--- NOTE | 2025-01-30 14:15 | EDPHYS ---
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 12:35 The patient presents with a history of heart racing. Onset: The symptoms/episode rn began/occurred at an unknown time. Patient was at [facility] cardiology clinic, was getting stress test but was noted to have heart rate 150, given metoprolol without help so sent here for further care. Patient has known atrial fibrillation, takes Eliquis in addition to metoprolol. No chest pain but reports weakness and dizziness. No syncope.. Historical: - Allergies: 12:28 No Known Allergies; me1 - PMHx: 12:28 Atrial fibrillation; HTN; DM; skin ca; me1 - PSHx: 12:28 back sx; me1 - Immunization history:: Adult Immunizations up to date. - Infectious Disease History:: Denies. - Social history:: Smoking status: Patient denies any tobacco usage or history of. - Family history:: not pertinent. - Hospitalizations: : No recent hospitalization is reported. ROS: 12:35 Constitutional: Negative for fever, chills, and weight loss, Cardiovascular: Positive rn for palpitations and heart racing Respiratory: Negative for shortness of breath, cough, wheezing, and pleuritic chest pain, Abdomen/GI: Negative for abdominal pain, nausea, vomiting, diarrhea, and constipation, MS/Extremity: Negative for injury and deformity, Skin: Negative for injury, rash, and discoloration, Neuro: Positive for dizziness and generalized weakness Exam: 12:35 Constitutional: This is a well developed, well nourished patient who is awake, alert, rn and in no acute distress. Head/Face: Normocephalic, atraumatic. Cardiovascular: Tachycardic, irregular Respiratory: Mild tachypnea noted Abdomen/GI: Soft, non-tender Neuro: Awake and alert, GCS 15 15:39 ECG was reviewed by the Attending Physician. rn Vital Signs: 12:25 BP 114 / 93; Pulse 150; Resp 19; Temp 98.2; Pulse Ox 100% ; Weight 81.65 kg; Height 6 me1 ft. 2 in. ; Pain 4/10; 13:24 BP 126 / 64; Pulse 66; Resp 20; Pulse Ox 97% on R/A; iw 14:30 BP 117 / 64; Pulse 60; Resp 18; Pulse Ox 95% ; rg5 15:30 BP 121 / 68; Pulse 59; Resp 18; Pulse Ox 97% ; rg5 16:30 BP 129 / 69; Pulse 62; Resp 18; Pulse Ox 100% ; rg5 17:25 BP 137 / 89; Pulse 61; Resp 18; Pulse Ox 100% ; rg5 18:30 BP 115 / 60; Pulse 62; Resp 18; Pulse Ox 97% ; rg5 19:26 BP 133 / 61; Pulse 59; Resp 17; Pulse Ox 97% ; rg5 12:25 Body Mass Index 23.11 (81.65 kg, 187.96 cm) me1 12:25 Pain Scale: Adult me1 MDM: 12:14 Medical Screening Exam initiated rn 13:24 ED course: Patient started on amiodarone drip for tachycardia, after about an hour rn patient converted back to sinus rhythm, heart rate 65. BP is 126/64. 14:12 Differential diagnosis: arrythmia, dehydration, stress disorder, Atrial fibrillation rn with rapid ventricular rate. Data reviewed: vital signs, nurses notes, lab test result(s), EKG, radiologic studies, plain films, and as a result, I will admit patient. Independent interpretation of the following test(s) in the Emergency Department EKG: See my EKG interpretation above X-Ray: My interpretation is Chest x-ray images show cardiomegaly but no pneumothorax per my interpretation. secured entrance monitor: rate is 68 beats/min, Rhythm is normal sinus rhythm, regular, with no ectopy, Interpretation: normal rate, normal rhythm. Care significantly affected by the following chronic conditions: Diabetes, Hypertension. Counseling: I had a detailed discussion with the patient and/or guardian regarding the historical points, exam findings, and any diagnostic results supporting the discharge/admit diagnosis, lab results, radiology results, the need for further work-up and treatment in the hospital. Response to treatment: the patient's symptoms have markedly improved after treatment, and as a result, I will admit patient. 01/30 12:31 Order name: Basic Metabolic Panel; Complete Time: 13:15 rn 01/30 12:31 Order name: CBC with Diff; Complete Time: 13:15 rn 01/30 12:31 Order name: NT PRO-BNP; Complete Time: 13:15 rn 01/30 12:31 Order name: PT-INR; Complete Time: 13:15 rn 01/30 12:31 Order name: Troponin HS; Complete Time: 13:15 rn 01/30 12:31 Order name: XRAY Chest (1 view); Complete Time: 13:53 rn 01/30 14:11 Order name: EKG Electrocardiogram; Complete Time: 17:38 EDMS 01/30 15:35 Order name: CONS Physician Consult EDMS 01/30 12:31 Order name: Cardiac monitoring; Complete Time: 13:06 rn 01/30 12:31 Order name: EKG - Nurse/Tech; Complete Time: 12:57 rn 01/30 12:31 Order name: IV Saline Lock; Complete Time: 13: rn 01/30 12:31 Order name: Labs collected and sent; Complete Time: 13: rn 01/30 12:31 Order name: O2 Per Protocol; Complete Time: 13: rn 01/30 12:31 Order name: O2 Sat Monitoring; Complete Time: 13:06 rn EC:39 Rate is 151 beats/min. Rhythm is irregularly irregular. QRS is positive in lead I and rn negative in lead aVF. No Q waves. T waves are Normal. No ST changes noted. Clinical impression: Atrial Fibrillation. Interpreted by me. Reviewed by me. Administered Medications: 12:55 Drug: amiodarone IVPB 900 mg, D5W IV 500 ml IVPB at 1 mg/min continuous; for 6 hrs, rg5 then change to 0.5 mg/min Route: IVPB; Rate: 1 mg/min; Site: right antecubital; 18:57 Follow up: Rate change 0.5 mg/min; IV Intake: 200ml rg5 19:26 Follow up: IV Status: Order to discontinue infusion rg5 13:05 Drug: Magnesium Sulfate IVPB 1 grams IVPB once over 1 hrs Route: IVPB; Infused Over: 1 rg5 hrs; Site: left antecubital; 16:04 Follow up: IV Status: Completed infusion; IV Intake: 100ml rg5 13:10 Drug: amiodarone IVPB 150 mg 100 ml IVPB once over 10 mins; (mix in D5W) Volume: 100 rg5 ml; Route: IVPB; Infused Over: 10 mins; Site: right antecubital; 13:20 Follow up: IV Status: Completed infusion; IV Intake: 100ml rg5 13:49 Drug: NS 0.9% IV 250 ml IV at bolus once; to be given as a bolus over 30 minutes Route: rg5 IV; Rate: bolus; Site: left antecubital; 14:15 Follow up: IV Status: Completed infusion; IV Intake: 250ml rg5 13:49 Drug: Ondansetron IVP 4 mg IVP once; over 2 minutes Route: IVP; Site: left antecubital; rg5 16:03 Follow up: Response: No adverse reaction rg5 Disposition Summary: 01/30/25 14:14 Hospitalization Ordered Notes: Hospitalization Status: Inpatient Admission rn Provider: Max Callahan rn Location: Intensive Care Unit rn Condition: Stable rn Problem: new rn Symptoms: have improved rn Bed/Room Type: Standard rn Room Assignment: 5-(01/30/25 20:52) [facility] Diagnosis - Paroxysmal atrial fibrillation - with rapid ventricular rate rn Forms: - Medication Reconciliation Form rn - SBAR form rn - Leadership Thank You Letter burner tender time excluding procedures: 14:12 Critical care time: Bedside Care: 35 minutes. Total time: 35 minutes rn Signatures: Dispatcher [employer] EDMS Huang López MD MD rn Eddleman, Michelle RN RN Beba Becker [facility] Chito Lacey RN RN rg5 Corrections: (The following items were deleted from the chart) 12:31 12:31 BASIC METABOLIC PANEL+C.LAB.BRZ ordered. EDMS EDMS 12:31 12:31 CBC+H.LAB.BRZ ordered. EDMS EDMS 12:31 12:31 PROBNP+C.LAB.BRZ ordered. EDMS EDMS 12:31 12:31 PROTIME (+INR)+COAG.LAB.BRZ ordered. EDMS EDMS 12:31 12:31 Troponin High Sensitivity+C.LAB.BRZ ordered. EDMS EDMS 12:32 12:32 Chest Single View+RAD.RAD.BRZ ordered. EDMS EDMS 20:52 14:14 rn kmf
[2025-01-30 19:59] VITALS: BMI 23.1
[2025-01-30] MEDS ORDERED: ONDANSETRON 4 MG/2 ML VIAL IV PRN (20:18)
[2025-01-30] MEDS ORDERED: AMIODARONE HCL 900 MG in Dextrose 5%-Water 482 ML IV SCH (20:18)
[2025-01-30] MEDS ORDERED: AMIODARONE IN DEXTROSE,ISO-OSM 360 MG/200 ML BAG IV SCH ×2 (21:15→22:00)
[2025-01-30] MEDS: HEPARIN/D5W 25,000 UNIT/500 ML BAG IV SCH (23:29)
[2025-01-31 06:36] LABS: Absolute Lymphocytes (CBC) 1.7 K/uL (0.7-4.9); Hematocrit 33.4 % (39.6-49.0); Hemoglobin 11.9 g/dL (13.6-17.9); MCH 32.3 pg (27.0-35.0); MCHC 35.7 g/dL (32.0-36.0); MCV 90.5 fL (80-100); MPV 8.4 fL (7.6-11.3); Nucleated RBC Absolute Count 0.0 (0-0); Nucleated Red Blood Cells % 0.1 % (0-0); RBC Red Blood Cell Count 3.69 M/uL (4.33-5.43); White Blood Count 7.90 thou/uL (4.3-10.9)
[2025-01-31 06:52] LABS: Anion Gap 9.5 mEq/L (5.0-15.0); BUN Blood Urea Nitrogen 15.0 mg/dL (7-18); Glucose Level 74.0 mg/dL (74-106); Potassium 3.5 mEq/L (3.5-5.1)
[2025-01-31] MEDS ORDERED: VERAPAMIL HCL 10 MG/4 ML VIAL IV ONE (11:13)
[2025-01-31] MEDS ORDERED: HEPARIN 10,000 UNIT/10 ML VIAL IV ONE (11:13)
[2025-01-31] MEDS ORDERED: LIDOCAINE 1% 20 ML MDV ONE (11:13)
[2025-01-31] MEDS ORDERED: HEPA 1000U/500MLS 2,000 UNIT/1,000 ML BAG IV ONE (11:13)
[2025-01-31] MEDS ORDERED: ATROPINE SULF 1 MG/10 ML SYR IV ONE (11:13)
[2025-01-31] MEDS ORDERED: CLOPIDOGREL 75 MG TABLET ONE ×2 (11:14→11:15)
[2025-01-31] MEDS ORDERED: HEPARIN 5000 UNIT/ML 1 ML VIAL ONE (11:14)
[2025-01-31] MEDS ORDERED: TICAGRELOR 90 MG TABLET PO ONE (11:14)
[2025-01-31] MEDS: ASPIRIN 325 MG TAB PO ONE (11:40)
[2025-01-31] MEDS: FENTANYL CITR 100 MCG/2 ML ONE (11:49)
[2025-01-31] MEDS: NA CHLORIDE 0.9% 500 ML ONE (11:49)
[2025-01-31] MEDS: MIDAZOLAM HCL 2 MG/2 ML INJ ONE (11:49)
--- NOTE | 2025-01-31 13:03 | P.HP ---
Patient History Date of Service: 01/31/25 Reason for admission: CHEST PAIN AND FLUTTER FOR 3 DAYS History of Present Illness: MR DEUTSCH HAS MANY MEDICAL ISSUES. HE HAS HAD A FIB. CAD, PMR ON STEROIDS, DIABETES WITH CKD, SEVERE ORTHOSTASIS IMPROVED ONLY ON ORAL PYRIDOSTIGMINE. HE COMES WITH CP AND RAPID A FIB TO ER. AMIO DRIP WAS STARTED THAT CONTROLLED A FIB. TROP 1 INCREASED TO 20K. HE WILL HAVE CATH TODAY. HE IS STABLE AND HAS SOME PAIN NOW IN THE PRECORDIUM. FOLLOWING IS THE HISTORY. Problem List 2018 CKD (chronic kidney disease) stage 2, GFR 60-89 ml/min [N18.2] 2018 Anxiety [F41.9] 2020 Pleural mass [J94.8] HAS BEEN TO [facility]. HAS BEEN TO [facility]. 2020 Orthostatic hypotension [I95.1] 150 TO 100 ON STANDING SYSTOLIC DOING GREAT ON PYRIDOSTIGMINE. BP HIGH NOW , STANDING 180. NOT DROPPING ANY LONGER. 150 TO 100 ON STANDING SYSTOLIC DOING GREAT ON PYRIDOSTIGMINE. BP HIGH NOW , STANDING 180. NOT DROPPING ANY LONGER. 202 Diabetes mellitus with stage 3 chronic kidney disease [E11.22, N18.30 0.2 0.1] 202 Diabetic autonomic neuropathy [E11.43 0.2] 2020 Diabetic peripheral neuropathy [E11.42 0.2] 2021 Elevated PSA [R97.20] MILD MILD 2021 Osteoarthritis of spine [M47.9] 2022 Abdominal aortic aneurysm [I71.40] 3.2 CM 3.2 CM 2023 Rapid atrial fibrillation [I48.91 0.3] RESOLVED WITH ONE DOSE OF METOPROLOL IV. RESOLVED WITH ONE DOSE OF METOPROLOL IV. 2024 Insomnia [G47.00] try trazadone try trazadone 2024 Compression fracture of L1 lumbar vertebra and osteopenia [S32.010A 0.5, M85.80] mild. sent risedronate recommend bone restore with K2 mild. sent risedronate recommend bone restore with K2 Hide 2024 Lumbar muscle pain [M79.18] likely 2/2 fall. multimodal pain regimen below likely 2/2 fall. multimodal pain regimen below 2024 L1 vertebral fracture [S32.019A 0.5] DR. PAOLO BOONE 2024 PMR (polymyalgia rheumatica) [M35.3] 2024 Tubular adenoma [D36.9] Allergies No Known Allergies Allergy (Verified 07/16/20 23:27) Home medications list reviewed: Yes Home Medications: Aspirin 81 mg PO BEDTIME 09/25/14 Gabapentin [Neurontin*] 300 mg PO TID 09/25/14 Cholecalciferol (Vitamin D3) [Vitamin D3] 2,000 unit PO DAILY 07/17/20 Insulin Glargine,Hum.rec.anlog [Basaglar Kwikpen U-100] 20 units SQ DAILY 07/17/20 Melatonin 10 mg PO BEDTIME PRN #30 08/19/20 predniSONE [Prednisone] 5 mg PO DAILY 03/10/22 Apixaban [Eliquis *] 2.5 mg PO BID #0 03/14/22 Metoprolol Succinate 100 mg PO DAILY #90 11/09/23 Amlodipine [Norvasc*] 2.5 mg PO DAILY 08/18/24 Ascorbic Acid [Vitamin C] 1,000 mg PO DAILY 08/18/24 Atorvastatin Calcium [Lipitor*] 20 mg PO DAILY 08/18/24 Dutasteride 0.5 mg PO DAILY 08/18/24 Losartan Potassium 25 mg PO DAILY 08/18/24 pyRIDostigmine bromide [Mestinon*] 30 mg PO BID 08/18/24 - Past Medical/Surgical History Has patient received pneumonia vaccine in the past: Yes Diabetic: Yes -: High cholesterol -: DM -: skin cancer -: AFIB -: 2 partial knee replacement -: 3 hernia repairs -: skin cancer removal -: bilateral cataract surgery -: tonsillectomy - Family History Father -: Cancer Notes: lung cancer Mother Notes: none - Social History Smoking Status: Never smoker Alcohol use: No CD- Drugs: No Caffeine use: Yes Review of Systems 10-point ROS is otherwise unremarkable Physical Examination - Vital Signs Temperature: 98.1 F Blood Pressure: 141/70 Pulse: 58 Respirations: 16 Pulse Ox (%): 95 - Physical Exam General: Mild distress HEENT: Atraumatic, PERRLA, Mucous membr. moist/pink, EOMI, Sclerae nonicteric Neck: Supple, 2+ carotid pulse no bruit, No LAD, Without JVD or thyroid abnormality Respiratory: Clear to auscultation bilaterally, Normal air movement Cardiovascular: Irregular heart rate/rhythm Gastrointestinal: Normal bowel sounds, No tenderness Musculoskeletal: No tenderness Integumentary: No rashes Neurological: Normal gait, Normal speech, Normal strength at 5/5 x4 extr, Normal tone, Normal affect Lymphatics: No axilla or inguinal lymphadenopathy - Studies Laboratory Data (last 24 hrs) 01/30/25 01/30/25 12:45 12:45 PT 15.3 H INR 1.37 Sodium 139 Potassium 3.7 BUN 18 Creatinine 1.68 H Glucose 199 H Assessment and Plan - Problems (Diagnosis) (1) Rapid atrial fibrillation Current Visit: Yes Status: Acute Plan: THIS CAN BE FROM ACUTE CORONARY SYNDROME. AMIO IV HEPARIN IV MANAGED BY CARDIOLOGY TEAM. (2) Coronary artery disease Current Visit: Yes Status: Acute Plan: [place]U [place]. HEP IV CATH TODAY. PLAN PER CARDIOLOGY I WILL BE OUT OF TOWN FOR A FEW DAYS. HOSPITAL MD. WILL COVER. (3) Diabetes mellitus due to underlying condition with chronic kidney disease on chronic dialysis Current Visit: Yes Status: Acute (4) Orthostasis Current Visit: No Status: Chronic - Advance Directives Does patient have a Living Will: No Does patient have a Durable POA for Healthcare: No
[2025-01-31] MEDS: APIXABAN 2.5 MG TABLET PO SCH (14:24)
[2025-01-31] MEDS: GABAPENTIN 300 MG CAP PO SCH (15:22)
--- NOTE | 2025-01-31 15:32 | CON ---
Date of Consultation: 01/31/2025 Reason For Consultation: Chest pain and elevated troponin. History Of Present Illness: This is an elderly male, 85 years of age, known to have history of coron minoo artery disease, atrial fibrillation, diabetes, chronic kidney disease. He came into the emergenc y room with rapid atrial fibrillations having chest pain, left-sided, radiating to left upper extremi ty and troponin was very high, peaked above 15,000, and I saw him by bedside today, and he converted in sinus rhythm, and he is chest pain free. Past Medical History: As outlined above in the HPI. Medications: Refer to reconciliation sheet for detailed list. Allergies: NO KNOWN DRUG ALLERGIES. Family History: No premature coronary artery disease or cancer. Social History: He does not smoke or drink. Does not use any drugs. Review of Systems: All systems were reviewed and they were negative except as mentioned in the HPI. Physical Examination: Vital Signs: Reviewed. Head and Neck: Pupils are equal, reactive to light. Intact eye movements. No JVD. No cervical lym phadenopathy. Lungs: Clear to auscultation bilaterally. No rhonchi, wheezing, or crackles. No accessory muscle u se. Heart: Regular rate and rhythm. No extra sounds. Abdomen: Soft, nontender. Bowel sounds positive. No organomegaly. No masses or hernia. No rigidi ty or rebound. Extremities: No edema, clubbing, or cyanosis. Intact pulses. Skin: No rash. No nodule. Neurologic: Alert, awake, oriented x3. No acute focal deficits appreciated. Investigations: Troponin peaked at 20,000 down to 16,000, BUN 15, creatinine 1.38, and hemoglobin is 11.9. Assessment And Recommendations: 1. Acute lil-ER-oyzukuwec myocardial infarction. Keep patient NPO. Continue IV heparin and baby asp irin. Plan for coronary angiogram today. 2. Atrial fibrillation with rapid ventricular response. He converted to sinus rhythm. Continue with Eliquis 2.5 mg twice a day as well as metoprolol. 3. Dyslipidemia. Recommend atorvastatin 40 mg q.h.s. 4. Hypertension. Blood pressure is controlled. Case discussed with Dr. Callahan. SR/MODL Voice ID: [id number] Report ID: [id number]
[2025-01-31] MEDS: ALPRAZOLAM 0.25 MG TABLET PO PRN (16:49)
[2025-01-31] MEDS: PANTOPRAZOLE 40MG TABLET PO SCH (16:49)
[2025-01-31] MEDS: SERTRALINE HCL 50 MG TAB PO SCH (16:49)
[2025-01-31] MEDS: ALBUTEROL 2.5 MG/3 ML NEB SOL ONE (20:01)
[2025-01-31] MEDS: IPRATROPIUM BROM 0.5MG/2.5ML NEB PRN (20:03)
[2025-01-31] MEDS: ALBUTEROL 2.5 MG/3 ML NEB SOL NEB PRN (20:03)
[2025-01-31] MEDS ORDERED: ASPIRIN 81 MG CHEWABLE TABLET PO SCH (21:00)
[2025-01-31] MEDS: PYRIDOSTIGMINE 60 MG TABLET PO SCH (21:00)
[2025-01-31] MEDS: ATORVASTATIN 20 MG TAB PO SCH (21:01)
[2025-01-31] MEDS: TICAGRELOR 90 MG TABLET PO SCH (21:01)
[2025-01-31] MEDS: MELATONIN 5 MG TABLET PO PRN (21:08)
--- NOTE | 2025-01-31 21:28 | OP ---
Date of Procedure: 01/31/2025 Surgeon: JONATHAN SHARP Procedures Performed: 1. Selective coronary angiogram. 2. Left heart catheterization. 3. PCI of severe mid LAD stenosis which is a culprit for the AK, I used 3.0 x 28 mm Synergy drug-elut ing stent. 4. Balloon angioplasty of severe septal branch 1 of the ostium, I used 2.0 x 12 mm Compliant balloon. Indication: [id number] myocardial infarction. Access: Right radial artery 6-Montserratian closed with TR band. Complications: None. Bleeding: Less than 100 mL. Total Sedation Time: 1 hour, used fentanyl and Versed. Description Of Procedure: After risks, benefits, and alternatives were explained, the patient agreed to procedure and signed informed consent. The patient was [facility] into [facility], prepped and draped in the usual sterile fashion. Then, I accessed the right radial artery us ing pediatric micropuncture kit and ultrasound guidance, and placed a 6-Montserr[place]ian slender sheath and too k 5-Montserratian [place] 4.0 catheter over a J-wire into the aortic root across the aortic valve, measured th e LVEDP. Pullback did not record any significant gradient. Then, I engaged the left main, took nandini dard views, and then in the RCA, took standard views, and then gave systemic heparin to assure ACT le kwame above 250, and took EBU 3.5 guide into the aortic root over a J-wire, engaged the left main, and loaded with 180 mg of Brilinta and the patient already had aspirin. Took Runthrough wire into the LA D, placed it distally, and a 3.0 x 12 Compliant balloon lesion expanded very well. Then, I took a 3. 0 x 28 mm Synergy drug-eluting stent with the help of a GuideLiner. The stent was positioned in the mid LAD successfully and stent was deployed. No complications. Final angiogram showed a significant jailing of the S1 ostium with very sluggish flow, CELESTINO-1 flow. As such, we took the Runthrough wire into the septal branch through the stent and then took a 2.0 x 12 mm Compliant balloon and did ballo on angioplasty and the stenosis resolved. CELESTINO-3 flow was restored. Then, I removed all wires. Fin al angiogram was satisfactory and removed the guide and the sheath and placed TR band with good hemos tasis. Findings: 1. Left main; large with 20% stenosis. 2. LAD; very large, proximal 30%, mid has a long 99% lesion, status post successful PCI. Diagonal br anch 2 has ostial 80% stenosis. S1 branch has 99% stenosis, status post successful balloon angioplas ty, and then the mid LAD, mid to distal, there is a long lesion that is 60%, and diagonal 3 branch jacob s ostial 60% stenosis. 3. Left circumflex; it is a large size artery with mid 40% stenosis. Normal OM branch. 4. RCA; large and dominant, proximal 40%, mid to distal multiple tandem lesions ranging between 30% a nd 50% and the PLB and PDA are coming from the RCA and they are both with luminal irregularities. 5. LVEDP is normal at 6 mmHg. Conclusion: 1. Severe mid LAD disease, which is the culprit, status post successful PCI. 2. Moderate coronary artery disease elsewhere. Recommendation: Aspirin, Brilinta, high-dose statin. Follow up in the office in 1 or 2 weeks postdi scharge. Patient can be released tomorrow if continues to be stable. SR/MODL Voice ID: [id number] Report ID: [id number]
[2025-02-01 04:18] VITALS: O2SAT 99
[2025-02-01] MEDS: LOSARTAN POTASSIUM 50 MG TABLET PO SCH (08:37)
[2025-02-01] MEDS: METOPROLOL XL 100 MG TAB PO SCH (08:38)
[2025-02-01] MEDS: ASPIRIN 81 MG CHEWABLE TABLET PO SCH (08:38)
[2025-02-01] MEDS: INSULIN GLARGINE 100 UNIT/ML SQ SCH (08:39)
[2025-02-01] MEDS: DUTASTERIDE 0.5 MG GEL CAP PO SCH (08:44)
[2025-02-01 10:02] LABS: Hematocrit 30.7 % (39.6-49.0); Hemoglobin 10.9 g/dL (13.6-17.9); MCH 31.8 pg (27.0-35.0); MCHC 35.3 g/dL (32.0-36.0); MCV 90.2 fL (80-100); MPV 8.1 fL (7.6-11.3); RBC Red Blood Cell Count 3.41 M/uL (4.33-5.43); White Blood Count 8.70 thou/uL (4.3-10.9)
[2025-02-01 10:12] LABS: Anion Gap 12.7 mEq/L (5.0-15.0); BUN Blood Urea Nitrogen 15.0 mg/dL (7-18); Glucose Level 218.0 mg/dL (74-106); Potassium 3.7 mEq/L (3.5-5.1)
--- NOTE | 2025-02-01 11:04 | P.PN ---
Date of Service: 02/01/25 Subjective: had LAD stent placed yesterday feeling better today currently in normal sinus rhythm HR stable in 70-80s Physical Exam: Gen: Alert, Oriented, NAD CV: Regular rate and rhythm, no edema Pulm: Nonlabored respirations on room air, clear bilaterally Abdomen: Soft, nontender, nondistended Neuro: Normal strength, normal affect Problem List: Moderate-Severe CAD s/p PCI (01/31) A-fib with RVR CKD3 Hx tubular adenoma Hx orthostasis on admission, presents to the ED in a-fib with RVR. Initial Troponin 16k, peaked at 20.6k s/p Heparin and amiodarone drips Cardiology is following s/p LHC (01/31): severe mid LAD disease s/p PCI, moderate CAD elsewhere asa 81mg, brilinta, statin f/u with cardio in 1-2 weeks for further management converted back into sinus rhythm. HR stable in 70-80s Continue to monitor renal function. Stable. Continue home eliquis, amlodipine, losartan, metoprolol, prednisone VTE: home eliquis Code: Dispo: Home
[2025-02-01] MEDS: AMLODIPINE 2.5 MG TAB PO SCH (11:10)
[2025-02-01 13:33] VITALS: TEMP 98.2
--- NOTE | 2025-02-01 15:52 | PN ---
Date of Progress Note: 02/01/2025 Subjective: Seen by bedside. Doing well. No chest pain. There is oozing from the IV lines with th e presence of Eliquis, Brilinta, and aspirin on board. Denies having any chest pain. Feeling much b robert today. Review of Systems: No chest pain, shortness of breath, orthopnea, cough. No nausea, vomiting, diarrhea. All other syst ems reviewed and they are negative. Physical Examination: Vital Signs: Reviewed. Head and Neck: Pupils are equal, reactive to light. Intact eye movements. No JVD. No cervical lym phadenopathy. Neck is supple. Thyroid is not enlarged. Lungs: Clear to auscultation bilaterally. No rhonchi, wheezing, or crackles. No accessory muscle u se. Heart: Regular rate and rhythm. No extra sounds. Abdomen: Soft, nontender. Bowel sounds positive. No organomegaly. No masses or hernia. No rigidi ty or rebound. Extremities: No edema, clubbing, or cyanosis. Intact pulses. Skin: No rash. No nodules. Neurologic: Alert, awake, oriented x3. No acute focal deficits appreciated. Investigations: BUN 15, creatinine 1.5. Assessment And Recommendations: 1. Acute non-ST elevation myocardial infarction. Culprit was mid LAD, status post successful PCI. C ontinue with baby aspirin and Brilinta 90 mg twice a day and increase atorvastatin to 40 mg q.h.s. 2. Dyslipidemia. Increase atorvastatin to 40 mg q.h.s. 3. Coronary artery disease. He needs further evaluation. Plan to do a stress test on him in 3 months. From Cardiology standpoint, the patient can be released to follow up in 1 week post discharge. SR/MODL Voice ID: [id number] Report ID: [id number]
[2025-02-01 16:20] VITALS: BP 130/73
--- NOTE | 2025-02-02 12:24 | P.DS ---
Admission Date: 01/30/25 Discharge Date: 02/01/25 Disposition: ROUTINE DISCHARGE Discharge Condition: GOOD Reason for Admission: CHEST PAIN AND FLUTTER FOR 3 DAYS Consultations: Cardiology - Dr. Aragon Brief History of Present Illness: MR DEUTSCH HAS MANY MEDICAL ISSUES. HE HAS HAD A FIB. CAD, PMR ON STEROIDS, DIABETES WITH CKD, SEVERE ORTHOSTASIS IMPROVED ONLY ON ORAL PYRIDOSTIGMINE. HE COMES WITH CP AND RAPID A FIB TO ER. AMIO DRIP WAS STARTED THAT CONTROLLED A FIB. TROP 1 INCREASED TO 20K. HE WILL HAVE CATH TODAY. HE IS STABLE AND HAS SOME PAIN NOW IN THE PRECORDIUM. Hospital Course: Problem List: Moderate-Severe CAD s/p PCI (01/31) A-fib with RVR CKD3 Hx tubular adenoma Hx orthostasis Physician discharge instructions: Patient presented to the ED with chest pain, palpitations and was found to be in a-fib with RVR. Patient was started on an amiodarone drip in the ED and converted back into sinus rhythm. Initial troponin was 16k and peaked at 20.6k. Cardiology was consulted and patient was taken to [facility] for urgent left heart cath. Left heart cath done 01/31 noted severe mid LAD disease s/p PCI, moderate CAD elsewhere (full report below). He was started on DAPT with brilinta, asa 81 mg in addition to atorvastatin post operatively. Patient was feeling better, chest pain improved, heart rate and rhythm improved, and was deemed stable for discharge. Follow up with cardiology in the office in 1-2 weeks for further management. Follow up with Dr. Callahan in 1 week. Post-operative he was noted to have bleeding and brusing of his right arm, and developed left eye conjunctival hemorrhage which remained stable throughout day of discharge. Discussed may increase in size, but to monitor closely and seek urgent care if vision is affected. Discussed with Dr. Aragon - hold off eliquis for now. Medications: Brilinta Aspirin 81mg Atorvastatin STOP eliquis for now Follow up: Dr. Callahan next week Cardiology in 1-2 weeks Please call to schedule / confirm appointments Findings: 1. Left main; large with 20% stenosis. 2. LAD; very large, proximal 30%, mid has a long 99% lesion, status post successful PCI. Diagonal branch 2 has ostial 80% stenosis. S1 branch has 99% stenosis, status post successful balloon angioplasty, and then the mid LAD, mid to distal, there is a long lesion that is 60%, and diagonal 3 branch has ostial 60% stenosis. 3. Left circumflex; it is a large size artery with mid 40% stenosis. Normal OM branch. 4. RCA; large and dominant, proximal 40%, mid to distal multiple tandem lesions ranging between 30% and 50% and the PLB and PDA are coming from the RCA and they are both with luminal irregularities. 5. LVEDP is normal at 6 mmHg. Conclusion: 1. Severe mid LAD disease, which is the culprit, status post successful PCI. 2. Moderate coronary artery disease elsewhere. Physical Exam: Gen: Alert, Oriented, NAD CV: Regular rate and rhythm, no edema Pulm: Nonlabored respirations on room air, clear bilaterally Abdomen: Soft, nontender, nondistended Neuro: Normal strength, normal affect Vital Signs/Physical Exam: Temp Pulse Resp BP Pulse Ox 98.2 F 68 20 130/73 100 02/01/25 12:00 02/01/25 16:00 02/01/25 16:00 02/01/25 16:00 02/01/25 16:00 Laboratory Data at Discharge: WBC 8.70 thou/uL (4.3-10.9) 02/01/25 09:43 Hgb 10.9 g/dL (13.6-17.9) L D 02/01/25 09:43 Hct 30.7 % (39.6-49.0) L 02/01/25 09:43 Plt Count 173 thou/uL (152-406) 02/01/25 09:43 PT 15.3 SECONDS (10-13.0) H 01/30/25 12:45 INR 1.37 01/30/25 12:45 APTT 58.1 SECONDS (27.2-37.4) H 01/31/25 07:35 Sodium 136 mEq/L (136-145) 02/01/25 09:43 Potassium 3.7 mEq/L (3.5-5.1) 02/01/25 09:43 BUN 15 mg/dL (7-18) 02/01/25 09:43 Creatinine 1.51 mg/dL (0.70-1.30) H 02/01/25 09:43 Glucose 218 mg/dL (74-106) H 02/01/25 09:43 Home Medications: Aspirin 81 mg PO BEDTIME 09/25/14 Gabapentin [Neurontin*] 300 mg PO TID 09/25/14 Cholecalciferol (Vitamin D3) [Vitamin D3] 2,000 unit PO DAILY 07/17/20 Insulin Glargine,Hum.rec.anlog [Basaglar Kwikpen U-100] 20 units SQ DAILY 07/17/20 Melatonin 10 mg PO BEDTIME PRN #30 08/19/20 predniSONE [Prednisone] 5 mg PO DAILY 03/10/22 Metoprolol Succinate 100 mg PO DAILY #90 11/09/23 Amlodipine [Norvasc*] 2.5 mg PO DAILY 08/18/24 Ascorbic Acid [Vitamin C] 1,000 mg PO DAILY 08/18/24 Atorvastatin Calcium [Lipitor*] 20 mg PO DAILY 08/18/24 Dutasteride 0.5 mg PO DAILY 08/18/24 Losartan Potassium 25 mg PO DAILY 08/18/24 pyRIDostigmine bromide [Mestinon*] 30 mg PO BID 08/18/24 Ticagrelor [Brilinta*] 90 mg PO BID 30 Days #60 tab 02/01/25 New Medications: Ticagrelor [Brilinta*] 90 mg PO BID 30 Days #60 tab Physician Discharge Instructions: Physician discharge instructions: Patient presented to the ED with chest pain, palpitations and was found to be in a-fib with RVR. Patient was started on an amiodarone drip in the ED and converted back into sinus rhythm. Initial troponin was 16k and peaked at 20.6k. Cardiology was consulted and patient was taken to [facility] for urgent left heart cath. Left heart cath done 01/31 noted severe mid LAD disease s/p PCI, moderate CAD elsewhere (full report below). He was started on DAPT with brilinta, asa 81 mg in addition to atorvastatin post operatively. Patient was feeling better, chest pain improved, heart rate and rhythm improved, and was deemed stable for discharge. Follow up with cardiology in the office in 1-2 weeks for further management. Follow up with Dr. Callahan in 1 week. Post-operative he was noted to have bleeding and brusing of his right arm, and developed left eye conjunctival hemorrhage which remained stable throughout day of discharge. Discussed may increase in size, but to monitor closely and seek urgent care if vision is affected. Discussed with Dr. Aragon - hold off eliquis for now. Medications: Brilinta Aspirin 81mg Atorvastatin STOP eliquis for now Follow up: Dr. Callahan next week Cardiology in 1-2 weeks Please call to schedule / confirm appointments Findings: 1. Left main; large with 20% stenosis. 2. LAD; very large, proximal 30%, mid has a long 99% lesion, status post successful PCI. Diagonal branch 2 has ostial 80% stenosis. S1 branch has 99% stenosis, status post successful balloon angioplasty, and then the mid LAD, mid to distal, there is a long lesion that is 60%, and diagonal 3 branch has ostial 60% stenosis. 3. Left circumflex; it is a large size artery with mid 40% stenosis. Normal OM branch. 4. RCA; large and dominant, proximal 40%, mid to distal multiple tandem lesions ranging between 30% and 50% and the PLB and PDA are coming from the RCA and they are both with luminal irregularities. 5. LVEDP is normal at 6 mmHg. Conclusion: 1. Severe mid LAD disease, which is the culprit, status post successful PCI. 2. Moderate coronary artery disease elsewhere. Followup: Max Callahan MD [Primary Care Provider] - Time spent managing pt's care (in minutes): 45
== END 2025-02-01 17:00 | disposition home or self-care (01) | DRG 321 ==
LOC: ER 12:08 → ERHOLD 15:32 → 3RD-ICU 21:06
PROVIDERS: ADMIT Internal Medicine; ATTEND Hospitalist
PROC: 027034Z Dilation of Coronary Artery, One Artery with Drug-eluting Intraluminal Device, Percutaneous Approach (ICD-10-PCS; principal; 2025-01-31)
PROC: 02703ZZ Dilation of Coronary Artery, One Artery, Percutaneous Approach (ICD-10-PCS; 2025-01-31)
PROC: 4A023N7 Measurement of Cardiac Sampling and Pressure, Left Heart, Percutaneous Approach (ICD-10-PCS; 2025-01-31)
PROC: B2111ZZ Fluoroscopy of Multiple Coronary Arteries using Low Osmolar Contrast (ICD-10-PCS; 2025-01-31)
DX: I48.0 Paroxysmal atrial fibrillation (principal); I21.4 Non-ST elevation (NSTEMI) myocardial infarction; I12.9 Hypertensive chronic kidney disease with stage 1 through stage 4 chronic kidney disease, or unspecified chronic kidney disease; N18.30 Chronic kidney disease, stage 3 unspecified; E11.22 Type 2 diabetes mellitus with diabetic chronic kidney disease; E78.00 Pure hypercholesterolemia, unspecified; I25.10 Atherosclerotic heart disease of native coronary artery without angina pectoris; Z79.01 Long term (current) use of anticoagulants; Z79.82 Long term (current) use of aspirin; Z79.4 Long term (current) use of insulin; Z79.52 Long term (current) use of systemic steroids; Z79.899 Other long term (current) drug therapy; Z96.653 Presence of artificial knee joint, bilateral; Z85.828 Personal history of other malignant neoplasm of skin
CPT/HCPCS: 36415; 71045; 76937; 80048; 82947; 83880; 84484; 85025; 85027; 85347; 85610; 85730; 93005; 93458; 94640; 99152; 99153; 99285; C1725; C1893; C9600; J0282; J0461; J1644; J2003; J2250; J2405; J3010; J3475; J7040; J7050; J7512; J7613; J7644; Q9967